=== PATIENT | female | born 1975 | race Caucasian/White ===

== ENCOUNTER 2022-02-03 07:26 | Emergency (ER) | payer SELFPAY ==
[2022-02-03 07:31] VITALS: BP 171/91; PULSE 49; RESP 18; TEMP 36.6; O2SAT 99; BMI 27.4
[2022-02-03 08:00] VITALS: BP 148/81; BP 154/87; PULSE 51; O2SAT 95; O2SAT 97
[2022-02-03 08:30] VITALS: BP 148/81; PULSE 95; O2SAT 51
--- NOTE | 2022-02-03 08:30 | CRLHL7_ITS ---
For Patients: As a result of the Century Cures Act, medical imaging exams and procedure reports are released immediately into your electronic medical record. You may view this report before your referring provider. If you have questions, please contact your health care provider. INDICATION: Upper chest pain. TECHNIQUE: Chest 2 views. COMPARISON: None. FINDINGS: Cardiovascular and mediastinum: Heart size and vasculature are normal in caliber and appearance. Lungs and pleural spaces: Lungs are clear. No sign of infiltrate or mass. No sign of pleural effusion. No pneumothorax. Bones and soft tissues: No significant findings. IMPRESSION: Negative chest. Dictated by Hudson Martinez MD @ 02/03/2022 8:57:08 AM (Electronically Signed)
--- NOTE | 2022-02-03 08:30 | ED.GENADULT ---
HPI - General Adult General Time Seen by Provider: 08:31 Date Seen: 02/03/22 Chief complaint: Shoulder Injury/Pain Stated complaint: Bilateral shoulder pain Time Seen by Provider: 02/03/22 08:05 Source: patient History of Present Illness HPI narrative: Kim is a 46-year-old female past medical history includes DVT on chronic anticoagulation with Eliquis, gastric ulcer status post perforation status post perforation, alcohol abuse, status post Layo-en-Y, bradycardia, depression and anxiety, chronic anemia presents to emergency department from work with bilateral shoulder pain. patient states that she had similar symptoms about 6 weeks ago, she was seen in the hospital and had imaging done. She works over at [employer], she has not been doing any lifting since her injury 6 weeks ago, today her bilateral shoulder pain has gotten worse, she did do some laundry yesterday. pain is on the anterior aspect of bilateral shoulders, a radiates up her neck. she denies any radiation to her back, she denies any chest pain or shortness of breath, she is not currently on a new medications. She denies any nausea vomiting, or abdominal pain, she denies any diarrhea. she took some extra-strength Tylenol last night, she is unable to take any ibuprofen due to her Layo-en-Y. pain is worse with sitting up or any type of movement with extension of her upper extremities. she denies any numbness or tingling. she denies any upper back pain. pain is worse with inspiration, she has not had any cough. She denies any fevers or chills. Related Data Previous Rx's Medication Instructions Recorded diazepam 5 mg tablet (Valium) 5 mg PO Q6H PRN #14 tabs 02/03/22 Allergies Allergy/AdvReac Type Severity Reaction Status Date / Time ondansetron [From Zofran] Allergy Verified 02/03/22 07:29 ibuprofen AdvReac Verified 02/03/22 07:29 Review of Systems Status of ROS: Reports: 10 or more systems reviewed and unremarkable except as noted in History and below PFSH PFS Social History Smoking Status: Never smoker Do you use any of these nicotine containing products: None Second hand tobacco smoke exposure: No How often do you have a drink containing alcohol: never How often do you have six or more drinks on one occasion: Never AUDIT-C Alcohol total score: 0 Non-prescribed substance use: denies use service: No Exam Narrative: Exam Narrative: General: no obvious distress sitting comfortably HEENT: pupils equal round reactive to light, extraocular muscles intact neck: tender to palpation bilateral SCM, nontender cervical spine full range of motion Lungs: clear to auscultation bilaterally heart: sinus bradycardia Muscle skeletal: minimal tenderness to empty can test bilaterally, minimal tenderness to internal-external rotation bilaterally,, she can abduct to 180?, tender to palpation the anterior deltoid and the sternocleidomastoids bilaterally, nontender cervical spine, full range of motion. nontender to palpation the upper thoracic paraspinal musculature. Abdomen: soft, nontender, bowel sounds present neuro: alert awake and oriented x3 Const: Vital Signs, click to edit/add: Vital Signs - 24 hr 02/03/22 07:31 02/03/22 08:00 02/03/22 08:00 Temperature 98 F Pulse Rate [Pulse Oximeter] 49 L 51 L 51 L Respiratory Rate 18 Blood Pressure [Ri ght Upper Arm] 171/91 H 148/81 H 154/87 H Pulse Oximetry 99 95 97 Oxygen Delivery Me thod Room Air Room Air Room Air 02/03/22 08:30 02/03/22 09:00 02/03/22 09:30 Temperature Pulse Rate [Pulse Oximeter] 95 49 L 51 L Respiratory Rate Blood Pressure [Ri ght Upper Arm] 148/81 H 158/89 H 149/88 H Pulse Oximetry 51 L 99 98 Oxygen Delivery Me thod Room Air Room Air Course Course Hospital Course: 8:15 AM: workup will include, labs including CBC, BMP, XR chest PA and lateral, will obtain EKG, ED point of care troponin, less likely cardiac or pulmonary embolism, patient is currently on Eliquis. To give her IM dose Valium 5 mg and Toradol 30 mg. seems more muscle skeletal. differential diagnosis include but not limited to fracture, sprain, contusion, dislocation, vascular damage, nerve damage, ligament damage, tendon damage as well as all etiologies less typical would be ACS, NSTEMI, PE, pneumonia, pleurisy as well as othe Reevaluation(s) Reevaluation #1: patient was updated on her EKG, imaging and lab results. EKG showed a sinus bradycardia with premature supraventricular complexes, bpm 51, this was unchanged from previous. CBC showed a chronic low hemoglobin 8.0, she had a 8.6 on 10/03. findings are consistent with chronic microcytic anemia, point of care troponin was negative, imaging showed no acute cardiopulmonary process. Metabolic panel within normal limits, total CK normal at 77. patient is feeling better after above care given, plan would be to discharge. She was given a short prescription for Valium 5/10 mg to be taken every 6 hours as needed for muscular pain, she should continue with 1000 mg Tylenol every 4-6 hours as well, since patient cannot take NSAIDs based on her history. She should follow up with her primary care provider Dr. Carlson over the next 7-10 days. Return precautions given. Time: 09:51 Vital Signs Vital signs: Initial Vital Signs Temperature 98 F 02/03/22 07:31 Temperature Source Temporal Artery Scan 02/03/22 07:31 Pulse Rate 49 L 02/03/22 07:31 Pulse Rhythm 02/03/22 07:31 Respiratory Rate 18 02/03/22 07:31 Blood Pressure 171/91 H 02/03/22 07:31 Blood Pressure Mean 117 02/03/22 07:31 Blood Pressure Position Supine 02/03/22 07:31 Pulse Oximetry 99 02/03/22 07:31 Oxygen Delivery Method 02/03/22 07:31 Vital Signs Temperature 98 F 02/03/22 07:31 Pulse Rate 49 L 02/03/22 07:31 Respiratory Rate 18 02/03/22 07:31 Blood Pressure 171/91 H 02/03/22 07:31 Pulse Oximetry 99 02/03/22 07:31 Oxygen Delivery Method 02/03/22 07:31 Temperature 98 F 02/03/22 07:31 Pulse Rate 51 L 02/03/22 09:30 Respiratory Rate 18 02/03/22 07:31 Blood Pressure 149/88 H 02/03/22 09:30 Pulse Oximetry 98 02/03/22 09:30 Oxygen Delivery Method 02/03/22 09:30 Medical Decision Making Lab Data Labs: Lab Results 02/03/22 02/03/22 Range/Units 08:56 08:56 WBC 10.02 (4.50-11.00) K/uL RBC 4.65 (4.00-5.20) m/uL Hgb 8.0 L (12.0-16.0) gm/dL Hct 28.2 L (33.0-51.0) % MCV 61 L (80-100) fL MCH 17 L (26-34) pg MCHC 28 L (32-36) gm/dL RDW Coeff of Galindo 20.9 H (11.5-15.5) % Plt Count 352 (140-440) K/uL Neut % (Auto) 80.2 H (42.0-72.0) % Lymph % (Auto) 9.8 L (20-44) % [place] % (Auto) 8.2 (0.0-11.0) % Eos % (Auto) 1.2 (0.0-7.0) % Baso % (Auto) 0.3 (0.0-3.0) % Neut # (Auto) 8.00 H (1.7-7.0) K/uL Lymph # (Auto) 1.00 (0.90-2.90) K/uL [place] # (Auto) 0.80 (0.00-0.90) K/UL Eos # (Auto) 0.12 (0.00-0.50) K/uL Baso # (Auto) 0.03 (0.00-0.30) K/uL Abs Immat Gran (auto) 0.03 (0.00-0.30) K/uL Sodium 139 (135-149) mmol/L Potassium 4.1 (3.6-5.1) mmol/L Chloride 104 (96-114) mmol/L Carbon Dioxide 28 (20-32) mmol/L BUN 8 (5-24) mg/dL Creatinine 0.7 (0.5-1.5) mg/dL Estimated Creat Clear 95.58 Estimated GFR 107 ml/min Glucose 102 (60-115) mg/dL Calcium 8.6 (8.4-10.6) mg/dL Total Creatine Kinase 77 (41-117) U/L Troponin I < 0.01 L (0.01-0.04) ng/mL Discharge Plan Discharge Clinical Impression: Bilateral shoulder pain Patient Disposition: Home, Self-Care Instructions: Shoulder Pain (ED) Activity Level: Activity as Tolerated Prescriptions: New diazepam [Valium] 5 mg tablet 5 mg PO Q6H PRNQty: 14 0RF Stand Alone Forms: MyHealth Info Instructions
[2022-02-03 09:00] VITALS: BP 158/89; PULSE 49; O2SAT 99
[2022-02-03 09:02] LABS: Basophils Absolute Auto 0.03 K/uL (0.00-0.30); Basophils Percent Auto 0.3 % (0.0-3.0); Eosinophils Absolute Auto 0.12 K/uL (0.00-0.50); Eosinophils Percent Auto 1.2 % (0.0-7.0); Hematocrit 28.2 % (33.0-51.0); Immature Granulocytes Abs Auto 0.03 K/uL (0.00-0.30); Lymphocytes Percent Auto 9.8 % (20-44); Mean Corpuscular HGB Conc 28 gm/dL (32-36); Mean Corpuscular Hemoglobin 17 pg (26-34); Mean Corpuscular Volume 61 fL (80-100); Monocytes Percent Auto 8.2 % (0.0-11.0); Neutrophils Percent Auto 80.2 % (42.0-72.0); Platelet Count* 352 K/uL (140-440); RDW Coefficient of Variation % 20.9 % (11.5-15.5); Red Blood Count 4.65 m/uL (4.00-5.20); White Blood Count* 10.02 K/uL (4.50-11.00)
[2022-02-03 09:04] LABS: Slide Review Reflex No
[2022-02-03] MEDS: KETOROLAC 30 MG/ML inj IM (09:07)
[2022-02-03] MEDS: diazePAM 5 MG/ML inj IM (09:09)
--- OUTSIDE RECORDS SUMMARY | 2022-02-03 09:16 | XMS_ITS | Clinical Summary ---
:1975 Author Organization [facility] [place] [address] Care Team Providers Name Role Phone Tushar Rutherford Primary Care Provider [phone] Ken Andrade MD Unavailable Allergies Active Allergy Reactions Severity Noted Date Comments Ibuprofen GI Upset High 04/13/2017 Sumatriptan Bradycardia 08/07/2019 Ketorolac Tromethamine GI Upset High 02/23/2020 Ondansetron Other - Describe In Comment 08/07/2019 Bradycardia Field Medications Medication Sig Dispensed Refills Start Date End Date Status eszopiclone (LUNESTA) Take 1 tablet by 30 tablet 1 08/07/2018 Active 3 mg mouth at bedtime. tabletIndications: Depression with anxiety acetaminophen Take 650 mg by 0 06/26/2019 Active (TYLENOL) 325 mg mouth every 6 tabletIndications: S/P hours if needed. gastric bypass Max acetaminophen dose: 4000mg in 24 hrs. LORazepam (ATIVAN) 0.5 Take 0.5 mg by 0 Active mg tab mouth 3 times daily if needed for Anxiety. ergocalciferol Take 1 capsule by 16 capsule 0 06/25/2020 Active (VITAMIN D2) 50,000 mouth every Monday unit and . capsuleIndications: Vitamin D deficiency ferrous sulfate 325 mg Take 1 tablet by 180 tablet 3 Active delayed release mouth 2 times tabletIndications: daily with meals. Other iron deficiency anemia FLUoxetine (PROZAC) 20 Take 60 mg by 0 Active mg capsule mouth once daily. gabapentin (NEURONTIN) Take 900 mg by 0 Active 600 mg tablet mouth 3 times daily. pantoprazole Take 1 Tablet (40 90 Tablet 3 11/03/2020 Active (PROTONIX) 40 mg mg) by mouth once delayed-release daily. tabletIndications: Gastroesophageal reflux disease with esophagitis without hemorrhage cyanocobalamin Inject 1 mL (1,000 3 mL 4 11/03/2020 Active (VITAMIN B12) 1,000 mcg) intramuscular mcg/mL every 4 weeks. injectionIndications: S/P gastric bypass, Annual physical exam insulin syringe-needle As directed. For 1 box 11/12/2020 Active U-100 0.3 mL 30 gauge administering x ndications: B12 vitamin B12 at deficiency home. cholecalciferol Take 1 Capsule 16 Capsule 0 11/30/2020 Active (VITAMIN D3) 50,000 (50,000 units) by unit mouth every Monday capsuleIndications: and . Vitamin D deficiency Women's Multivitamin Take 1 Tablet by 0 05/24/2021 Active 18 mg-400 mcg- 500 mouth once daily. mg-50 mcg tab QUEtiapine (SEROQUEL) Take 300 mg by 0 05/12/2021 Active 300 mg tablet mouth at bedtime. cholecalciferol, Take 1 Tablet 90 Tablet 2 06/15/2021 Active Vitamin D3, (Vitamin (5,000 units) by D-3) 5,000 unit tab mouth once daily. tabletIndications: Vitamin D deficiency, S/P total gastrectomy and Layo-en-Y esophagojejunal anastomosis, Overweight metFORMIN (GLUCOPHAGE Start with 500 mg 120 Tablet 0 Active XR) 500 mg and increase Extended-Release gradually by 500 tabletIndications: mg each week to Prediabetes max of 2000 mg daily ondansetron (ZOFRAN Place 1 Tablet (4 10 Tablet 0 10/03/2021 Active ODT) 4 mg mg) on the tongue disintegrating every 8 hours if tabletIndications: needed for Community acquired Nausea/Vomiting. 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 Difficulty reaching cecum. Consider cologuard. Rpt in 2023 Persistent severe sinus bradycardia 04/16/2017 Microcytic hypochromic anemia 04/14/2017 Acute gastric ulcer with perforation 04/13/2017 Acute hypokalemia 04/13/2017 Major depressive disorder, recurrent episode, in parti al or unspecified 04/30/2014 remission Encounter for long-term (current) use of other medicat ions 01/07/2014 Alcohol abuse, unspecified 10/20/2013 Vitamin D deficiency 09/11/2013 Anxiety state, unspecified 06/21/2012 Depression with anxiety 05/22/2012 Insomnia, unspecified 03/28/2012 S/P gastric bypass 03/28/2012 Overview: Revision of gastric bypass 06/26/2019 ADD (attention deficit disorder) 02/12/2010 Sterilization 12/23/2009 Migraines Gastroesophageal reflux disease Vomiting Colon cancer screening Marginal ulcer Incisional hernia with obstruction but no gangrene Incarcerated incisional hernia Pulmonary embolism Resolved Problems Problem Noted Date Resolved Date Alcoholism /alcohol abuse 04/12/2014 04/26/2017 Insomnia, unspecified 06/06/2012 06/06/2012 Major depression, recurrent 11/02/2009 04/30/2014 Overview: Diagnosed 1993 Used effexor, prozac ,welbutrin, zoloft, paxil no improvement most recently prozac in for 5 months and welbutrin 2008 for 1 year off meds for 1 month because they did not work [id number] used concerta for possible ADD MORBID OBESITY sp bariatric surgery 06/08/200610/14 Immunizations Name Administration Dates Next Due COVID-19 vaccine (Moderna 08/08/2020, 07/09/2020 100mcg/0.5mL) PF, MDV Hepatitis A (Adult) 06/04/2017, 10/03/2016 Hepatitis B (Adult) 04/26/2006, 05/05/2004 Hepatitis B (Peds) 10/03/2016 Influenza, IIV3 (Age >=3 years) 05/15/2014, 02/25/2013 Influenza, IIV4 06/22/2020, 03/28/2019, 04/14/2017, 05/12/2014 Td (Age >=7 Years) 12/19/2017 Tdap 06/04/2017, 05/15/2007 Family History Medical History Relation Name Comments Hypertension Father Diabetes Maternal Grandmother Hypertension Mother Obesity Mother Diabetes Other Coronary artery disease Paternal Grandfather Diabetes Paternal Grandfather Heart Disease Paternal Grandfather CABG at 70; in his 90's Hypertension Paternal Grandfather Relation Name Status Comments Brother Alive Daughter 1 Alive Daughter 2 Alive Father Alive Maternal Grandfather (Age 91) cancer Maternal Grandmother (Age 88) heart att ack Mother Alive Other Paternal Grandfather (Age 91) cancer Paternal Grandmother (Age 86) stroke Son 1 Alive Son 2 Alive Social History Tobacco Use Types Packs/Day Years Used Date Never Smoker 0 Smokeless Tobacco: Never Used Tobacco Cessation: Counseling Given: Yes Alcohol Use Standard Drinks/Week Comments No 0 (1 standard drink = 0.6 oz pure alcoho l) Sex Assigned at Date Recorded Female 06/22/2020 12:56 PM [employer] Obstetrics History Para Term AB IAB SAB Ectopic Multiple Living Live Births 5 3 1 2 2 0 0 0 1 4 4 Date Outcome GA Total Labor/2nd/3rd Weight Sex Delivery Anes PTL Karen A 1 A5 Name Clin Labor AB 04/17 Term 40w 4h 00m/ 3.86 kg M Vag Noemí /1993 0d (8 lb 8 ng oz) 01/04 36w 3h 00m/ 3.23 kg M Vag Noemí /1999 0d (7 lb ng 1.8 oz) 07/17 32w 1h 30m/ 1.43 kg F Vag Noemí /2007 0d (3 lb ng 2.6 oz) 07/17 32w 1h 30m/ 2.09 kg F Vag Noemí /2007 0d (4 lb ng 9.6 oz) 11/09 AB Last Filed Vital Signs Vital Sign Reading Time Taken Comments Blood Pressure 165/98 10/03/2021 10:07 AM CDT Pulse 41 10/03/2021 10:07 AM CDT Temperature 36.7 ??C (98 ??F) 10/03/2021 8:39 AM CDT Respiratory Rate 16 10/03/2021 8:39 AM CDT Oxygen Saturation 98% 10/03/2021 10:07 AM CDT Inhaled Oxygen Concentration - - Weight 81.6 kg (180 lb) 10/03/2021 8:39 AM CDT Height 167.6 cm (5' 6) 10/03/2021 8:39 AM CDT Body Mass Index 29.05 10/03/2021 8:39 AM CDT Plan of Treatment Health Maintenance Due Date Last Done Comments Pneumococcal series for age 19-64 07/30/1979 (1 - PCV) Hepatitis C screening for age 0307/30/1991 18-79 Mammogram for age 45-75 12/19/2019 12/18/2018, 12/18/2018 (Completed outside of [facility]), 04/26/2017 Depression screening for age 12+ 06/26/2021 06/26/2020, 03/2021, 06/22/2020, Additional history exists Pap test for age 21-65 12/19/2021 12/19/2018, 08/31/2015 (Completed outside of [facility]), 09/09/2011, Additional history exists Influenza for age 9-49 01/13/2022 06/22/2020, 03/28/2019, 04/14/2017, Additional history exists BMI (ht and wt on same day) for 06/15/2022 06/15/2021, 07/0 05/2020, age 18+ 09/11/2020, Additional history exists Colonoscopy through age 75 01/02/2024 01/01/2019, 9 Lipids for age 45-75 06/22/2025 06/22/2020, 12/19/2018, 03/02/2018, Additional history exists Tetanus booster 12/20/2027 12/19/2017, 06/04/2017, 05/15/2007, Additional history exists Tdap Completed 06/04/2017, 05/15/2007 COVID-19 vaccine series Completed 04/24/2021, 08/08/2020, 07/09/2020 Medical Devices Implanted Type Area Singeing Torch Operator Device Shelf Model / Identifier Expiration Serial / Date Lot Mesh Ventral [address] - [id number] N/A: Abdomen [employer] 09/09/2020 [id number] / Implanted: Qty: 1 on 02/20/2019 by Ken Andrade MD at [facility] / [id number] Mesh Ventral 7x10cm Phasix St - [id number] N/A: Abdomen [employer] 07/12/2020 [id number] / Implanted: Qty: 1 on 06/26/2019 by Ken Andrade MD at [facility] / [id number] Results Not on filefrom Last 3 Months Insurance Payer Benefit Plan / Subscriber ID Effective Dates Phone Addre ss Type Group PREFERRED ONE PREFERRED ONE [id number] 2020-Present [address] [address] [place] [address] Advance Directives Latest Code Status on File Code Status Date Activated Date Inactivated Comments Full Code 08/19/2020 3:14 AM 08/24/2020 4:07 PM Code Status Discussion: Discussed Full Code 07/24/2019 9:23 AM 07/28/2019 5:00 PM Full Code 07/19/2019 1:46 AM 07/19/2019 1:05 PM Full Code 07/05/2019 4:55 PM 07/07/2019 3:55 PM Full Code 06/26/2019 12:18 PM 06/29/2019 3:50 PM Code Status Discussion: Per Existing Order Care Teams Office Rn Relationship Specialty Start Date End Date Tushar Rutherford, JAMES - General Family Practice 04/19/17 [facility] [address] [address] [place] [id number] Ken Andrade MD Consulting Physician Surgery - General 05/16/19 [address] [address] [place] [id number]
--- OUTSIDE RECORDS SUMMARY | 2022-02-03 09:16 | XMS_ITS | Clinical Summary ---
:1975 Author Organization [facility] Address [address] [place] [address] Care Team Providers Name Role Phone May Aponte APRN, CNP Primary Care Provider [phone] Source Comments You are receiving this document as you are listed as the primary care provider,follow-up provider, or the patient has been referred to you for consultation.This is in compliance with the Medicare and Medicaid EHR Incentive Program,which states Providers who transition their patient to another setting of careor provider of care or refers their patient to another provider of care shouldprovide summarycare record for each transition of care or referral. [facility] Allergies Active Allergy Reactions Severity Noted Date Comments Ibuprofen Medium 02/23/2020 Ketorolac Tromethamine High 02/23/2020 Medications Medication Sig Dispensed Refills Start Date End Date Status multivitamin-mineral Take 1 Tab by mouth 0 Active sS ( AKA daily. CERTAVITE,MYADEC) tablet ferrous sulfate 325 Take 1 Tab by mouth 90 Tab 1 09/08/2015 Active (65 FE) MG tablet daily with breakfast. cyanocobalamin Inject 1,000 mcg 10 mL 1 02/20/2017 Active ([id number]) 1000 intramuscularly every MCG/ML 4 weeks. injectionIndications : Vitamin B12 deficiency (HRC) FLUoxetine (PROZAC) Take 1 Cap by mouth 90 Cap 3 02/20/2017 Active 10 MG every morning. capsuleIndications: Chronic post-traumatic stress disorder (HRC), Other specified depressive episodes NEEDLE, DISP, 23 G Inject 1 Device every 4 Each 3 7 Active (BD DISP NEEDLE) 23G 4 weeks. Use IM for X 1 b-12 injections Additional Information Patient not taking. Reported on 10/01/2021 topiramate (TOPAMAX) 50 MG Take 1 Tab by mouth 180 Tab 3 01/2017 Active tabletIndications: Chronic two times a day. post-traumatic stress disorder (HRC), Other specified depressive episodes Additional Information Patient not taking. Reported on 10/01/2021 acetaminophen (TYLENOL) 500 Take 500-1,000 mg by mouth 0 Active MG tablet every 4 hours as needed for Pain. Maximum acetaminophen dose is 4000 mg in 24 hours HYDROcodone-acetaminophen Take 1 Tablet by mouth 15 Tablet 0 1 Active (NORCO) 5-325 MG every 8 hours as needed tabletIndications: Other for Pain. closed fracture of distal end of right fibula, initial encounter Additional Information Patient not taking. Reported on 10/01/2021 buPROPion (WELLBUTRIN) 75 MG Take 75 mg by mouth. 0 Active tablet ergocalciferol (DRISDOL) 1.25 Take 50,000 Units by mouth. 0 06/25/2020 Active MG (42504 UT) capsule Vitamin D, Ergocalciferol, TAKE ONE CAPSULE BY MOUTH 0 06/23/2020 Active 1.25 MG (41424 UT) CAPS EVERY MONDAY AND MONDAY DIRECTED eszopiclone (LUNESTA) 3 MG Take 3 mg by mouth at 0 0 06/13/2020 Active tablet bedtime as needed. for sleep gabapentin (NEURONTIN) 300 MG Take 900 mg by mouth. 0 Active capsule gabapentin (NEURONTIN) 600 MG TAKE ONE AND ONE-HALF 0 05/13/2020 Active tablet TABLETS BY MOUTH THREE TIMES DAILY insulin syringe-needle 30G X As directed. For 0 12/2020 Active 1/2 inch 0.3 mL ([facility] administering insulin at [facility]IN [facility]ING[facility]) home. insulin syringe-needle 30G X As directed. For 0 06/15 Active 1/2 inch 0.3 mL ([facility] administering insulin at INSULIN [facility]YRING[facility]) home. LORazepam (ATIVAN) 0.5 MG Take 0.5 mg by mouth. 0 Active tablet LORazepam (ATIVAN) 0.5 MG TAKE ONE TABLET BY MOUTH 0 06/13/2020 Active tablet TWICE A DAY NEEDED FOR ANXIETY AND TAKE ONE TO TWO TABLETS BY MOUTH AT BEDTIME NEEDED FOR INSOMNIA naltrexone (REVIA) 50 MG Take 50 mg by mouth. 0 Active tablet QUEtiapine (SEROQUEL) 200 MG 0 05/31/2020 Active tablet QUEtiapine (SEROQUEL) 200 MG 0 05/31/2020 Active tablet QUEtiapine (SEROQUEL) 25 MG Take 100 mg by mouth. 0 Active tablet simethicone (MYLICON) 125 MG Chew and swallow 125 mg by 0 Active chewable tablet mouth. ALBUterol sulfate HFA 108 (90 Inhale 1-2 Puffs every 4 1 Each 0 10/01/2021 Active Base) MCG/ACT inhaler hours as needed for Wheezing. Active Problems Problem Noted Date Other specified depressive episodes 10/24/2016 Overview: Formatting of this note is dif ferent from the original. Psychiatry to Primary Care Hand-over Psychiatrist: Arnulfo Wei MD PCP: Dung Armas MD Last Visit with Psychiatry: 10/24/2016 Current Medication/s and dose/s: Prozac 10 QAM/Topamax 50 BID Medications tried and failed/Reason(s) f or discontinuation: Effexor XR/Paxil/Pristiq/Seroquel--no b enefit BZDs/Ambien--abused Adderall/Concerta--no longer feels she has attention deficit/hyperactivity disorder Recommendations/Plan of care: Continue p resent medications Recommended Labs Monitoring and Frequenc y: None required Last PHQ-9: PHQ-9 12/28/2015 10/01/2015 09/08/201508/3010/14/2014 07/14/2014 05/21/2014 PHQ9 Score - Smartform 1 0 0 0 2 1 20 Arnulfo Wei MD 10/24/2016, 5:48 PM Alcohol use disorder, severe, in sustained remission, dependence 10/01/2015 Sedative, hypnotic or anxiolytic use disorder, severe, 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 Psychiatry to Primary Care Hand-over Psychiatrist: Arnulfo Wei MD PCP: Dung Armas MD Last Visit with Psychiatry: 10/24/2016 Current Medication/s and dose/s: Prozac 10 QAM/Topamax 50 BID Medications tried and failed/Reason(s) f or discontinuation: Effexor XR/Paxil/Pristiq/Seroquel--no b enefit BZDs/Ambien--abused Adderall/Concerta--no longer feels she has attention deficit/hyperactivity disorder Recommendations/Plan of care: Continue p resent medications Recommended Labs Monitoring and Frequenc y: None required Last PHQ-9: PHQ-9 12/28/2015 10/01/2015 09/08/201508/3010/14/2014 07/14/2014 05/21/2014 PHQ9 Score - Smartform 1 0 0 0 2 1 20 Arnulfo Wei MD 10/24/2016, 5:48 PM Screening for malignant neoplasm of cervix 09/07/2015 Overview: PER VISIT NOTE DATED August: H x of abnormal paps: no 2015 NILM Negative HPV 40 y.o. Plan: Cotest 08/2020 ; Pap test history CAREPLAN: CONTROLLED SUBSTANCE 07/14/2014 Overview: Background: Hx Severe EtOH/Ambien/BZD Us e 05/2011 - 05/2014. Sober 06/04/2014. Goals: Continued sobriety/recovery. Recommendations: Do not prescribe Ambien /BZD (usless medically necessary). Arnulfo Wei MD 07/14/2014, 9:56 AM Psychiatry B12 deficiency 07/14/2014 S/P gastric bypass 07/14/2014 Overview: 2006 S/P breast augmentation 07/14/2014 Overview: 1995 S/P abdominoplasty 07/14/2014 Overview: 1997 Vitamin D deficiency 09/11/2013 Resolved Problems Problem Noted Date Resolved Date Alcohol use disorder, severe, in early remission 07/14/2014 10/01/2015 Sedative, hypnotic or anxiolytic use disorder, severe, in 10/01/2015 early remission Immunizations Name Administration Dates Next Due HepB Adult (Engerix-B, 20+ yrs, 3 dose series) 04/26/2006, 1 07/06/2003 Influenza, Unspecified Formulation 05/15/2014 Tdap 05/15/2007 Family History Medical History Relation Name Comments Coronary Artery Disease Maternal Grandmother Schizophrenia Maternal Grandmother Coronary Artery Disease Paternal Grandfather Cerebrovascular Disease Paternal Grandmother Coronary Artery Disease Paternal Grandmother Alcohol/Drug Abuse Paternal Uncle Cancer, Breast Negative Family History Relation Name Status Comments Father Alive Mother Alive Brother Alive Daughter 1 Yeimi Alive Daughter 2 Madeline Alive Maternal Grandmother Paternal Grandfather Paternal Grandmother Paternal Uncle Son 1 Raúl Alive Son 2 Desi Alive Social History Tobacco Use Types Packs/Day Years Used Date Smoking Tobacco: Never Smokeless Tobacco: Never Alcohol Use Standard Drinks/Week Comments No 0 (1 standard drink = 0.6 oz pure Sober 06/04/2014. Hx Severe Use alcohol) 05/2011-05/2014. Alcohol Habits Answer Date Recorded How often do you have a drink Not asked containing alcohol? How many drinks containing alcohol do Not asked you have on a typical day when you are drinking? How often do you have six or more Not asked drinks on one occasion? Comment: Sober 06/04/2014. Hx Severe Use 5 05/2011-05/2014. Sex Assigned at Date Recorded Not on file Last Filed Vital Signs Vital Sign Reading Time Taken Comments Blood Pressure 102/67 10/01/2021 5:55 PM CDT Pulse 78 10/01/2021 5:55 PM CDT Temperature 36.8 ??C (98.2 ??F) 10/01/2021 5:55 PM CDT Respiratory Rate 16 10/01/2021 5:55 PM CDT Oxygen Saturation 94% 10/01/2021 5:55 PM CDT Inhaled Oxygen Concentration - - Weight 88.5 kg (195 lb) 07/07/2020 12:24 PM [employer] Height 167.6 cm (5' 6) 07/07/2020 12:24 PM [employer] Body Mass Index 31.47 07/07/2020 12:24 PM [employer] Plan of Treatment Health Maintenance Due Date Last Done Comments Hep C Screening (Preventive 1975 Services) COVID-19 Vaccine (#1) 01/29/1974 Pneumococcal (1 - PCV) 07/30/1979 HIV Screening (Preventive 1989 Services) HepB (3) 08/25/2006 04/26/2006, 05/05/2004 Adult Preventive Visit 08/30/2016 08/31/2015 SMI: Fasting Lipid 08/30/2016 08/31/2015 SMI: Hgb A1C 02/20/2018 02/20/2017, 08/31/2015 Pap 08/30/2020 08/31/2015 Colonoscopy 12/09/2020 12/10/2015 Influenza (#1) 2022 03/05/2021, 06/22/2020, 03/28/2019, Additional history exists Zoster/Shingles (1 of 2) 07/30/2023 DTaP/Tdap/Td (4 - Tdap) 12/20/2027 12/19/2017, 06/04/2017, 05/15/2007 HepA Aged Out 06/04/2017, 10/03/2016 No longer eligible based on patient 's age to complete this topic Hib Aged Out No longer eligib le based on patient 's age to complete this topic IPV (Polio) Aged Out No longer eligib le based on patient 's age to complete this topic MCV4 Aged Out No longer eligib le based on patient 's age to complete this topic Insurance Payer Benefit Plan / Subscriber ID Effective Phone Address T ype Group Dates PREFERREDONE PREFERREDONE [id number] 2021-Pres [phone] OPEN ACCESS ent [id number] [place] [phone] Care Teams Surgical Resident Relationship Specialty Start Date End Date May Aponte V, ERCO MACHINE OPERATOR, FEATHER TRIMMER PCP - General 10/04/[address] [place] [address]
--- OUTSIDE RECORDS SUMMARY | 2022-02-03 09:16 | XMS_ITS | Encounter Summary ---
:1975 Author Organization [facility] Address [address] [facility] [address] Care Team Providers Name Role Phone JoMay pompa Evangelist ARREDONDO CNP Primary Care Provider Reason for Referral Procedure/Equipment (Routine) - Incomplete Specialty Diagnoses / Procedures Referred By Contact Refer red To Contact Diagnoses Fracture follow-up Jaime Gregg APRN, CNP Procedures XR Ankle Rt [address] [facility] [place] Rahman [address] Referral ID Status Reason Start Date Expiration Date Visits V isits Requested Authorized Incomplete 03/03/2020 06/02/2021 1 1 Reason for Visit Reason Comments ANKLE PAIN Encounter Details Date Type Department Care Team Description 03/03/2020 Office Visit [facility] Jaime Gregg, Sprain o f anterior talofibular ligament of right ankle, subsequent encounter (Primary Dx); [facility] ARREDONDO Fracture follow-up [address] [facility] [address] [facility] [place] Rahman [address] [place] [phone] (Wo rk) Social History Tobacco Use Types Packs/Day Years [...] Assigned at Date Recorded Not on file documented as of this encounter Patient Instructions Patient InstructionsJaime Gregg APRN, CNP - 03/03/2020 1:20 PM CDT Jaime Gregg CNP Foot & Ankle Specialist Medication Requests: Prescriptions are not filled on weekends or on weekdays after 3:00 PM Wear the boot for comfort purposes. After coming out of the boot you may begin the ankle exercises. Wear the ankle brace while outside for 4-6 weeks, then as needed. Follow-up as needed. documented in this encounter Progress Notes Jaime Gregg APRN, CNP - 03/03/2020 12:00 PM CDT NAME: OTTONIEL GAVIN MR#: [id number] CSN: [id number] AUTHENTICATING CLINICIAN: Jaime Gregg NP CONFIRM #: [id number] LOC: 711 CLINIC PROGRESS NOTE DATE OF VISIT: 03/03/2020 : 1975 CHIEF COMPLAINT: Right ankle injury with possible nondisplaced distal fibula fracture. HPI: Ottoniel is a pleasant 44-year-old female who presents for a 1 week followup with myself. Please seeprevious note by Dr. Hneriquez and myself on 02/22 and 02/24 respectively. The purpose of this visitis to re image the x-ray now that it has been 10 days from the date of the injury to determine if she does or does not have a fracture. Ottoniel states that she is doing well in the tall CAM boot. She is no longer needing the crutches as the pain has significantly reduced. PHYSICAL EXAM: Pleasant 44-year-old female in no acute distress. Pedal pulses palpable right foot. Integument warm and dry. Neurovascularly grossly intact. Swelling is down somewhat from the previous visit 7 days prior. Continues to have some discomfort noted to the area of the ATFL. IMAGING STUDIES: Three views of the right ankle were ordered and independently reviewed by myself and shown to the patient. When compared to the previous film on 02/22/2020 I do not see a fracture to the distal fibula in the area of question on the oblique view medial portion of the fibula at the level of the tibiotalar joint. No acute findings identified. Please see official note from Radiology in Epic. ASSESSMENT: Right ankle sprain. PLAN: The plan going for is for Ottoniel to wear her boot for comfort purposes. She may need another a week or 2 in the boot, but we will transition out on her own. I have given her an ASO ankle brace that she can wear when she comes out of the boot for 6 weeks, particularly outside until she is rehabilitated. I have also provided her with some home exercises that she can work for rehabilitation of her right ankle for a sprain. I did explain that certainly with ligamentous injury she can have some degree of pain and swelling and recovery for 3 months. As long as she is trending towards getting better, then followup with myself is p.r.n. If, however, she has any questions or concerns or something does not quite seem right then she would follow up at that time and I would need to get an MRI. Could also get an MRI prior to thevisit and following up to go over the results of the MRI itself. I find this unlikely. All questions were answered at this visit. All parties agree with the plan of care. Patient appearedpleased with this. DTW:MEDQ C: R:03/03/20 12:31 CONFIRM#:[id number] documented in this encounter Plan of Treatment Not on filedocumented as of this encounter Results XR Ankle Rt 3 Views (03/03/2020 11:58 AM CDT) Anatomical Region Laterality Modality Lower Extremity, Ankle, Foot & Ankle Dig ital Radiography Specimen (Source) Anatomical Collection Method Collection Time Re ceived Time Location / / Volume Laterality 03/03/2020 11:58 AM CDT Impressions 03/03/2020 12:48 PM CDT COMPARISON: ??02/23/2020 FINDINGS: ??3 views obtained. Redemonstr ation of focal sclerosis involving the medial aspect of the distal fibula, best seen on oblique view, which is nonspecific, though most likely reflects sequelae o f age-indeterminate trauma. The mortise joint is symmetric and well preserved. Redemonstration of bone island within the dorsal aspect of calcaneus centrally. Plantar and posterior calcaneal osseous spu rring again identified. No radiopaque fo reign body. Procedure Note Dannie Alexander MD - 03/03/2020Format ting of this note might be different from the original. IMPRESSION COMPARISON: 02/23/2020 FINDINGS: 3 views obtained. Redemonstrat ion of focal sclerosis involving the medial aspect of the distal fibula, best seen on oblique view, which is nonspecific, though most likely reflects sequelae of age-indeterminate trauma. The mortise joint is symmetric a nd well preserved. Redemonstration of bone island within the dorsal aspect of calcaneus centrally. Plantar and posterior calcaneal osseous spurring again identified. No radiopaque foreign body. Jaime Gregg MOLDER WAX BALL, INTEGRATION SOLUTION ARCHITECT RAD GD documented in this encounter Visit Diagnoses Diagnosis Sprain of anterior talofibular ligament of right ankle, subsequent encounter - Primary Fracture follow-up Treatment of healed fracture follow-up e xamination Fracture follow-up Treatment of healed fracture follow-up e xamination documented in this encounter Care Teams Correctional Supervisor Relationship Specialty Start Date End Date May Aponte V, MOLDER WAX BALL, INTEGRATION SOLUTION ARCHITECT PCP - General 10/04/17 [address] [place] [address] documented as of this encounter
--- OUTSIDE RECORDS SUMMARY | 2022-02-03 09:16 | XMS_ITS | Encounter Summary ---
:1975 Author Organization [facility] Address [address] [place] [address] Care Team Providers Name Role Phone Fadi Mayaleah Blanca APRN, CNP Primary Care Provider [phone] Reason for Visit Procedure/Equipment (Routine) - Incomplete Specialty Diagnoses / Procedures Referred By Contact Refer red To Contact Diagnoses Arthralgia of right ankle Yusef Henriquez Procedures XR Ankle Rt 3 Views F, [address] [place] [address] Referral ID Status Reason Start Date Expiration Date Visits V isits Requested Authorized [id number] Incomplete 02/23/2020 05/24/2021 1 1 Encounter Details Date Type Department Care Team Description 02/23/2020 [facility] Mega Henriquez, Arthralgia of right Procedure [place] [address] [address] F, ankle Radiology [address] [address] [place] [address] [phone] Social History Tobacco Use Types Packs/Day Years [...] on file documented as of this encounter Plan of Treatment Not on filedocumented as of this encounter Procedures Procedure Name Priority Date/Time Associated Diagnosis Comme nts XR ANKLE RT 3 VIEWS Routine 02/23/2020 11:32 AM Arthralgia of right Results for this CDT ankle procedure are i n the results section. documented in this encounter Results XR Ankle Rt 3 Views (02/23/2020 11:32 AM CDT) Anatomical Region Laterality Modality Lower Extremity, Ankle, Foot & Ankle Dig ital Radiography Specimen (Source) Anatomical Collection Method Collection Time Re ceived Time Location / / Volume Laterality 02/23/2020 11:22 AM CDT Impressions 02/23/2020 11:48 AM CDT COMPARISON: ??None. FINDINGS: ??No definite fracture or disl ocation is identified. ??Ankle mortise appears intact. Procedure Note Sinan Antoine MD - 02/23/2020Format ting of this note might be different from the original. IMPRESSION COMPARISON: None. FINDINGS: No definite fracture or disloc ation is identified. Ankle mortise appears intact. Marifel Mercedes Henriquez MD RAD GD documented in this encounter Visit Diagnoses Diagnosis Arthralgia of right ankle Pain in joint, ankle and foot documented in this encounter Care Teams Tile Machine Operator Relationship Specialty Start Date End Date May Aponte V, SHIRT FOLDER, THIRD MATE PCP - General 10/04/[address] [place] [address] documented as of this encounter
--- OUTSIDE RECORDS SUMMARY | 2022-02-03 09:16 | XMS_ITS | Encounter Summary ---
:1975 Author Organization [facility] Address [address], [place] [address] Care Team Providers Name Role Phone Fadi May Evangelist ARREDONDO CNP Primary Care Provider [phone] Reason for Referral Procedure/Equipment (Routine) - Incomplete Specialty Diagnoses / Procedures Referred By Contact Refer red To Contact Diagnoses Cough Fever, unspecified fever cause Altagracia Raza MD Procedures XR Chest [address] Views [address] [place], [place] [address] Referral ID Status Reason Start Date Expiration Date Visits V isits Requested Authorized [id number] Incomplete 10/01/2021 12/31/2022 1 1 Reason for Visit Reason Comments Cough Encounter Details Date Type Department Care Team Description 10/01/2021 Office Visit [place] [address] Altagracia Raza MD Cough; Urgent Care [address] Fever, unspecified fever cau se; [address] Pneumonia of right lung due to infectiou s organism, unspecified [place] [address] [phone] (Wo rk) Social History Tobacco Use Types [...] on file documented as of this encounter Last Filed Vital Signs Vital Sign Reading Time Taken Comments Blood Pressure 102/67 10/01/2021 5:55 PM CDT Pulse 78 10/01/2021 5:55 PM CDT Temperature 36.8 ??C (98.2 ??F) 10/01/2021 5:55 PM CDT Respiratory Rate 16 10/01/2021 5:55 PM CDT Oxygen Saturation 94% 10/01/2021 5:55 PM CDT Inhaled Oxygen Concentration - - Weight - - Height - - Body Mass Index - - documented in this encounter Progress Notes Altagracia Raza MD - 10/01/2021 6:40 PM CDT Rooming Notes: Pt is a 46 year old female who presents with a cough. Pt states she was cleaning yesterday and wonders if she inhaled to many chemicals. Pt is reporting a crackling feeling in her lungs and a slight cough. Pt is wondering if she has pneumonia. Pt reports some SOB but is speaking in complete sentences during triage. Pt reports a fever of 103 this morning. Pt took tylenol and has been around 99.5 since. Pt states she was COVID positive 4 weeks ago and continually tested positive until last week. Subjective: 46-year-old here for cough and high fever. She is recuperating from COVID, diagnosed 4 weeks ago. She has been completely vaccinated to COVID. 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 She felt it made her cough a lot more and then she noticed the high fever today. She feels a little bit short of breath and her lungs were making a lot of noises last night. She has used albuterol infrequently in the past, but otherwise she is not asthmatic and she does not smoke. She is not prone to pneumonia. Sheis not bringing up that much sputum, no hemoptysis, no vomiting or diarrhea. She also denies any significant chest pain, minimal shortness of breath. Objective: Vitals Signs: BP 102/67 (BP Location: Right Arm, BP Cuff Size: Regular) Pulse 78 Temp 36.8 ??C (98.2 ??F) (Oral) Resp 16 SpO2 94% She is breathing comfortably, no visible respiratory distress. ENT: No redness of eardrums, sinus turbinates or oropharynx. Neck: Supple without lymphadenopathy. Lungs: Very rare end-expiratory wheeze, breath sounds sound a bit more diminished in the bases but Mushtaq not hearing any definite rales. Cardiac: No murmur. MDM/Assessment: Chest x-ray shows fairly large consolidation in the right middle and right upper lobe very suspicious for pneumonia, left side is clear. Radiology report confirms, radiologist recommending 6-8 week follow-up on the chest x-ray after treatment. Visit Diagnoses: 1. Cough 2. Fever, unspecified fever cause 3. Pneumonia of right lung due to infectious organism, unspecified part of lung Plan: Choosing dual agent with azithromycin/Z-Hunter and Augmentin with directions. Also prescribing albuterol for the wheezing with directions. Reviewed time frame for improvement and then plan to recheck chest x-ray in about 6 weeks with her primary care provider. Patient shows understanding. documented in this encounter Nursing Notes Florentin Gonzales - 10/01/2021 6:40 PM CDT Pt is a 46 year old female who presents with a cough. Pt states she was cleaning yesterday and wonders if she inhaled to many chemicals. Pt is reporting a crackling feeling in her lungs and a slight cough. Pt is wondering if she has pneumonia. Pt reports some SOB but is speaking in complete sentences during triage. Pt reports a fever of 103 this morning. Pt took tylenol and has been around 99.5 since. Pt states she was COVID positive 4 weeks ago and continually tested positive until last week. documented in this encounter Plan of Treatment Not on filedocumented as of this encounter Results XR Chest 2 Views (10/01/2021 6:55 PM CDT) Anatomical Region Laterality Modality Chest, Lung Digital Radiography Specimen (Source) Anatomical Collection Method Collection Time Re ceived Time Location / / Volume Laterality 10/01/2021 6:45 PM CDT Impressions 10/01/2021 7:02 PM CDT COMPARISON: ??07/07/2020 FINDINGS: ??Two views were obtained. Den se consolidation in the right middle lobe and right upper lobe, concerning for pneumonia. The left lung is clear. No significant pleural effusion or pneumothorax. Cardiac silhouette is unremarkable. No acute bony abnormality. Six to 8-week follow-up chest x-ray is r ecommended after completion of treatment for patients at higher risk of underlying malignancy, particularly those > 50 years of age and smokers or former smoke rs. If not significantly improved on fol low-up, CT would be recommended. Procedure Note Oziel Euceda MD - 10/01/2021Format ting of this note might be different from the original. IMPRESSION COMPARISON: 07/07/2020 FINDINGS: Two views were obtained. Dense consolidation in the right middle lobe and right upper lobe, concerning for pneumonia. The left lung is clear. No significant pleural effusion or pneumothorax. Cardiac silhouette is unremarkable. No acute bon y abnormality. Six to 8-week follow-up chest x-ray is r ecommended after completion of treatment for patients at higher risk of underlying malignancy, particularly those > 50 years of age and smokers or former smokers. If not significantly improved on follow-up, CT would be recommended. Altagracia Raza MD RAD GD documented in this encounter Visit Diagnoses Diagnosis Cough Fever, unspecified fever cause Pneumonia of right lung due to infectiou s organism, unspecified part of lung Cough Fever, unspecified fever cause documented in this encounter Care Teams Wastewater Treatment Supervisor Relationship Specialty Start Date End Date May Apotne V, SAP PORTAL CONSULTANT, SENIOR SALES ENGINEER PCP - General 10/04/[address] [place] [address] documented as of this encounter
--- OUTSIDE RECORDS SUMMARY | 2022-02-03 09:16 | XMS_ITS | Encounter Summary ---
:1975 Author Organization [facility] Address [address], [place] [address] Care Team Providers Name Role Phone May Aponte APRN, CNP Primary Care Provider [phone] Reason for Visit Procedure/Equipment (Routine) - Incomplete Specialty Diagnoses / Procedures Referred By Contact Refer red To Contact Diagnoses Rib injury Abisai Jung, Procedures XR Ribs Rt W 1 View Chest [address] [place], [place] [address] Referral ID Status Reason Start Date Expiration Date Visits V isits Requested Authorized [id number] Incomplete 07/07/2020 10/06/2021 1 1 Encounter Details Date Type Department Care Team Description 07/07/2020 Ancillary Procedure Abisai Henderson, Ri b injury [place] [address] DO Radiology [address] [address] [place] [id number] [phone] Social History Tobacco Use Types Packs/Day Years [...] Priority Date/Time Associated Diagnosis Comme nts XR RIBS RT W 1 VIEW STAT 07/07/2020 12:41 PM Rib injury R esults for this CHEST ROLL ON MAN procedure are i n the results section. documented in this encounter Results XR Ribs Rt W 1 View Chest (07/07/2020 12:41 PM ROLL ON MAN) Anatomical Region Laterality Modality Chest Digital Radiography Specimen (Source) Anatomical Collection Method Collection Time Re ceived Time Location / / Volume Laterality 07/07/2020 12:29 PM ROLL ON MAN Impressions 07/07/2020 12:51 PM ROLL ON MAN COMPARISON: ??None. FINDINGS: ??Three views were obtained. ? ?The lungs and lateral costophrenic angles are clear. ??Heart size and pulmonary vascularity are within normal limits. ??There is no evidence of acute fracture, d islocation or other osseous abnormality of the right ribs. No effusion or pneumothorax noted. Procedure Note Humberto Gillespie MD - 07/07/2020For matting of this note might be different from the original. IMPRESSION COMPARISON: None. FINDINGS: Three views were obtained. The lungs and lateral costophrenic angles are clear. Heart size and pulmonary vascularity are within normal limits. There is no evidence of acute fracture, dislocation or other osseous abnormality of the right ribs. N o effusion or pneumothorax noted. Abisai SUÁREZ GD documented in this encounter Visit Diagnoses Diagnosis Rib injury Sprain of ribs documented in this encounter Care Teams Photocomposing Keyboard Operator Relationship Specialty Start Date End Date May Aponte V, CLINICAL NURSING INSTRUCTOR, GLASS DESIGNER PCP - General 10/04/17 [address] [place] [address] documented as of this encounter
--- OUTSIDE RECORDS SUMMARY | 2022-02-03 09:16 | XMS_ITS | Encounter Summary ---
:1975 Author Organization [facility] Address [address] [place] [address] Care Team Providers Name Role Phone May Aponte APRN, CNP Primary Care Provider [phone] Reason for Referral Procedure/Equipment (Routine) - Incomplete Specialty Diagnoses / Procedures Referred By Contact Refer red To Contact Diagnoses Rib injury Abisai Jung DO Procedures XR Ribs Rt W 1 View Chest [address] [facility] [address] [place], [place] [address] Referral ID Status Reason Start Date Expiration Date Visits V isits Requested Authorized [id number] Incomplete 07/07/2020 10/06/2021 1 1 TENANCE DEPARTMENT TECHNICIAN Reason for Visit Reason Comments Rib Injury Right, DOI: 07/07/20, TANYA: fe ll against banister of stairs Encounter Details Date Type Department Care Team Description 07/07/2020 Office Visit Abisai Lomax, Rib inj ury (Primary Orthopedic Urgent DO Dx) Care [address] [facility] [address] [address] [place] [phone] Social History Tobacco Use Types Packs/Day Years [...] Sign Reading Time Taken Comments Blood Pressure - - Pulse - - Temperature 36.2 ??C (97.1 ??F) 07/07/2020 12:24 PM MAINTENANCE DEPARTMENT TECHNICIAN Respiratory Rate - - Oxygen Saturation - - Inhaled Oxygen Concentration - - Weight 88.5 kg (195 lb) 07/07/2020 12:24 PM MAINTENANCE DEPARTMENT TECHNICIAN Height 167.6 cm (5' 6) 07/07/2020 12:24 PM MAINTENANCE DEPARTMENT TECHNICIAN Body Mass Index 31.47 07/07/2020 12:24 PM MAINTENANCE DEPARTMENT TECHNICIAN documented in this encounter Patient Instructions Patient InstructionsBlair Birmingham, ATC - 07/07/2020 11:[address] Jose Jung, DO Sports & Orthopedic Medicine Acute [facility] Medication Requests: Prescriptions are not filled on Weekends or on Weekdays after 3:00PM For all medication refills: Request a refill using MyChart or contact your Pharmacy MRI Scheduling: To schedule an MRI at [facility] please call [phone] Paperwork Requests: Questions regarding FMLA or disability paperwork please call [phone] Phone lines are answered 8AM to 5PM Monday - Monday. General Scheduling: To schedule an appointment, please call [phone] [facility] Nurse Line: [phone] Workers??? Compensation: Please contact our department for any Work Comp concerns at Email: [email or web address] Diagnosis: 1. Rib injury Plan: Follow Up: As needed if symptoms are not improving or worsen. If you have any questions regarding your visit or next steps, please contact us at [phone]. Return to Work: You were provided a copy of a Return to Work letter today detailing recommendations regarding your ability to work. Please provide copies to your employer. 1000 mg tylenol three times per day as needed for pain -Consider lidocaine patches Imaging Equipment Analyst: [address] Elissa - [facility] [address] [place] [address]. Call [phone] to schedule. Medication Requests: Prescriptions are filled on Weekdays before 3:00PM For all medication refills: Request a refill using The[facility] or contact your Pharmacy Paperwork Requests: FMLA or disability paperwork can be faxed to: [place] - [phone] Please allow 7-10 business days for completion of all paperwork. [employer] Worker's Compensation Services: E-mail Address: [email or web address] To request copies of your medical records, call: [phone] (option 4) TENANCE DEPARTMENT TECHNICIAN documented in this encounter Progress Notes Abisai Jung DO - 07/07/2020 12:00 PM CST NAME: OTTONIEL GAVIN MR#: [id number] CSN: [id number] AUTHENTICATING CLINICIAN: Abisai Jung DO CONFIRM #: [id number] LOC: 5311 CLINIC PROGRESS NOTE DATE OF VISIT: 07/07/2020 : 1975 HPI: This is a 44-year-old female who presents regarding a right rib injury. She was going down the stairs of her home last night. She ended up missing the last stair and she ended up stumbling. She ended up hitting the banister along the side of the stairs with her right side and rib cage. She had fairly sudden onset of pain to the right side of her lower rib cage and she has had some ongoing discomfort since. She had some discomfort with sleep last night and continues to note some pain today. She worksas a registered nurse and she seemed to have some discomfort at work today, which prompted the visit. She notes pain when she takes deep breaths as well as when she coughs and sneezes. She has been taking Tylenol for her discomfort and she has questions regarding ongoing management. She denies any feelings of her shortness of breath. No prior rib injuries that she can recall. PAST MEDICAL HISTORY: Reviewed and updated. MEDICATIONS: Per Epic. ALLERGIES: Toradol. 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 She is right-hand dominant. She is a nonsmoker. REVIEW OF SYSTEMS: She denies any fevers, chills, or rashes. She denies any shortness of breath. No numbness or tingling noted to her lower extremities. She denies any abdominal discomfort. PHYSICAL EXAM: VITAL SIGNS: Height 5 feet 6 inches, weight 195 pounds, temp 97.1. GENERAL: This is a [id number]-old female. She appears comfortable and in no distress. MUSCULOSKELETAL: Chest wall exam shows no visible deformity. Nontender over the midline of her thoracolumbar spine. Nontender over her thoracolumbar paraspinal musculature. She is nontender over her sternum. She does have diffuse discomfort over the anterior aspect of her right lower rib cage. No specific point bony tenderness that I appreciate. No bruising or skin changes noted. LUNGS: She has adequate chest wall rise on respirations. Normal respiratory effort. Lung sounds are clear to auscultation bilaterally. ABDOMEN: Soft, nondistended. Nontender to palpation. No rebound or guarding appreciated. IMAGING STUDIES: Right rib radiographs were obtained in clinic and reviewed by myself. I see no evidence of acute fracture and no evidence of pneumothorax. ASSESSMENT: Right rib contusion. PLAN: We discussed her current findings. Reassurance was given that I see no evidence of acute fracture. Iadvised conservative treatment at this time. She will continue ice, [id number] Tylenol and other conservative measures. We discussed the role of lidocaine patches as necessary. Anticipate slow imp rovement over the next few weeks. She was given a work note allowing her to resume work duties as 07/10/2020 as pain allows. She will follow up in our clinic if she is not progressing over the next few weeks or if any new symptoms develop. GAURI:MEDQ C: R:07/07/20 15:36 CONFIRM#:[id number] TENANCE DEPARTMENT TECHNICIAN documented in this encounter Plan of Treatment Not on filedocumented as of this encounter Results XR Ribs Rt W 1 View Chest (07/07/2020 12:41 PM MAINTENANCE DEPARTMENT TECHNICIAN) Anatomical Region Laterality Modality Chest Digital Radiography Specimen (Source) Anatomical Collection Method Collection Time Re ceived Time Location / / Volume Laterality 07/07/2020 12:29 PM MAINTENANCE DEPARTMENT TECHNICIAN Impressions 07/07/2020 12:51 PM MAINTENANCE DEPARTMENT TECHNICIAN COMPARISON: ??None. FINDINGS: ??Three views were obtained. [...] N o effusion or pneumothorax noted. Abisai Jung DO RAD GD documented in this encounter Visit Diagnoses Diagnosis Rib injury - Primary Sprain of ribs Rib injury Sprain of ribs documented in this encounter Care Teams Remnant Sorter Relationship Specialty Start Date End Date May Aponte V, FOREST FIRE OFFICER, LINES TENDER PCP - General 10/04/17 [address] [place] [address] documented as of this encounter
--- OUTSIDE RECORDS SUMMARY | 2022-02-03 09:16 | XMS_ITS | Encounter Summary ---
:1975 Author Organization [employer] [facility] Address [address] [address] Care Team Providers Name Role Phone Fadi May Evangelist ARREDONDO CNP Primary Care Provider [phone] Reason for Visit Procedure/Equipment (Routine) - Incomplete Specialty Diagnoses / Procedures Referred By Contact Refer red To Contact Diagnoses Cough Fever, unspecified fever cause Altagracia Raza MD Procedures XR Chest 2 Views [address] [place], [place] [address] Referral ID Status Reason Start Date Expiration Date Visits V isits Requested Authorized [id number] Incomplete 10/01/2021 12/31/2022 1 1 Encounter Details Date Type Department Care Team Description 10/01/2021 Ancillary [facility] Radiology Altagracia Raza, Cough; Procedure [id number] MD Fever, unspecified fever [place], [place] [address] [phone] [address] [phone] [place] [address] Social History Tobacco Use Types Packs/Day Years [...] Priority Date/Time Associated Diagnosis Comme nts XR CHEST 2 VIEWS STAT 10/01/2021 6:55 PM Cough Results for this CDT Fever, unspecified procedure are in fever cause the results section. documented in this encounter Results XR Chest 2 Views [...] Diagnoses Diagnosis Cough Fever, unspecified fever cause documented in this encounter Care Teams Homicide Squad Sergeant Relationship Specialty Start Date End Date May Aponte V, ORDER SELECTOR, PERL PROGRAMMER PCP - General 5/23/18 [address] [place] [address] documented as of this encounter
--- OUTSIDE RECORDS SUMMARY | 2022-02-03 09:16 | XMS_ITS | Encounter Summary ---
:1975 Author Organization [facility] Address [address] [place] [address] Care Team Providers Name Role Phone Fadi Mayaleah Blanca APRN, CNP Primary Care Provider [phone] Reason for Referral Procedure/Equipment (Routine) - Closed Specialty Diagnoses / Procedures Referred By Contact Refer red To Contact Diagnoses Other closed fracture of distal end of right fibula, initial encounter Yusef Henriquez Procedures Crutches Aluminum([id number]) MD [place] [address] [place] [address] Referral ID Status Reason Start Date Expiration Date Visits Requ ested Visits Authorized [id number] Closed 02/23/2020 05/24/2021 1 1 Procedure/Equipment (Routine) - Incomplete Specialty Diagnoses / Procedures Referred By Contact Refer red To Contact Diagnoses Arthralgia of right ankle Yusef Henriquez Procedures XR Ankle Rt 3 Views MD [place] [address] [place] [address] Referral ID Status Reason Start Date Expiration Date Visits V isits Requested Authorized [id number] Incomplete 02/23/2020 05/24/2021 1 1 Reason for Visit Reason Comments ANKLE PAIN Right, TANYA; Rolled it trying to take shoe off DOI; 02/22/20 Encounter Details Date Type Department Care Team Description 02/23/2020 Office Visit [facility] Long Arthra lgia of right ankle (Primary Dx); Orthopedic Urgent Mercedes Agee MD Other closed fracture of distal end of r ight fibula, initial encounter Care [address] [address] [place] [address] [id number] [phone] Social History Tobacco Use Types Packs/Day Years [...] - - Temperature 36.2 ??C (97.1 ??F) 02/23/2020 11:17 AM CDT Respiratory Rate - - Oxygen Saturation - - Inhaled Oxygen Concentration - - Weight 88.5 kg (195 lb) 02/23/2020 11:17 AM CDT Height 167.6 cm (5' 6) 02/23/2020 11:17 AM CDT Body Mass Index 31.47 02/23/2020 11:17 AM CDT documented in this encounter Patient Instructions Patient InstructionsAlfredo Mckeon, ATC - 02/23/2020 11:[address] Mercedes Henriquez MD Sports & Orthopedic [facility] Medication Requests: Prescriptions are not filled on Weekends or on Weekdays after 3:00PM For all medication refills: Request a refill using MyChart or contact your Pharmacy MRI Scheduling: To schedule an MRI at [facility] please call [phone] Paperwork Requests: Questions regarding FMLA or disability paperwork please call [phone] Phone lines are answered 8AM to 5PM Monday - Monday. General Scheduling: To schedule an appointment, please call [phone] DELILAH Badillo [facility] Nurse Line: [phone] Workers??? Compensation: Please contact our department for any Work Comp concerns at Email: [email or web address] Diagnosis: Right distal fibula fracture Plan: - Follow up on Saturday 02/24 at 1pm - Tylenol - Hydrocodone, at bedtime, up to 3x/day for severe pain - Elevation: Keep the injured part above the level of your heart, when possible, as it will help reduce swelling. It is recommended to elevate 15-20 minutes, 3-4 times per day. - Non-weight bearing documented in this encounter Progress Notes Yusef Henriquez MD - 02/23/2020 12:00 PM CDT NAME: KIM GAVIN MR#: [id number] CSN: [id number] AUTHENTICATING CLINICIAN: Yusef Henriquez MD CONFIRM #: [id number] LOC: CLINIC PROGRESS NOTE DATE OF VISIT: 02/23/2020 : 1975 CHIEF COMPLAINT: Right ankle injury. HISTORY: Kim is a 44-year-old the female, presents to the [facility] today for evaluation of a right ankle injury from yesterday. She was trying to take her shoe off and rolled her ankle. She was wearing Dansko. Since then, she has been experiencing severe ankle pain and swelling for the last 13 hours. Pain is at the lateral aspect of the ankle and in the joint. She has taken acetaminophen twice, 1000 mg. Pain is moderate to severe. She is unable to bear weight. This got worse since early this morning. Any movement causes discomfort. REVIEW OF SYSTEMS: Denies any fever or chills. No rash. No numbness or tingling. No other joint problems. No focal weakness. No stomach problems. PAST MEDICAL HISTORY: History of Layo-en-Y gastric bypass. No prior surgeries in the ankle. Problem list and medication list reviewed in Epic. FAMILY HISTORY: Positive for diabetes and heart problems. SOCIAL HISTORY: She does not smoke. 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 EXAMINATION: GENERAL: Patient is awake, alert, not in acute distress. RIGHT ANKLE EXAM: Positive for an effusion and lateral ankle swelling. No redness or warmth over the joint. No abrasions or bruising. She is tender on palpation of the anterior ankle joint and at the medial aspect of the distal fibula. No tenderness on palpation of the lateral malleolus, medial malleolus or navicular. Range of motion of the ankle is decreased. No palpable gaps at the Achilles tendon region. Negative Sanches test. Negative squeeze test. She is not tender on palpation of the proximal fibula. NEUROVASCULAR: Normal sensation to light touch right lower extremity. No distal edema. No cyanosis. +2 dorsalis pedis pulse. IMAGING: I reviewed the plain films of the right ankle with Kim today, these were weightbearing views. My independent review: On the oblique view, the medial aspect of the distal fibula is irregular with sclerosis, suspicious for a nondisplaced fracture. Ankle mortise intact. No other fractures noted. ASSESSMENT: Right ankle injury, suspect nondisplaced distal fibula fracture. PLAN: A short-leg splint was applied. She was fitted with crutches. Advised nonweightbearing. May progresstoe-touch weightbearing as tolerated. Pain medication prescribed. See patient instructions below forfurther details. We have arranged followup with foot and ankle surgery early next week. Patient agrees with the treatment plan. All questions answered. She was advised to call with any new concerns or worsening symptoms. MFF:MEDQ C: R:02/23/20 13:49 CONFIRM#:[id number] documented in this encounter Plan of Treatment [...] ation is identified. Ankle mortise appears intact. Sandrafel Mercedes Henriquez MD RAD GD documented in this encounter Visit Diagnoses Diagnosis Arthralgia of right ankle - Primary Pain in joint, ankle and foot Other closed fracture of distal end of r ight fibula, initial encounter Arthralgia of right ankle Pain in joint, ankle and foot documented in this encounter Care Teams Meter/Relay Craftsman Relationship Specialty Start Date End Date May Aponte V, TAPE MACHINE TAILER, HAIR AND MAKEUP DESIGNER PCP - General 10/04/17 [address] [place] [address] documented as of this encounter
--- OUTSIDE RECORDS SUMMARY | 2022-02-03 09:16 | XMS_ITS | Encounter Summary ---
:1975 Author Organization [facility] Address [address] [place] [address] Care Team Providers Name Role Phone Fadi Mayaleah Blanca APRN, CNP Primary Care Provider Reason for Visit Procedure/Equipment (Routine) - Incomplete Specialty Diagnoses / Procedures Referred By Contact Refer red To Contact Diagnoses Fracture follow-up Jaime Gregg APRN, CNP Procedures XR Ankle Rt [address] [place] [address] Referral ID Status Reason Start Date Expiration Date Visits V isits Requested Authorized Incomplete 03/03/2020 06/02/2021 1 1 Encounter Details Date Type Department Care Team Description 03/03/2020 Ancillary [facility] Jaime Gregg, Fracture follow-up Procedure [address] [facility] [address] [place] [address] [phone] Social History Tobacco Use Types Packs/Day Years [...] nts XR ANKLE RT 3 VIEWS Routine 03/03/2020 11:58 AM Fracture follo w-up Results for this CDT procedure are i n the results section. [...] identified. No radiopaque foreign body. Jaime Gregg APRN, HR INTERNSHIP RAD GD documented in this encounter Visit Diagnoses Diagnosis Fracture follow-up Treatment of healed fracture follow-up e xamination documented in this encounter Care Teams Civil Division Commander Deputy Sheriff Relationship Specialty Start Date End Date May Aponte V, SOIL SCIENCE PROFESSOR, HR INTERNSHIP PCP - General 10/04/[address] [place] [address] documented as of this encounter
--- OUTSIDE RECORDS SUMMARY | 2022-02-03 09:16 | XMS_ITS | Encounter Summary ---
:1975 Author Organization [facility] Address [address] [place] [address] Care Team Providers Name Role Phone May Aponte APRN, CNP Primary Care Provider [phone] Reason for Visit Reason Comments ANKLE PAIN Encounter Details Date Type Department Care Team Description 02/25/2020 Office Visit [facility] Jaime Gregg, Injury o f right [facility] [address] ankle, initial [address] encounter ([place], [place] [address] [place], [place] Dx) [phone] (Wo rk) Social History Tobacco Use Types [...] Instructions Patient InstructionsJaime Gregg APRN, CNP - 02/25/2020 1:00 PM CDT Jaime Gregg CNP Foot & Ankle Specialist Medication Requests: Prescriptions are not filled on weekends or on weekdays after 3:00 PM Wear the boot for all walking. Bear weight as tolerated by pain. May have the boot off for sleep, rest, hygiene, and to drive. Follow-up in 1 week for a repeat x-ray. documented in this encounter Progress Notes Jaime Gregg APRN, CNP - 02/25/2020 12:00 PM CDT NAME: OTTONIEL GAVIN MR#: [id number] CSN: [id number] AUTHENTICATING CLINICIAN: Jaime Gregg NP CONFIRM #: [id number] LOC: 711 CLINIC PROGRESS NOTE DATE OF VISIT: 02/25/2020 : 1975 CHIEF COMPLAINT: Right ankle injury with possible nondisplaced distal fibula fracture. HPI: Ottoniel is a pleasant 44-year-old female, who presents for initial consult with me regarding ongoing care of her right ankle. She did have an injury on 02/22/2020, where she was standing on her right foot in a Dans[employer] taking off her left shoe when she rolled her ankle and inverted her foot. She had significant pain and swelling, difficulty bearing weight. Had taken acetaminophen 1000 mg twice and thenext morning was having pain and ultimately brought herself to [facility] and was evaluated by Dr. Mercedes Henriquez, had x-rays of her right ankle. The report from Radiology shows no fracture.However, Dr. Henriquez mentioned on the oblique view, the medial aspect of the distal fibula, there was some irregularity with sclerosing, suspicious for a possible nondisplaced fracture. She was givena short-leg splint, given crutches. Advised nonweightbearing, made progress to toe-touch weightbearing as tolerated. She was given #15 tablets of Challenge and was to follow up in Foot [facility] Ankle. She does p resent today for that followup. She states that she has been doing some toe touching. As a matter offact, for pivoting, she has been able to do some, where she puts her whole foot down and then will do a full weightbearing a few steps here or there. Overall, she states that she is doing okay. 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 CURRENT MEDICAL CONDITIONS, PREVIOUS SURGERIES, MEDICATIONS, ALLERGIES, SOCIAL HISTORY, RISK FACTORS, REVIEW OF SYSTEMS, FAMILY MEDICAL HISTORY: Reviewed and updated in [facility]. PHYSICAL EXAM: GENERAL: Pleasant 44-year-old female, no acute distress. VITAL SIGNS: Height of 5 feet 6 inches, weight 105 pounds. EXTREMITIES: Pedal pulses palpable, right foot. Integument is warm and dry. Neurovascularly grossly intact. There is a significant amount of edema noted to the lateral ankle. Swelling more lateral than medial. Minimal pain noted with palpation to the deltoid ligamentous complex. No painnoted to the medial malleolus. Very minimal if any pain on palpation directly over the area of concern for possible fracture, distal fibula, at the level of the ankle joint. There is, however, significant pain to palpation noted to the area of the anterior talofibular ligament and to a lesser degree, calcaneofibular ligament. IMAGING STUDIES: Three views of the right ankle from 02/22/2020 were reviewed independently by me and while I do see the sclerosing on the oblique view, the medial aspect of the fibula at the level of the ankle joint, I do not appreciate an obvious fracture. Please see images in Epic. ASSESSMENT: Right ankle sprain, possibility of having a distal fibula nondisplaced fracture. PLAN: I explained to Ottoniel that I am not quite so sure if she does or does not have a fracture as of yet. I am leaning towards the fact that she does not based on her pain on today's examination while reviewing the images. However, in order to help confirm this, she is going to follow up in 1 more week from today, 03/03/2020. This will be 10 days from the date of the injury. I will obtain a right 3-view weightbearing film of her right ankle. If there is a fracture, then I will treat it as such. If there is a sprain, then I will treat it as such. In the meantime, she is going to be given a tall CAM boot. She can be weightbearing as tolerated with the use of crutches or not. She can continue with elevation and ice as well as Tylenol and her Challenge. Denies needing a work note. All questions were addressed during visit. All parties agreed with plan of care. Patient appeared pleased with this. DTW:MEDQ C: R:02/25/20 13:45 CONFIRM#:[id number] documented in this encounter Plan of Treatment Not on filedocumented as of this encounter Visit Diagnoses Diagnosis Injury of right ankle, initial encounter - Primary documented in this encounter Care Teams Jointer Machine Operator Relationship Specialty Start Date End Date May Aponte APRN, LEONARD PCP - General 10/04/17 [address] [place] [address] documented as of this encounter
--- OUTSIDE RECORDS SUMMARY | 2022-02-03 09:17 | XMS_ITS | Encounter Summary ---
:1975 Author Organization [facility] Address [address] [place] [address] Care Team Providers Name Role Phone Dung Ann MD Primary Care Provider Unavailable Reason for Referral Procedure/Equipment (Routine) - Incomplete Specialty Diagnoses / Procedures Referred By Contact Refer red To Contact Procedures Dung Ann MD US PELVIS COMPLETE W IVT [address] (RH/HSC) [place] [address] Referral ID Status Reason Start Date Expiration Date Visits V isits Requested Authorized [id number] Incomplete 09/08/2015 12/07/2016 1 1 Consult/Transfer Care (Routine) - Closed Specialty Diagnoses / Procedures Referred By Contact Refer red To Contact Diagnoses Anemia, unspecified type Dung Ann MD [address] [place] [address] Referral ID Status Reason Start Date Expiration Date Visits Requ ested Visits Authorized [id number] Closed 09/08/2015 12/07/2016 1 1 Scheduling Instructions Your provider has recommended an appoint ment with [facility]. You may call [phone] to schedule yo ur appointment. If you prefer, a imaging scheduler will contact you within the next 3 busin ess days to assist you in setting up this appointment. Reason for Visit Reason Comments FOLLOW-UP,LAB anemia,jevon-7=0,phq-9=0 Forms Encounter Details Date Type Department Care Team Description 09/08/2015 Office Visit [facility] Dung Ann Anemia, unsp ecified Practice MD [place] type (Primary Dx) [address] [place] [address] Social History Tobacco Use Types Packs/Day Years [...] Sign Reading Time Taken Comments Blood Pressure 106/63 09/08/2015 10:19 AM CDT Pulse 44 09/08/2015 10:19 AM CDT Temperature 36.7 ??C (98 ??F) 09/08/2015 10:19 AM CDT Respiratory Rate 12 09/08/2015 10:19 AM CDT Oxygen Saturation 97% 09/08/2015 10:19 AM CDT Inhaled Oxygen Concentration - - Weight 68 kg (150 lb) 09/08/2015 10:19 AM CDT Height 167.6 cm (5' 6) 09/08/2015 10:19 AM CDT Body Mass Index 24.21 09/08/2015 10:19 AM CDT documented in this encounter Progress Notes Dung Ann MD - 09/08/2015 10:43 AM CDT HPI: Ottoniel Parker is a 40 y.o. old female presenting with a chief complaint of: 1) Anemia - Patient's recent hemoglobin testing was 10.1 and MCV was 76.1. Patient denies a history of iron deficiency anemia. Patient has had a previous gastric bypass. Patient was taking ferrous sulfate over the counter in the past on her own though, per patient. Patient states occasional blood in stool at times. No blood in urine. Menstrual periods are heavier. ROS: See above. All other systems were reviewed and were negative. O: VS:BP 106/63 mmHg Pulse 44 Temp(Src) 98 ??F (36.7 ??C) (Oral) Resp 12 Ht 5' 6 (1.676 m) Wt 150 lb (68.04 kg) BMI 24.22 kg/m2 SpO2 97% LMP 08/27/2015 HEENT: NC/AT. Anicteric. PERRL. EOM intact. TM's clear bilaterally. Nasal mucosa pink and moist, no septal deviation. No anterior cervical nodes. No posterior cervical nodes Neck supple. CV: S1/S2 auscultated. No murmur. No rubs. No gallops. RESP: Normal respiratory effort. No use of accessory muscles. No acute respiratory distress. Clear to auscultation bilaterally. No wheezes, no rhonchi, no crackles. ABD: Soft, NT/ND. BS positive in 4 quadrants. No HSM. No palpable masses. No rebound/guarding. EXT: No C/C/E. SKIN: Warm, dry. No apparent rashes or lesions. ASSESSMENT/PLAN: 1) Anemia - Check anemia work-up (see EPIC orders). Check pelvic US. Referral to GI for likely colonoscopy. Follow up after all testing completed. Repeat hemogram and office visit in 1 month to recheckhemoglobin. Dung Ann MD 09/08/2015, 10:43 AM documented in this encounter Plan of Treatment Scheduled Referrals Name Type Priority Associated Diagnoses [facility] Referral Routine Anemia, unspecified Orde red: CONSULT-ADULTS type 09/08/2015 documented as of this encounter Results US PELVIS COMPLETE W IVT (RH/HSC) (09/09/2015 3:29 PM CDT) Anatomical Region Laterality Modality Pelvis Ultrasound Specimen (Source) Anatomical Collection Method Collection Time Re ceived Time Location / / Volume Laterality 09/09/2015 3:29 PM CDT Narrative 09/09/2015 3:38 PM CDT US PELVIS COMPLETE W/IVT (UTERUS/OVARIES) 09/09/2015 3:29 PM INDICATION: Anemia TECHNIQUE: Transabdominal scans were per formed. Endovaginal ultrasound was performed to better visualize the adnexa . COMPARISON: None. FINDINGS: Uterus measures 9.6 x 6.1 x 4.8 cm. Ante verted heterogeneous uterus. There is a 1.5 x 1.4 x 1.4 cm mass in the fund us of the uterus compatible with a small leiomyoma. Nabothian cysts are see n in the cervix measuring up to 7 x 4 x 4 mm. An Essure device is seen in t he right side of the fundus of uterus. Endometrial thickness is 6 mm. Normal sm ooth endometrium. Right ovary measures 3.7 x 2.6 x 2.6 cm. There is a 2.0 x 1.9 x 2.2 cm complex cyst on the right ovary compatib le with a resolving corpus luteal cyst. There is normal arterial flow in t he right ovary. Venous flow is not definitely seen today. ?? Left ovary measures 3.4 x 3.0 x 1.8 cm. Normal left ovary. Normal arterial and venous duplex. Trace free fluid in the pelvis. There is a large amount of gas in the pelvis. CONCLUSION: 1. ??Uterine leiomyoma. 2. ??Complex 2.2 cm right ovarian cyst, likely a resolving corpus luteal cyst. Procedure Note Ghada Vasquez MD - 09/09/2015 US PELVIS COMPLETE W/IVT (UTERUS/OVARIES ) 09/09/2015 3:29 PM INDICATION: Anemia TECHNIQUE: Transabdominal scans were per formed. Endovaginal ultrasound was performed to better visualize the adnexa . COMPARISON: None. FINDINGS: Uterus measures 9.6 x 6.1 x 4.8 cm. Ante verted heterogeneous uterus. There is a 1.5 x 1.4 x 1.4 cm mass in the fund us of the uterus compatible with a small leiomyoma. Nabothian cysts are see n in the cervix measuring up to 7 x 4 x 4 mm. An Essure device is seen in t he right side of the fundus of uterus. Endometrial thickness is 6 mm. Normal sm ooth endometrium. Right ovary measures 3.7 x 2.6 x 2.6 cm. There is a 2.0 x 1.9 x 2.2 cm complex cyst on the right ovary compatib le with a resolving corpus luteal cyst. There is normal arterial flow in t he right ovary. Venous flow is not definitely seen today. Left ovary measures 3.4 x 3.0 x 1.8 cm. Normal left ovary. Normal arterial and venous duplex. Trace free fluid in the pelvis. There is a large amount of gas in the pelvis. CONCLUSION: 1. Uterine leiomyoma. 2. Complex 2.2 cm right ovarian cyst, li nadiya a resolving corpus luteal cyst. Dung Ann MD RAD US UA WITH MICRO (09/08/2015 11:10 AM CDT) Patholo gist Method Time Signature Urine Color Yellow [facility] Urine Clarity Clear [facility] Sp Gr 1.020 1.005 - [facility] 1.030 [facility] Leuk Negative NEG [facility] Nitr Negative NEG [facility] pH 7.0 4.5 - 8.0 [facility] Prot Negative NEG mg/dl [facility] Gluc Negative NEG [facility] Ket Negative NEG [facility] Urob 1.0 0.2 - 1.0 [facility] EU/dl [facility] Bili Negative NEG [facility] Blood Neg/Tr NEGTR [facility] RBC'S 0 0 - 3 [facility] /hpf [facility] WBC'S 0 0 - 5 [facility] /[facility] Epith, Few /hpf [facility] Squamous [facility] Bact Occ [facility] Casts 0 /lpf [facility] Other Few Mucous [facility] Specimen Anatomical Collection Method Collection Time Receive d Time (Source) Location / / Volume Laterality 09/08/2015 11:10 09/08/2015 AM CDT 11:11 AM CDT Narrative [facility] - 09/08/2015 1:17 PM C DT Performed at [facility], [address] [place] [address] ??[id number] Dung Ann MD LAB_1 Performing Organization Address City/State/ZIP Code Phon e Number [facility] [phone] RETIC, AUTOMATED (09/08/2015 11:10 AM CDT) P athologist Signature Retic % 0.7 0.6 - 1.9 [facility] % [facility] Retic Absolute 0.03 0.03 - [facility] 0.05 M/ul [facility] Specimen Anatomical Collection Method Collection Time Receive d Time (Source) Location / / Volume Laterality 09/08/2015 11:10 09/08/2015 AM CDT 11:11 AM CDT Narrative [facility] - 09/08/2015 2:05 PM C DT Performed at [facility], [address] [place] [address] ??[id number] Dung Ann MD LAB_1 Performing Organization Address City/[facility]/ZIP Code Phon e Number [facility] [phone] (ABNORMAL) IRON PROFILE (IRON,TIBC,%SAT.(CALC)) (09/08/2015 11:10 AM CDT) Analysis Performed At Patho logist Time Signature Iron 41 37 - 170 [facility] mcg/dl [facility] TIBC 407 240 - 430 [facility] mcg/dl [facility] % Saturation, 10 (L) 15 - 50 % [facility] calc. [facility] Specimen Anatomical Collection Method Collection Time Receive d Time (Source) Location / / Volume Laterality 09/08/2015 11:10 09/08/2015 AM CDT 11:11 AM CDT Narrative [facility] - 09/08/2015 4:49 PM C DT Performed at [facility], [address] [place] [address] ??[id number] Dung Ann MD LAB_1 Performing Organization Address [facility]/ZIP Code Phon e Number [facility] [phone] (ABNORMAL) FERRITIN (09/08/2015 11:10 AM CDT) athologist Signature Ferritin 7 (L) 10 - 120 [facility] ng/ml Specimen Anatomical Collection Method Collection Time Receive d Time (Source) Location / / Volume Laterality 09/08/2015 11:10 09/08/2015 AM CDT 11:11 AM CDT Narrative [facility] - 09/08/2015 4:49 PM C DT Performed at [facility], [address] [place] [address] ??[id number] Dung Ann MD LAB_1 Performing Organization Address City/[facility]/ZIP Code Phon e Number [facility] [phone] (ABNORMAL) HEMOGRAM/PLTS/DIFF (09/08/2015 11:10 AM CDT) Patholo gist Method Time Signature WBC 6.2 4.0 - [facility] 11.0 k/ul [facility] RBC 4.23 4.0 - 5.2 [facility] M/ul [facility] Hemoglobin 10.0 (L) 12.0 - [facility] 16.0 g/dl [facility] HCT 32.0 (L) 36.0 - [facility] 46.0 % [facility] MCV 75.7 (L) 80 - 100 [facility] fl [facility] MCH 23.6 (L) 26 - 34 [facility] pg [facility] MCHC 31.3 (L) 32 - 36 [facility] g/dl [facility] RDW 16.2 (H) 11.5 - [facility] 14.5 % [facility] Platelets 336 150 - 450 [facility] k/ul [facility] PMN/Band 64 % [facility] Lymph 23 % [facility] [place] 11 % [facility] Eos 1 % [facility] Baso 1 % [facility] Neutrophil 4.0 1.8 - 7.7 [facility] Absolute k/ul [facility] Lymph Absolute 1.4 1.0 - 4.8 [facility] k/ul [facility] [place] Absolute 0.7 0.1 - 0.7 [facility] k/ul [facility] Eos Absolute 0.1 0.0 - 0.5 [facility] k/ul [facility] Baso Absolute 0.0 0.0 - 0.2 [facility] k/ul [facility] Immature Gran 0 % [facility] Imm Gran 0.0 0 k/ul [facility] Absolute [facility] Specimen Anatomical Collection Method Collection Time Receive d Time (Source) Location / / Volume Laterality 09/08/2015 11:10 09/08/2015 AM CDT 11:11 AM CDT Narrative [facility] - 09/08/2015 2:05 PM C DT Performed at [facility], [address] [place] [address] ??[id number] Dung Ann MD LAB_1 Performing Organization Address City/State/ZIP Code Phon e Number [facility] [phone] PERIPHERAL BLOOD SMEAR MORPHOLOGY [[id number]] (09/08/2015 7:00 AM CDT) Component Value Ref Test Analysis Performed At [facility] Range Method Time Signature Hematology (NOTE) [facility] Peripheral Smear Report KOLEKati PICKETT Patient Name: OTTONIEL PARKER Accession #: ?[id number] Taken: 09/08/2015 Received: 09/09/2015 Reported: 09/09/2015 Physician(s): DUNG ANN ? Clinical History Anemia Final Pathologic Diagnosis Peripheral blood, morphology: ?- Suggestive of iron deficiency. ?- Slight microcytic hypochromic anemia without increas ed polychromasia. ?- No evidence of hemolysis, circulating blasts, dyspla stic or atypical cells. ?- (See comment). Comment Correlation with complete iron studies including serum craig tin is recommended. ?? Occasional hypersegmented neutrophils are seen in the blood smears examined and a recent serum B 12 level reported in the [facility] medical records is in the low normal range (278 pg/mL; August 31, 2015). ??Since in this range there may be false negatives a serum methylmalonic acid level is recommended if clinically indica zainab to evaluate for possible combined nutritional deficiency. ?? nm/09/09/2015 *Electronically Signed Out By* ? Dagmar De La Paz MD ? Specimen(s) Received A: Peripheral blood smear: Procedures/Addenda ?? nm/09/09/2015 Microscopic Description HEMATOLOGIC DATA WBC: 6.2 K/ul RBC: 4.23 M/ul Hgb: 10.0 gm/dl HCT: 32.0 % MCV: 75.7 fl MCH: 23.6 pg MCHC: 31.3 % RDW: 16.2 % Platelets: 336 K/ul Retic: 0.7 % PERIPHERAL BLOOD DIFFERENTIAL % / K/ul Neutrophils: 64 / 4.0 Lymphocytes: 23 / 1.4 Monocytes: 11 / 0.7 Eosinophils: 1 / 0.1 Basophils: 1 / 0.0 PERIPHERAL BLOOD MORPHOLOGY Erythrocytes: Microcytic and hypochromic with slight to mode rate anisocytosis with elliptocytes, ovalocytes, echinocytes, occ asional teardrops and nonspecific poikilocytes. ??Polychromasia and rouleaux do not appear increased. Leukocytes: Adequate neutrophils with no significant dysplas ia, toxic change or left shift in maturation. Occasional hypersegmente d neutrophils are seen. ??Lymphocyte population is heterogenou s. ?? Monocytes are morphologically unremarkable. ??No blasts are seen. ?? Platelets: ??Normal in number, morphology, and granularity. ?? [facility] Department of Pathology [address] [place] [address] ??[id number] Specimen Anatomical Collection Method Collection Time Receive d Time (Source) Location / / Volume Laterality VENOUS BLOOD 09/08/2015 7:00 AM 6 7:37 SPECIMEN / Unknown CDT AM CDT Dung Ann MD LAB_1 Performing Organization Address City/State/ZIP Code Phon e Number [facility] [phone] documented in this encounter Visit Diagnoses Diagnosis Anemia, unspecified type - Primary Anemia, unspecified type documented in this encounter Care Teams Bearing Machine Operator Relationship Specialty Start Date End Date Dung Ann MD PCP - General Family Practice 05/21/14 10/03/17 documented as of this encounter
--- OUTSIDE RECORDS SUMMARY | 2022-02-03 09:17 | XMS_ITS | Encounter Summary ---
:1975 [facility] Address [address], [place] [address] Care Team Providers Name Role Phone May Aponte APRN, CNP Primary Care Provider [phone] Encounter Details Date Type Department Care Team Description 07/11/2016 Correspondence External to External, Provid er [place] [address] Social History Tobacco Use Types Packs/Day Years [...] filedocumented as of this encounter Visit Diagnoses Not on filedocumented in this encounter Care Teams Senior Warehouse Clerk Relationship Specialty Start Date End Date May Aponte APRN, CNP PCP - General 10/04/17 [address] [place] [address] documented as of this encounter
--- OUTSIDE RECORDS SUMMARY | 2022-02-03 09:17 | XMS_ITS | Encounter Summary ---
:1975 Author Organization [facility] Address [address] [place] [address] Care Team Providers Name Role Phone Dung Armas MD Primary Care Provider Unavailable Reason for Visit Reason Onset Date Comments Refill 11/24/2015 syringes for b-12 in jection Encounter Details Date Type Department Care Team Description 11/24/2015 Refill [facility] Dung Armas Refill (syringes for b-[address] MD [place] injection) [place], [place] [id number] Social History Tobacco Use Types Packs/Day Years [...] on file documented as of this encounter Nursing Notes Sara Hall RN - 11/24/2015 11:33 AM CDT [place] are not on current or hst med list. Initial order needs provider signature for insurance purposes. Sara Hall RN 11/24/2015, 11:33 AM Lesli Bowden - 11/24/2015 11:23 AM CDT Please send new rx for syringes to give with B-12 injections documented in this encounter Plan of Treatment Not on filedocumented as of this encounter Visit Diagnoses Not on filedocumented in this encounter Care Teams Craft Superintendent Relationship Specialty Start Date End Date Dung Armas MD PCP - General Family Practice 05/21/14 10/03/17 documented as of this encounter
--- OUTSIDE RECORDS SUMMARY | 2022-02-03 09:17 | XMS_ITS | Encounter Summary ---
:1975 Author Organization [facility] Address [address], [place] [address] Care Team Providers Name Role Phone Dung Armas MD Primary Care Provider Unavailable Reason for Visit Procedure/Equipment (Routine) - Closed Specialty Diagnoses / Procedures Referred By Contact Refer red To Contact Diagnoses Bradycardia Dung Armas MD [address] [place] [address] Referral ID Status Reason Start Date Expiration Date Visits Requ ested Visits Authorized [id number] Closed 12/28/2015 03/28/2017 1 1 Encounter Details Date Type Department Care Team Description 05/31/2016 Office Visit [facility] Regions Boni cardia (Primary Dx) Cardiac Non-Invasive Lab [address] [place] [id number] Social History Tobacco Use Types Packs/Day Years [...] on file documented as of this encounter Progress Notes Dung Armas MD - 06/22/2016 7:15 PM DROP WIRE ALINER Quick Note: Your provider has recommended a non-urgent appointment with [facility] Cardiology. ??You may call [phone] to schedule your appointment. ??If you prefer, a material scheduler will contact you within the next 3 business days to assist you in setting up this appointment. We suggest you call your health insurance company about your coverage and benefits for this appointment. Called patient with explanation of results and reason for Cardiology referral, however no answer, message left. Patient to call office with any questions regarding this referral. WIRE ALINER documented in this encounter Plan of Treatment Not on filedocumented as of this encounter Procedures Procedure Name Priority Date/Time Associated Comments Diagnosis EJECTION FRACTION Routine 05/31/2016 2:10 Results for this PM DROP WIRE ALINER procedure are i n the results section. CARDIAC ROUTINE Routine 05/31/2016 2:10 Bradycardia Results f or this ECHOCARDIOGRAM PM DROP WIRE ALINER procedure are in the results section. documented in this encounter Results EJECTION FRACTION (05/31/2016 2:10 PM DROP WIRE ALINER) P athologist Signature EF 50 % PROSOLV EF test type ECHO PROSOLV Specimen (Source) Anatomical Collection Method Collection Time Re ceived Time Location / / Volume Laterality 05/31/2016 2:10 PM DROP WIRE ALINER Dung Armas MD [facility] METHOD CONSULTANT/RH Performing Organization Address City/State/ZIP Code Phon e Number PROS[facility] [address] [place] [address] CARDIAC ROUTINE ECHOCARDIOGRAM (05/31/2016 2:10 PM DROP WIRE ALINER) Specimen (Source) Anatomical Collection Method Collection Time Re ceived Time Location / / Volume Laterality 05/31/2016 2:10 PM DROP WIRE ALINER Narrative PROS[facility] - 05/31/2016 4:49 PM DROP WIRE ALINER Contrast: ?Contrast Allergy: Clinical Indications:Bradycardia ?? CONCLUSION: 1. ??Sinus bradycardia during study. 2. ??Normal LV size, thickness and low normal LV systolic function, ?? EF 50-55%. 3. ??No gross regional wall motion abno rmalities identified. 4. ??Normal RV size and function. 5. ??No evidence for significant valvul ar pathology. ?? 6. ??IVC is dilated and not responsive to inspiration indicating ?? elevated RA pressure. ?? Left Ventricular Ejection Fraction: 50 % ICD Codes: ? Technical Quality: Patient Vital Signs: Ht HT ??66 ?Ht(in): ?Wt (lb) :152 ?BSA: ?? 1.79 ?BP: ?106 ??/ 58 ? IV Information: IV Inserted By: IV Site: IV Site Appearance: IV Size: IV Removed By: IV Other: ?2D, Doppler a nd color flow Doppler study ?performed. ? Measurements: M-MODE IVS to PW Ratio MM ?1.1 ? LA Systolic Diameter MM ? 4 cm ?1.9-4.0 cm 2D ECHO Body Height ? 66 in ? Body Weight ? 152 lb ? Body Surface Area ? 1.8 m? LV Diastolic Diameter Base LX ? 5.1 cm ?3.5-5.7 LV Systolic Diameter Base LX ?3. 4 cm ?2.3-4.9 LV Diastolic Diameter Index ? 2. 9 cm/m? IVS Diastolic Thickness ? 0.85 cm ? 0.6-1.1 cm LVPW Diastolic Thickness ? 0.78 cm ? 0.6-1.1 cm Ascending Aorta Diameter ? 3 cm ? Descending Aorta Diameter ? 1 .9 cm ? LA Area 4C View ? 16.2 cm? LA Area 2C View ? 20.7 cm?<= 20 cm?? LA Volume ? 50.1 cm? LA Volume Index ? 28 cm??/m? 16-28 cm??/m?? DOPPLER AV Peak Velocity ?134 cm/s ? AV Peak Gradient ?7.2 mmHg ? AV Mean Gradient ?3 mmHg ? AV Velocity Time Integral ? 3 1.3 cm ? LVOT Peak Velocity ?107 cm/s ? LVOT Peak Gradient ?4.6 mmHg ? LVOT Mean Gradient ?2 mmHg ? LVOT Velocity Time Integral ? 25 cm ? LVOT Diameter ? 2 cm ? LVOT Area ? 3.1 cm? LVOT AV VTI Ratio ? 0.8 ? AV Stroke Volume ?78.5 cm? AV Area Cont Eq vti ? 2.5 cm? AV Area Cont Eq pk ?2.5 cm? Mitral E Point Velocity ? 78.2 cm/s ? Mitral ??A Point Velocity ?51.1 cm/s ? Mitral E to A Ratio ? 1.5 ? MV Deceleration Time ?165 ms ? PV Peak Velocity ?80.8 cm/s ? PV Peak Gradient ?2.6 mmHg ? LV E' Septal Velocity ? 11.1 cm/s ? Mitral E to LV E' Septal Ratio ?7 ? COLOR DOPPLER LVOT Diameter ? 2 cm ? LA Area 4C View ? 16.2 cm? LA Area 2C View ? 20.7 cm?<= 20 cm?? LA Volume ? 50.1 cm? LA Volume Index ? 28 ml/m?16-28 cm??/m? Left Ventricle: ? Normal LV size, t hickness and low normal LV ? systolic function, EF 50-55%. No gross ? regional wall motion abnormalities identified. Right Ventricle: ?Normal RV size an d function. Left Atrium: ?Normal LA size. Right Atrium: ? Normal RA size. Aortic Valve: ? Aortic valve is tri-leaflet and functions ? normally. Mitral Valve: ? Normal in appear ance and function. Tricuspid Valve: ?Trace tricuspid r egurgitation. Unable to ? accuratel y assess PA pressure. Pulmonic Valve: ? Probably normal p ulmonic valve. Aorta: ?Aorta is nor mal in dimension proximally. Pericardium: ?No gross perica rdial effusion. IVC: ?IVC is dila zainab and not responsive to ? inspirati on indicating markedly elevated RA ? pressure. IAS: ?No obvious color Doppler evidence for ? interatri al septum shunt, bubble study not ? performed . 3D Imaging/Contrast: ?Aye Reis MD ??(Electronically Signed) ??Final Date:31 May 2016 16:48 Procedure Note Aye Reis MD - 05/31/2016Forma tting of this note might be different from the original. Contrast: Contrast Allergy: Clinical Indications:Bradycardia CONCLUSION: 1. Sinus bradycardia during study. 2. Normal LV size, thickness and low no rmal LV systolic function, EF 50-55%. 3. No gross regional wall motion abnorm alities identified. 4. Normal RV size and function. 5. No evidence for significant valvular pathology. 6. IVC is dilated and not responsive to inspiration indicating elevated RA pressure. Left Ventricular Ejection Fraction: 50 % ICD Codes: Technical Quality: Patient Vital Signs: Ht HT 66 Ht(in): Wt (lb):152 BSA: 1.79 BP: 106 / 58 IV Information: IV Inserted By: IV Site: IV Site Appearance: IV Size: IV Removed By: IV Other: 2D, Doppler and color flow Doppler stud y performed. Measurements: M-MODE IVS to PW Ratio MM 1.1 LA Systolic Diameter MM 4 cm 1.9-4.0 cm 2D ECHO Body Height 66 in Body Weight 152 lb Body Surface Area 1.8 m?? LV Diastolic Diameter Base LX 5.1 cm 3. 5-5.7 LV Systolic Diameter Base LX 3.4 cm 2.3 -4.9 LV Diastolic Diameter Index 2.9 cm/m?? IVS Diastolic Thickness 0.85 cm 0.6-1.1 cm LVPW Diastolic Thickness 0.78 cm 0.6-1. 1 cm Ascending Aorta Diameter 3 cm Descending Aorta Diameter 1.9 cm LA Area 4C View 16.2 cm?? LA Area 2C View 20.7 cm?? <= 20 cm?? LA Volume 50.1 cm?? LA Volume Index 28 cm??/m?? 16-28 cm??/ m?? DOPPLER AV Peak Velocity 134 cm/s AV Peak Gradient 7.2 mmHg AV Mean Gradient 3 mmHg AV Velocity Time Integral 31.3 cm LVOT Peak Velocity 107 cm/s LVOT Peak Gradient 4.6 mmHg LVOT Mean Gradient 2 mmHg LVOT Velocity Time Integral 25 cm LVOT Diameter 2 cm LVOT Area 3.1 cm?? LVOT AV VTI Ratio 0.8 AV Stroke Volume 78.5 cm?? AV Area Cont Eq vti 2.5 cm?? AV Area Cont Eq pk 2.5 cm?? Mitral E Point Velocity 78.2 cm/s Mitral A Point Velocity 51.1 cm/s Mitral E to A Ratio 1.5 MV Deceleration Time 165 ms PV Peak Velocity 80.8 cm/s PV Peak Gradient 2.6 mmHg LV E' Septal Velocity 11.1 cm/s Mitral E to LV E' Septal Ratio 7 COLOR DOPPLER LVOT Diameter 2 cm LA Area 4C View 16.2 cm?? LA Area 2C View 20.7 cm?? <= 20 cm?? LA Volume 50.1 cm?? LA Volume Index 28 ml/m?? 16-28 cm??/m? ? Left Ventricle: Normal LV size, thickne ss and low normal LV systolic function, EF 50-55%. No gross regional wall motion abnormalities iden tified. Right Ventricle: Normal RV size and fun ction. Left Atrium: Normal LA size. Right Atrium: Normal RA size. Aortic Valve: Aortic valve is tri-leafl et and functions normally. Mitral Valve: Normal in appearance and function. Tricuspid Valve: Trace tricuspid regurg itation. Unable to accurately assess PA pressure. Pulmonic Valve: Probably normal pulmoni c valve. Aorta: Aorta is normal in dimension pro ximally. Pericardium: No gross pericardial effus ion. IVC: IVC is dilated and not responsive to inspiration indicating markedly elevate d RA pressure. IAS: No obvious color Doppler evidence for interatrial septum shunt, bubble study not performed. 3D Imaging/Contrast: Aye Reis MD (Electronically Signed) Final Date:31 May 2016 16:48 Dung Armas MD [facility] ECHO/RH Performing Organization Address City/State/ZIP Code Phon e Number [facility] [address] [place] [address] documented in this encounter Visit Diagnoses Diagnosis Bradycardia - Primary Other specified cardiac dysrhythmias documented in this encounter Care Teams Lumber Sorter Relationship Specialty Start Date End Date Dung Armas MD PCP - General Family Practice 05/21/14 10/03/17 documented as of this encounter
--- OUTSIDE RECORDS SUMMARY | 2022-02-03 09:17 | XMS_ITS | Encounter Summary ---
:1975 Author Organization [facility] Address [address] [place] [address] Care Team Providers Name Role Phone Dung Armas MD Primary Care Provider Unavailable Reason for Referral Consult/Transfer Care (Routine) - Closed Specialty Diagnoses / Procedures Referred By Contact Refer red To Contact Dung Armas MD [address] [place] [address] Referral ID Status Reason Start Date Expiration Date Visits Requ ested Visits Authorized [id number] Closed 09/09/2015 12/08/2016 1 1 Scheduling Instructions Your provider has recommended an appoint ment with [facility]. You may call [phone] to schedule your appointmen t. If you prefer, a thaw shed heater tender will contact you within the next 3 business days to a ssist you in setting up this appointment. Reason for Visit Reason Comments Ultrasound Results Encounter Details Date Type Department Care Team Description 09/09/2015 Telephone [facility] Dung Gramajo Ultrasound Results [address] [facility], [place], [place] [id number] Social History Tobacco Use Types Packs/Day Years [...] documented as of this encounter Nursing Notes Dung Armas MD - 09/09/2015 6:49 PM CDT Called patient with pelvic US results and need for referral to [facility]. No answer, message left with results (fibroid) and complex right ovarian cyst. Dung Armas MD 09/09/2015, 6:51 PM documented in this encounter Plan of Treatment Scheduled Referrals Name Type Priority Associated Diagnoses Order S cheduludivina OB-BAGGER MEAT CONSULT Referral Routine Ordered: 08/14 documented as of this encounter Visit Diagnoses Not on filedocumented in this encounter Care Teams Supervisor Power Reactor Relationship Specialty Start Date End Date Dung Armas MD PCP - General Family Practice 05/21/14 10/03/17 documented as of this encounter
--- OUTSIDE RECORDS SUMMARY | 2022-02-03 09:17 | XMS_ITS | Encounter Summary ---
:[address] [facility] Address [address] [place] [address] Care Team Providers Name Role Phone Dung Armas MD Primary Care Provider Unavailable Reason for Referral Procedure/Equipment (Routine) - Closed Specialty Diagnoses / Procedures Referred By Contact Refer red To Contact Diagnoses Dung Sousa MD [address] [place] [address] Referral ID Status Reason Start Date Expiration Date Visits Requ ested Visits Authorized [id number] Closed 12/28/2015 03/28/2017 1 1 Scheduling Instructions Your provider has recommended an appoint ment with [facility]. You may call [phone] to schedule your appoi ntment. If you prefer, a tracing lathe set up operator will contact you within the next 3 business d ays to assist you in setting up this appointment. We suggest you call your health insurance company about your coverage and benefits for this appo intment. Consult/Transfer Care (Routine) - Closed Specialty Diagnoses / Procedures Referred By Contact Refer red To Contact Diagnoses Bradycardia Dung Armas MD [address] [place] [address] Referral ID Status Reason Start Date Expiration Date Visits Requ ested Visits Authorized [id number] Closed 12/28/2015 03/28/2017 1 1 Scheduling Instructions Your provider has recommended an appoint ment with [facility]. You may call [phone] to schedule your appoi ntment. If you prefer, a tracing lathe set up operator will contact you within the next 3 business d ays to assist you i n setting up this appointment. Procedure/Equipment (Routine) - Closed Specialty Diagnoses / Procedures Referred By Contact Refer red To Contact Diagnoses Bradycardia Dung Armas MD [address] [place] [address] Referral ID Status Reason Start Date Expiration Date Visits Requ ested Visits Authorized [id number] Closed 12/28/2015 03/28/2017 1 1 Scheduling Instructions You will be contacted within a week by red bernal regarding your monitor scrap hooker. This recommended service may not be cove red by your insurance coverage. We suggest you call your health insurance company a bout your coverage and benefits for this appointment. 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 Ceruminosis, [place] [address] Social History Tobacco Use Types Packs/Day Years [...] Sign Reading Time Taken Comments Blood Pressure 113/66 12/28/2015 10:27 AM CDT Pulse 42 12/28/2015 11:02 AM CDT Temperature 36.8 ??C (98.3 ??F) 12/28/2015 10:27 AM CDT Respiratory Rate 12 12/28/2015 10:27 AM CDT Oxygen Saturation 98% 12/28/2015 10:27 AM CDT Inhaled Oxygen Concentration - - Weight 68.9 kg (152 lb) 12/28/2015 10:27 AM CDT Height 167.6 cm (5' 6) 12/28/2015 10:27 AM CDT Body Mass Index 24.53 12/28/2015 10:27 AM CDT documented in this encounter Progress Notes Dung Armas MD - 12/28/2015 10:43 AM CDT HPI: Kim Miner is a 40 y.o. old female presenting with a chief complaint of: 1) Anemia - Patient is following up for anemia today. Patient is currently taking ferrous sulfate 325mg PO QD. Patient's last hemoglobin was 10.0 and MCV was 75.7. Patient states she may have noticed some increase in energy. No bleeding. Recent essentiallyn ormal EGD and colonoscopy. 2) Bradycardia - Patient was told this during recent procedure. Patient was told her heart rate was consistently 30 during her recent procedure. Patient states noting that her rate drops each year of age. Patient denies dizziness or syncope. No CP, no SOB. No swelling in lower extremities. Not a smoker. Normal TSH in 08/2015, 2.127. PGF with a history of CABG. Father with a history of bradycardia. Nofamily history of pacemaker placement. Occupation: Nurse. ROS: See above. All other systems were reviewed and were negative. O: VS:BP 113/66 mmHg Pulse 42 Temp(Src) 98.3 ??F (36.8 ??C) (Tympanic) Resp 12 Ht 5' 6 (1.676 m) Wt 152 lb (68.947 kg) BMI 24.55 kg/m2 SpO2 98% LMP 12/16/2015 HEENT: NC/AT. Anicteric. PERRL. EOM intact. Near total blockage of cerumen bilaterally, near surfaceof bilateral ears. Nasal mucosa pink and moist, no septal deviation. No anterior cervical nodes. No posterior cervical nodes Neck supple. CV: S1/S2 auscultated. No murmur. No rubs. No gallops. Apical heart rate 42 and regular today. RESP: Normal respiratory effort. No use of accessory muscles. No acute respiratory distress. Clear to auscultation bilaterally. No wheezes, no rhonchi, no crackles. EXT: No C/C/E. SKIN: Warm, dry. No apparent rashes or lesions. ASSESSMENT/PLAN: 1) Anemia - Recheck hemogram and ferritin. Continue ferrous sulfate 325mg PO QD. 2) Bradycardia - Check holdter monitor for 48 hours. Check echocardiogram. Lab testing up to date. Referral placed to Electrophysiology. 3) Bilateral cerumen impaction/ceruminosis - Complete removal of cerumen bilaterally by Dr. Armas today with curette. Bilateral TM's/ear canals clear post-removal. Dung Armas MD 12/28/2015, 10:43 AM documented in this encounter Plan of Treatment Scheduled Referrals Name Type Priority Associated Diagnoses Order S chedule Holter Monitor Referral Routine Bradycardia Ordered: 12/28/2015 Electrophysiology Referral Routine Bradycardia Ordered: Consult-Adults 12/28/2015 Echocardiogram Referral Routine Bradycardia Ordered: 12/28/2015 documented as of this encounter Results Ferritin (12/28/2015 11:07 AM CDT) P athologist Signature Ferritin 15 5 - 204 [facility] ng/ml Comment: PLEASE NOTE CHANGE IN REFERENCE RANGE Specimen Anatomical Collection Method Collection Time Receive d Time (Source) Location / / Volume Laterality 12/28/2015 11:07 12/28/2015 AM CDT 11:08 AM CDT Narrative [facility] - 12/28/2015 3:04 PM C DT Performed at [facility], [address] [place] [id number] Dung Armas MD LAB_1 Performing Organization Address City/State/ZIP Code Phon e Number [facility] [phone] (ABNORMAL) Complete Blood Count-W/Diff (12/28/2015 11:07 AM CDT) [facility] gist Method Time Signature WBC 5.2 4.0 - [facility] 11.0 k/ul [facility] RBC 4.40 4.0 - 5.2 [facility] M/ul [facility] Hemoglobin 11.2 (L) 12.0 - [facility] 16.0 g/dl [facility] HCT 35.5 (L) 36.0 - [facility] 46.0 % [facility] MCV 80.7 80 - 100 [facility] fl [facility] MCH 25.5 (L) 26 - 34 [facility] pg [facility] MCHC 31.5 (L) 32 - 36 [facility] g/dl [facility] RDW 18.2 (H) 11.5 - [facility] 14.5 % [facility] Platelets 276 150 - 450 [facility] k/ul [facility] PMN/Band 59 % [facility] Lymph 27 % [facility] [place] 12 % [facility] Eos 1 % [facility] Baso 1 % [facility] Neutrophil 3.1 1.8 - 7.7 [facility] Absolute k/ul [facility] Lymph Absolute 1.4 1.0 - 4.8 [facility] k/ul [facility] [place] Absolute 0.6 0.1 - 0.7 [facility] k/ul [facility] Eos Absolute 0.1 0.0 - 0.5 [facility] k/ul [facility] Baso Absolute 0.0 0.0 - 0.2 [facility] k/ul [facility] Immature Gran 0 % [facility] Imm Gran 0.0 0 k/ul [facility] Absolute [facility] Specimen Anatomical Collection Method Collection Time Receive d Time (Source) Location / / Volume Laterality 12/28/2015 11:07 12/28/2015 AM CDT 11:08 AM CDT Narrative [facility] - 12/28/2015 2:13 PM C DT Performed at [facility], [address] [place] [address] ??[id number] Dung Armas MD LAB_1 Performing Organization Address City/State/ZIP Code Phon e Number [facility] [phone] documented in this encounter Visit Diagnoses Diagnosis Anemia, unspecified type - Primary Bradycardia Other specified cardiac dysrhythmias Ceruminosis, unspecified laterality Anemia, unspecified type documented in this encounter Care Teams Surgical Elastic Knitter Relationship Specialty Start Date End Date Dung Armas MD PCP - General Family Practice 05/21/14 10/03/17 documented as of this encounter
--- OUTSIDE RECORDS SUMMARY | 2022-02-03 09:17 | XMS_ITS | Encounter Summary ---
:1975 Author Organization [facility] [address], [place] [address] Care Team Providers Name Role Phone Dung Armas MD Primary Care Provider Unavailable Reason for Visit Procedure/Equipment (Routine) - Closed Specialty Diagnoses / Procedures Referred By Contact Refer red To Contact Diagnoses Bradycardia Dung Armas MD [address] [place] [address] Referral ID Status Reason Start Date Expiration Date Visits Requ ested Visits Authorized [id number] Closed 12/28/2015 03/28/2017 1 1 Encounter Details Date Type Department Care Team Description 05/31/2016 Office Visit [facility] Cardiac Non-Invasive Lab [address] [place] [address] Social History Tobacco Use Types Packs/Day Years [...] documented as of this encounter Progress Notes Arturo Lopez - 05/31/2016 2:56 PM CST Reason for test: bradycardia Patient seen for Holter Monitor hook-up. Education provided. Questions and concerns answered to patient's satisfaction. Supervising NIVL MD:Dr. Segundo Date of Service: 05/31/16 Arturo Lopez Monitor # [id number] RIAL LIAISON documented in this encounter Plan of Treatment Scheduled Referrals Name Type Priority Associated Diagnoses Order S chedule Holter Monitor Referral Routine Bradycardia Ordered: 12/13 documented as of this encounter Visit Diagnoses Not on filedocumented in this encounter Care Teams Peritoneal Dialysis Registered Nurse Relationship Specialty Start Date End Date Dung Armsa MD PCP - General Family Practice 05/21/14 10/03/17 documented as of this encounter
--- OUTSIDE RECORDS SUMMARY | 2022-02-03 09:17 | XMS_ITS | Encounter Summary ---
:1975 Author Organization [facility] Address [address], [place] [address] Care Team Providers Name Role Phone Dung Armas MD Primary Care Provider Unavailable Encounter Details Date Type Department Care Team Description 02/20/2017 Lab Visit [facility] Vitamin B12 deficiency; [address] [place] [address] Social History Tobacco Use Types Packs/Day Years [...] encounter Progress Notes Dung Armas MD - 02/23/2017 8:12 AM CDT Iron deficiency anemia seen. Continue regular iron tablets as anemia has mildly worsened since previous testing. Recheck blood count in 2-4 weeks. Electrolytes and kidney function normal. Liver number normal. Vitamin B12 testing normal. documented in this encounter Plan of Treatment Not on filedocumented as of this encounter Procedures Procedure Name Priority Date/Time Associated Comments Diagnosis METHYLMALONIC ACID Routine 02/20/2017 5:51 PM Vitamin B12 Res ults for this QUANT CDT deficiency procedure are i n the results section. BASIC METABOLIC PANEL Routine 02/20/2017 5:51 PM Other specifi ed Results for this CDT depressive episodes procedur e are in the results section. COMPLETE BLOOD Routine 02/20/2017 5:51 PM Vitamin B12 Results for this COUNT-NO DIFF CDT deficiency procedure are in the results section. FERRITIN Routine 02/20/2017 5:51 PM Vitamin B12 Results f or this CDT deficiency procedure are i n the results section. VITAMIN B12 ONLY Routine 02/20/2017 5:51 PM Vitamin B12 Resul ts for this CDT deficiency procedure are i n the results section. ALT (SGPT) Routine 02/20/2017 5:51 PM Other specified Result s for this CDT depressive episodes procedur e are in the results section. documented in this encounter Results Methylmalonic Acid Quant (02/20/2017 5:51 PM CDT) Component Value Ref Test Analysis Performed At [facility] Range Method Time Signature Methylmalonic 0.20 [facility] Acid Reference range: 0.00 to 0.40 LABORATORIES Unit: umol/L Methylmalonic (NOTE) [facility] INTERPRETIVE INFORMATION: MMA Serum/Plasma, ?? LABORATORIES ? Vitamin B12 Status Test developed and characteristics determined by [employer] ?? Laboratories. See Compliance Statement B: [employer]/ [address] [place] [address] [email or web address], Mello Cruz MD, Lab. Director Specimen Anatomical Collection Method Collection Time Receive d Time (Source) Location / / Volume Laterality 02/20/2017 5:51 PM 7 5:53 CDT PM CDT Narrative [facility] - 02/22/2017 10:12 PM CDT Performed by [facility], [address] [place] [id number] Dung Armas MD LAB_1 Performing Organization Address City/State/ZIP Code Phon e Number [facility] [phone] ALT (SGPT) (02/20/2017 5:51 PM CDT) athologist Signature ALT (SGPT) 10 0 - 55 U/L [facility] Specimen Anatomical Collection Method Collection Time Receive d Time (Source) Location / / Volume Laterality 02/20/2017 5:51 PM 7 5:53 CDT PM CDT Narrative [facility] - 02/21/2017 12:49 PM CDT Performed at [facility], [address] [place] [address] ??[id number] Dung Armas MD LAB_1 Performing Organization Address City/[facility] Phon e Number [facility] [phone] (ABNORMAL) Basic Metabolic Panel (02/20/2017 5:51 PM CDT) [facility] gist Method Time Signature Sodium 143 136 - 145 [facility] mmol/L [facility] Potassium 4.1 3.5 - 5.1 [facility] mmol/L [facility] Chloride 116 (H) 98 - 109 [facility] mmol/L [facility] CO2 20 20 - 29 [facility] mmol/L [facility] Anion Gap 7 7 - 16 [facility] (calc.) mmol/L [facility] Glucose 86 70 - 180 [facility] mg/dl LAB[facility] Calcium 8.8 8.4 - [facility] 10.2 LABORATORIES mg/dl BUN 15 7 - 26 [facility] mg/dl [facility] Creatinine 0.86 0.55 - [facility] 1.02 LABORATORIES mg/dl GFR, Estimated >60 >60 [facility] ml/min/1. LABORATORIES 73m2 GFR, Est., If >60 >60 [facility] Black ml/min/1. LABORATORIES 73m2 Specimen Anatomical Collection Method Collection Time Receive d Time (Source) Location / / Volume Laterality 02/20/2017 5:51 PM 7 5:53 CDT PM CDT Narrative [facility] - 02/21/2017 12:49 PM CDT Performed at [facility], [address] [place] [address] ??[id number] Dung Armas MD LAB_1 Performing Organization Address City/[facility] Phon e Number [facility] [phone] Vitamin B12 Only (02/20/2017 5:51 PM CDT) athologist Signature Vitamin B12 376 213 - 816 [facility] pg/ml Specimen Anatomical Collection Method Collection Time Receive d Time (Source) Location / / Volume Laterality 02/20/2017 5:51 PM 7 5:53 CDT PM CDT Narrative [facility] - 02/21/2017 1:09 PM C DT Performed at [address] ??[id number] Dung Armas MD LAB_1 Performing Organization Address [facility] Phon e Number [facility] [phone] (ABNORMAL) Ferritin (02/20/2017 5:51 PM CDT) athologist Signature Ferritin 6 (L) 9 - 204 [facility] ng/ml Specimen Anatomical Collection Method Collection Time Receive d Time (Source) Location / / Volume Laterality 02/20/2017 5:51 PM 7 5:53 CDT PM CDT Narrative [facility] - 02/21/2017 1:09 PM C DT Performed at [facility], [address] [place] [address] ??[id number] Dung Armas MD LAB_1 Performing Organization Address City/[facility] Phon e Number [facility] [phone] (ABNORMAL) Complete Blood Count-No Diff (02/20/2017 5:51 PM CDT) athologist Signature WBC 7.1 4.0 - 11.0 [facility] k/ul LABORATORIES RBC 4.14 4.0 - 5.2 [facility] M/ul [facility] Hemoglobin 9.1 (L) 12.0 - [facility] 16.0 g/dl LABORATORIES HCT 29.7 (L) 36.0 - [facility] 46.0 % LABORATORIES MCV 71.7 (L) 80 - 100 [facility] fl LABORATOR[facility] MCH 22.0 (L) 26 - 34 pg [facility] MCHC 30.6 (L) 32 - 36 [facility] g/dl LAB[facility]ATORIES RDW 16.8 (H) 11.5 - [facility] 14.5 % LABORATORIES Platelets 422 150 - 450 [facility] k/ul LABORATOR[facility] Specimen Anatomical Collection Method Collection Time Receive d Time (Source) Location / / Volume Laterality 02/20/2017 5:51 PM 7 5:53 CDT PM CDT Narrative [facility] - 02/21/2017 1:27 PM C DT Performed at [facility], [address] [place] [address] ??[phone] Dung Armsa MD LAB_1 Performing Organization Address City/State/ZIP Code Phon e Number [facility] [phone] documented in this encounter Visit Diagnoses Diagnosis Vitamin B12 deficiency (HRC) Other B-complex deficiencies Other specified depressive episodes documented in this encounter Care Teams Cold Mill Inspector Relationship Specialty Start Date End Date Dung Armas MD PCP - General Family Practice 05/21/14 10/03/17 documented as of this encounter
--- OUTSIDE RECORDS SUMMARY | 2022-02-03 09:17 | XMS_ITS | Encounter Summary ---
:1975 Author Organization [facility] Address [address] [place] [address] Care Team Providers Name Role Phone Dung Armas MD Primary Care Provider Unavailable Reason for Visit Procedure/Equipment (Routine) - Incomplete Specialty Diagnoses / Procedures Referred By Contact Refer red To Contact Procedures Dung Armas MD CM DIAGNOSTIC W/IMPLANTS [address] [place] [address] MAMMO DIAGNOSTIC W/ABHI BILA T MAMMOGRAM DIAGNOSTIC W/IMPLANTS BILAT Referral ID Status Reason Start Date Expiration Date Visits V isits Requested Authorized [id number] Incomplete 09/01/2015 11/30/2016 1 1 Encounter Details Date Type Department Care Team Description 09/16/2015 Imaging [facility] Dung Armas MD [address] [place] [address] Social History Tobacco Use Types Packs/Day Years [...] Name Priority Date/Time Associated Diagnosis Comme nts MM MAMMOGRAM DIAG Routine 09/16/2015 8:02 AM Resu lts for this BILAT W IMPLANTS W CDT procedure are in 3D ABHI the results section. documented in this encounter Results [facility] DIAGNOSTIC W/IMPLANTS W/ABHI BILAT (09/16/2015 8:02 AM CDT) Anatomical Region Laterality Modality Breast Bilateral Mammography Specimen (Source) Anatomical Collection Method Collection Time Re ceived Time Location / / Volume Laterality 09/16/2015 8:02 AM CDT Narrative 09/16/2015 8:43 AM CDT CM DIAGNOSTIC W/IMPLANTS W/ABHI BILAT: 09/16/2015 8:02 AM INDICATION: Left nipple pain with questi on buckling along the inferior left implant COMPARISON: Baseline MAMMOGRAPHIC FINDINGS: Bilateral digital diagnostic mammograms performed. The breast tissue is composed of scatter ed fibroglandular densities. There are bilateral subpectoral implants prese nt in place. No evidence for malignancy is seen. Images evaluated wit h the assistance of CAD. Breast Tomosynthesis was used in interpretation . ULTRASOUND FINDINGS: Ultrasound confirms that no mass is present. I am not able to palpate a mass on physical exam. IMPRESSION: ACR BI-RADS Category 2: Mio gn. Results given to the patient who should resume annual screening mammography. Procedure Note Javier Corado MD - 09/16/2015Forma tting of this note might be different from the original. [facility] DIAGNOSTIC W/IMPLANTS W/ABHI BILAT: 09/16/2015 8:02 AM INDICATION: Left nipple pain with questi on buckling along the inferior left implant COMPARISON: Baseline MAMMOGRAPHIC FINDINGS: Bilateral digital diagnostic mammograms performed. The breast tissue is composed of scatter ed fibroglandular densities. There are bilateral subpectoral implants prese nt in place. No evidence for malignancy is seen. Images evaluated wit h the assistance of CAD. Breast Tomosynthesis was used in interpretation . ULTRASOUND FINDINGS: Ultrasound confirms that no mass is present. I am not able to palpate a mass on physical exam. IMPRESSION: ACR BI-RADS Category 2: Mio gn. Results given to the patient who should resume annual screening mammography. Dung PERRY CM documented in this encounter Visit Diagnoses Not on filedocumented in this encounter Care Teams Glass Washer Relationship Specialty Start Date End Date Dung Armas MD PCP - General Family Practice 05/21/14 10/03/17 documented as of this encounter
--- OUTSIDE RECORDS SUMMARY | 2022-02-03 09:17 | XMS_ITS | Encounter Summary ---
:1975 Author Organization [facility] Address [address] [place] [address] Care Team Providers Name Role Phone May Aponte APRN, CNP Primary Care Provider [phone] Encounter Details Date Type Department Care Team Description 12/10/2015 Consent for [facility] RH INFORM ED CONSENT Procedure/Treatment RECORD Social History Tobacco Use Types Packs/Day Years [...] on filedocumented in this encounter Care Teams Leguillon Debeader Relationship Specialty Start Date End Date May Aponte APRN, CNP PCP - General 10/04/17 [address] [place] [address] documented as of this encounter
--- OUTSIDE RECORDS SUMMARY | 2022-02-03 09:17 | XMS_ITS | Encounter Summary ---
:1975 Author Organization [facility] Address [address] [place] [address] Care Team Providers Name Role Phone Dung Armas MD Primary Care Provider Unavailable Reason for Referral Medication Prior Authorization (Routine) - Closed Specialty Diagnoses / Procedures Referred By Contact Refer red To Contact Diagnoses Chronic post-traumatic stress disorder (HRC) Other specified depressive episodes Dung Armas MD Referral ID Status Reason Start Date Expiration Date Visits Requ ested Visits Authorized [id number] Closed Reason for Visit Reason Comments Follow Up Medication Forms wellness through work [facility] Declined flu shot at work Encounter Details Date Type Department Care Team Description 02/20/2017 Office Visit [place] Dung Armas Alcohol use disorder, severe, in sustained remission, dependence (HRC) (Primary Dx); Renetta Hunt MD Chronic post-traumatic stres s disorder; [address] Other specified depressive e pisodes; [place] [address] Vitamin B12 deficiency [phone] Social History Tobacco Use Types Packs/Day Years [...] Sign Reading Time Taken Comments Blood Pressure 103/61 02/20/2017 5:06 PM CDT Pulse 54 02/20/2017 5:06 PM CDT Temperature - - Respiratory Rate 18 02/20/2017 5:06 PM CDT Oxygen Saturation 98% 02/20/2017 5:06 PM CDT Inhaled Oxygen Concentration - - Weight 69.9 kg (154 lb) 02/20/2017 5:06 PM CDT Height - - Body Mass Index 24.86 12/28/2015 10:27 AM CDT documented in this encounter Progress Notes Dung Armas MD - 02/20/2017 5:40 PM CDT HPI: Kim gonzáles is a 41 y.o. old female presenting with a chief complaint of: 1) Depression/EtOH abuse - 2.5 years. Patient quit EtOH on 06/05/14. Patient has since been on Prozac 10mg PO QD and Topamax 50mg PO BID. Patient has followed with Psychiatry, however was recently sentback to Primary Care. No suicidal/homicidal ideation. Patient attends weekly AA meetings. 2) Vitamin B12 deficiency - Diagnosed since 05/2006. Previous Layo en Y surgery. Gives vitamin b12 shots at home to self. 3) Anemia - Last hemoglobin was 11.2 in 12/2015. Patienti s currently taking ferrous sulfate 325mg PO QD. ROS: See above. All other systems were reviewed and were negative. O: VS:BP 103/61 Pulse (!) 54 Resp 18 Wt 154 lb (69.9 kg) LMP 02/13/2017 SpO2 98% BMI 24.86 kg/m2 HEENT: NC/AT. Anicteric. PERRL. EOM intact. TM's [...] No apparent rashes or lesions. ASSESSMENT/PLAN: 1) Depression/EtOH abuse - Stable. Continue Prozac 10mg PO QD and Topamax 50mg PO BID. If Topamax ifever needing to be stopped or changed, patient needs to follow up with Psychiatry. 2) Vitamin B12 deficiency - Check vitamin B12. Continue vitamin b12 injections. 3) Anemia -Check hemogram and ferritin. Continue ferrous sulfate 325mg PO QD. Dung Armas MD 02/20/2017, 5:31 PM documented in this encounter Nursing Notes Reese Alexandre - 02/20/2017 5:40 PM CDT No PA needed for fluoxetine. Last paid claim 02/11 for 30 day supply, currently refill too soon through [employer]. documented in this encounter Plan of Treatment Not on filedocumented as of this encounter Results Methylmalonic Acid Quant (02/20/2017 5:51 PM CDT) Component Value Ref Test Analysis Performed At [facility] Range Method Time Signature Methylmalonic 0.20 [facility] Acid Reference range: 0.00 to 0.40 LABORATORIES Unit: umol/L Methylmalonic (NOTE) [facility] INTERPRETIVE INFORMATION: MMA Serum/Plasma, ?? LABORATORIES ? Vitamin B12 Status Test developed and characteristics determined by [employer] ?? Laboratories. See Compliance Statement B: [email or web address]/ [address] [place] [address] www.[email or web address], Mello Cruz MD, Lab. Director Specimen Anatomical Collection Method Collection Time Receive d Time (Source) Location / / Volume Laterality 02/20/2017 5:51 PM 7 5:53 CDT PM CDT Narrative [facility] - 02/22/2017 10:12 PM CDT Performed by [facility] [address] [place] [place] [address] Dung Armas MD LAB_1 Performing Organization Address City/State/ZIP Code Phon e Number [facility] [phone] ALT (SGPT) (02/20/2017 5:51 PM CDT) P athologist Signature ALT (SGPT) 10 0 - 55 U/L [facility] Specimen Anatomical Collection Method Collection Time Receive d Time (Source) Location / / Volume Laterality 02/20/2017 5:51 PM 7 5:53 CDT PM CDT Narrative [facility] - 02/21/2017 12:49 PM CDT Performed at [facility], [address] [place] [id number] Dung Armas MD LAB_1 Performing Organization Address City/[facility]/ZIP Code Phon e Number [facility] [phone] (ABNORMAL) Basic Metabolic Panel (02/20/2017 5:51 PM CDT) Patholo gist Method Time Signature Sodium 143 136 [...] - 02/21/2017 12:49 PM CDT Performed at [facility], [address] [place] [address] ??[id number] Dung Armas MD LAB_1 Performing Organization Address City/[facility]/ZIP Code Phon e Number [facility] [phone] Vitamin B12 Only (02/20/2017 5:51 PM CDT) [facility] Vitamin B12 376 213 - 816 [facility] pg/ml Specimen Anatomical Collection Method Collection Time Receive d Time (Source) Location / / Volume Laterality 02/20/2017 5:51 PM 7 5:53 CDT PM CDT Narrative [facility] - 02/21/2017 1:09 PM C DT Performed at [address] ??[id number] Dung Armas MD LAB_1 Performing Organization Address [facility] Phon e Number [facility] [phone] (ABNORMAL) Ferritin (02/20/2017 5:51 PM CDT) [facility] Ferritin 6 (L) 9 - 204 [facility] ng/ml Specimen Anatomical Collection Method Collection Time Receive d Time (Source) Location / / Volume Laterality 02/20/2017 5:51 PM 7 5:53 CDT PM CDT Narrative [facility] - 02/21/2017 1:09 PM C DT Performed at [address] ??[phone] Dung Armas MD LAB_1 Performing Organization Address City/[facility]/ZIP Code Phon e Number [facility] [phone] (ABNORMAL) Complete Blood Count-No Diff (02/20/2017 5:51 PM CDT) [facility] WBC 7.1 4.0 - 11.0 [facility] k/ul [...] 02/21/2017 1:27 PM C DT Performed at [facility], [address] [place] [phone] Dung Armas MD LAB_1 Performing Organization Address City/State/ZIP Code Phon e Number [facility] [phone] documented in this encounter Visit Diagnoses Diagnosis Alcohol use disorder, severe, in sustain ed remission, dependence (HRC) - Primary Chronic post-traumatic stress disorder ( HRC) Posttraumatic stress disorder Other specified depressive episodes Vitamin B12 deficiency (HRC) Other B-complex deficiencies Vitamin B12 deficiency (HRC) Other B-complex deficiencies Other specified depressive episodes documented in this encounter Care Teams Optomechanical Engineer Relationship Specialty Start Date End Date Dung Armas MD PCP - General Family Practice 05/21/14 10/03/17 documented as of this encounter
--- OUTSIDE RECORDS SUMMARY | 2022-02-03 09:17 | XMS_ITS | Encounter Summary ---
:1975 [facility] Address [address], [place] [address] Care Team Providers Name Role Phone Dung Armas MD Primary Care Provider Unavailable Reason for Visit Procedure/Equipment (Routine) - Incomplete Specialty Diagnoses / Procedures Referred By Contact Refer red To Contact Procedures Provider, Foreign Images Foreign Image(S) Mammogram [address] [place] [address] Referral ID Status Reason Start Date Expiration Date Visits V isits Requested Authorized [id number] Incomplete 12/20/2018 03/20/2020 1 1 Encounter Details Date Type Department Care Team Description 04/26/2017 Ancillary Procedure [facility] PACS Provider, [address] [address] [address] [place] [address] Social History Tobacco Use Types Packs/Day Years [...] Name Priority Date/Time Associated Diagnosis Comme nts FOREIGN IMAGE(S) Routine 04/26/2017 2:00 PM Resul ts for this MAMMOGRAM SALES REPRESENTATIVE DOOR TO DOOR procedure are i n the results section. documented in this encounter Results Foreign Image(S) Mammogram (04/26/2017 2:00 PM SALES REPRESENTATIVE DOOR TO DOOR) Specimen (Source) Anatomical Location Collection Method / Collectio n Time Received Time / Laterality Volume Narrative POCT - 12/20/2018 9:53 AM CDT These outside images have been uploaded into PACS. If the results were provided, they will be located in the pa tient's chart under the Media or Imaging tab. Foreign Images Provider RAD NON-REPORTABLES Performing Organization Address City/State/ZIP Code Phon e Number POCT documented in this encounter Visit Diagnoses Not on filedocumented in this encounter Care Teams University Services Program Associate Relationship Specialty Start Date End Date Dung Armas MD PCP - General Family Practice 05/21/14 10/03/17 documented as of this encounter
--- OUTSIDE RECORDS SUMMARY | 2022-02-03 09:17 | XMS_ITS | Encounter Summary ---
:1975 Author Organization [facility] Address [address] [place] [address] Care Team Providers Name Role Phone May Aponte APRN, CNP Primary Care Provider Encounter Details Date Type Department Care Team Description 09/24/2015 Correspondence [place] Arnulfo Wei MD [facility] Psychiatry [address] [place] [address] Social History Tobacco Use Types Packs/Day Years [...] on filedocumented in this encounter Care Teams Doctor Of Podiatric Medicine Relationship Specialty Start Date End Date May Aponte APRN, CNP PCP - General 10/04/17 [address] [place] [address] documented as of this encounter
--- OUTSIDE RECORDS SUMMARY | 2022-02-03 09:17 | XMS_ITS | Encounter Summary ---
:1975 Author Organization [employer] Address [address] [place] [address] Care Team Providers Name Role Phone Dung Armas MD Primary Care Provider Unavailable Reason for Visit Reason Comments Follow Up Ultrasound Consult/Transfer Care (Routine) - Closed Specialty Diagnoses / Procedures Referred By Contact Refer red To Contact Dung Armas MD [address] [place] [address] Referral ID Status Reason Start Date Expiration Date Visits Requ ested Visits Authorized [id number] Closed 09/09/2015 12/08/2016 1 1 Encounter Details Date Type Department Care Team Description 09/21/2015 Office Visit [place] [facility] Lokesh Amaya MD Anemia, unspecified type (Primary Dx); and Gynecology [address] [facility] Intramural leiomyoma of uterus; [address] [facility]. [place], [place] [phone] (Wo rk) Social History Tobacco Use Types [...] occasion? Comment: Sober 06/04/2014. Hx Severe Use 07/14/201 5 05/2011-05/2014. Sex Assigned at Date Recorded Not on file documented as of this encounter Last Filed Vital Signs Vital Sign Reading Time Taken Comments Blood Pressure 111/58 09/21/2015 8:06 AM CDT Pulse 38 09/21/2015 8:06 AM CDT Temperature - - Respiratory Rate - - Oxygen Saturation - - Inhaled Oxygen Concentration - - Weight 68 kg (150 lb) 09/21/2015 8:06 AM CDT Height - - Body Mass Index 24.21 09/08/2015 10:19 AM CDT documented in this encounter Patient Instructions Patient InstructionsMarvin Amaya MD - 09/21/2015 8:20 AM CDT Consider 600 mg ibuprofen every 6-8 hours starting 1-2 days before heavy flow and continuing until subsiding may be helpful. Other options would be mirena IUD or endometrial ablation with mirena IUD Optimal hydration documented in this encounter Progress Notes Marvin Amaya MD - 09/21/2015 9:08 AM CDT Date of Service: 09/21/2015 S: 40 yo returns to discuss ultrasound findings ordered because of anemia. Ultrasound shows a small 1.5 cm fibroid and resolving right 2.2 cm corpus luteum cyst. Patient is not having pain. Patient states she is having 1-2 days of heavy flow at time of her period. The endometrium appeared normal (6 mm thickness) at the time of the ultrasound. No Known Allergies Patient Active Problem List Diagnosis ??? Posttraumatic stress disorder (HRC) ??? Depressive disorder, atypical (HRC) ??? Alcohol use disorder, severe, in early remission (HRC) ??? Sedative, hypnotic or anxiolytic use disorder, severe, in early remission ??? CAREPLAN: BH CONTROLLED SUBSTANCE ??? B12 deficiency (HRC) ??? S/P gastric bypass ??? Vitamin D deficiency (HRC) ??? S/P breast augmentation ??? S/P abdominoplasty ??? Pap test history Patient denies fever, nausea & vomiting, abdominal pain, pelvic pain, abnormal vaginal bleeding or discharge, trouble with her bowel or bladder or leg pain. O: BP 111/58 mmHg Pulse 38 Wt 150 lb (68.04 kg) LMP 09/21/2015 (Exact Date) Patient appears alert, oriented, healthy, comfortable. She declines any additional physical exam today. A: 40 yo with anemia; Incidental findings on ultrasound are 1.5 cm fibroid and right 2.2 cm corpus luteum cyst. P: Reassurance; reviewed the use of NSAIDS starting 1 day before menstruation as well as mirena IUD and endometrial ablation. Marvin Amaya MD documented in this encounter Plan of Treatment Scheduled Referrals Name Type Priority Associated Diagnoses Order S glenn [facility] CONSULT Referral Routine Ordered: 08/14 documented as of this encounter Visit Diagnoses Diagnosis Anemia, unspecified type - Primary Intramural leiomyoma of uterus Corpus luteum cyst Corpus luteum cyst or hematoma documented in this encounter Care Teams Helpdesk Technician Relationship Specialty Start Date End Date Dung Armas MD PCP - General Family Practice 05/21/14 10/03/17 documented as of this encounter
--- OUTSIDE RECORDS SUMMARY | 2022-02-03 09:17 | XMS_ITS | Encounter Summary ---
:1975 Author Organization [facility] Address [address] [place] [address] Care Team Providers Name Role Phone Dung Armas MD Primary Care Provider Unavailable Reason for Visit Procedure/Equipment (Routine) - Closed Specialty Diagnoses / Procedures Referred By Contact Refer red To Contact Adilene Alfonso, SUPERVISOR CUTTING AND SEWING ROOM, RING FACER [address] [place] [address] Referral ID Status Reason Start Date Expiration Date Visits Requ ested Visits Authorized [id number] Closed 09/21/2015 12/20/2016 1 1 Encounter Details Date Type Department Care Team Description 12/10/2015 [facility] Sharla Dotson, [place] [facility] stuart JACINTO [address] [place] [address] [address] [place], [place] [address] Social History Tobacco Use Types Packs/Day Years [...] occasion? Comment: Sober 06/04/2014. Hx Severe Use 07/14/ 5 05/2011-05/2014. Sex Assigned at Date Recorded Not on file documented as of this encounter Last Filed Vital Signs Vital Sign Reading Time Taken Comments Blood Pressure 118/82 12/10/2015 4:05 PM CDT Pulse 38 12/10/2015 4:05 PM CDT Temperature - - Respiratory Rate 17 12/10/2015 4:05 PM CDT Oxygen Saturation 100% 12/10/2015 4:05 PM CDT Inhaled Oxygen Concentration - - Weight - - Height - - Body Mass Index - - documented in this encounter Patient Instructions Patient InstructionsCamila Ponce RN - 12/10/2015 4:03 PM CDT Images from the original note were not included. Hemorrhoids: Care Instructions Your Care Instructions Hemorrhoids are enlarged veins that develop in the anal canal. Bleeding during bowel movements, itching, swelling, and rectal pain are the most common symptoms. They can be uncomfortable at times, but hemorrhoids rarely are a serious problem. You can treat most hemorrhoids with simple changes to your diet and bowel habits. These changes include eating more fiber and not straining to pass stools. Most hemorrhoids do not need surgery or othertreatment unless they are very large and painful or bleed a lot. Follow-up care is a rivero part of your treatment and safety. Be sure to make and go to all appointments, and call your doctor if you are having problems. It???s also a good idea to know your test resultsand keep a list of the medicines you take. How can you care for yourself at home? ?? Sit in a few inches of warm water (sitz bath) 3 times a day and after bowel movements. The warm water helps with pain and itching. ?? Put ice on your anal area several times a day for 10 minutes at a time. Put a thin cloth between the ice and your skin. Follow this by placing a warm, wet towel on the area for another 10 to 20 minutes. ?? Take pain medicines exactly as directed. ?? If the doctor gave you a prescription medicine for pain, take it as prescribed. ?? If you are not taking a prescription pain medicine, ask your doctor if you can take an cohz-crw-gslapwg medicine. ?? Keep the anal area clean, but be gentle. Use water and a fragrance-free soap, such as Ivory, or use baby wipes or medicated pads, such as Tucks. ?? Wear cotton underwear and loose clothing to decrease moisture in the anal area. ?? Eat more fiber. Include foods such as whole-grain breads and cereals, raw vegetables, raw and dried fruits, and beans. ?? Drink plenty of fluids, enough so that your urine is light yellow or clear like water. If you have kidney, heart, or liver disease and have to limit fluids, talk with your doctor before you increasethe amount of fluids you drink. ?? Use a stool softener that contains bran or psyllium. You can save money by buying bran or psyllium (available in bulk at most [employer] stores) and sprinkling it on foods or stirring it into fruitjuice. Or you can use a product such as Metamucil or Hydrocil. ?? Practice healthy bowel habits. ?? Go to the bathroom as soon as you have the urge. ?? Avoid straining to pass stools. Relax and give yourself time to let things happen naturally. ?? Do not hold your breath while passing stools. ?? Do not read while sitting on the toilet. Get off the toilet as soon as you have finished. ?? Take your medicines exactly as prescribed. Call your doctor if you think you are having a problemwith your medicine. When should you call for help? Call 911 anytime you think you may need emergency care. For example, call if: ?? You pass maroon or very bloody stools. Call your doctor now or seek immediate medical care if: ?? You have increased pain. ?? You have increased bleeding. Watch closely for changes in your health, and be sure to contact your doctor if: ?? Your symptoms have not improved after 3 or 4 days. Where can you learn more? Go to [employer] and enter F228 in the search box. Current as of: April 03, 2015 Content Version: 108 ?? [id number] [employer]. High-Fiber Diet: Care Instructions Your Care Instructions A high-fiber diet may help you relieve constipation and feel less bloated. Your doctor and dietitian will help you make a high-fiber eating plan based on your personal needs. The plan will include the things you like to eat. It will also make sure that you get 30 grams of fiber a day. Before you make changes to the way you eat, be sure to talk with your doctor or dietitian. Follow-up care is a rivero part of your treatment and safety. Be sure to make and go to all appointments, and call your doctor if you are having problems. It's also a good idea to know your test results and keep a list of the medicines you take. How can you care for yourself at home? ?? You can increase how much fiber you get if you eat more of certain foods. These foods include: ?? Whole-grain breads and cereals. ?? Fruits, such as pears, apples, and peaches. Eat the skins, peels, and seeds, if you can. ?? Vegetables, such as broccoli, cabbage, spinach, carrots, asparagus, and squash. ?? Starchy vegetables. These include potatoes with skins, kidney beans, and ayala beans. ?? Take a fiber supplement every day if your doctor recommends it. Examples are Benefiber, Citrucel,FiberCon, and Metamucil. Ask your doctor how much to take. ?? Drink plenty of fluids, enough so that your urine is light yellow or clear like water. If you have kidney, heart, or liver disease and have to limit fluids, talk with your doctor before you increasethe amount of fluids you drink. ?? Get some exercise every day. Exercise helps stool move through the colon. It also helps prevent constipation. ?? Keep a food diary. Try to notice and write down what foods cause gas, pain, or other symptoms. Then you can avoid these foods. Where can you learn more? Go to [employer] and enter U654 in the search box. Current as of: August 15, 2014 Content Version: 108 ?? [id number] [employer]. documented in this encounter Progress Notes Toan Dotson MD - 12/11/2015 2:01 PM CDT Quick Note: Normal small bowel biopsies. No evidence for celiac disease Rec: - continue iron supplementation. RTC with Adilene GOYAL NP as scheduled Toan Dotson MD 12/11/2015, 2:01 PM Adilene Alfonso APRN, CNP - 12/11/2015 7:35 AM CDT Quick Note: Normal colonoscopy, no cause for anemia seen. Adilene Alfonso APRN, RING FACER Toan Dotson MD - 12/10/2015 2:35 PM CDT CC: Esophogastroduodenoscopy (EGD) and colonoscopy HPI: Patient here for EGD and colonoscopy. Indication(s) for EGD: iron deficiency anemia. Indication(s) for colonoscopy: Iron deficiency anemia PMH: Reviewed PSH: Reviewed Social Hx: Reviewed Allergies: Reviewed Medications: Reviewed Family History: Reviewed Review of Systems: Pertinent ROS done. Exam: Alert, awake and oriented. Vitals: See documentation flowsheet. Head and Neck: Examined Chest: Clear to auscultation. No wheezes or rales. CVS: Regular, rate, rhythm. Abdomen: Abdomen soft, non-tender without masses or organomegaly. Extremities: Examined Hx sedation/anesthesia reaction: No Airway abnormal: No dASA: P2 A patient with mild systemic dz Plan: EGD and colonoscopy under moderate sedation. Supervising provider: Toan Dotson MD Potential risks and complications of procedure have been discussed with patient. Toan Dotson MD 12/10/2015, 2:35 PM documented in this encounter Plan of Treatment Not on filedocumented as of this encounter Procedures Procedure Name Priority Date/Time Associated Diagnosis Comme nts SURGICAL PATH Routine 12/11/2015 9:56 AM Anemia, unspecified R esults for this CDT procedure are i n the results section. GI UPPER ENDOSCOPY Routine 12/10/2015 3:29 PM Anemia, unspecif ied Results for this CDT procedure are i n the results section. COLONOSCOPY Routine 12/10/2015 2:36 PM Anemia, unspecified Re sults for this CDT procedure are i n the results section. documented in this encounter Results Surgical Path - Endoscopy (12/11/2015 9:56 AM CDT) [facility] gist Method Time Signature Histology (NOTE) [facility] Final [facility] Patient Name: KIM PARKER Taken: 12/10/2015 Received: 12/10/2015 Reported: 12/11/2015 Physician(s): TOAN DOTSON ? Final Pathologic Diagnosis Jejunum, biopsy -- ?- No diagnostic abnormality ?- No histologic features of celiac disease *Electronically Signed Out By* ? Adilene Gomez MD Procedures/Addenda Clinical History Anemia Gross Description The specimen is received in formalin and labeled with the pa tient's name. ??The specimen consists of four pineda-white irregular so ft tissue fragments averaging 0.2 cm. ??The specimen is inked green. ? ?The specimen is filtered and entirely submitted in one cassette. ??jm jlm/12/10/2015 Microscopic Description Microscopic examination is performed. ?? kds/12/11/2015 Adilene Gomez MD [facility] Department of Pathology [address] [place] [address] ??[id number] Specimen (Source) Anatomical Collection Method Collection Time Re ceived Time Location / / Volume Laterality DUODENAL STRUCTURE 6 6:43 / Unknown PM CDT Toan Dotson MD LAB_1 Performing Organization Address City/State/ZIP Code Phon e Number [address] [id number] GI UPPER ENDOSCOPY [[id number]] (12/10/2015 3:29 PM CDT) Specimen (Source) Anatomical Collection Method Collection Time Re ceived Time Location / / Volume Laterality 12/10/2015 3:29 PM CDT Narrative [facility]) - 12/10/2015 3:47 PM CDT Instrument Name: 361 Indications: ? Iron deficiency anemia Providers: ? Toan pineda MD, Lucy Howe LPN, Neena Sylvester. ? ILIANA Cheng Referring : ?Adilene Zepeda NP Medicines: ? Midazolam 1 mg IV, Cetacaine spray, + residual ? sedation from colonoscopy Complications: ? No immediate com plications. Estimated blood loss: ? None. Procedure: ? Pre-Anesthesia Assessment: ? - Prior t o the procedure, a History and Physical was ? performed , and patient medications, allergies and ? sensitivi ties were reviewed. The patient's tolerance ? of previo us anesthesia was reviewed. ? - The ris ks and benefits of the procedure and the ? sedation options and risks were discussed with the ? patient. All questions were answered and informed ? consent w as obtained. ? - Mental Status Examination: alert and oriented. ? Airway Ex amination: normal oropharyngeal airway and ? neck mobi lity. Respiratory Examination: clear to ? auscultat ion. CV Examination: normal. Abdominal ? Examinati on: bowel sounds present, abdomen soft and ? non-tende r, no masses or organomegaly noted. ? - ASA Gra de Assessment: II - A patient with mild ? systemic disease. ? - After r eviewing the risks and benefits, the patient ? was deeme d in satisfactory condition to undergo the ? procedure . ? - The ane sthesia plan was to use moderate ? sedation/ analgesia (conscious sedation). ? - Immedia tely prior to administration of medications, ? the patie nt was re-assessed for adequacy to receive ? sedatives . ? - Sedatio n was administered by an endoscopy nurse. ? The sedat ion level attained was moderate. ? - The hea rt rate, respiratory rate, oxygen ? saturatio ns, blood pressure, adequacy of pulmonary ? ventilati on, and response to care were monitored ? throughou t the procedure. ? - The phy sical status of the patient was re-assessed ? after the procedure. ? After obt aining informed consent, the endoscope was ? passed un veronica direct vision. Prior to sedation, ? patient i dentity and procedure was reverified. ? Throughou t the procedure, the patient's blood ? pressure, pulse, and oxygen saturations were ? monitored continuously. The GIF-H190 was introduced ? through t he mouth, and advanced to the jejunum. The ? upper GI endoscopy was accomplished without ? difficult y. The patient tolerated the procedure well. Findings: ? The examined esophagus was normal . ? Evidence of a Layo-en-Y gastrojej unostomy was found. The ? gastrojejunal anastomosis was hui racterized by healthy appearing ? mucosa. This was traversed. The p ytok-wb-tpdygmk limb was ? characterized by healthy appearin g mucosa. The jejunojejunal ? anastomosis was characterized by healthy appearing mucosa. The ? jilzoccs-ul-qoztcjg limb was not examined as it could not be found. ? Biopsies for histology were taken with a cold forceps for for ? evaluation of celiac disease. Impression: ?- Normal esoph rai. ? - Layo-en -Y gastrojejunostomy with gastrojejunal ? anastomos is characterized by healthy appearing ? mucosa. B iopsied. Recommendation: ?- Continue prese nt medications. ? - Await p athology results. ? - Return to referring physician as previously ? scheduled . Procedure Code(s): ?? --- Professional - -- ? 41556, Es ophagogastroduodenoscopy, flexible, ? transoral ; with biopsy, single or multiple Diagnosis Code(s): ?? --- Professional - -- ? Z98.0, In testinal bypass and anastomosis status ? D50.9, Ir on deficiency anemia, unspecified CPT copyright 2015 [employer]. All rights reserved. The codes documented in this report are preliminary and upon colorist review may be revised to meet current complianc e requirements. Attending Participation: Toan Dotson MD 12/10/2015 3:46:47 PM Number of Addenda: 0 Note Initiated On: 12/10/2015 3:29 PM Procedure Note Toan Dotson MD - 12/10/2015Formatt ing of this note might be different from the original. Instrument Name: 361 Indications: Iron deficiency anemia Providers: Toan Dotson MD, Lucy Howe LPN, Neena Cheng RN Referring MD: Adilene Alfonso NP Medicines: Midazolam 1 mg IV, Cetacaine spray, + residual sedation from colonoscopy Complications: No immediate complication s. Estimated blood loss: None. Procedure: Pre-Anesthesia Assessment: - Prior to the procedure, a History and Physical was performed, and patient medications, all ergies and sensitivities were reviewed. The patien t's tolerance of previous anesthesia was reviewed. - The risks and benefits of the procedu re and the sedation options and risks were discuss ed with the patient. All questions were answered an d informed consent was obtained. - Mental Status Examination: alert and oriented. Airway Examination: normal oropharyngea l airway and neck mobility. Respiratory Examination: clear to auscultation. CV Examination: normal. A bdominal Examination: bowel sounds present, abdo men soft and non-tender, no masses or organomegaly n oted. - ASA Grade Assessment: II - A patient with mild systemic disease. - After reviewing the risks and benefit s, the patient was deemed in satisfactory condition to undergo the procedure. - The anesthesia plan was to use modera te sedation/analgesia (conscious sedation) . - Immediately prior to administration o f medications, the patient was re-assessed for adequac y to receive sedatives. - Sedation was administered by an endos copy nurse. The sedation level attained was moderat e. - The heart rate, respiratory rate, oxy gen saturations, blood pressure, adequacy o f pulmonary ventilation, and response to care were monitored throughout the procedure. - The physical status of the patient wa s re-assessed after the procedure. After obtaining informed consent, the e ndoscope was passed under direct vision. Prior to se dation, patient identity and procedure was reve rified. Throughout the procedure, the patient's blood pressure, pulse, and oxygen saturations were monitored continuously. The GIF-H190 wa s introduced through the mouth, and advanced to the jejunum. The upper GI endoscopy was accomplished wit hout difficulty. The patient tolerated the p rocedure well. Findings: The examined esophagus was normal. Evidence of a Layo-en-Y gastrojejunosto my was found. The gastrojejunal anastomosis was character ized by healthy appearing mucosa. This was traversed. The pouch-t o-jejunum limb was characterized by healthy appearing muco sa. The jejunojejunal anastomosis was characterized by health y appearing mucosa. The vewdrppn-ow-gddnfdn limb was not examin ed as it could not be found. Biopsies for histology were taken with a cold forceps for for evaluation of celiac disease. Impression: - Normal esophagus. - Layo-en-Y gastrojejunostomy with angelina rojejunal anastomosis characterized by healthy ap pearing mucosa. Biopsied. Recommendation: - Continue present medic ations. - Await pathology results. - Return to referring physician as prev iously scheduled. Procedure Code(s): --- Professional --- 29311, Esophagogastroduodenoscopy, flex ible, transoral; with biopsy, single or multi ple Diagnosis Code(s): --- Professional --- Z98.0, Intestinal bypass and anastomosi s status D50.9, Iron deficiency anemia, unspecif ied CPT copyright 2015 [employer]. All rights reserved. The codes documented in this report are preliminary and upon colorist review may be revised to meet current complianc e requirements. Attending Participation: Toan Dotson MD 12/10/2015 3:46:47 PM Number of Addenda: 0 Note Initiated On: 12/10/2015 3:29 PM Toan Dotson MD [facility] Performing Organization Address City/State/ZIP Code Phon e Number [facility] ([facility]) [facility] ([facility]) [place], [place] COLONOSCOPY [[id number]] (12/10/2015 2:36 PM CDT) Specimen (Source) Anatomical Collection Method Collection Time Re ceived Time Location / / Volume Laterality 12/10/2015 2:36 PM CDT Narrative [facility] ([facility]) - 12/10/2015 3:34 PM CDT Instrument Name: 171 Indications: ? Iron deficiency anemia Providers: ? Toan pineda MD, Lucy Howe LPN, Neena Sylvester. ? ILIANA Cheng Referring MD: ?Adilene Zepeda, XAVIER Medicines: ? Midazolam 4 mg IV, Fentanyl 200 micrograms IV Complications: ? No immediate com plications. Estimated blood loss: ? None. Procedure: ? Pre-Anesthesia Assessment: ? - Prior t o the procedure, a History and Physical was ? performed , and patient medications, allergies and ? sensitivi ties were reviewed. The patient's tolerance ? of previo us anesthesia was reviewed. ? - The ris ks and benefits of the procedure and the ? sedation options and risks were discussed with the ? patient. All questions were answered and informed ? consent w as obtained. ? - Mental Status Examination: alert and oriented. ? Airway Ex amination: normal oropharyngeal airway and ? neck mobi lity. Respiratory Examination: clear to ? auscultat ion. CV Examination: normal. Abdominal ? Examinati on: bowel sounds present, abdomen soft and ? non-tende r, no masses or organomegaly noted. ? - ASA Gra de Assessment: II - A patient with mild ? systemic disease. ? - After r eviewing the risks and benefits, the patient ? was deeme d in satisfactory condition to undergo the ? procedure . ? - The ane sthesia plan was to use moderate ? sedation/ analgesia (conscious sedation). ? - Immedia tely prior to administration of medications, ? the patie nt was re-assessed for adequacy to receive ? sedatives . ? - Sedatio n was administered by an endoscopy nurse. ? The sedat ion level attained was moderate. ? - The hea rt rate, respiratory rate, oxygen ? saturatio ns, blood pressure, adequacy of pulmonary ? ventilati on, and response to care were monitored ? throughou t the procedure. ? - The phy sical status of the patient was re-assessed ? after the procedure. ? After I o btained informed consent, the scope was ? passed un veronica direct vision. Prior to sedation, ? patient i dentity and procedure was reverified. ? Throughou t the procedure, the patient's blood ? pressure, pulse, and oxygen saturations were ? monitored continuously. The PCF-H190L was introduced ? through t he anus and advanced to the cecum, ? identifie d by appendiceal orifice and ileocecal ? valve. Th e colonoscopy was performed with difficulty ? due to si gnificant looping and a tortuous colon. ? Successfu l completion of the procedure was aided by ? increasin g the dose of sedation medication, changing ? the patie nt to a supine position and using manual ? pressure. The patient tolerated the procedure well. ? The quali ty of the bowel preparation was fair. Findings: ? The colon (entire examined portio n) was significantly tortuous. ? External and internal hemorrhoids were found. The hemorrhoids were ? small. Impression: ?- Tortuous col on. ? - Externa l and internal hemorrhoids. ? - No spec imens collected. Recommendation: ?- High fiber t. ? - Use fib er, for example Citrucel, Fibercon, K[employer]yl ? or Metamu cil. ? - Repeat colonoscopy in 5 years for screening ? purposes. ? - Return to referring physician as previously ? scheduled . Procedure Code(s): ?? --- Professional - -- ? 55383, Co lonoscopy, flexible; diagnostic, including ? collectio n of specimen(s) by brushing or washing, ? when perf ormed (separate procedure) Diagnosis Code(s): ?? --- Professional - -- ? D50.9, Ir on deficiency anemia, unspecified ? 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 K64.8, Ot her hemorrhoids CPT copyright 2015 [employer]. All rights reserved. The codes documented in this report are preliminary and upon colorist review may be revised to meet current complianc e requirements. Attending Participation: Toan Dotson MD 12/10/2015 3:34:34 PM Number of Addenda: 0 Note Initiated On: 12/10/2015 2:36 PM Procedure Note Toan Dotson MD - 12/10/2015Formatt ing of this note might be different from the original. Instrument Name: 171 Indications: Iron deficiency anemia Providers: Toan Dotson MD, Lucy Howe LPN, Neena Cheng RN Referring MD: Adilene Alfonso NP Medicines: Midazolam 4 mg IV, Fentanyl 2 00 micrograms IV Complications: No immediate complication s. Estimated blood loss: None. Procedure: Pre-Anesthesia Assessment: - Prior to the procedure, a History and Physical was performed, and patient medications, all ergies and sensitivities were reviewed. The patien t's tolerance of previous anesthesia was reviewed. - The risks and benefits of the procedu re and the sedation options and risks were discuss ed with the patient. All questions were answered an d informed consent was obtained. - Mental Status Examination: alert and oriented. Airway Examination: normal oropharyngea l airway and neck mobility. Respiratory Examination: clear to auscultation. CV Examination: normal. A bdominal Examination: bowel sounds present, abdo men soft and non-tender, no masses or organomegaly n oted. - ASA Grade Assessment: II - A patient with mild systemic disease. - After reviewing the risks and benefit s, the patient was deemed in satisfactory condition to undergo the procedure. - The anesthesia plan was to use modera te sedation/analgesia (conscious sedation) . - Immediately prior to administration o f medications, the patient was re-assessed for adequac y to receive sedatives. - Sedation was administered by an endo scopy nurse. The sedation level attained was moderat e. - The heart rate, respiratory rate, oxy gen saturations, blood pressure, adequacy o f pulmonary ventilation, and response to care were monitored throughout the procedure. - The physical status of the patient wa s re-assessed after the procedure. After I obtained informed consent, the scope was passed under direct vision. Prior to se dation, patient identity and procedure was reve rified. Throughout the procedure, the patient's blood pressure, pulse, and oxygen saturations were monitored continuously. The PCF-H190L w as introduced through the anus and advanced to the ce cum, identified by appendiceal orifice and i leocecal valve. The colonoscopy was performed wi th difficulty due to significant looping and a tortuo us colon. Successful completion of the procedure was aided by increasing the dose of sedation medicat ion, changing the patient to a supine position and us ing manual pressure. The patient tolerated the pro cedure well. The quality of the bowel preparation wa s fair. Findings: The colon (entire examined portion) was significantly tortuous. External and internal hemorrhoids were found. The hemorrhoids were small. Impression: - Tortuous colon. - External and internal hemorrhoids. - No specimens collected. Recommendation: - High fiber diet. - Use fiber, for example Citrucel, Fibe rcon, Konsyl or Metamucil. - Repeat colonoscopy in 5 years for scr eening purposes. - Return to referring physician as prev iously scheduled. Procedure Code(s): --- Professional --- 98425, Colonoscopy, flexible; diagnosti c, including collection of specimen(s) by brushing o r washing, when performed (separate procedure) Diagnosis Code(s): --- Professional --- D50.9, Iron deficiency anemia, unspecif ied Q43.8, Other specified congenital malfo rmations of intestine K64.8, Other hemorrhoids CPT copyright 2015 [employer]. All rights reserved. The codes documented in this report are preliminary and upon colorist review may be revised to meet current complianc e requirements. Attending Participation: Toan Dotson MD 12/10/2015 3:34:34 PM Number of Addenda: 0 Note Initiated On: 12/10/2015 2:36 PM Toan Dotson MD DIGESTIVE CARE Performing Organization Address City/State/ZIP Code Phon e Number [facility] ([facility]OV[facility]) [facility] ([facility]) [place], [place] documented in this encounter Visit Diagnoses Diagnosis Anemia, unspecified - Primary documented in this encounter Administered Medications Inactive Administered Medications - up to 3 most recent administrations Medication Order MAR Action Action Date Dose Rate Site diobbkhj-serprpoqsc-dkxwxqphmh Given 12/10/2015 3:32 PM CDT 2 Sp rays (aka EXACTACAIN,CETACAINE) 2-2-14 % topical liquid 1-2 Cora 1-2 Cora, Topical, PRN WITH PROCEDURES, Pain, Starting on Mary 12/10/15 at 1435, For 4 hours, Per Procedural Sedation Order set. Pharmacy, Do Not Dispense, procedure team has their own stock. Given 12/10/2015 2:57 PM CDT 2 Sprays fentaNYL (aka SUBLIMAZE) injection 25-10 0 mcg Given 12/10/2015 3:25 PM CDT 50 mcg 25-100 mcg, Intravenous, PRN WITH PROCEDURES, Sedation, Procedure, Starting on Mary 12/10/15 at 1435, Until Mary 12/10/15 at 2234, For 8 hours, Give as directed by provider under procedural sedation protocol. Given 12/10/2015 3:05 PM CDT 50 mcg Given 12/10/2015 3:00 PM CDT 100 mcg midazolam (aka VERSED) injection 0.5-2 m g Given 12/10/2015 3:32 PM CDT 1 mg 0.5-2 mg, Intravenous, PRN WITH PROCEDURES, Sedation, Starting on Mary 12/10/15 at 1435, Until Mary 12/10/15 at 2234, For 8 hours, Give as directed by provider under procedural sedation protocol. Given 12/10/2015 3:25 PM CDT 1 mg Given 12/10/2015 3:05 PM CDT 1 mg NaCl 0.9% infusion Started 12/10/2015 3:00 PM CDT 500 mL 400 mL/hr 500 mL, Intravenous, at 100-400 mL/hr, PRN PER PARAMETERS, PRN for symptomatic hypotension, Starting on Mary 12/10/15 at 1435, Adjust rate per direction of provider. documented in this encounter Care Teams Lead Ios Developer Relationship Specialty Start Date End Date Dung Armas MD PCP - General Family Practice 05/21/14 10/03/17 documented as of this encounter
--- OUTSIDE RECORDS SUMMARY | 2022-02-03 09:17 | XMS_ITS | Encounter Summary ---
:1975 Author Organization [facility] Address [address] [place] [address] Care Team Providers Name Role Phone May Aponte APRN, CNP Primary Care Provider Encounter Details Date Type Department Care Team Description 11/07/2016 Correspondence [place] Arnulfo Wei PROVIDER Clinic Psychiatry MD Donn REPORT FORM [address] [place] [address] Social History Tobacco Use Types [...] on filedocumented in this encounter Care Teams Sampler And Test Preparer Relationship Specialty Start Date End Date May Aponte APRN, CNP PCP - General 10/04/17 [address] [place] [address] documented as of this encounter
--- OUTSIDE RECORDS SUMMARY | 2022-02-03 09:17 | XMS_ITS | Encounter Summary ---
:1975 Author Organization [facility] Address [address] [place] [address] Care Team Providers Name Role Phone Dung Armas MD Primary Care Provider Unavailable Reason for Visit Procedure/Equipment (Routine) - Incomplete Specialty Diagnoses / Procedures Referred By Contact Refer red To Contact Procedures Dung Armas MD US PELVIS COMPLETE W IVT [address] (/[facility] [place] [place] [address] Referral ID Status Reason Start Date Expiration Date Visits V isits Requested Authorized [id number] Incomplete 09/08/2015 12/07/2016 1 1 Encounter Details Date Type Department Care Team Description 09/09/2015 [facility] [address] [facility] [place], [place] [address] Social History Tobacco Use Types Packs/Day Years [...] encounter Progress Notes Dung Armas MD - 09/09/2015 6:53 PM CDT Quick Note: Your provider [facility]. You may call [phone] to schedule your appointment. If you prefer, a pharmacy scheduler will contact you within the next 3 business days to assist you in setting up this appointment. documented in this encounter Plan of Treatment Not on filedocumented as of this encounter Procedures Procedure Name Priority Date/Time Associated Diagnosis Comme nts US PELVIC COMPLETE Routine 09/09/2015 3:29 PM Res ults for this W EV CDT procedure are i n the results section. documented in this encounter Results US PELVIS COMPLETE W [...] nadiya a resolving corpus luteal cyst. Dung Armas MD [facility] documented in this encounter Visit Diagnoses Not on filedocumented in this encounter Care Teams Distribution Lead Relationship Specialty Start Date End Date Dung Armas MD PCP - General Family Practice 05/21/14 10/03/17 documented as of this encounter
--- OUTSIDE RECORDS SUMMARY | 2022-02-03 09:17 | XMS_ITS | Encounter Summary ---
:1975 Author Organization [facility] Address [address], [place] [address] Care Team Providers Name Role Phone Dung Armas MD Primary Care Provider Unavailable Reason for Referral Consult/Transfer Care (Routine) - Closed Specialty Diagnoses / Procedures Referred By Contact Refer red To Contact Dung Armas MD [address] [place] [address] Referral ID Status Reason Start Date Expiration Date Visits Requ ested Visits Authorized [id number] Closed 06/22/2016 09/21/2017 1 1 Scheduling Instructions Your provider has recommended an appoint ment with [facility]. You may call [phone] to schedule your appoi ntment. If you prefer, a airport maintenance chief will contact you within the next 3 business d ays to assist you in setting up this appointment. We suggest you call your [employer] insurance company about your coverage and benefits for this appointment. [employer] Reason for Visit Reason Comments ECHOCARDIOGRAM MONITORING, HOLTER REFERRAL REQUEST Encounter Details Date Type Department Care Team Description 06/22/2016 Telephone [facility] Dung Armas ECHOCARDIOGR AM; Renetta Hunt MD MONITORING, HOLTER; [address] [place] [address] Social History Tobacco Use Types [...] encounter Nursing Notes Dung Armas MD - 06/22/2016 7:08 PM CST Called patient with echocardiogram and holter monitor results, no answer. Given patient's low-normalEF and persistent bradycardia, I would like this patient to see Cardiology on a non-urgent basis to review these results and determine if any further cardiac evaluation is needed. Left message with above results and plan, along with Cardiology scheduling number and FP office number (in the event of any questions regarding this). Dung Armas MD 06/22/2016, 7:14 PM [employer] documented in this encounter Plan of Treatment Scheduled Referrals Name Type Priority Associated Diagnoses Order S jasm[facility] Cardiology Consult-Adults Referral Routine Or dered: 06/22/2016 documented as of this encounter Visit Diagnoses Not on filedocumented in this encounter Care Teams External Grinder Tender Relationship Specialty Start Date End Date Dung Armas MD PCP - General Family Practice 05/21/14 10/03/17 documented as of this encounter
--- OUTSIDE RECORDS SUMMARY | 2022-02-03 09:17 | XMS_ITS | Encounter Summary ---
:1975 Author Organization [email or web address] Address [address] [place] [address] Care Team Providers Name Role Phone May Aponte APRN, CNP Primary Care Provider [phone] Reason for Visit Procedure/Equipment (Routine) - Incomplete Specialty Diagnoses / Procedures Referred By Contact Refer red To Contact Diagnoses Visit for screening mammogram Miguel Angel Persaud PA-C Procedures MM Mammogram Screening Bilat W Implants W 3D Luis W CAD MM Mammogram Screening Bilat W 3D Luis W CAD [address] [place] [address] Referral ID Status Reason Start Date Expiration Date Visits V isits Requested Authorized [id number] Incomplete 12/18/2018 03/18/2020 1 1 Encounter Details Date Type Department Care Team Description 12/18/2018 Ancillary Procedure JBBCM Event Miguel Angel Persaud Visit for screening Mammography RICHARD Patricia mammogram [address] [facility] [address] [place] [address] [phone] Social History Tobacco Use Types Packs/Day Years [...] Date/Time Associated Diagnosis Comme nts MM MAMMOGRAM Routine 12/18/2018 11:33 AM Visit for screening R esults for this SCREENING BILAT W CDT mammogram procedure are in IMPLANTS W 3D LUIS the resul ts W CAD section. documented in this encounter Results MM Mammogram Screening Bilat W Implants W 3D Luis W CAD (12/18/2018 11:33 AM CDT) Anatomical Region Laterality Modality Breast Bilateral Mammography Specimen (Source) Anatomical Location Collection Method / Collectio n Time Received Time / Laterality Volume Impressions 12/19/2018 3:02 PM CDT : ACR BI-RADS Category 2: Benign RECOMMENDATION: Follow Up Imaging in 12 months - Bilateral The results and recommendations of this examination will be communicated to the patient. Narrative 12/19/2018 3:02 PM CDT MM MAMMOGRAM SCREENING BILAT W IMPLANTS W 3D LUIS W CAD performed on 12/18/18 Compared to: 09/16/2015 CM DIAGNOSTIC W /IMPLANTS W/LUIS BILAT and 09/16/2015 US BREAST LEFT FINDINGS: Bilateral screening mammogram was performed with the assistance of Computer-Aided Detection and breast t omosynthesis. The breasts have scattered areas of fibroglandular densit y. There are implants present. There is no radiographic evidence of mal ignancy. ?? Miguel Angel Persaud PA-C RAD CM documented in this encounter Visit Diagnoses Diagnosis Visit for screening mammogram Other screening mammogram documented in this encounter Care Teams Sql Ssis Developer Relationship Specialty Start Date End Date May Aponte V, FIELD LIABILITY GENERALIST, SCRAPE GATHERER PCP - General 10/04/17 [address] [place] [address] documented as of this encounter
--- OUTSIDE RECORDS SUMMARY | 2022-02-03 09:17 | XMS_ITS | Encounter Summary ---
:1975 Author Organization [facility] Address [address] [place] [address] Care Team Providers Name Role Phone Dung Armas MD Primary Care Provider Unavailable Reason for Referral Consult/Transfer Care (Routine) - Closed Specialty Diagnoses / Procedures Referred By Contact Refer red To Contact Diagnoses Chronic post-traumatic stress disorder (HRC) Other specified depressive episodes Arnulfo Wei MD [address] [place] [address] Referral ID Status Reason Start Date Expiration Date Visits Requ ested Visits Authorized [id number] Closed 10/24/2016 01/23/2018 1 1 Scheduling Instructions Your provider has recommended an appoint ment with your Primary Care provider. You may call [phone] to schedule your appoi ntment. If you prefer, a museum service scheduler will contact you within the next 3 business d ays to assist you in setting up this appointment. Encounter Details Date Type Department Care Team Description 10/24/2016 Office Visit [place] Arnulfo Wei nehemiah post- traumatic stress disorder (Primary Dx); Clinic Psychiatry MD Donn Other specified depressive e pisodes [address] [place], [place] [id number] Social History Tobacco Use Types Packs/Day Years [...] as of this encounter Patient Instructions Patient InstructionsArnulfo Wei MD - 10/24/2016 5:40 PM CDT Behavioral Health and Primary Care working together with you. Behavioral Health is collaborating with your Primary Care team to provide the highest quality of care. Your condition has stabilized and you no longer need a psychiatrist to manage your care. We are confident your Primary exchange consultant can continue to manage your mental health treatment. Your general care team will work with your psychiatrist as needed to continue to manage your mental health treatment along with your general health care needs. If your condition changes, your primary care team will work with your psychiatrist to return to Behavioral Health if needed. Scheduling You may call [phone] to schedule your appointment. If you prefer, a museum service scheduler will contact you within the next 3 business days to assist you in setting up this appointment. Who to call during the transition to your primary critical care specialist Your psychiatrist will continue to manage your behavioral health care until you see your primary critical care specialist. If you have medication questions or concerns before you see your Primary exchange consultant,call Behavioral Health at [phone]. In an emergency call 911. AFTER VISIT INSTRUCTIONS ?? Change to Prozac (Fluoxetine) caps - 10 mg in the AM ?? Continue Topamax 50 mg-2x/day ?? Follow-up with primary care Please call my office, or use our on-line services, to contact me or my care team if there are any questions, concerns, problems, medication side-effects, worsening or no improvement of symptoms. If there are any emergencies, please call my office during office-hours, or contact our Careline after-hours. For any imminent emergencies, please contact 911, or seek immediate treatment at your localemergency department or crisis center. Office Careline (After-Hours): [phone] Arnulfo Wei MD 10/24/2016, 6:08 PM documented in this encounter Progress Notes Arnulfo Wei MD - 10/24/2016 5:40 PM CDT Kim Miner 10/24/2016 1975 Psychiatric Follow-Up Visit Current Complaint/Presenting Problem: depression and PTSD Progress/Data since last visit: Kim Miner is a 41 y.o. old female, who is completely stable. No signs or symptoms of depression and PTSD. 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 Completely sober from alcohol and benzodiazepines (and other substances) since 06/04/2014. Has been completely stable on Prozac + Topamax. We discussed returning to primary care for continued medication management, which she would like to do. PHQ-9 10/24/2016 (Today) PHQ-9 Score 0 PHQ-9 10/24/2016 12/28/2015 10/01/2015 09/08/2015 08/31/2015 10/14/2014 07/14/2014 PHQ9 Score - Smartform 0 1 0 0 0 2 1 Medications: Outpatient Prescriptions Marked as Taking for the 10/24/16 encounter (Office Visit) with Arnulfo Wei MD Medication Sig ??? cyanocobalamin 1000 MCG/ML injection Inject 1,000 mcg intramuscularly every 4 weeks. ??? ferrous sulfate 325 (65 FE) MG tablet Take 1 Tab by mouth daily with breakfast. ??? multivitamin-mineralsS ( AKA CERTAVITE,MYADEC) tablet Take 1 Tab by mouth daily. ??? NEEDLE, DISP, 23 G (BD DISP NEEDLE) 23G X 1 Inject 1 Device every 4 weeks. Use IM for b-12 injections ??? topiramate (TOPAMAX) 50 MG tablet Take 1 Tab by mouth two times a day. Allergies: Review of patient's allergies indicates no known allergies. Past Medical History: See Problem List. Past Medical History: Diagnosis Date ??? Alcohol abuse Treatment 06/05/2014 - 07/04/14 ??? Ambien use disorder, mild, abuse Treatment 06/05/2014 - 07/04/14 ??? Benzodiazepine abuse Obstetric History No data available Surgery: Past Surgical History: Procedure Laterality Date ??? BREAST AUGMENTATION ??? LIPOSUCTION ??? WISDOM TEETH EXTRACTION Primary care physician: Dung Armas MD Mental Status Examination: Appearance: Neatly dressed and kempt. Normal Demeanor: Forthcoming and cooperative Speech: Normal Gait/Movements: Normal Psychomotor: Good Concentration/Attention: Good Affect: Full Mood: Euthymic Suicidal/Homicidal Ideations: SI--denies. HI--denies. Psychosis: Denies Thought Content: Normal, without SI, HI, or psychosis Thought Form: Logical and goal-directed Orientation: Alert and Oriented in 3 spheres Memory: Recent and remote appear normal Fund of Knowledge: Good Insight: Good Judgment: Good ASSESSMENT: 41 y.o. old female with history of depression and PTSD, who has been symptom free on hercurrent medications, and has remained off of any substances for the past 2-1/2 years. She is stable to the point that she is able to return to primary care for continued psychiatric medication management. DIAGNOSIS: ICD-10-CM 1. Chronic post-traumatic stress disorder (HRC) F43.12 FLUoxetine (PROZAC) 10 MG capsule topiramate (TOPAMAX) 50 MG tablet PSYCHIATRY BACK TO PRIMARY CARE 2. Other specified depressive episodes F32.89 FLUoxetine (PROZAC) 10 MG capsule topiramate (TOPAMAX) 50 MG tablet PSYCHIATRY BACK TO PRIMARY CARE TREATMENT PLAN: 1. Continue present medications (Prozac liquid changed to Prozac capsules today) 2. 6 months of medications provided 3. Follow up with PCP, Dr. Armas Follow-up visit: With primary care However, if symptoms worsen or fail to improve, the patient was told to call myself, his/her therapist, his/her PCP, or the clinic, or seek out emergency services via 911, the ED, or by contacting the Careline. Visit Summary: Moderate Complexity E/M Services ([id number]) Significant time was spent on educational counseling regarding diagnosis and prognosis, the purpose of his/her medications/treatment and potential side effects, the risks and benefits of his/her medications/treatment, various treatment options and alternatives, and reviewing medical records with the [facility]. This note created using speech-recognition software and may contain unintended word substitutions. Arnulfo Wei MD 10/24/2016, 6:15 PM Psychiatrist [address] [address] (Phone) documented in this encounter Plan of Treatment Scheduled Referrals Name Type Priority Associated Diagnoses Order S [facility] BACK TO Referral Routine Chronic post-traumatic Ordered: 10/24/2016 PRIMARY CARE stress disorder Other specified depressive episodes documented as of this encounter Visit Diagnoses Diagnosis Chronic post-traumatic stress disorder ( HRC) - Primary Posttraumatic stress disorder Other specified depressive episodes documented in this encounter Care Teams Food Editor Relationship Specialty Start Date End Date Dung Armas MD PCP - General Family Practice 05/21/14 10/03/17 documented as of this encounter
--- OUTSIDE RECORDS SUMMARY | 2022-02-03 09:17 | XMS_ITS | Encounter Summary ---
:1975 Author Organization [facility] Address [address] [place] [address] Care Team Providers Name Role Phone Dung Armas MD Primary Care Provider Unavailable Reason for Visit Procedure/Equipment (Routine) - Incomplete Specialty Diagnoses / Procedures Referred By Contact Refer red To Contact Procedures Dung Armas MD US BREAST LEFT [address] [place] [address] Referral ID Status Reason Start Date Expiration Date Visits V isits Requested Authorized [id number] Incomplete 08/31/2015 11/29/2016 1 1 Encounter Details Date Type Department Care Team Description 09/16/2015 Imaging [facility] Dung Armas MD [address] [place] [address] Social History Tobacco Use Types Packs/Day Years [...] encounter Progress Notes Dung Armas MD - 09/18/2015 8:32 AM CDT Quick Note: Normal left breast ultrasound results. documented in this encounter Plan of Treatment Not on filedocumented as of this encounter Procedures Procedure Name Priority Date/Time Associated Diagnosis Comme nts MM US BREAST LT Routine 09/16/2015 8:10 AM Result s for this CDT procedure are i n the results section. documented in this encounter Results US BREAST LEFT (09/16/2015 8:10 AM CDT) Anatomical Region Laterality Modality Breast Left Ultrasound Specimen (Source) Anatomical Collection Method Collection Time Re ceived Time Location / / Volume Laterality 09/16/2015 8:10 AM CDT Narrative 09/18/2015 8:28 AM CDT CM DIAGNOSTIC W/IMPLANTS W/ABHI BILAT, LEFT BREAST US: 09/16/2015 8:02 AM INDICATION: Left nipple pain [...] mammography. Procedure Note Javier Corado MD - 09/18/2015Forma tting of this note might be different from the original. CM DIAGNOSTIC W/IMPLANTS W/ABHI BILAT, LEFT BREAST US: 09/16/2015 8:02 AM INDICATION: Left nipple pain [...] on filedocumented in this encounter Care Teams Field Crop Farm Worker Relationship Specialty Start Date End Date Dung Armas MD PCP - General Family Practice 05/21/14 10/03/17 documented as of this encounter
--- OUTSIDE RECORDS SUMMARY | 2022-02-03 09:17 | XMS_ITS | Encounter Summary ---
:1975 Author Organization [facility] Address [address], [place] [address] Care Team Providers Name Role Phone Dung Armas MD Primary Care Provider Unavailable Reason for Visit Reason Comments RESULTS, TEST and letter Encounter Details Date Type Department Care Team Description 09/01/2015 Telephone [facility] Dung Armas RESULTS, ARIEL T (and Practice MD Gilbert letter) [address] [place] [address] Social History Tobacco Use Types [...] documented as of this encounter Nursing Notes Areli Barrios LPN - 09/07/2015 4:04 PM CDT Patient called back. Explained Dr Armas would like to see her back about anemia and we have paper work done. Patient verbalizes understanding and will call for questions or concerns. Transferred to the call center for appointment. Areli Barrios LPN Areli Barrios LPN - 09/04/2015 11:50 AM CDT Mail box is fyll and can not accept messages letter sent. Areli Barrios LPN Areli Barrios LPN - 09/03/2015 8:52 AM CDT Left 2nd message for patient to call back regarding results and letter. Please call back at [phone] and ask for Areli Armas's nurse.Areli Barrios LPN Areli Barrios LPN - 09/01/2015 8:54 AM CDT Left message for patient to call back regarding results and letter. Please call back at [phone] ask for Areli Armas's nurse.Areli Barrios LPN Areli Barrios LPN - 09/01/2015 8:42 AM CDT ----- Message from Dung Armas MD sent at 08/31/2015 6:50 PM CDT ----- I would like to see Kim sheridan in about 1 week to discuss anemia seen on recent lab work. documented in this encounter Plan of Treatment Not on filedocumented as of this encounter Visit Diagnoses Not on filedocumented in this encounter Care Teams Rod Puller Relationship Specialty Start Date End Date Dung Armas MD PCP - General Family Practice 05/21/14 10/03/17 documented as of this encounter
--- OUTSIDE RECORDS SUMMARY | 2022-02-03 09:17 | XMS_ITS | Encounter Summary ---
:1975 Author Organization [facility] Address [address], [place] [address] Care Team Providers Name Role Phone Dung Armas MD Primary Care Provider Unavailable Encounter Details Date Type Department Care Team Description 12/28/2015 Lab Visit [facility] Anemia, unspecified type [address] [place], [place] [id number] Social History Tobacco Use Types Packs/Day Years [...] Progress Notes Dung Armas MD - 12/28/2015 3:16 PM CDT Quick Note: Anemia still present, but much improved. Continue daily ferrous sulfate 325mg PO QD. Recheck hemogram (hemoglobin level) in 6 months. documented in this encounter Plan of Treatment Not on filedocumented as of this encounter Procedures Procedure Name Priority Date/Time Associated Diagnosis Comme nts COMPLETE BLOOD Routine 12/28/2015 11:07 AM Anemia, unspecified Results for this COUNT-W/DIFF CDT type procedure are i n the results section. FERRITIN Routine 12/28/2015 11:07 AM Anemia, unspecified R esults for this CDT type procedure are i n the results section. documented in this encounter Results Ferritin (12/28/2015 11:07 AM CDT) P athologist Signature Ferritin 15 5 - 204 [facility] ng/ml Comment: PLEASE NOTE CHANGE IN REFERENCE RANGE Specimen Anatomical Collection Method Collection Time Receive d Time (Source) Location / / Volume Laterality 12/28/2015 11:07 12/28/2015 AM CDT 11:08 AM CDT Narrative [facility] - 12/28/2015 3:04 PM C DT Performed at [facility], [address] [place] [address] ??[id number] Dung Armas MD LAB_1 Performing Organization Address City/State/ZIP Code Phon e Number [facility] [phone] (ABNORMAL) Complete Blood Count-W/Diff (12/28/2015 11:07 AM CDT) Patholo gist Method Time Signature WBC 5.2 4.0 [...] [facility] Lymph 27 % [facility] [place] 12 % [facility] Eos 1 % [facility] Baso 1 % [facility] Neutrophil 3.1 1.8 - 7.7 [facility] Lymph Absolute 1.4 1.0 - 4.8 [facility] [place] Absolute 0.6 0.1 - 0.7 [facility] k/ul [...] 12/28/2015 2:13 PM C DT Performed at [facility], [address] [place] [id number] Dung Armas MD LAB_1 Performing Organization Address City/State/ZIP Code Phon e Number [facility] [phone] documented in this encounter Visit Diagnoses Diagnosis Anemia, unspecified type documented in this encounter Care Teams Clerical Adviser Relationship Specialty Start Date End Date Dung Armas MD PCP - General Family Practice 05/21/14 10/03/17 documented as of this encounter
--- OUTSIDE RECORDS SUMMARY | 2022-02-03 09:17 | XMS_ITS | Encounter Summary ---
:1975 Author Organization [facility] Address [address] [place] [address] Care Team Providers Name Role Phone Dung Armas MD Primary Care Provider Unavailable Encounter Details Date Type Department Care Team Description 10/01/2015 Office Visit [place] Arnulfo Wei Depr ession Unspecified (HRC) (Primary Dx); Clinic Psychiatry MD Donn Chronic post-traumatic stres s disorder; [address] Alcohol use disorder, severe , in sustained remission, dependence (HRC); [place] Sedativ e, hypnotic or anxiolytic use disorder, severe, in sustained remission, dependence ([place]) [place] [address] Social History Tobacco Use Types Packs/Day Years [...] Patient Instructions Patient InstructionsArnulfo Wei MD - 10/01/2015 3:21 PM CDT AFTER VISIT INSTRUCTIONS Continue present medications. Check lab work at any [facility] location. If there are any abnormalities or more immediate concerns, I will call you or send you a note via online services (if you have an online account and it is active). Otherwise, you should receive a letter with your results. Please call my office, or use our [...] department or crisis center. 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 She has been doing extremely well. Mood has been great. Has not felt this good in a long time. No signs or symptoms of depression. Has been sober since 06/11/2014, nearly a year and a half. Goes to AA each and every day and talks to her sponsor. Extremely committed to her sobriety. She goes before the board next month to hopefully have her license reinstated. PHQ-9 10/01/2015 (Today) PHQ-9 Score 0 PHQ-9 09/08/2015 PHQ-9 Score- SmartForm 0 Medications: Outpatient Prescriptions Prior to Visit Medication Sig Dispense Refill ??? cyanocobalamin 1000 MCG/ML injection Inject 1,000 mcg intramuscularly every 4 weeks. 10 mL 2 ??? ferrous sulfate 325 (65 FE) MG tablet Take 1 Tab by mouth daily with breakfast. 90 Tab 1 ??? multivitamin-mineralsS ( AKA CERTAVITE,MYADEC) tablet Take 1 Tab by mouth daily. ??? FLUoxetine (AKA PROZAC) 20 MG/5ML solution Take 10 mL by mouth every morning. 300 mL 11 ??? topiramate (AKA TOPAMAX) 50 MG tablet Take 1 Tab by mouth two times a day. 60 Tab 11 No facility-administered medications prior to visit. Allergies: Review of patient's allergies indicates no known allergies. Past Medical History: See Problem List. Past Medical History Diagnosis Date ??? Alcohol abuse Treatment 06/05/2014 - 07/04/14 ??? Ambien use disorder, mild, abuse Treatment 06/05/2014 - 07/04/14 ??? Benzodiazepine abuse Obstetric History No data available Surgery: Past Surgical History Procedure Laterality Date ??? Breast augmentation ??? Liposuction ??? [place] teeth extraction Primary care physician: Dung Armas MD Mental Status Examination: Appearance: Neatly dressed and kempt Demeanor: Pleasant and cooperative Speech: Normal Gait/Movements: Normal Psychomotor: Normal Concentration/Attention: Good Affect: Full Mood: Euthymic Suicidal/Homicidal Ideations: Denies Psychosis: Denies Thought Content: Normal Thought Form: Logical and goal-directed Cognitive: Intact Insight: Good Judgment: Good ASSESSMENT: 40 y.o. old female with history of depression and PTSD which are currently under very good control. Additionally, she is now nearly a year and a half completely sober and attends AA daily. 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 DIAGNOSIS: ICD-10-CM 1. Depression Unspecified (HRC) F32.8 FLUoxetine (AKA PROZAC) 20 MG/5ML solution topiramate (AKA TOPAMAX) 50 MG tablet UA WITH MICRO BASIC METABOLIC PANEL 2. Chronic post-traumatic stress disorder (HRC) F43.12 FLUoxetine (AKA PROZAC) 20 MG/5ML solution topiramate (AKA TOPAMAX) 50 MG tablet UA WITH MICRO BASIC METABOLIC PANEL 3. Alcohol use disorder, severe, in sustained remission, dependence (HRC) F10.21 4. Sedative, hypnotic or anxiolytic use disorder, severe, in sustained remission, dependence (HRC) F13.21 TREATMENT PLAN: 1. Continue present medications 2. Check BMP and urinalysis with micro (for Topamax) 3. Continue with sobriety 4. Continue with AA Follow-up visit: 1 year However, if symptoms worsen or fail to improve, the patient was told to call myself, his/her therapist, his/her PCP, or the clinic, or seek out emergency services via 911, the ED, or by contacting the Careline. Visit Summary: 15 minutes with >50% of the time spent on educational counseling regarding diagnosis and prognosis, the purpose of his/her medications/treatment and potential side effects, the risks and benefits ofhis/her medications/treatment, various treatment options and alternatives, and reviewing medical records with the patient. This note created using speech-recognition software and may contain unintended word substitutions. Arnulfo Wei MD 10/01/2015, 3:29 PM Psychiatrist [place] [phone] (Phone) documented in this encounter Plan of Treatment Not on filedocumented as of this encounter Visit Diagnoses Diagnosis Atypical depressive disease - Primary Atypical depressive disorder Chronic post-traumatic stress disorder ( HRC) Posttraumatic stress disorder Alcohol use disorder, severe, in sustain ed remission, dependence (HRC) Sedative, hypnotic or anxiolytic use dis order, severe, in sustained remission, dependence (HRC) documented in this encounter Care Teams Parole Hearing Officer Relationship Specialty Start Date End Date Dung Armas MD PCP - General Family Practice 05/21/14 10/03/17 documented as of this encounter
--- OUTSIDE RECORDS SUMMARY | 2022-02-03 09:17 | XMS_ITS | Encounter Summary ---
:1975 Author Organization [employer] [email or web address] Address [address] [place] [address] Care Team Providers Name Role Phone May Aponte APRN, CNP Primary Care Provider [phone] Encounter Details Date Type Department Care Team Description 08/17/2016 Correspondence [place] Arnulfo Wei PROVIDER REPORT Clinic Psychiatry MD Donn [place] [place] [address] Social History Tobacco Use Types [...] on filedocumented in this encounter Care Teams Compensation And Benefits Analyst Relationship Specialty Start Date End Date May Aponte APRN, CNP PCP - General 10/04/17 [address] [place] [address] documented as of this encounter
--- OUTSIDE RECORDS SUMMARY | 2022-02-03 09:17 | XMS_ITS | Encounter Summary ---
:1975 Author Organization [facility] [facility] Address [address] [place] [address] Care Team Providers Name Role Phone Dung Armas MD Primary Care Provider Unavailable Reason for Visit Reason Comments RESULTS, TEST Encounter Details Date Type Department Care Team Description 09/10/2015 Telephone [facility] sylwiaDung Porras, RESULTS, TEST [address] [place], [place] [phone] Social History Tobacco Use Types Packs/Day Years [...] encounter Nursing Notes Areli Barrios LPN - 09/11/2015 1:44 PM CDT Reached patient with phone # to call to schedule with supervisor evaporator. Pt agrees. Patient verbalizes understanding and will call for questions or concerns. Areli Barrios LPN Areli Barrios LPN - 09/10/2015 9:12 AM CDT Left message for patient to call back regarding Dr Armas's plan for you to see supervisor evaporator provider. Please call [phone] for an appointment.Please call back at [phone] and ask for Areli Armas's nurse if you have questions. Areli Barrios LPN Areli Barrios LPN - 09/10/2015 9:10 AM CDT ----- Message from Dung Armas MD sent at 09/09/2015 6:53 PM CDT ----- Your provider has recommended an appointment with [facility]. You may call [phone] to schedule your appointment. If you prefer, a nursing scheduler will contact you within the next 3 business days to assist you in setting up this appointment. documented in this encounter Plan of Treatment Not on filedocumented as of this encounter Visit Diagnoses Not on filedocumented in this encounter Care Teams Associate Dentist Relationship Specialty Start Date End Date Dung Armas MD PCP - General Family Practice 05/21/14 10/03/17 documented as of this encounter
--- OUTSIDE RECORDS SUMMARY | 2022-02-03 09:17 | XMS_ITS | Encounter Summary ---
:1975 Author Organization [facility] Address [address] [place] [address] Care Team Providers Name Role Phone Dung Armas MD Primary Care Provider Unavailable Reason for Referral Procedure/Equipment (Routine) - Closed Specialty Diagnoses / Procedures Referred By Contact Refer red To Contact Adilene Alfonso APRN, CNP [address] [place] [address] Referral ID Status Reason Start Date Expiration Date Visits Requ ested Visits Authorized [id number] Closed 09/21/2015 12/20/2016 1 1 Scheduling Instructions Your provider has recommended an appoint ment for a colonoscopy. You may call [phone] to schedule your appointmen t. If you prefer, a computer processing scheduler will contact you within the next 3 business days to a ssist you in setting up this appointment. Reason for Visit Reason Comments Consult, New Patient Consult/Transfer Care (Routine) - Closed Specialty Diagnoses / Procedures Referred By Contact Refer red To Contact Diagnoses Anemia, unspecified type Dung Armas MD [address] [place] [address] Referral ID Status Reason Start Date Expiration Date Visits Requ ested Visits Authorized [id number] Closed 09/08/2015 12/07/2016 1 1 Encounter Details Date Type Department Care Team Description 09/21/2015 Office Visit Specialty [facility] Adilene Alfonso deficiency anemia, unspecified iron deficiency anemia type (Primary Dx); [facility] MARIA ELENA Sylvester CNP B12 deficiency Clinic [address] [address] [place] [address] [place], [place] [phone] (Wo rk) Social History Tobacco Use Types [...] Sign Reading Time Taken Comments Blood Pressure 104/52 09/21/2015 10:37 AM CDT Pulse 39 09/21/2015 10:37 AM CDT Temperature 36.9 ??C (98.5 ??F) 09/21/2015 10:37 AM CDT Respiratory Rate - - Oxygen Saturation - - Inhaled Oxygen Concentration - - Weight 71.2 kg (157 lb) 09/21/2015 10:37 AM CDT Height 167.6 cm (5' 6) 09/21/2015 10:37 AM CDT Body Mass Index 25.34 09/21/2015 10:37 AM CDT documented in this encounter Patient Instructions Patient InstructionsAdilene Alfonso, BILLING ASSOCIATE, AUTOMOBILE MECHANIC - 09/21/2015 11:24 AM CDT Please schedule upper GI endoscopy and colonoscopy at your convenience. This is scheduled for December 09 at 2:00 pm. Must have a taxi driver with you to take you home. Will receive paperwork 1 to 2 weeks before your appointment, when you receive the paperwork you can then go the pharmacy to roll picker your prep. Continue to take your iron supplement and plan to have your hemoglobin rechecked in a month, I will put the order in and you can have that done at your home clinic Continue your B12 supplement, your level was at the very low end of normal Pleasure to meet you today Call with questions or concerns [phone] option #3. Adilene Alfonso APRN, AUTOMOBILE MECHANIC documented in this encounter Progress Notes Adilene Alfonso, MARIA ELENA, AUTOMOBILE MECHANIC - 09/21/2015 11:26 AM CDT Subjective/HPI: Kim Miner is a 40 y.o. old female with hx of Layo-en-Y gastric bypass, alcohol abuse, bradycardia who presents his new patient today in clinic for anemia, referred by her new primary care provider Dr. Armas. Noted to have hemoglobin 10.1 in August, on recheck 10.0, ferritin seven, iron saturation 10 percent,iron level 41, peripheral smear showing iron deficiency, normal reticulocyte count. She initiated aniron supplement on the advice of Dr. Armas, no upper gastrointestinal distress with that although stools have become dark. There is no constipation. Had Layo-en-Y gastric bypass at [place] in 2006, lost 125 pounds, 100 of which she has kept off. Was not advised to take any iron supplementation at time of surgery but was advised to use B-12 which shereports continuing monthly injections of. Occasionally sees some red blood in the bowel movement butno abdominal or anorectal pain. Denies dyspepsia, heartburn, nausea or vomiting, change in appetite or other upper gastrointestinal symptoms. She does not take any nonsteroidal anti-inflammatory drugs.Mother has had colorectal polyps and is having colonoscopy every five years, maternal grandfather also had polyps. Component Latest Ref Rng 09/08/2015 WBC 4.0 - 11.0 k/ul 6.2 RBC 4.0 - 5.2 M/ul 4.23 HGB 12.0 - 16.0 g/dl 10.0 (L) HCT 36.0 - 46.0 % 32.0 (L) MCV 80 - 100 fl 75.7 (L) MCH 26 - 34 pg 23.6 (L) MCHC 32 - 36 g/dl 31.3 (L) RDW 11.5 - 14.5 % 16.2 (H) PLTS 150 - 450 k/ul 336 PMN/BAND 64 LYMPH 23 MONO 11 EOS 1 BASO 1 PMN ABSOLUTE 1.8 - 7.7 k/ul 4.0 LYMPH ABSOLUTE 1.0 - 4.8 k/ul 1.4 MONO ABSOLUTE 0.1 - 0.7 k/ul 0.7 EOS ABSOLUTE 0.0 - 0.5 k/ul 0.1 BASO ABSOLUTE 0.0 - 0.2 k/ul 0.0 IMMATURE GRAN 0 IMM GRAN ABSOLUTE 0 k/ul 0.0 IRON 37 - 170 mcg/dl 41 TIBC 240 - 430 mcg/dl 407 % SATURATION, CALC. 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 Had a period of heavy alcohol use, sobriety since May 2014. Nonsmoker. Family hx: Mother and maternal grandfather with colonic polyps. Negative for celiac, inflammatory bowel disease, ulcer disease. ROS: Denies fever, chills, night sweats, cough or shortness of breath, chest pain or pressure, unintentional weight loss, arthralgias, chronic headache, numbness or tingling of the extremities, urinary symptoms, history of kidney stones, fatigue. The rest of the 13 point review of systems negative unless specifically stated in history of presentillness. Objective: BP 104/52 mmHg Pulse 39 Temp(Src) 98.5 ??F (36.9 ??C) (Tympanic) Ht 5' 6 (1.676 m) Wt 157 lb (71.215 kg) BMI 25.35 kg/m2 LMP 09/21/2015 (Exact Date) she is alert and oriented x3, well groomed, and in no physical distress. Sclera are anicteric. CV bradycardia, no murmur. No CVA tenderness. Abd rounded, soft, nontender. No hepatosplenomegaly or abdominal masses. No lower extremity edema. Impression: Iron deficiency anemia likely related to gastric bypass status with loss of prior iron stores and inadequate intake/absorption. Tolerating oral iron and should continue on that, we will repeat hemoglobin and ferritin in a month. Has never been tested for celiac disease so will add serologies on but plan upper gastrointestinal endoscopy to exclude ulceration or blood loss through upper gut and can biopsy small bowel for celiac as well. She will also undergo colonoscopy to exclude polyps, inflammation or other source of blood loss, does occasionally see blood in stool so etiology of this will be evaluated for as well. Will need ongoing iron supplementation, recommend continuing at one daily, if this is not enough in future can increase. B-12 level toward lower end of normal and should continue with monthly injections. Recommendations: 1. Colon/EGD 2. continue daily iron 3. Labs 1 month 4. Monthly B-12 injections 5. Return to clinic as needed Adilene Alfonso APRN, LEONARD documented in this encounter Plan of Treatment Scheduled Referrals Name Type Priority Associated Diagnoses Order S chedule COLONOSCOPY WITH EGD Referral Routine Ordered : 09/21/2015 documented as of this encounter Visit Diagnoses Diagnosis Iron deficiency anemia, unspecified iron deficiency anemia type - Primary B12 deficiency (HRC) Other B-complex deficiencies documented in this encounter Care Teams Line Person Relationship Specialty Start Date End Date Dung Armas MD PCP - General Family Practice 05/21/14 10/03/17 documented as of this encounter
--- OUTSIDE RECORDS SUMMARY | 2022-02-03 09:17 | XMS_ITS | Encounter Summary ---
:1975 Author Organization [email or web address] Address [address], [place] [address] Care Team Providers Name Role Phone Dung Ann MD Primary Care Provider Unavailable Encounter Details Date Type Department Care Team Description 09/08/2015 Lab Visit [facility] Anemia, unspecified type [address] [place], [place] [id number] Social History Tobacco Use Types Packs/Day Years [...] as of this encounter Progress Notes Dung Ann MD - 10/15/2015 1:47 PM CDT Quick Note: Consistent with iron-deficiency. Continue with iron supplementation. documented in this encounter Plan of Treatment Not on filedocumented as of this encounter Procedures Procedure Name Priority Date/Time Associated Diagnosis Comme nts COMPLETE BLOOD Routine 09/08/2015 11:10 Anemia, unspecified Re sults for this COUNT-W/DIFF AM CDT type procedure are i n the results section. RETIC, AUTOMATED Routine 09/08/2015 11:10 Anemia, unspecified Results for this AM CDT type procedure are i n the results section. FERRITIN Routine 09/08/2015 11:10 Anemia, unspecified Resu lts for this AM CDT type procedure are i n the results section. IRON PROFILE Routine 09/08/2015 11:10 Anemia, unspecified Resu lts for this (IRON,TIBC,%SAT.(LALITHA AM CDT type procedu re are in C)) the results section. UA WITH MICRO Routine 09/08/2015 11:10 Anemia, unspecified Res ults for this AM CDT type procedure are i n the results section. PERIPHERAL BLOOD Routine 09/08/2015 7:00 AM Anemia, unspecifie d Results for this SMEAR MORPHOLOGY CDT type procedure a re in the results section. documented in this encounter Results UA WITH MICRO (09/08/2015 11:10 AM CDT) [facility] gist Method Time Signature Urine Color Yellow [...] 09/08/2015 1:17 PM C DT Performed at [facility], [address] [place], [place] ??[id number] Dung Ann MD LAB_1 Performing Organization Address City/State/ZIP Code Phon e Number [facility] [phone] RETIC, AUTOMATED (09/08/2015 11:10 AM CDT) P athologist Signature Retic % 0.7 0.6 - 1.9 [facility] Retic Absolute 0.03 0.03 - [facility] 0[facility]05 [facility] Specimen Anatomical Collection Method Collection Time Receive d Time (Source) Location / / Volume Laterality 09/08/2015 11:10 09/08/2015 AM CDT 11:11 AM CDT Narrative [facility] - 09/08/2015 2:05 PM C DT Performed at [facility], [address] [place] [phone] Dung Ann MD LAB_1 Performing Organization Address [facility] Phon e Number [facility] [phone] (ABNORMAL) IRON PROFILE (IRON,TIBC,%SAT.(CALC)) (09/08/2015 11:10 AM [...] 09/08/2015 AM CDT 11:11 AM CDT Narrative [facility] - 09/08/2015 4:49 PM C DT Performed at [facility], [address] [place] [id number] Dung Ann MD LAB_1 Performing Organization Address City/[facility] Phon e Number [facility] [phone] (ABNORMAL) FERRITIN (09/08/2015 11:10 AM CDT) P athologist Signature Ferritin 7 (L) 10 - 120 [facility] ng/ml Specimen Anatomical Collection Method Collection Time Receive d Time (Source) Location / / Volume Laterality 09/08/2015 11:10 09/08/2015 AM CDT 11:11 AM CDT Narrative [facility] - 09/08/2015 4:49 PM C DT Performed at [facility], [address] [place] [phone] Dung Ann MD LAB_1 Performing Organization Address City/State/ZIP Code Phon e Number [facility] [phone] (ABNORMAL) HEMOGRAM/PLTS/DIFF (09/08/2015 11:10 AM CDT) [facility] Method Time Signature WBC 6.2 4.0 - [...] [facility] Lymph 23 % [facility] [place] 11 % [facility] Eos 1 % [facility] Baso 1 % [facility] Neutrophil 4.0 1.8 - 7.7 [facility] Absolute k/ul [facility] Lymph Absolute 1.4 1.0 - 4.8 [facility] k/ul [facility] [place] Absolute 0.7 0.1 - 0.7 [facility] k/ul [...] 09/08/2015 2:05 PM C DT Performed at [facility], [address] [place] [phone] Dung Ann MD LAB_1 Performing Organization Address City/State/[facility] Code Phon e Number [facility] [phone] PERIPHERAL BLOOD SMEAR MORPHOLOGY [[id number]] (09/08/2015 7:00 AM CDT) Component Value Ref Test Analysis Performed At [facility] gist Range Method Time Signature Hematology (NOTE) [facility] Peripheral Smear Report MARSHA PICKETT Patient Name: OTTONIEL PARKER Accession #: ?[id number] Taken: 09/08/2015 Received: 09/09/2015 Reported: 09/09/2015 Physician(s): [...] serum B 12 level reported in the [facility] medical records is in the [...] ??Normal in number, morphology, and granularity. ?? [facility] Department of Pathology [address] [place] [phone] Specimen Anatomical Collection Method Collection Time Receive d Time (Source) Location / / Volume Laterality VENOUS BLOOD 09/08/2015 7:00 AM 6 7:37 SPECIMEN / Unknown CDT AM CDT Dung Ann MD LAB_1 Performing Organization Address City/State/ZIP Code Phon e Number [facility] [phone] documented in this encounter Visit Diagnoses Diagnosis Anemia, unspecified type documented in this encounter Care Teams Broom Maker Relationship Specialty Start Date End Date Dung Ann MD PCP - General Family Practice 05/21/14 10/03/17 documented as of this encounter
--- OUTSIDE RECORDS SUMMARY | 2022-02-03 09:17 | XMS_ITS | Encounter Summary ---
:1975 Author Organization [facility] Address [address] [address] Care Team Providers Name Role Phone Dung Armas MD Primary Care Provider Unavailable Encounter Details Date Type Department Care Team Description 06/07/2016 Orders Only [facility] Bright Armas ad Non-Invasive Lab MD [place] [address] [place] [id number] Social History Tobacco Use Types Packs/Day Years [...] Name Priority Date/Time Associated Diagnosis Comme nts VACUUM COOKER OPERATOR 06/07/2016 12:00 AM Resul ts for this MANAGEMENT SERVICES TECHNICIAN procedure are i n the results section. documented in this encounter Results VACUUM COOKER OPERATOR (06/07/2016 12:00 AM MANAGEMENT SERVICES TECHNICIAN) Specimen (Source) Anatomical Location Collection Method / Collectio n Time Received Time / Laterality Volume 06/07/2016 Narrative This result has an attachment that is no t available. Dung Armas MD DUMMY/OTHER/AR documented in this encounter Visit Diagnoses Not on filedocumented in this encounter Care Teams Captain Cannery Tender Relationship Specialty Start Date End Date Dung Armas MD PCP - General Family Practice 05/21/14 10/03/17 documented as of this encounter
--- OUTSIDE RECORDS SUMMARY | 2022-02-03 09:18 | XMS_ITS | Encounter Summary ---
:[address] [facility] Address [address] [address] Care Team Providers Name Role Phone Dung Armas MD Primary Care Provider Unavailable Reason for Referral Consult/Transfer Care (Routine) - Closed Specialty Diagnoses / Procedures Referred By Contact Refer red To Contact Dung Armas MD [address] [place] [address] Referral ID Status Reason Start Date Expiration Date Visits Requ ested Visits Authorized [id number] Closed 05/21/2014 08/20/2015 1 1 Scheduling Instructions Your provider has recommended an appoint ment with Behavioral Health. You may call [phone] to schedule your appointmen t. If you prefer, a process technician will contact you within the next 3 business days to a ssist you in setting up this appointment. Please note that in order to maintain ac cess for all patients; Behavior[facility] Health does have a late cancellation policy. In orde r to avoid being restricted from scheduling future appointments in Behavioral Health you will need to cancel at least 48 hours in advance. ING SPECIALIST Reason for Visit Reason Comments Establish Care Encounter Details Date Type Department Care Team Description 05/21/2014 Office Visit Dung Aburto Depression ( Primary Dx); Renetta Hunt MD Anxiety; [address] Insomnia; [place] [address] Attention deficit hyperactiv ity disorder (ADHD), unspecified ADHD type; [phone] Screening, lipi d; Screening for t hyroid disorder; Screening for d iabetes mellitus; Screening for d eficiency anemia; Screening for n ephropathy Social History Tobacco Use Types Packs/Day Years Used Date Smoking Tobacco: Never Smokeless Tobacco: Never Alcohol Use Standard Drinks/Week Comments No 0 (1 standard drink = 0.6 oz pure alcoho l) Sex Assigned at Date Recorded Not on file documented as of this encounter Last Filed Vital Signs Vital Sign Reading Time Taken Comments Blood Pressure 124/79 05/21/2014 1:55 PM NURSING SPECIALIST Pulse 88 05/21/2014 1:55 PM NURSING SPECIALIST Temperature 36.6 ??C (97.8 ??F) 05/21/2014 1:55 PM NURSING SPECIALIST Respiratory Rate 18 05/21/2014 1:55 PM NURSING SPECIALIST Oxygen Saturation 99% 05/21/2014 1:55 PM NURSING SPECIALIST Inhaled Oxygen Concentration - - Weight 96.9 kg (213 lb 9.6 oz) 05/21/2014 1:55 PM NURSING SPECIALIST Height 168.9 cm (5' 6.5) 05/21/2014 1:55 PM NURSING SPECIALIST Body Mass Index 33.96 05/21/2014 1:55 PM NURSING SPECIALIST documented in this encounter Patient Instructions Patient InstructionsDung Armas MD - 05/21/2014 2:21 PM CST Images from the original note were not included. [facility] [address] [place] [address] line - [phone] [email or web address] Self-Care While You Recover From Depression: After Your Visit Your Care Instructions Taking good care of yourself is important as you recover from depression. In time, your symptoms will fade as your treatment takes hold. Do not give up. Instead, focus your energy on getting better. Your mood will improve. It just takes some time. Focus on things that can help you feel better, suchas being with friends and family, eating well, and getting enough rest. But take things slowly. Do not do too much too soon. You will begin to feel better gradually. Follow-up care is a rivero part of your treatment and safety. Be sure to make and go to all appointments, and call your doctor if you are having problems. It's also a good idea to know your test results and keep a list of the medicines you take. How can you care for yourself at home? Be realistic ?? If you have a large task to do, break it up into smaller steps you can handle, and just do what you can. ?? You may want to put off important decisions until your depression has lifted. If you have plans that will have a major impact on your life, such as marriage, divorce, or a job change, try to wait a bit. Talk it over with friends and loved ones who can help you look at the overall picture first. ?? Reaching out to people for help is important. Do not isolate yourself. Let your family and friends help you. Find someone you can trust and confide in, and talk to that person. ?? Be patient, and be kind to yourself. Remember that depression is not your fault and is not something you can overcome with willpower alone. Treatment is necessary for depression, just like for any other illness. Feeling better takes time, and your mood will improve little by little. Stay active ?? Stay busy and get outside. Take a walk, or try some other light exercise. ?? Talk with your doctor about an exercise program. Exercise can help with mild depression. ?? Go to a movie or concert. Take part in a restoration activity or other social gathering. Go to a ball game. ?? Ask a friend to have dinner with you. Take care of yourself ?? Eat a balanced diet with plenty of fresh fruits and vegetables, whole grains, and lean protein. If you have lost your appetite, eat small snacks rather than large meals. ?? Avoid drinking alcohol or using illegal drugs. Do not take medicines that have not been prescribed for you. They may interfere with medicines you may be taking for depression, or they may make your depression worse. ?? Take your medicines exactly as they are prescribed. You may start to feel better within 1 to 3 weeks of taking antidepressant medicine. But it can take as many as 6 to 8 weeks to see more improvement. If you have questions or concerns about your medicines, or if you do not notice any improvement by3 weeks, talk to your doctor. ?? If you have any side effects from your medicine, tell your doctor. Antidepressants can make you feel tired, dizzy, or nervous. Some people have dry mouth, constipation, headaches, sexual problems, or diarrhea. Many of these side effects are mild and will go away on their own after you have been taking the medicine for a few weeks. Some may last longer. Talk to your doctor if side effects are bothering you too much. You might be able to try a different medicine. ?? Get enough sleep. If you have problems sleeping: ?? Go to bed at the same time every night, and get up at the same time every morning. ?? Keep your bedroom dark and quiet. ?? Do not exercise after 5:00 p.m. ?? Avoid drinks with caffeine after 5:00 p.m. ?? Avoid sleeping pills unless they are prescribed by the doctor treating your depression. Sleeping pills may make you groggy during the day, and they may interact with other medicine you are taking. ?? If you have any other illnesses, such as diabetes, heart disease, or high blood pressure, make sure to continue with your treatment. Tell your doctor about all of the medicines you take, including those with or without a prescription. ?? Keep the numbers for these national suicide hotlines: 8-019-043-TALK ( ) and 7-705-DPHEBCX ( ). If you or someone you know talks about suicide or feeling hopeless, get helpright away. When should you call for help? Call 911 anytime you think you may need emergency care. For example, call if: ?? You feel like hurting yourself or someone else. ?? Someone you know has depression and is about to attempt or is attempting suicide. Call your doctor now or seek immediate medical care if: ?? You hear voices. ?? Someone you know has depression and: ?? Starts to give away his or her possessions. ?? Uses illegal drugs or drinks alcohol heavily. ?? Talks or writes about , including writing suicide notes or talking about guns, knives, or pills. ?? Starts to spend a lot of time alone. ?? Acts very aggressively or suddenly appears calm. Watch closely for changes in your health, and be sure to contact your doctor if: ?? You do not get better as expected. Where can you learn more? Go to [employer] and enter N529 in the search box. Current as of: June 11, 2013 Content Version: 10.1 ?? 5924-3089 [employer] ING SPECIALIST documented in this encounter Progress Notes Dung Armas MD - 05/21/2014 2:10 PM CST HPI: Kim Miner is a 38 yr old female presenting with a chief complaint of: 1) Depression/Anxiety - Currently taking Wellbutrin XL 150mg PO QD. Patient was also prescribed Pristiq by her Psychiatrist. Patient was also on Celexa and Topamax in the past. Occupation: RN, currently on leave of absence. Stressors: Marriage, testifying against a friend. Supports: Children, counselor (once weekly). No suicidal/homicidal ideation. No OCD symptoms. No visual/auditory hallucinations. Patient states daily sadness, daily hopelessness, daily crying, and loss of interest. Not a smoker, no etOH, no recreational drug use. 2) ADHD - Patient is also taking Adderall 20mg PO QD. Patient states ADHD symptoms are: inability tofollow through with tasks. Difficulty focusing. No family history of sudden cardiac . ROS: See above. All other systems were reviewed and were negative. O: VS:BP 124/79 Pulse 88 Temp(Src) 97.8 ??F (36.6 ??C) (Tympanic) Resp 18 Ht 5' 6.5 (1.689 m) Wt 213 lb 9.6 oz (96.888 kg) BMI 33.96 kg/m2 SpO2 99% LMP 05/17/2014 HEENT: NC/AT. Anicteric. PERRL. EOM intact. TM's clear bilaterally. Nasal mucosa pink and moist, no septal deviation. No anterior/posterior cervical lymphadenopathy. Neck supple. CV: S1/S2 auscultated. No murmur. No rubs. No gallops. RESP: Normal respiratory effort. No use of accessory muscles. No acute respiratory distress. Clear to auscultation bilaterally. No wheezes, no rhonchi, no crackles. ABD: Soft, NT/ND. BS positive in 4 quadrants. No HSM. No palpable masses. No rebound/guarding. EXT: No C/C/E. ASSESSMENT/PLAN: 1) Depression/Anxiety - Patient to continue Wellbutrin XL 150mg PO QD. Urgent referral placed to Psychiatry for evaluation and medication management. 2) ADHD - Patient given refill of Adderall 20mg PO QD, however referral placed to Behavioral Health for medication management. 3) RHM - Follow up within next 1 month for evaluation, labs ordered today. Total time spent was 30 minutes, with >50% of the visit in counseling and coordination of care with the patient discussing/treating/planning of the above stated medical condition. Dung Armas MD 05/21/2014, 2:10 PM ING SPECIALIST documented in this encounter Plan of Treatment Scheduled Referrals Name Type Priority Associated Diagnoses Order S [facility] BEHAVIORAL HEALTH Referral Routine Ordered: 0 05/21/2014 documented as of this encounter Visit Diagnoses Diagnosis Depression - Primary Depressive disorder, not elsewhere class ified Anxiety (HRC) Anxiety state, unspecified Insomnia Insomnia, unspecified Attention deficit hyperactivity disorder (ADHD), unspecified ADHD type ([facility]C) Screening, lipid Screening for lipoid disorders Screening for thyroid disorder Screening for diabetes mellitus Screening for deficiency anemia Screening for other and unspecified defi ciency anemia Screening for nephropathy documented in this encounter Care Teams Senior Marketing Associate Relationship Specialty Start Date End Date Dung Armas MD PCP - General Family Practice 05/21/14 10/03/17 documented as of this encounter
--- OUTSIDE RECORDS SUMMARY | 2022-02-03 09:18 | XMS_ITS | Encounter Summary ---
:1975 Author Organization [facility] Address [address] [place] [address] Care Team Providers Name Role Phone Dung Ann MD Primary Care Provider Unavailable Reason for Visit Reason Onset Date Comments ORDERS 05/22/2014 Encounter Details Date Type Department Care Team Description 05/22/2014 Telephone [facility] Unass igned, Provider ORDERS Psychiatry [address] [place] [address] [place], [place] [id number] Social History Tobacco Use Types Packs/Day Years Used Date Smoking Tobacco: Never Smokeless Tobacco: Never Alcohol Use Standard Drinks/Week Comments No 0 (1 standard drink = 0.6 oz pure alcoho l) Sex Assigned at Date Recorded Not on file documented as of this encounter Nursing Notes Teresa Giraldo - 05/23/2014 8:37 AM CST Pt is scheduled for both Psychiatry And AdHD testing. Provider notified. Myrtle Giraldo MOA 2 [facility] Jamilah Griggs - 05/22/2014 10:29 AM CST Left message to call back. [employer] Senior Customer Service Representative 05/22/2014 10:29 AM Manjula Orozco RN - 05/22/2014 9:45 AM CST Reviewed referral order and clinic visit: establishing care-given RX by PCP no distressing symptoms of concern Plan; CA please offer routine intake, also let pt know need testing results for ADHD need to be received in order to receive any RX for stimulants at the visit. If no testing, please make arrangements for testing and let pt know until testing has been completed can be seen for other mental health issues., let referring provider know of outcome Manjula Glover RN E DIMENSIONAL ART INSTRUCTOR Teresa Giraldo [place] - 05/22/2014 8:45 AM CST URGENT PSYCHIATRY ORDERS Kim Pop [[id number]] Order #: [id number] Procedure: BEHAVIORAL HEALTH Order Date: 05/21/2014 Proc Category: Assisted Orders Priority: Routine Class: [facility] Location Standing Status: Normal Status: Sent [2] Ordering User: DUNG ANN MD [[id number]] Department: [facility] Auth Provider: DUNG ANN [facility] Provider: Dung Ann MD Diagnosis: Sched Instruct: Your provider has recommended an appointment with Behavioral Health. You may call [phone] to schedule your appointment. If you prefer, a master scheduler will contact you within the next 3 business days to assist you in setting up this appointment. Please note that in order to maintain access for all patients; [facility] does have a late cancellation policy. In order to avoid being restricted from scheduling future appointments in Behavioral Health you will need to cancel at least 48 hours in advance. Visit Types: NEW PATIENT VISIT [[id number]] Comment: Urgency: *Non-Urgent: A master scheduler will contact the patient within 3 business days to assist in setting up this appointment. You will be notified when an appointment has been made. ([facility] also provides patient with appointment center #). *Urgent: Patient is unstable or experiencing significant daily function impairment and should be evaluated by within 1-2 weeks. (Urgent patients will be triaged by Behavioral Health staff. If BH is unable to meet the patient's need they will arrange for a non-[facility] resource that can.) *Same-day/next day: Patient's condition does not require emergency care, but requires evaluation by sooner than 1-2 weeks. Provider director economic to call Hotline at [phone] and ask for Resource Nurse to triage. Complete the referral order. *Emergent: Acutely suicidal or psychotic patient should be evaluated in the Emergency Department. Hotline: [phone] Order Specific Questions Order #: [id number] Accession #: Question Answer Comment Reason for request? Major depression/Anxiety/Insomnia/ADHD Appointment Urgency? Urgent-HP (within 1-2 weeks) see indications below Requested Services? Meds-Psychiatry Myrtle BROWN 2 - E DIMENSIONAL ART INSTRUCTOR documented in this encounter Plan of Treatment Not on filedocumented as of this encounter Visit Diagnoses Not on filedocumented in this encounter Care Teams Security Professionals Relationship Specialty Start Date End Date Dung Ann MD PCP - General Family Practice 05/21/14 10/03/17 documented as of this encounter
--- OUTSIDE RECORDS SUMMARY | 2022-02-03 09:18 | XMS_ITS | Encounter Summary ---
:1975 Author Organization [employer] Address [address] [place] [address] Care Team Providers Name Role Phone Dung Ann MD Primary Care Provider Unavailable Reason for Visit Reason Comments ROUTINE HEALTH MAINTENANCE phq-9=0,jevon-7=0 Tenderness, Breast LETTER NEEDED Encounter Details Date Type Department Care Team Description 08/31/2015 Office Visit [facility] Dung Ann Routine gene ral medical examination at health care facility (Primary Dx); Practice MD Gilbert Screening for diabetes melli tus; [address] Screening for lipoid disorde rs; [place] [address] Screening for thyroid disord er; [phone] Encounter for s creening mammogram for malignant neoplasm of breast; Screening for m alignant neoplasm of cervix; Screening for c hlamydial disease; Breast tenderne ss Social History Tobacco Use Types Packs/Day Years [...] Sign Reading Time Taken Comments Blood Pressure 96/61 08/31/2015 9:42 AM CDT Pulse 45 08/31/2015 9:42 AM CDT Temperature 36.4 ??C (97.6 ??F) 08/31/2015 9:42 AM CDT Respiratory Rate 12 08/31/2015 9:42 AM CDT Oxygen Saturation 100% 08/31/2015 9:42 AM CDT Inhaled Oxygen Concentration - - Weight 68 kg (150 lb) 08/31/2015 9:42 AM CDT Height 167.6 cm (5' 6) 08/31/2015 9:42 AM CDT Body Mass Index 24.21 08/31/2015 9:42 AM CDT documented in this encounter Progress Notes Dung Ann MD - 08/31/2015 9:47 AM CDT Routine Health Maintenance: Historical: Ottoniel Parker is a 40 y.o. old female. Last dental appointment was 1 month ago. Last eye appointment was about 3-4 years ago. Occupation: RN. Chief Complaint Patient presents with ??? ROUTINE HEALTH MAINTENANCE ??? Tenderness, Breast ??? LETTER NEEDED Current concerns: 1) Vitamin B12 deficiency - Patient has a history of gastric bypass and was told to have monthly vitamin b 12 injections. Patient states not having completed injections for about 1 year. Patient would administer these injections to herself at home. 2) Left breast tenderness - Present for about 5 weeks. Patient states the nipple area and inferior left breast area has some constant pain. Pain is a 3/10. Dull pain. Patient has a history of breast augmentation in 1995. No nipple discharge, no bleeding from nipple. No dimpling of the skin. No family history of breast cancer. No previous mammogram. Menses are: regular and predictable History of abnormal pap tests? No Are you sexually active? Yes. Your partner is: Male Do You use Contraception? No Diet: fruits/ vegetables: 2-4 servings each day Present exercise habits: infrequent exercise Do you have any concerns about your hearing? no Have you: -felt little interest or pleasure in doing things, for a few days or more in the last 2 weeks? OR -felt down, depressed or hopeless for a few days or more in the last 2 weeks? YES ; PHQ9 was administered today with a total score of 0 PHQ9 form not completed for this encounter. See flowsheet for details. Do you feel unsafe at home? no I have reviewed the medical, surgical, family and social histories. Observed: BP 96/61 mmHg Pulse 45 Temp(Src) 97.6 ??F (36.4 ??C) (Oral) Resp 12 Ht 5' 6 (1.676 m) Wt 150 lb (68.04 kg) BMI 24.22 kg/m2 SpO2 100% LMP 08/27/2015 General: Appears stated age, alert and comfortable HEENT:oropharynx is normal. Neck: thyroid normal Lungs: clear to auscultation, no wheezes or rales Breasts: no skin changes, no dominant masses, no axillary lymphadenopathy (Areli, AIRPORT OPERATIONS DUTY MANAGER present during examination). CV: regular rate and rhythm, normal S1 and S2 without murmur or click Abd: Soft, non-tender, no masses, no hepatomegaly or splenomegaly. : vagina: normal (Areli, AIRPORT OPERATIONS DUTY MANAGER present during examination). external genitalia normal uterus: No ovarian or uterine masses cervix: Normal, Chlamydia/GC test taken and Pap taken urethra: Normal Skin: no significant abnormalities noted Assessment/Plan: ICD-10-CM 1. Routine general medical examination at health care facility Z00.00 AST ALT (SGPT) HEMOGRAM/PLTS CREATININE / GFR 2. Screening for diabetes mellitus Z13.1 GLUCOSE - FASTING > 8 HRS FASTING 3. Screening for lipoid disorders Z13.220 LIPID PANEL AND DIRECT LDL(IF NEEDED) 4. Screening for thyroid disorder Z13.29 TSH, SENSITIVE Patient counseled: -healthy diet -increasing physical activity -stress management -safety belt use -bike/cycle helmet use -recommended immunizations 1) Vitamin B12 deficiency - Check vitamin B12 level. 2) Left breast tenderness - Check breast US, bilateral. Check diagnostic mammogram, bilateral with implants. 3) Letter for [place] board of nursing - Paperwork will be reviewed and letter will be drafted. Will callpatient when complete. documented in this encounter Plan of Treatment Not on filedocumented as of this encounter Procedures Procedure Name Priority Date/Time Associated Diagnosis Comme nts PAP TEST, ROUTINE Routine 08/31/2015 10:27 AM Screening for Re sults for this CDT malignant neoplasm procedure are in of cervix the results section. CHLAMYDIA & GC (14 Routine 08/31/2015 9:40 AM Screening for Re sults for this YEARS AND OLDER) CDT chlamydial disease proce dure are in the results section. HPV, HIGH RISK Routine 08/31/2015 9:40 AM Screening for Result s for this CDT malignant neoplasm procedure are in of cervix the results section. VAGINAL WET PREP Waiting 08/31/2015 9:40 AM Screening for Resu lts for this CDT chlamydial disease procedure are in the results section. documented in this encounter Results B12 ONLY (08/31/2015 10:43 AM CDT) athologist Signature Vitamin B12 278 239 - 931 [facility] pg/ml Specimen Anatomical Collection Method Collection Time Receive d Time (Source) Location / / Volume Laterality 08/31/2015 10:43 08/31/2015 AM CDT 10:45 AM CDT Narrative [facility] - 08/31/2015 2:53 PM C DT Performed at [facility], [address] [place] [address] ??[phone] Dung Ann MD LAB_1 Performing Organization Address City/[facility]/ZIP Code Phon e Number [facility] [phone] TSH, SENSITIVE (08/31/2015 10:43 AM CDT) athologist Signature TSH, Sensitive 2.127 0.300 - [facility] 5.000 [facility] uIU/ml Specimen Anatomical Collection Method Collection Time Receive d Time (Source) Location / / Volume Laterality 08/31/2015 10:43 08/31/2015 AM CDT 10:45 AM CDT Narrative [facility] - 08/31/2015 3:39 PM C DT Performed at [facility], [address] [place] [address] ??[phone] Dung Ann MD LAB_1 Performing Organization Address City/State/ZIP Code Phon e Number [facility] [phone] CREATININE / GFR (08/31/2015 10:43 AM CDT) Analysis Performed At Patho logist Time Signature Creatinine 0.82 0.52 - [facility] 1.04 mg/dl [facility] GFR, Estimated >60 >60 [facility] ml/min/1.7 [facility] 3m2 GFR, Est., If >60 >60 [facility] Black ml/min/1.7 [facility]ATORIES 3m2 Specimen Anatomical Collection Method Collection Time Receive d Time (Source) Location / / Volume Laterality 08/31/2015 10:43 08/31/2015 AM CDT 10:45 AM CDT Narrative [facility] - 08/31/2015 2:53 PM C DT Performed at [facility], [address] [place] [address] ??[phone] Dung Ann MD LAB_1 Performing Organization Address City/[facility] Phon e Number [facility] [phone] LIPID PANEL AND DIRECT LDL(IF NEEDED) (08/31/2015 10:43 AM CDT) Patholo gist Method Time Signature Hours Fasting 12 hours [facility] Cholesterol 151 0 - 199 [facility] mg/dl [facility] Triglyceride 60 0 - 149 [facility] mg/dl [facility] HDL 61 >40 mg/dl [facility] LDL, Calc. 78 0 - 129 [facility] mg/dl [facility] Non HDL Chol, 90 mg/dl [facility] Calc [facility] Specimen Anatomical Collection Method Collection Time Receive d Time (Source) Location / / Volume Laterality 08/31/2015 10:43 08/31/2015 AM CDT 10:45 AM CDT Narrative [facility] - 08/31/2015 2:53 PM C DT Performed at [facility], [address] [place] [address] ??[phone] Dung Ann MD LAB_1 Performing Organization Address [facility] Phon e Number [facility] [phone] GLUCOSE - FASTING > 8 HRS FASTING (08/31/2015 10:43 AM CDT) P athologist Signature Hours Fasting 12 hours [facility] Glucose 87 70 - 100 [facility] mg/dl [facility] Specimen Anatomical Collection Method Collection Time Receive d Time (Source) Location / / Volume Laterality 08/31/2015 10:43 08/31/2015 AM CDT 10:45 AM CDT Narrative [facility] - 08/31/2015 2:53 PM C DT Performed at [facility], [address] [place] [address] ??[phone] Dung Ann MD LAB_1 Performing Organization Address [facility]/ZIP Code Phon e Number [facility] [phone] (ABNORMAL) HEMOGRAM/PLTS (08/31/2015 10:43 AM CDT) P athologist Signature WBC 5.8 4.0 - 11.0 [facility] k/ul [facility] RBC 4.31 4.0 - 5.2 [facility] M/ul [facility] Hemoglobin 10.1 (L) 12.0 - [facility] 16.0 g/dl [facility] HCT 32.8 (L) 36.0 - [facility] 46.0 % [facility] MCV 76.1 (L) 80 - 100 [facility] fl [facility] MCH 23.4 (L) 26 - 34 pg [facility] MCHC 30.8 (L) 32 - 36 [facility] g/dl [facility] RDW 16.4 (H) 11.5 - [facility] 14.5 % [facility] Platelets 355 150 - 450 [facility] k/ul [facility] Specimen Anatomical Collection Method Collection Time Receive d Time (Source) Location / / Volume Laterality 08/31/2015 10:43 08/31/2015 AM CDT 10:45 AM CDT Narrative [facility] - 08/31/2015 2:08 PM C DT Performed at [facility], [address] [place] [address] ??[phone] Dung Ann MD LAB_1 Performing Organization Address [facility] Phon e Number [facility] [phone] ALT (SGPT) (08/31/2015 10:43 AM CDT) P athologist Signature ALT (SGPT) 18 0 - 69 U/L [facility] Specimen Anatomical Collection Method Collection Time Receive d Time (Source) Location / / Volume Laterality 08/31/2015 10:43 08/31/2015 AM CDT 10:45 AM CDT Narrative [facility] - 08/31/2015 2:53 PM C DT Performed at [facility], [address] [place] [address] ??[phone] Dung Ann MD LAB_1 Performing Organization Address City/[facility]/ZIP Code Phon e Number [facility] [phone] AST (08/31/2015 10:43 AM CDT) P athologist Signature AST (SGOT) 32 0 - 66 U/L [facility] Specimen Anatomical Collection Method Collection Time Receive d Time (Source) Location / / Volume Laterality 08/31/2015 10:43 08/31/2015 AM CDT 10:45 AM CDT Narrative [facility] - 08/31/2015 2:53 PM C DT Performed at [facility], [address] [place] [address] ??[phone] Dung Ann MD LAB_1 Performing Organization Address City/[facility]/ZIP Code Phon e Number [facility] [phone] PAP TEST, ROUTINE (08/31/2015 10:27 AM CDT) Component Value Ref Test Analysis Performed At [facility] gist Range Method Time Signature Cytology, (NOTE) [facility] Pap Helper/Driver Cytology Report [facility] ES Patient Name: OTTONIEL PARKER Taken: 08/31/2015 Received: 08/31/2015 Reported: 09/04/2015 Physician(s): DUNG ANN ?Source of Specimen Pap Test, Routine Cervical/Endocervical: ?Specimen Adequacy ?Satisfactory for evaluation. ??Endocervical component present. ? Final Cytologic Interpretation/Result NEGATIVE FOR INTRAEPITHELIAL LESION OR MALIGNANCY (NILM) ?? *Electronically Signed Out By STEPHY Garcia (ASCP)* STEPHY Garcia (ASCP) ? Pap Smear History Date of Last Menstrual Period: 08/27/2015 ?? Microscopic Description Microscopic examination is performed. [facility] Department of Pathology [address] [place] [address] ??[phone] Specimen Anatomical Collection Method Collection Time Receive d Time (Source) Location / / Volume Laterality 08/31/2015 10:27 08/31/2015 6:30 AM CDT PM CDT Dung Ann MD LAB_1 Performing Organization Address City/[facility]/ZIP Code Phon e Number [facility] [phone] CHLAMYDIA & GC (08/31/2015 9:40 AM CDT) [facility] gist Method Time Signature Source Endocervical [facility] Chlamydia Negative NEG [facility] Comment: Test Performed by Band [employer]er Mediated Amplification GC (N. gonorrhoeae) Negative NEG [facility] Comment: Test Performed by [employer] Mediated Amplification Specimen Anatomical Collection Method Collection Time Receive d Time (Source) Location / / Volume Laterality 08/31/2015 9:40 AM 6 CDT 10:29 AM CDT Narrative [facility] - 08/31/2015 7:11 PM C DT Performed at [facility], [address] ??[phone] Dung Ann MD LAB_1 Performing Organization Address [facility] Phon e Number [facility] [phone] WET PREP, VAGINAL (08/31/2015 9:40 AM CDT) [facility] [email or web address] Method Time Signature Clue Cells No Clue Cells NCLUE [facility] Trichomonas No Trichomonas NTRIC [facility] Yeast No Yeast Found YN [facility] pH 4.5 3.5 - 4.5 [facility] Specimen Anatomical Collection Method Collection Time Receive d Time (Source) Location / / Volume Laterality 08/31/2015 9:40 AM 6 CDT 10:30 AM CDT Narrative [facility] - 08/31/2015 10:40 AM CDT Performed at [facility], [address] [place] [address] ??[phone] Dung Ann MD LAB_1 Performing Organization Address City/[facility] Phon e Number [facility] [phone] HPV, HIGH RISK (08/31/2015 9:40 AM CDT) Component Value Ref Test Analysis Performed At [facility] [email or web address] Range Method Time Signature HPV RESULT Negative NEG [facility] Comments (NOTE) [facility] The Saul HPV Test is a qualitative in vitro test for the detection LABORATORIES of Human Papillomavirus in [facility] patient specimens. The t est utilizes amplification of target DNA by Polymerase Chain Karin ction (PCR) and nucleic acid hybridization for the detection of 14 high-risk (HR) HPV types. The assay tests for high risk type s 16, 18, 31, 33, 35, 39, 45, 51, 52, 56, 58, 59, 66 and 68. Testing performed at: This test was developed and its performance characteristics determined by [facility]. ??It has not been cleared or approved by the U.S. Food and Drug Administration. ??The FDA has determined that such clearance or approval is not necessary. ??This test is used for clinical purposes. ??It should not be regar ded as investigational or for research. ??This laboratory is certif ied under the Clinical Laboratory Improvement Amendments of 1988 (CLIA -88) as qualified to perform high complexity testing. Specimen Anatomical Collection Method Collection Time Receive d Time (Source) Location / / Volume Laterality 08/31/2015 9:40 AM 6 CDT 10:29 AM CDT Narrative [facility] - 09/05/2015 9:12 AM C DT Performed at [facility] , [address] [place] [id number] Dung Ann MD LAB_1 Performing Organization Address City/State/ZIP Code Phon e Number [facility] [phone] documented in this encounter Visit Diagnoses Diagnosis Routine general medical examination at [facility] - Primary Routine general medical examination at [facility] facility Screening for diabetes mellitus Screening for lipoid disorders Screening for thyroid disorder Encounter for screening mammogram for ma lignant neoplasm of breast Other screening mammogram Screening for malignant neoplasm of cerv ix Screening for malignant neoplasm of the cervix Screening for chlamydial disease Special screening examination for unspec ified chlamydial disease Breast tenderness Mastodynia Routine general medical examination at [facility] Routine general medical examination at [facility] Screening for diabetes mellitus Screening for lipoid disorders Screening for thyroid disorder Encounter for screening mammogram for ma lignant neoplasm of breast Other screening mammogram documented in this encounter Care Teams [employer] Banker Relationship Specialty Start Date End Date Dung Ann MD PCP - General Family Practice 05/21/14 10/03/17 documented as of this encounter
--- OUTSIDE RECORDS SUMMARY | 2022-02-03 09:18 | XMS_ITS | Encounter Summary ---
:1975 Author Organization [employer] Address [address] [place] [address] Care Team Providers Name Role Phone Dung Armas MD Primary Care Provider Unavailable Encounter Details Date Type Department Care Team Description 02/17/2015 Office Visit [place] Arnulfo Wei Post traumatic stress disorder (Primary Dx); Clinic Psychiatry MD Donn Depressive disorder, atypica l; [address] Alcohol use disorder, severe , in early remission; [facility] Sedativ e, hypnotic or anxiolytic use disorder, severe, in early remission; [place] [address] S/P gastric bypass [phone] Social History Tobacco Use Types Packs/Day Years [...] Patient Instructions Patient InstructionsArnulfo Wei MD - 02/17/2015 9:23 AM CDT AFTER VISIT INSTRUCTIONS Continue present medications. Therapy appointment. Please call my office, or use our [...] department or crisis center. 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 Multiple stressors. Racquel has now moved out of the house. Continues to live with her ex-, which is toxic, but necessary. Was turned down for disability as she was unable to get in the necessary paperwork. Irritability, anxiety, and poor concentration. 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 Has now been sober for 9 months. Attends AA and has a sponsor. Requesting a therapist. PHQ-9 02/17/2015 (Today) PHQ-9 Score not completed PHQ-9 10/14/2014 PHQ-9 Score- SmartForm 2 Medications: Outpatient Prescriptions Prior to Visit Medication Sig Dispense Refill ??? Acetaminophen (TYLENOL EXTRA STRENGTH OR) Take 1,000 mg by mouth three times a day as needed. ??? cyanocobalamin 1000 MCG/ML injection Inject 1,000 mcg intramuscularly every 4 weeks. ??? FLUoxetine (AKA PROZAC) 20 MG/5ML solution Take 10 mL by mouth every morning. 300 mL 11 ??? multivitamin-mineralsS ( AKA CERTAVITE,MYADEC) tablet Take 1 Tab by mouth daily. ??? topiramate (AKA TOPAMAX) 50 MG tablet Take 1 Tab by mouth two times a day. 60 Tab 11 ??? melatonin (MELATONIN) 3 MG Take 6 mg by mouth daily at bedtime. No facility-administered medications prior to visit. Allergies: Review of patient's allergies indicates no known allergies. Past Medical History: See Problem List. No past medical history on file. Obstetric History No data available Surgery: No past surgical history on file. Primary care physician: Dung Armas MD Mental Status Examination: Appearance: Neatly dressed and kempt. Demeanor: Forthcoming and cooperative Speech: Normal Gait/Movements: Normal Psychomotor: Normal Concentration/Attention: Normal Affect: Stressed Mood: Irritable Suicidal/Homicidal Ideations: SI--denies. HI--denies. Psychosis: Denies Thought Content: Multiple worries Thought Form: Logical and goal-directed Cognitive: Intact Insight: Good Judgment: Good ASSESSMENT: 39 y.o. old female with history of PTSD, depression, anxiety, as well as substance use in remission, who has been doing well in her recovery, and is now sober for 9 months. Doing her best to control her symptoms in the context of a very difficult situation living with her ex-. DIAGNOSIS: ICD-10-CM 1. Posttraumatic stress disorder F43.10 2. Depressive disorder, atypical F32.8 3. Alcohol use disorder, severe, in early remission F10.99 4. 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 S/P gastric bypass Z98.84 TREATMENT PLAN: 1. Continue present medications 2. Appointment established with Hortencia Carlin MA, LP Follow-up visit: 2 months However, if symptoms worsen or fail to improve, the patient was told to call myself, his/her therapist, his/her PCP, or the clinic, or seek out emergency services via 911, the ED, or by contacting the Careline. Visit Summary: 25 minutes with >50% of the time spent on educational counseling regarding diagnosis and prognosis, the purpose of his/her medications/treatment and potential side effects, the risks and benefits ofhis/her medications/treatment, various treatment options and alternatives, and reviewing medical records with the patient. This note created using speech-recognition software and may contain unintended word substitutions. Arnulfo Wei MD 02/25/2015, 5:07 PM Psychiatrist [facility] [address] [place] [address] (Phone) documented in this encounter Plan of Treatment Not on filedocumented as of this encounter Visit Diagnoses Diagnosis Posttraumatic stress disorder (HRC) - Pr imary Posttraumatic stress disorder Depressive disorder, atypical Atypical depressive disorder Alcohol use disorder, severe, in early r emission (HRC) Sedative, hypnotic or anxiolytic use dis order, severe, in early remission (HRC) S/P gastric bypass Bariatric surgery status documented in this encounter Care Teams Product Marketing Executive Relationship Specialty Start Date End Date Dung Armas MD PCP - General Family Practice 05/21/14 10/03/17 documented as of this encounter
--- OUTSIDE RECORDS SUMMARY | 2022-02-03 09:18 | XMS_ITS | Encounter Summary ---
:1975 Author Organization [employer] Address [address] [place] [address] Care Team Providers Name Role Phone May Aponte APRN, CNP Primary Care Provider [phone] Encounter Details Date Type Department Care Team Description 10/14/2014 Correspondence [place] Arnulfo Wei OF [facility] Clinic Psychiatry MD Donn COVERAGE [address] [place] [address] Social History Tobacco Use Types [...] on filedocumented in this encounter Care Teams Office Mover Relationship Specialty Start Date End Date May Aponte APRN, CNP PCP - General 10/04/17 [address] [place] [address] documented as of this encounter
--- OUTSIDE RECORDS SUMMARY | 2022-02-03 09:18 | XMS_ITS | Encounter Summary ---
:1975 Author Organization [employer] Address [address] [place] [address] Care Team Providers Name Role Phone Dung Armas MD Primary Care Provider Unavailable Encounter Details Date Type Department Care Team Description 08/31/2015 Orders Only [facility] Routine general medical exam ination at health care facility; [address] Screening for diabetes [facility]; [place] [address] Screening for lipoid disorde rs; [phone] Screening for t hyroid disorder; Encounter for s creening mammogram for malignant neoplasm of breast Social History Tobacco Use Types Packs/Day Years [...] encounter Progress Notes Dung Armas MD - 08/31/2015 6:50 PM CDT Quick Note: I would like to see Kim back in about 1 week to discuss anemia seen on recent lab work. documented in this encounter Plan of Treatment Not on filedocumented as of this encounter Procedures Procedure Name Priority Date/Time Associated Diagnosis Comme nts LIPID PANEL AND Routine 08/31/2015 10:43 Screening for lipoid Results for this DIRECT LDL(IF AM CDT disorders procedure are in NEEDED) the results section. CREATININE / GFR Routine 08/31/2015 10:43 Routine general Resu lts for this AM CDT medical examination procedur e are in at health care the results facility section. TSH, SENSITIVE Routine 08/31/2015 10:43 Screening for Results for this AM CDT thyroid disorder procedure a re in the results section. COMPLETE BLOOD Routine 08/31/2015 10:43 Routine general Result s for this COUNT-NO DIFF AM CDT medical examination procedu re are in at health care the results facility section. VITAMIN B12 ONLY Routine 08/31/2015 10:43 Encounter for Result s for this AM CDT screening mammogram procedur e are in for malignant the results neoplasm of breast section. ALT (SGPT) Routine 08/31/2015 10:43 Routine general Results for this AM CDT medical examination procedur e are in at health care the results facility section. AST Routine 08/31/2015 10:43 Routine general Results for this AM CDT medical examination procedur e are in at health care the results facility section. GLUCOSE - FASTING > Routine 08/31/2015 10:43 Screening for Res ults for this 8 HRS FASTING AM CDT diabetes mellitus procedure are in the results section. documented in this encounter Results B12 ONLY (08/31/2015 10:43 AM CDT) athologist Signature Vitamin B12 278 239 - 931 [facility] pg/ml Specimen Anatomical Collection Method Collection Time Receive d Time (Source) Location / / Volume Laterality 08/31/2015 10:43 08/31/2015 AM CDT 10:45 AM CDT Narrative [facility] - 08/31/2015 2:53 PM C DT Performed at [facility], [address] [place] [address] ??[id number] Dung Armas MD LAB_1 Performing Organization Address City/State/ZIP Code Phon e Number [facility] [phone] TSH, SENSITIVE (08/31/2015 10:43 AM CDT) P athologist Signature TSH, Sensitive 2.127 0.300 - [facility] 5.000 [facility] uIU/ml Specimen Anatomical Collection Method Collection Time Receive d Time (Source) Location / / Volume Laterality 08/31/2015 10:43 08/31/2015 AM CDT 10:45 AM CDT Narrative [facility] - 08/31/2015 3:39 PM C DT Performed at [facility], [address] [place] [address] ??[id number] Dung Armas MD LAB_1 Performing Organization Address City/[facility] Phon e Number [facility] [phone] CREATININE / GFR (08/31/2015 10:43 AM CDT) Analysis Performed At [facility] logist Time Signature Creatinine 0.82 0.52 - [facility] 1.04 mg/dl [facility] GFR, Estimated >60 >60 [facility] ml/min/1.7 [facility] 3m2 GFR, Est., If >60 >60 [facility] ml/min/1.7 [facility] 3m2 Specimen Anatomical Collection Method Collection Time Receive d Time (Source) Location / / Volume Laterality 08/31/2015 10:43 08/31/2015 AM CDT 10:45 AM CDT Narrative [facility] - 08/31/2015 2:53 PM C DT Performed at [facility], [address] [place] [address] ??[id number] Dung Armas MD LAB_1 Performing Organization Address [facility] Phon e Number [facility] [phone] LIPID PANEL AND DIRECT LDL(IF NEEDED) (08/31/2015 10:43 AM CDT) [facility] gist Method Time Signature Hours Fasting 12 [...] 08/31/2015 2:53 PM C DT Performed at [facility], [address] [place] [address] ??[phone] Dung Armas MD LAB_1 Performing Organization Address [facility] Phon e Number [facility] [phone] GLUCOSE - FASTING > 8 HRS FASTING (08/31/2015 10:43 AM CDT) P athologist Signature Hours Fasting 12 hours [facility] Glucose 87 70 - 100 [facility] mg/dl [facility] Specimen Anatomical Collection Method Collection Time Receive d Time (Source) Location / / Volume Laterality 08/31/2015 10:43 08/31/2015 AM CDT 10:45 AM CDT Narrative [facility] - 08/31/2015 2:53 PM C DT Performed at [facility], [address] [place] [address] ??[id number] Dung Armas MD LAB_1 Performing Organization Address [facility] Phon e Number [facility] [phone] (ABNORMAL) HEMOGRAM/PLTS (08/31/2015 10:43 AM CDT) P [...] AM CDT Narrative [facility] - 08/31/2015 2:08 PM C DT Performed at [facility], [address] [place] [address] ??[phone] Dung Armas MD LAB_1 Performing Organization Address City/State/ZIP Code Phon e Number [facility] [phone] ALT (SGPT) (08/31/2015 10:43 AM CDT) P athologist Signature ALT (SGPT) 18 0 - 69 U/L [facility] Specimen Anatomical Collection Method Collection Time Receive d Time (Source) Location / / Volume Laterality 08/31/2015 10:43 08/31/2015 AM CDT 10:45 AM CDT Narrative [facility] - 08/31/2015 2:53 PM C DT Performed at [facility], [address] [place] [address] ??[id number] Dung Armas MD LAB_1 Performing Organization Address City/[facility]/ZIP Code Phon e Number [facility] [phone] AST (08/31/2015 10:43 AM CDT) athologist Signature AST (SGOT) 32 0 - 66 U/L [facility] Specimen Anatomical Collection Method Collection Time Receive d Time (Source) Location / / Volume Laterality 08/31/2015 10:43 08/31/2015 AM CDT 10:45 AM CDT Narrative [facility] - 08/31/2015 2:53 PM C DT Performed at [facility], [address] [place] [address] ??[phone] Dung Armas MD LAB_1 Performing Organization Address City/[facility]/ZIP Code Phon e Number [facility] [phone] documented in this encounter Visit Diagnoses Diagnosis Routine general medical examination at [facility] Routine general medical examination at [facility] Screening for diabetes mellitus Screening for lipoid disorders Screening for thyroid disorder Encounter for screening mammogram for ma lignant neoplasm of breast Other screening mammogram documented in this encounter Care Teams Flight Engineer Relationship Specialty Start Date End Date Dung Armas MD PCP - General Family Practice 05/21/14 10/03/17 documented as of this encounter
--- OUTSIDE RECORDS SUMMARY | 2022-02-03 09:18 | XMS_ITS | Encounter Summary ---
:1975 Author Organization [employer] Address [address] [place] [address] Care Team Providers Name Role Phone Dung Armas MD Primary Care Provider Unavailable Reason for Visit Reason Comments Eriberto Encounter Details Date Type Department Care Team Description 08/08/2014 Pt Care Coordination [place] Kayden Wei, Clinic Psychiatry [address] [place] [address] Social History Tobacco Use Types [...] documented as of this encounter Progress Notes Arnulfo Wei MD - 08/08/2014 3:25 PM CDT Perfect. Thank you. Arnulfo Wei MD 08/08/2014, 3:25 PM Agnes Hall RN - 08/08/2014 2:34 PM CDT Patient returned to [facility] clinic & RN met with her. She had her 7 year-old twins with her. Patientis requesting that sign off on an unemployment form that will release me from not being able to work. This will allow her to look for work and receive unemployment benefits. She saw MD on 07/14/14 and the plan was for her to attend an intensive out-patient CD program, but this was not covered by insurance. She is applying for MA and also is going to see if Rule 25 through the state will cover an outpatient program. She reports that she is now 65 days sober and is still working on her 90 AA meetings in 90 days. She has a sponsor also. She says that her mood is good. Her meds are working fine and sleep is also good. She denies any safety concerns. She will drop off the unemployment for on Monday. Will route to for review & FYI. Agnes Smith RN Arnulfo Wei MD - 08/08/2014 12:33 PM CDT Patient presented today looking for a [id number] form. I was going to see her, but she left before she could be seen. She would need a formal office visit for an okay to return-to work (jonatan in light of the message we received). She may return, as she left her cell phone. We will again try to contact her. Arnulfo Wei MD 08/08/2014, 12:36 PM documented in this encounter Plan of Treatment Not on filedocumented as of this encounter Visit Diagnoses Not on filedocumented in this encounter Care Teams Underwear Welter Relationship Specialty Start Date End Date Dung Armas MD PCP - General Family Practice 05/21/14 10/03/17 documented as of this encounter
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
--- OUTSIDE RECORDS SUMMARY | 2022-02-03 09:18 | XMS_ITS | Encounter Summary ---
:1975 Author Organization [email or web address] Address [address], [place] [address] Care Team Providers Name Role Phone Dung Armas MD Primary Care Provider Unavailable Reason for Visit Reason Onset Date Comments Prior Authorization For Medication 05/23/2014 adder all 20 Encounter Details Date Type Department Care Team Description 05/23/2014 Telephone [facility] Dung Armas Prior Author ization For Practice MD [facility] Medication (adderall 20 ) [address] [place], [place] [id number] Social History Tobacco Use Types Packs/Day Years Used Date Smoking Tobacco: Never Smokeless Tobacco: Never Alcohol Use Standard Drinks/Week Comments No 0 (1 standard drink = 0.6 oz pure alcoho l) Sex Assigned at Date Recorded Not on file documented as of this encounter Nursing Notes Woo Henao - 05/23/2014 2:53 PM CST Prior authorization approved from 04-23-2014 until 05-22-2017, notified pharmacy. Case ID number [id number] LINE TRACTOR OPERATOR Woo Henao - 05/23/2014 2:51 PM CST Clerical Staff/Form Setter Supervisor to complete: Patient's insurance requires a prior authorization (PA) for the prescribed medication amphetamine-dextroamphetamine (ADDERALL) 20 MG tablet, sig Take 1 Tab by mouth daily., qty 30, number of refills 0. Prescription Insurance Company Name: [employer] Phone #: [phone] Patient's Insurance You may contact a pharmacist at [facility] (telephone number: [phone]) with any questions. Provider: If you would like to begin Prior Auth process: Enter .pabegin, complete questions, and route to Service Representative/Tester Equipment pool. If you would like to prescribe an alternative medication: Order and sign new medication, enter .pachangmed, and route to manager in training. LINE TRACTOR OPERATOR documented in this encounter Plan of Treatment Not on filedocumented as of this encounter Visit Diagnoses Not on filedocumented in this encounter Care Teams Tin Cutter Relationship Specialty Start Date End Date Dung Armas MD PCP - General Family Practice 05/21/14 10/03/17 documented as of this encounter
--- OUTSIDE RECORDS SUMMARY | 2022-02-03 09:18 | XMS_ITS | Encounter Summary ---
:1975 Author Organization [employer] Address [address] [place] [address] Care Team Providers Name Role Phone Dung Armas MD Primary Care Provider Unavailable Reason for Visit Reason Comments Eriberto Forms Encounter Details Date Type Department Care Team Description 07/25/2014 Telephone [facility] Barbara Wei MD [place]; Forms Psychiatry [address] [address] Social History Tobacco Use Types [...] documented as of this encounter Nursing Notes Agnes Hall RN - 07/31/2014 3:03 PM CDT No return call from patient. Agnes Smith RN Agnes Hall RN - 07/25/2014 3:08 PM CDT Patient had dropped off a form for to sign for [employer]. askedRN to check with patient re: if only the form is needed or if any other documentation or letter needs to be done? LM on v.mail for patient to call back. Agnes Smith, ILIANA documented in this encounter Plan of Treatment Not on filedocumented as of this encounter Visit Diagnoses Not on filedocumented in this encounter Care Teams Bull Gang Worker Relationship Specialty Start Date End Date Dung Armas MD PCP - General Family Practice 05/21/14 10/03/17 documented as of this encounter
--- OUTSIDE RECORDS SUMMARY | 2022-02-03 09:18 | XMS_ITS | Encounter Summary ---
:1975 Author Organization [facility] Address [address] [place] [address] Care Team Providers Name Role Phone May Aponte APRN, CNP Primary Care Provider [phone] Encounter Details Date Type Department Care Team Description 08/18/2014 Correspondence [place] Arnulfo Wei MD [facility] Psychiatry [address] [place] [address] Social History Tobacco Use Types [...] on filedocumented in this encounter Care Teams Launch Check Out Relationship Specialty Start Date End Date May Aponte APRN, CNP PCP - General 10/04/17 [address] [place] [address] documented as of this encounter
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
--- OUTSIDE RECORDS SUMMARY | 2022-02-03 09:18 | XMS_ITS | Encounter Summary ---
:1975 Author Organization [facility] Address [address] [address] Care Team Providers Name Role Phone May Aponte APRN, CNP Primary Care Provider [phone] Encounter Details Date Type Department Care Team Description 2014 Scanned History External to External, Provid er [facility] [place] [address] Social History Tobacco Use Types Packs/Day Years [...] on filedocumented in this encounter Care Teams Moshgiach Relationship Specialty Start Date End Date May Aponte APRN, CNP PCP - General 10/04/17 [address] [place] [address] documented as of this encounter
--- OUTSIDE RECORDS SUMMARY | 2022-02-03 09:18 | XMS_ITS | Encounter Summary ---
:1975 Author Organization [employer] Address [address] [place] [address] Care Team Providers Name Role Phone May Aponte APRN, CNP Primary Care Provider [phone] Encounter Details Date Type Department Care Team Description 08/13/2015 Correspondence [place] Arnulfo Wei, MEDICAL OPINION Clinic Psychiatry [address] [place] [address] Social History Tobacco Use Types [...] on filedocumented in this encounter Care Teams Stave Bolt Equalizer Relationship Specialty Start Date End Date May Aponte APRN, CNP PCP - General 10/04/17 [address] [place] [address] documented as of this encounter
--- OUTSIDE RECORDS SUMMARY | 2022-02-03 09:18 | XMS_ITS | Encounter Summary ---
:1975 Author Organization [employer] Address [address] [place] [address] Care Team Providers Name Role Phone Dung Armas MD Primary Care Provider Unavailable Reason for Visit Reason Comments Eriberto Other Encounter Details Date Type Department Care Team Description 08/01/2014 Telephone [facility] Barbara Wei MD Gendron; Other Psychiatry [address] [place] [address] Social History Tobacco Use Types [...] encounter Nursing Notes Arnulfo Wei MD - 08/04/2014 3:57 PM CDT Noted. Thanks. Arnulfo Wei MD 08/04/2014, 3:57 PM Agnes Hall RN - 08/04/2014 2:29 PM CDT RN called patient again and voice mail box is still full, so unable to LM. Will send to OLIVIA JACINTO. Agnes Smith RN Agnes Hall RN - 08/01/2014 2:36 PM CDT See also telephone message from 07/31/14. RN called mobile phone number, but v.mail box was full, so unable to LM. Agnes Smith RN documented in this encounter Plan of Treatment Not on filedocumented as of this encounter Visit Diagnoses Not on filedocumented in this encounter Care Teams Internal Auditor Relationship Specialty Start Date End Date Dung Armas MD PCP - General Family Practice 05/21/14 10/03/17 documented as of this encounter
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
--- OUTSIDE RECORDS SUMMARY | 2022-02-03 09:19 | XMS_ITS | Encounter Summary ---
:1975 Author Organization [place] Address [facility] [place] [address] Care Team Providers Name Role Phone No Ref-Primary, Physician Primary Care Provider [phone] Encounter Details Date Type Department Care Team Description 10/12/2020 Records - [facility] CONVERSION Provider, Histor ical Social History Tobacco Use Types Packs/Day Years Used Date Never Smoker Smokeless Tobacco: Never Used Alcohol Use Standard Drinks/Week Comments Yes 0 (1 standard drink = 0.6 oz pure Pt has hx of alcohol abuse, ellen how alcohol) much she is presentl y drinking Alcohol Habits Answer Date Recorded How often do you have a drink Not asked containing alcohol? How many drinks containing alcohol Not asked do you have on a typical day when you are drinking? How often do you have six or more Not asked drinks on one occasion? Comment: Pt has hx of alcohol abuse, ellen how 10/13 much she is presently drinking Sex Assigned at Date Recorded Not on file documented as of this encounter Plan of Treatment Not on filedocumented as of this encounter Procedures Procedure Name Priority Date/Time Associated Diagnosis Comme nts US ABDOMEN COMPLETE Routine 12/08/2007 12:00 AM R esults for this CDT procedure are i n the results section. documented in this encounter Results US Abdomen Complete (12/08/2007 12:00 AM CDT) Anatomical Region Laterality Modality Abdomen/Pelvis Other Specimen (Source) Anatomical Location Collection Method / Collectio n Time Received Time / Laterality Volume Narrative 12/08/2007 12:00 AM CDT See Historical Hospital Medical Record f or documentation Procedure Note Provider, Historical - 10/12/2020Formatt ing of this note might be different from the original. See Historical Hospital Medical Record f or documentation Historical Provider IMG US ORDERABLES documented in this encounter Visit Diagnoses Not on filedocumented in this encounter Care Teams Android Ios Developer Relationship Specialty Start Date End Date No Ref-Primary, Physician PCP - General 10/28/18 12/12/21 documented as of this encounter
--- OUTSIDE RECORDS SUMMARY | 2022-02-03 09:19 | XMS_ITS | Encounter Summary ---
:1975 Author Organization [place] Address [facility] [place] [address] Care Team Providers Name Role Phone No Ref-Primary, Physician Primary Care Provider [phone] Encounter Details Date Type Department Care [...] Priority Date/Time Associated Diagnosis Comme nts US OB FOLLOW UP >14 Routine 06/01/2007 12:00 AM R esults for this WEEKS FUEL CELL BATTERY TECHNICIAN procedure are i n the results section. US OB SINGLE FOLLOW Routine 06/01/2007 12:00 AM R esults for this UP REPEAT PORTABLE FUEL CELL BATTERY TECHNICIAN procedure are in the results section. documented in this encounter Results US OB Single Follow Up Repeat Portable (06/01/2007 12:00 AM FUEL CELL BATTERY TECHNICIAN) Anatomical Region Laterality Modality Abdomen/Pelvis Other Specimen (Source) Anatomical Location Collection Method / Collectio n Time Received Time / Laterality Volume Narrative 06/01/2007 12:00 AM FUEL CELL BATTERY TECHNICIAN See Historical Hospital Medical Record f or documentation Procedure Note Provider, Historical - 10/12/2020Formatt ing of this note might be different from the original. See Historical Hospital Medical Record f or documentation Historical Provider IMG US ORDERABLES US OB >14 Weeks Follow Up (06/01/2007 12:00 AM FUEL CELL BATTERY TECHNICIAN) Anatomical Region Laterality Modality Abdomen/Pelvis Other Specimen (Source) Anatomical Location Collection Method / Collectio n Time Received Time / Laterality Volume Narrative 06/01/2007 12:00 AM FUEL CELL BATTERY TECHNICIAN See Historical Hospital Medical Record f or documentation Procedure Note Provider, Historical - 10/12/2020Formatt ing of this note might be different from the original. See Historical Hospital Medical Record f or documentation Historical Provider IMG US ORDERABLES documented in this encounter Visit Diagnoses Not on filedocumented in this encounter Care Teams Sweatband Cutting Machine Operator Relationship Specialty Start Date End Date No Ref-Primary, Physician PCP - General 10/28/18 12/12/21 documented as of this encounter
--- OUTSIDE RECORDS SUMMARY | 2022-02-03 09:19 | XMS_ITS | Encounter Summary ---
:1975 Author Organization [place] Address [facility] [place] [address] Care Team Providers Name Role Phone No Ref-Primary, Physician Primary Care Provider [phone] Encounter Details Date Type Department Care Team Description 10/28/2018 Travel Social History Tobacco Use Types Packs/Day Years [...] on filedocumented in this encounter Care Teams Cement Side Laster Relationship Specialty Start Date End Date No Ref-Primary, Physician PCP - General 10/28/18 12/12/21 documented as of this encounter
--- OUTSIDE RECORDS SUMMARY | 2022-02-03 09:19 | XMS_ITS | Encounter Summary ---
:1975 Author Organization [place] Address [facility] [place] [address] Care Team Providers Name Role Phone No Ref-Primary, Physician Primary Care Provider [phone] No Ref-Primary, Physician Unavailable Encounter Details Date Type Department Care Team Description 02/03/2022 Emergency [facility] Emergency Dept [address] [place] [phone] Social History Tobacco Use Types Packs/Day Years [...] on file documented as of this encounter Medications at Time of Discharge Medication Sig Dispensed Refills Start Date End Date buPROPion (WELLBUTRIN) 75 Take 75 mg by mouth 2 0 MG tablet times daily In addition to naltrexone as alternative to Contrave. cyanocobalamin Inject 1 mL into the 0 (CYANOCOBALAMIN) 1000 muscle every 28 days MCG/ML injection eszopiclone (LUNESTA) 3 Take 3 mg by mouth 0 07/14 MG tablet nightly as needed ferrous sulfate (FEROSUL) Take 325 mg by mouth 0 325 (65 Fe) MG tablet daily (with breakfast) FLUoxetine (PROZAC) 40 MG Take 40 mg by mouth 0 0 08/07/2018 capsule daily naltrexone (DEPADE/REVIA) Take 50 mg by mouth 0 50 MG tablet daily QUEtiapine (SEROQUEL) 25 Take 100 mg by mouth 0 MG tablet daily documented as of this encounter Plan of Treatment Not on filedocumented as of this encounter Visit Diagnoses Not on filedocumented in this encounter Care Teams Manufacturing Shift Supervisor Relationship Specialty Start Date End Date No Ref-Primary, Physician PCP - General 12/13/21 No Ref-Primary, Physician 12/13/21 documented as of this encounter
--- OUTSIDE RECORDS SUMMARY | 2022-02-03 09:19 | XMS_ITS | Encounter Summary ---
:1975 Author Organization [place] Address [address] [facility] [place] [address] Care Team Providers Name Role Phone No Ref-Primary, Physician Primary Care Provider [phone] Reason for Referral (Routine) - Closed Specialty Diagnoses / Procedures Referred By Contact Refer red To Contact Diagnoses Bradycardia Christina Bello PA [facility] [address] [place], [place] [address] Referral ID Status Reason Start Date Expiration Date Visits Requ ested Visits Authorized [id number] Closed 10/30/2018 10/30/2019 1 1 Reason for Visit Reason Comments Ingestion Auth/Cert Specialty Diagnoses / Procedures Referred By Contact Refer red To Contact Diagnoses Polypharmacy Altered mental status, unspecified altered mental status type Movement disorder [facility] [address] [place], [place] [address] Phone: Fax: Referral ID Status Reason Start Date Expiration Date Visits Requ ested Visits Authorized [id number] 1 1 Encounter Details Date Type Department Care Team Description 10/28/[address] - [facility] Deepa Marrero, DO [facility] [address] [facility] [place] [place] [address] Bradycardia (Primary Dx); 10/30/2018 Encounter [facility] Mraiano Peoples, DO [address] [place] [address] Polypharmacy; Surgical YovanaReal MD [address] [place], [place] [address] Altered mental status, unspecified alter ed mental status type; [address] [place] [address] Social History Tobacco Use Types Packs/Day Years [...] Sign Reading Time Taken Comments Blood Pressure 120/66 10/30/2018 7:27 AM CDT Pulse 100 10/30/2018 12:04 AM CDT Temperature 36.4 ??C (97.5 ??F) 10/30/2018 7:27 AM CDT Respiratory Rate 18 10/30/2018 7:27 AM CDT Oxygen Saturation 96% 10/30/2018 7:27 AM CDT Inhaled Oxygen Concentration - - Weight 85.8 kg (189 lb 1.6 oz) 10/30/2018 4:44 AM CDT Height 157.5 cm (5' 2) 10/28/2018 6:43 AM CDT Body Mass Index 34.59 10/28/2018 6:43 AM CDT documented in this encounter Discharge Summaries Elizabeth Linares RN - 10/30/2018 12:45 PM CDT AVS reviewed with pt. All questions answered. Pt denies any further questions or concerns. PIV removed, no complications. monitor technician removed. All belongings returned. Pt escorted to front door by [facility] staff. Evangelist Godinez MD - 10/30/2018 11:03 AM CDT [facility] Discharge Summary Name: Kim Bunch Date of : 1975 Age: [age] year old Date of Discharge: 10/30/2018 Date of Admission: 10/28/2018 Primary Care Provider: Stella Ref-Primary, Physician Discharge Physician: Evangelist Godinez MD Discharging Service: Hospitalist Discharge Diagnoses: Myoclonic jerks, toxidrome Sinus bradycardia, SSS Anxiety MDD ADHD Ethanol abuse Elevated CK Hypokalemia Hypernatremia Chronic anemia Hospital Course: Summary of Stay: Kim Bunch is a 43 year old female with past medical history of anxiety, MDD,ADHD, and alcohol abuse who was admitted on 10/28/2018 to the ICU after presenting with altered mental status and abnormal movements of unclear etiology. Labs notable for mild hypokalemia and elevation in CK to 2500. Received a couple doses of Ativan for the abnormal movements. Neurology was consulted as well as psychiatry. Suspected toxidrome, most likely secondary to using both an old morphine prescription and naltrexone at the same time. Initially had CT head and CTA head neck that showed possiblenarrowing of the left M3 segment. Brain MRI showed some nonspecific T2 hyperintensities that are likely benign and noncontributory per neurology. Obtained EEG for completeness, which showed some diffuse likely encephalopathy but no sign of seizure. Transferred to medical floor. She did have persistentbradycardia with heart rate in the low 30s and EKG confirms junctional escape rhythm. Cardiology was consulted who recommended ongoing monitoring. Eventually sinus node did kick in and heart rate was in the mid to high 40s. Suspected sick sinus syndrome. Asymptomatic from this therefore cardiology recommending discharge with outpatient electrophysiology referral. QTC prolongation improved though her home psychiatric medications will be resumed. Cardiac event monitor and outpatient cardiac stress test ordered by cardiology team. Problem List/Assessment and Plan: Myoclonic jerks, suspect toxidrome, resolved: Presenting with mild altered mental status, anxiety, and abnormal movements similar to myoclonic jerks. Neurology was consulted. Brain MRI showing scattered white matter T2 hyperintensities are nonspecific and per neurology unlikely to be of any significance. Did have slightly low potassium level, but still above 3 so unlikely the cause. Did admit to taking both an old morphine prescription and shortly after taking naltrexone her symptoms started and I suspect this is etiology for the movement issues. EEG was suggestive of some diffuse encephalopathy, but no sign of seizure. Symptoms completely resolved. ?? Sinus bradycardia, SSS: Heart rate was persistently low 30s for over 24 hours. EKG confirms a junctional escape rhythm. She does report previous issues with bradycardia and her father had a pacemaker placed. Eventually sinus node did kicked in and heart rate was in the mid to high 40s. Asymptomatic from this. Likely sick sinus syndrome. Cardiology was consulted and recommended discharge with cardiac event monitor with an outpatient cardiac stress test. Referral placed for follow-up with qc manager in outpatient setting. ?? Anxiety, MDD, ADHD: [employer] on Wellbutrin 75 mg twice daily, Lunesta 3 mg at bedtime as needed, Prozac 40 mg daily, and Seroquel 100 mg daily. QTC improved to 467. Okay to resume home medications. ?? Alcohol abuse: Does admit to ongoing casual alcohol use despite previous issue with dependence. Alsoused an old prescription for morphine to treat some hip pain as above. Does not plan to continue alcohol or any illicit substances. Hold naltrexone for now, but can resume on discharge. Educated that it is important to not use any opiates while this medicine. AST also slightly elevated which is suspect is secondary to alcohol use. Follow-up with primary care doctor with LFTs in 4-6 weeks. No sign of withdrawal. ?? Elevated CK: CK elevated to 2500 likely secondary to above movement disorder. Improved with IV fluids. ?? Hypokalemia: Potassium replaced per protocol. ?? Hypernatremia: Sodium up to 145 and chloride also elevated 115. Off IV fluids. Resolved. ?? Chronic anemia: Hemoglobin 10.8. Similar to previous per care everywhere. Continue [employer] iron p.o. ?? Discharge Disposition: Discharged to home Allergies: No Known Allergies Discharge Medications: Current Discharge Medication List CONTINUE these medications which have NOT CHANGED Details buPROPion (WELLBUTRIN) 75 MG tablet Take 75 mg by mouth 2 times daily In addition to naltrexone as alternative to Contrave. cyanocobalamin (CYANOCOBALAMIN) 1000 MCG/ML injection Inject 1 mL into the muscle every 28 days eszopiclone (LUNESTA) 3 MG tablet Take 3 mg by mouth nightly as needed ferrous sulfate (FEROSUL) 325 (65 Fe) MG tablet Take 325 mg by mouth daily (with breakfast) FLUoxetine (PROZAC) 40 MG capsule Take 40 mg by mouth daily naltrexone (DEPADE/REVIA) 50 MG tablet Take 50 mg by mouth daily QUEtiapine (SEROQUEL) 25 MG tablet Take 100 mg by mouth daily Condition on Discharge: Discharge condition: Stable Discharge vitals: Blood pressure 120/66, pulse 100, temperature 97.5 ??F (36.4 ??C), temperature source Oral, resp. rate 18, height 1.575 m (5' 2), weight 85.8 kg (189 lb 1.6 oz), SpO2 96 %. Code status on discharge: Full Code History of Illness: See detailed admission note for full details. Physical Exam: Blood pressure 120/66, pulse 100, temperature 97.5 ??F (36.4 ??C), temperature source Oral, resp. rate 18, height 1.575 m (5' 2), weight 85.8 kg (189 lb 1.6 oz), SpO2 96 %. Wt Readings from Last 1 Encounters: 10/30/18 85.8 kg (189 lb 1.6 oz) Constitutional: Awake, NAD Eyes: sclera white, PERRL HEENT: atraumatic, MMM Respiratory: no respiratory distress, lungs cta bilaterally, no crackles or wheeze Cardiovascular: Regular bradycardia, no murmur GI: non-tender, not distended, bowel sounds present Skin: no rash or lesions, acyanotic Musculoskeletal/extremities: atraumatic, no major deformities. No edema Neurologic: A&Ox3, speech clear, strength and light touch sensation grossly normal, no tremor movements Psychiatric: calm, cooperative, normal affect Procedures other than Imaging: EEG: SUMMARY: 1. Bradycardia, 42 beats per minute, irregular. 2. Poorly-developed alpha dominant rhythm at 9 to 10 Hz, reactive. 3. Low amplitude/high frequency activity in both hemispheres, consistent with a benzodiazepine effect. 4. Significant muscle artifact in the early and late periods of the record. This is most likely artifact from jaw clenching. 5. Intermittent paroxysmal bitemporal slowing. 6. Unremarkable photic stimulation. 7. Mild increase in bitemporal slowing during hyperventilation. 8. No focal epileptiform discharges or seizure activity. CLINICAL INTERPRETATION: This is an abnormal EEG. The record is most consistent with mild encephalopathy without clear focal slowing, epileptiform discharges, or seizure activity. The sensitivity of the record is somewhat undermined by the frequent muscle artifact in the record. Her EKG monitoring is notable for notable persistent bradycardia throughout the record. Clinical correlation is required. Imaging: Results for orders placed or performed during the hospital encounter of 10/28/18 CTA Head Neck with Contrast Narrative CT ANGIOGRAM OF THE HEAD AND NECK WITHOUT AND WITH CONTRAST 10/28/2018 2:51 AM HISTORY: Altered mental status. Anxiety. 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 Alcohol abuse. TECHNIQUE: Precontrast localizing scans were followed by CT angiography with an injection of 70 mL Isovue-370 (accession [id number]), 50mL Isovue-370 (accession [id number]) IV with scans through the head and neck. 3D post processing was performed, images were archived to PACS and used in interpretation of this study. Estimates of carotid stenoses are made relative to the distal internal carotid artery diameters except as noted. Radiation dose for this scan was reduced using automated exposure control, adjustment of the mA and/or kV according to patient size, or iterative reconstruction technique. Perfusion scans were performed at three levels with injection of an additional 40 mL IV nonionic contrast and 20 mL saline flush. These images were processed on a separate 3-D workstation. COMPARISON: None. CT HEAD FINDINGS: No contrast enhancing lesions. Perfusion CT scan of the brain appears normal. CT ANGIOGRAM HEAD FINDINGS: There is [id number] narrowing in the proximal aspect and mid aspect of one of the left M3 segments. Arteries are otherwise widely patent with no aneurysm, significant stenosis, occlusion or intraarterial thrombus. Venous circulation is unremarkable. CT ANGIOGRAM NECK FINDINGS: Right carotid artery: Tortuous cervical internal carotid. No significant stenosis. Left carotid artery: Tortuous cervical internal carotid. No significant stenosis. Vertebral arteries: No significant stenosis. Other findings: None. Impression IMPRESSION: 1. Mild to moderate narrowings of the proximal and mid aspect of one of the left middle cerebral artery M3 segments, possibly indicating vasospasm. 2. Tortuous internal carotid arteries. 3. Otherwise normal CT angiogram of the head and neck. I agree with the preliminary report that was communicated to the referring physician. RADHA SUERO MD CT Head Perfusion w Contrast Narrative CT ANGIOGRAM OF THE HEAD AND NECK WITHOUT AND WITH CONTRAST 10/28/2018 2:51 AM HISTORY: Altered mental status. Anxiety. 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 Alcohol abuse. TECHNIQUE: Precontrast localizing scans were followed by CT angiography with an injection of 70 mL Isovue-370 (accession [id number]), 50mL Isovue-370 (accession [id number]) IV with scans through the head and neck. 3D post processing was performed, images were archived to PACS and used in interpretation of this study. Estimates of carotid stenoses are made relative to the distal internal carotid artery diameters except as noted. Radiation dose for this scan was reduced using automated exposure control, adjustment of the mA and/or kV according to patient size, or iterative reconstruction technique. Perfusion scans were performed at three levels with injection of an additional 40 mL IV nonionic contrast and 20 mL saline flush. These images were processed on a separate 3-D workstation. COMPARISON: None. CT HEAD FINDINGS: No contrast enhancing lesions. Perfusion CT scan of the brain appears normal. CT ANGIOGRAM HEAD FINDINGS: There is [id number] narrowing in the proximal aspect and mid aspect of one of the left M3 segments. Arteries are otherwise widely patent with no aneurysm, significant stenosis, occlusion or intraarterial thrombus. Venous circulation is unremarkable. CT ANGIOGRAM NECK FINDINGS: Right carotid artery: Tortuous cervical internal carotid. No significant stenosis. Left carotid artery: Tortuous cervical internal carotid. No significant stenosis. Vertebral arteries: No significant stenosis. Other findings: None. Impression IMPRESSION: 1. Mild to moderate narrowings of the proximal and mid aspect of one of the left middle cerebral artery M3 segments, possibly indicating vasospasm. 2. Tortuous internal carotid arteries. 3. Otherwise normal CT angiogram of the head and neck. I agree with the preliminary report that was communicated to the referring physician. RADHA SUERO MD CT Head w/o Contrast Narrative CT SCAN OF THE HEAD WITHOUT CONTRAST 10/28/2018 2:51 AM HISTORY: Altered mental status. Anxiety, alcohol abuse, increased fatigue today, jerking movements. TECHNIQUE: Axial images of the head and coronal reformations without IV contrast material. Radiation dose for this scan was reduced using automated exposure control, adjustment of the mA and/or kV according to patient size, or iterative reconstruction technique. COMPARISON: None. FINDINGS: The ventricles are normal in size, shape and configuration. The brain parenchyma and subarachnoid spaces are normal. There is no evidence of intracranial hemorrhage, mass, acute infarct or anomaly. The visualized portions of the sinuses and mastoids appear normal. There is no evidence of trauma. Impression IMPRESSION: Normal CT scan of the head. I agree with the preliminary report that was communicated to the referring physician. RADHA SUERO MD MR Brain w/o & w Contrast Narrative MRI BRAIN WITHOUT AND WITH CONTRAST 10/28/2018 2:53 PM HISTORY: Myoclonus. Change in mental status with anxiety. History of alcohol abuse. TECHNIQUE: Multiplanar, multisequence MRI of the brain without and with 6 mL IV Gadavist. COMPARISON: CT angiogram today. FINDINGS: There are a few tiny foci of prolonged T2 relaxation in the central and subcortical white matter of the frontal lobes, nonspecific as to etiology. Ventricles and subarachnoid spaces appear normal. There is no evidence of hemorrhage, mass, acute infarct, or anomaly. There are no gadolinium enhancing lesions. The facial structures appear normal. The arteries at the base of the brain and the dural venous sinuses appear patent. Impression IMPRESSION: 1. No acute abnormality. 2. Scattered white matter T2 hyperintensities, nonspecific as to etiology. RADHA SUERO MD Consultations: Consultation during this admission received from cardiology and neurology. Recent Lab Results: Recent Labs Lab 10/28/18 0200 WBC 10.5 HGB 10.8* HCT 35.0 MCV 85 PLT 299 Recent Labs Lab 10/30/18 0747 10/29/18 0714 10/28/18 0807 10/28/18 0204 10/28/18 0200 NA 142 145* -- -- 138 POTASSIUM 3.5 3.9 3.5 -- 3.2* CHLORIDE 111* 115* -- -- 108 CO2 24 23 -- -- 24 ANIONGAP 7 7 -- -- 6 GLC 152* 135* -- -- 96 BUN 4* 3* -- -- 9 CR 0.68 0.65 -- -- 0.86 GFRESTIMATED >90 >90 -- 78 81 GFRESTBLACK >90 >90 -- >90 >90 LALITHA 7.9* 7.6* -- -- 7.9* MAG -- 1.9 1.9 -- 1.9 PROTTOTAL -- 5.7* -- -- 7.0 ALBUMIN -- 2.4* -- -- 3.0* BILITOTAL -- 0.6 -- -- 0.6 ALKPHOS -- 162* -- -- 80 AST -- 169* -- -- 111* ALT -- 61* -- -- 29 Pending Results: Unresulted Labs Ordered in the Past 30 Days of this Admission Date and Time Order Name Status Description 10/28/2018 1332 Vitamin B1 whole blood In process These results will be followed up by patient's primary care provider. Discharge Instructions and Follow-Up: Discharge Procedure Orders Follow-Up with Grain [employer]aster Standing Status: Future Standing Exp. Date: 10/30/19 Referral Priority: Routine Number of Visits Requested: 1 Exercise Stress test Standing Status: Future Standing Exp. Date: 12/14/18 Order Specific Question Answer Comments Hold beta blockers on the day of the procedure and 24hrs prior to procedure NA, patient not on a beta tianna Procedure to be scheduled at [facility] [8] Reason for your hospital stay Order Comments: You were hospitalized for some abnormal movements that was likely secondary to taking morphine and naltrexone at the same time. Your brain MRI was unremarkable. Your EEG was not suggestive of seizure. Throughout your hospital stay her heart rate was quite low in the 30 to 40 bpm range,but it did improve overall. It is recommended you establish care with an qc manager and thereferral is been placed for this. Cardiology is also recommending you have an outpatient cardiac stress test performed and a property assessment monitor placed to evaluate for ongoing bradycardia. Follow-up and recommended labs and tests Order Comments: Referral placed to follow-up with an qc manager Follow-up with cardiology for cardiac stress test and cardiac event monitor Activity Order Comments: Your activity upon discharge: activity as tolerated Order Specific Question Answer Comments Is discharge order? Yes Full Code Order Specific Question Answer Comments Code status determined by: Discussion with patient/legal decision maker Holter Monitor 24 hour Adult Pediatric Standing Status: Future Standing Exp. Date: 10/31/19 Diet Order Comments: Follow this diet upon discharge: Orders Placed This Encounter Advance Diet as Tolerated: Regular Diet Adult Order Specific Question Answer Comments Is discharge order? Yes Evangelist Martinez, personally saw the patient today and spent greater than 30 minutes discharging this patient. Evangelist Godinez MD documented in this encounter Medications at Time of Discharge [...] tablet daily documented as of this encounter Progress Notes Christina Bello PA - 10/30/2018 10:01 AM CDT [facility] Cardiology Progress Note Date of Service: 10/30/2018 Patient being seen by cardiology in follow up of junctional bradycardia. Interval history: Overnight telemetry shows continued bradycardia, though HR now back to mostly low 40s. No pauses >2 seconds (yesterday appears longest 2.9). Noted EEG showed mild encephalopathy. Overall feeling better today, able to eat breakfast, ambulate around room. Discussed with available staff at bedside, chart reviewed, patient seen and examined. ASSESSMENT/PLAN: 1. Junctional bradycardia. --Longstanding hx of sinus bradycardia, and possible SSS. This admission worsening bradycardia in the setting of polysubstance abuse/AMS, though no deliberate overdose. HR 30s on admit, now back to low/mid 40s. Symptomatically feeling better, back to her baseline. --Ok for discharge home today. Ms. Bunch is interested in establishing with EP given her longstanding history of this and her father having similar issues requiring pacemaker. Briefly d/w EP; as she is now back to baseline/asymptomatic, will arrange for 24 hr holter upon discharge along with a treadmill stress test to assess her chronotropic competence. Follow up with EP as outpatient after testing. HPI: Kim Bunch is a 43 year old female with past medical history significant for sinus bradycardiaas far back as 2011, along with history of afib. She was admitted on 10/28/2018 with junctional bradycardia in the setting of depression and polysubstance use but reportedly no injectables. Patient Active Problem List Diagnosis ??? Movement disorder Subjective: Says she is feeling a lot better today. Yesterday felt very fatigued and today had energy to get up and walk around. Ate breakfast with no nausea and has good appetite. Denies any dizziness with ambulation/sitting upright. No edema, dyspnea, or orthopnea. Objective: Vital signs: BP 120/66 (BP Location: Left arm) Pulse 100 Temp 97.5 ??F (36.4 ??C) (Oral) Resp 18 Ht 1.575m (5' 2) Wt 85.8 kg (189 lb 1.6 oz) SpO2 96% BMI 34.59 kg/m?? Intake/Output Summary (Last 24 hours) at 10/30/2018 1002 Last data filed at 10/30/2018 0731 Gross per 24 hour Intake 240 ml Output -- Net 240 ml Vitals: 10/28/18 0745 10/29/18 0719 10/30/18 0444 Weight: 79.5 kg (175 lb 4.3 oz) 85.5 kg (188 lb 6.4 oz) 85.8 kg (189 lb 1.6 oz) PE: Gen: In general, this is a well nourished female, seen sitting up in bed in [facility] on room air. Neck: Supple with midline trachea. No significant JVD identified with patient HOB elevated. CV: Slow rate, regular rhythm. No murmur or rub appreciated. Resp:Respirations are unlabored without use of accessory muscles. Auscultation of the lungs reveals clear lung cisneros bilaterally without wheezes or rhonchi. GI: Soft, nontender, nondistended. BS present, no hepatosplenomegaly appreciated. Extrem: Extremities are warm, without cyanosis or clubbing. No lower extremity edema. Neuro: Patient is alert, oriented, and cooperative. No obvious focal abnormalities. Psych: Affect is normal. Skin: No visible rashes. Clean and dry. Current Medications:? ferrous sulfate 325 mg Oral Daily with breakfast Labs/Imaging/Additional testing: The following labs and imaging were reviewed during today's visit: Recent Labs Lab 10/28/18 0200 TROPI 0.016 Recent Labs Lab 10/30/18 0747 10/29/18 0714 10/28/18 0807 10/28/18 0204 10/28/18 0200 WBC -- -- -- -- 10.5 HGB -- -- -- -- 10.8* MCV -- -- -- -- 85 PLT -- -- -- -- 299 INR -- -- -- -- 1.05 NA 142 145* -- -- 138 POTASSIUM 3.5 3.9 3.5 -- 3.2* CHLORIDE 111* 115* -- -- 108 CO2 24 23 -- -- 24 BUN 4* 3* -- -- 9 CR 0.68 0.65 -- -- 0.86 GFRESTIMATED >90 >90 -- 78 81 GFRESTBLACK >90 >90 -- >90 >90 ANIONGAP 7 7 -- -- 6 LALITHA 7.9* 7.6* -- -- 7.9* GLC 152* 135* -- -- 96 ALBUMIN -- 2.4* -- -- 3.0* PROTTOTAL -- 5.7* -- -- 7.0 BILITOTAL -- 0.6 -- -- 0.6 ALKPHOS -- 162* -- -- 80 ALT -- 61* -- -- 29 AST -- 169* -- -- 111* LIPASE -- -- -- -- 120 TROPI -- -- -- -- 0.016 Tele: Sinus bradycardia Imaging: Recent Results (from the past 48 hour(s)) MR Brain w/o & w Contrast Narrative MRI BRAIN WITHOUT AND WITH CONTRAST 10/28/2018 2:53 PM HISTORY: Myoclonus. Change in mental status with anxiety. History of alcohol abuse. TECHNIQUE: Multiplanar, multisequence MRI of the brain without and with 6 mL IV Gadavist. COMPARISON: CT angiogram today. FINDINGS: There are a few tiny foci of prolonged T2 relaxation in the central and subcortical white matter of the frontal lobes, nonspecific as to etiology. Ventricles and subarachnoid spaces appear normal. There is no evidence of hemorrhage, mass, acute infarct, or anomaly. There are no gadolinium enhancing lesions. The facial structures appear normal. The arteries at the base of the brain and the dural venous sinuses appear patent. Impression IMPRESSION: 1. No acute abnormality. 2. Scattered white matter T2 hyperintensities, nonspecific as to etiology. RADHA SUERO MD Echo: Outside Echo 04/2017 Final Impressions: 1. Normal LV size, normal wall thickness, normal global systolic function with an estimated EF of 60 - 65%. 2. Right ventricular cavity size is normal, global systolic RV function is normal. 3. No significant valve disease detected ?? Christina Bello PA-C [facility] Heart Pager Associated attestation - Real Yen MD - 10/30/2018 11:44 AM CDT Physician Attestation I, Real Yen, saw and evaluated Kim Bunch as part of a shared visit. I have reviewedand discussed with the advanced practice provider their history, physical and plan. I personally reviewed the vital signs, medications, labs and imaging. My rivero history or physical exam findings: Doing well, feeling better. Still bradycardic, but less so. Rivero management decisions made by me: Okay for discharge today. Follow up with EP arranged. Real Yen Date of Service (when I saw the patient): 10/30/18 Evangelist Godinez MD - 10/29/2018 2:08 PM CDT [facility] Hospitalist Progress Note Evangelist Godinez MD 10/29/18 Reason for Stay (Diagnosis): Toxidrome Assessment and Plan: Summary of Stay: Kim Bunch is a 43 year old female with past medical history of anxiety, MDD,ADHD, and alcohol abuse who was admitted on 10/28/2018 to the ICU after presenting with altered mental status and abnormal movements of unclear etiology. Labs notable for mild hypokalemia and elevation in CK to 2500. Received a couple doses of Ativan for the abnormal movements. Neurology was consulted as well as psychiatry. Suspected toxidrome, most likely secondary to using both an old morphine prescription and naltrexone at the same time. Initially had CT head and CTA head neck that showed possiblenarrowing of the left M3 segment. Brain MRI showed some nonspecific T2 hyperintensities that are likely benign and noncontributory per neurology. Obtaining EEG for completeness, though seizure thought to be less likely. Transfer to medical floor. Has had persistent bradycardia with heart rate in the low 30s. EKG confirms junctional escape rhythm. Cardiology consulted and recommended further monitoring overnight. Problem List/Assessment and Plan: Myoclonic jerks, suspect toxidrome: Presenting with mild altered mental status, anxiety, and abnormal movements similar to myoclonic jerks. Brain MRI showing scattered white matter T2 hyperintensities are nonspecific and per neurology unlikely to be of any significance. Did have slightly low potassiumlevel, but still above 3 so unlikely the cause. Did admit to taking both an old morphine prescription and shortly after taking naltrexone her symptoms started and I suspect this is etiology for the movement issues. This is since resolved. -Neurology consulted, appreciate recommendations, obtaining EEG although seizure unlikely Bradycardia: Heart rate persistently low 30s. EKG confirms a junctional escape rhythm. She does report previous issues with bradycardia and her father had a pacemaker placed. Suspect sick sinus syndrome. -Cardiology consulted, recommended continued telemetry monitoring for 24 hours. Consideration for transfer for pacemaker evaluation tomorrow if symptomatic bradycardia persists Anxiety, MDD, ADHD: [employer] on Wellbutrin 75 mg twice daily, Lunesta 3 mg at bedtime as needed, Prozac 40 mg daily, and Seroquel 100 mg daily. Hold [employer] Wellbutrin and Prozac due to significant prolonged QTC. Alcohol abuse: Does admit to ongoing casual alcohol use despite previous issue with dependence. Alsoused an old prescription for morphine to treat some hip pain as above. Does not plan to continue alcohol or any illicit substances. Hold naltrexone for now, but can resume on discharge. Educated that it is important to not use any opiates while this medicine. AST also slightly elevated which is suspect is secondary to alcohol use. Follow-up with primary care doctor with LFTs in 4-6 weeks. Elevated CK: CK elevated to 2500 likely secondary to above movement disorder. Improved with IV fluids. Hypokalemia: Potassium replaced per protocol. Hypernatremia: Sodium up to 145 and chloride also elevated 115. Off IV fluids. Improved p.o. free water intake. Chronic anemia: Hemoglobin 10.8. Similar to previous per care everywhere. Continue [employer] iron p.o. DVT Prophylaxis: Pneumatic Compression Devices Code Status: Full Code FEN: Regular diet Estimated Disch Date / # of Days until Disch: Monitor on telemetry additional 24 hours. If symptomatic bradycardia persisting may need transfer to [facility] for pacemaker evaluation Interval History (Subjective): Assumed care today after transfer from ICU. Her abnormal myoclonic jerks have resolved. She does note some shortness of breath. Has been bradycardic with heart rate in the low 30s all night on telemetry. EKG confirms junctional rhythm. Cardiology consulted. Physical Exam: Last Vital Signs: BP 125/71 Pulse (!) 42 Temp 98.8 ??F (37.1 ??C) (Oral) Resp 16 Ht 1.575 m (5' 2) Wt 85.5 kg (188 lb 6.4 oz) SpO2 97% BMI 34.46 kg/m?? Intake/Output Summary (Last 24 hours) at 10/29/2018 1408 Last data filed at 10/29/2018 0720 Gross per 24 hour Intake 2650 ml Output -- Net 2650 ml Constitutional: Awake, NAD Eyes: sclera white HEENT: MMM Respiratory: lungs cta bilaterally, no crackles or wheeze Cardiovascular: Regular bradycardia, no murmur GI: non-tender, not distended, bowel sounds present Skin: no rash Musculoskeletal/extremities: No edema Neurologic: A&O, speech clear, no tremor or myoclonic jerks Psychiatric: calm, cooperative Medications: All current medications were reviewed with changes reflected in problem list. Data: All new lab and imaging data was reviewed. Labs: Recent Labs Lab 10/29/18 0714 10/28/18 0807 10/28/18 0204 10/28/18 0200 NA 145* -- -- 138 POTASSIUM 3.9 3.5 -- 3.2* CHLORIDE 115* -- -- 108 CO2 23 -- -- 24 ANIONGAP 7 -- -- 6 GLC 135* -- -- 96 BUN 3* -- -- 9 CR 0.65 -- -- 0.86 GFRESTIMATED >90 -- 78 81 GFRESTBLACK >90 -- >90 >90 LALITHA 7.6* -- -- 7.9* MAG 1.9 1.9 -- 1.9 PROTTOTAL 5.7* -- -- 7.0 ALBUMIN 2.4* -- -- 3.0* BILITOTAL 0.6 -- -- 0.6 ALKPHOS 162* -- -- 80 AST 169* -- -- 111* ALT 61* -- -- 29 Recent Labs Lab 10/29/18 0714 10/28/18 1110 10/28/18 0200 CKT 1,355* 2,245* 2,479* Recent Labs Lab 10/29/18 0714 TSH 0.56 EKG: Junctional escape rhythm heart rate low 30s Imaging: Recent Results (from the past 24 hour(s)) MR Brain w/o & w Contrast Narrative MRI BRAIN WITHOUT AND WITH CONTRAST 10/28/2018 2:53 PM HISTORY: Myoclonus. Change in mental status with anxiety. History of alcohol abuse. TECHNIQUE: Multiplanar, multisequence MRI of the brain without and with 6 mL IV Gadavist. COMPARISON: CT angiogram today. FINDINGS: There are a few tiny foci of prolonged T2 relaxation in the central and subcortical white matter of the frontal lobes, nonspecific as to etiology. Ventricles and subarachnoid spaces appear normal. There is no evidence of hemorrhage, mass, acute infarct, or anomaly. There are no gadolinium enhancing lesions. The facial structures appear normal. The arteries at the base of the brain and the dural venous sinuses appear patent. Impression IMPRESSION: 1. No acute abnormality. 2. Scattered white matter T2 hyperintensities, nonspecific as to etiology. MD Evangelist TERAN MD Neela Horne - 10/29/2018 1:41 PM CDT Routine - Awake/Drowsy EEG completed. Micky Hoyos MD - 10/29/2018 9:37 AM CDT Images from the original note were not included. Neurology Quick Note [facility] [October 29, 2018] Kim Bunch 43 year old yo female Admission Date: 10/28/2018 Hospital Day: 2 Code Status: Full Code S: Cognition reportedly improved since admission. O: Brain MRI performed yesterday is largely normal, with no clear pathology to account for her altered mental status. The subcortical white matter changes are non-specific, and generally regarded as benign. Her B12 level is fine. BLOOD PRESSURE: BP Readings from Last 3 Encounters: 10/29/18 129/88 PULSE: 42 Height: 5' 2 Weight: 188 lbs 6.4 oz Temperature: 97.7 Tmax 24??: Temp (24hrs), Av.9 ??F (36.6 ??C), Min:97 ??F (36.1 ??C), Max:98.5 ??F (36.9 ??C) Vitals: Ranges Temp: [97 ??F (36.1 ??C)-98.5 ??F (36.9 ??C)] 97.7 ??F (36.5 ??C) Pulse: [39-61] 42 Heart Rate: [38-62] 44 Resp: [9-29] 16 BP: (90-159)/(46-123) 129/88 SpO2: [95 %-100 %] 96 % Medications: ??? ferrous sulfate 325 mg Oral Daily with breakfast LABORATORY RESULTS SMA-7: Recent Labs Lab 10/29/18 0714 10/28/18 0807 10/28/18 0200 NA 145* -- 138 POTASSIUM 3.9 3.5 3.2* CHLORIDE 115* -- 108 CO2 23 -- 24 GLC 135* -- 96 BUN 3* -- 9 CR 0.65 -- 0.86 CMP: Recent Labs Lab 10/29/18 0714 10/28/18 0807 10/28/18 0200 LALITHA 7.6* -- 7.9* MAG 1.9 1.9 1.9 PROTTOTAL 5.7* -- 7.0 ALBUMIN 2.4* -- 3.0* ALKPHOS 162* -- 80 AST 169* -- 111* ALT 61* -- 29 BILITOTAL 0.6 -- 0.6 CBC: Recent Labs Lab 10/28/18 0200 WBC 10.5 RBC 4.10 HGB 10.8* HCT 35.0 MCV 85 PLT 299 INR: Recent Labs Lab 10/28/18 0200 INR 1.05 Recent Labs Lab 10/28/18 0200 TROPI 0.016 U/A: Recent Labs Lab Test 10/28/18 0347 COLOR Light Yellow APPEARANCE Clear URINEGLC Negative URINEBILI Negative URINEKETONE Negative SG 1.010 UBLD Small* URINEPH 6.0 PROTEIN 20* NITRITE Negative LEUKEST Negative RBCU <1 WBCU 1 HgA1c: No results found for: A1C TSH: Recent Labs Lab 10/29/18 0714 TSH 0.56 CK: No results found for: CKTOTAL Ammonia: Recent Labs Lab Test 10/28/18 1350 MUKESH 24 Vitamin B12: Recent Labs Lab Test 10/28/18 1350 B12 1,417* Recent Labs Lab 10/28/18 0200 TROPI 0.016 INR: Recent Labs Lab 10/28/18 0200 INR 1.05 Recent Results (from the past 24 hour(s)) MR Brain w/o & w Contrast Narrative MRI BRAIN WITHOUT AND WITH CONTRAST 10/28/2018 2:53 PM HISTORY: Myoclonus. Change in mental status with anxiety. History of alcohol abuse. TECHNIQUE: Multiplanar, multisequence MRI of the brain without and with 6 mL IV Gadavist. COMPARISON: CT angiogram today. FINDINGS: There are a few tiny foci of prolonged T2 relaxation in the central and subcortical white matter of the frontal lobes, nonspecific as to etiology. Ventricles and subarachnoid spaces appear normal. There is no evidence of hemorrhage, mass, acute infarct, or anomaly. There are no gadolinium enhancing lesions. The facial structures appear normal. The arteries at the base of the brain and the dural venous sinuses appear patent. Impression IMPRESSION: 1. No acute abnormality. 2. Scattered white matter T2 hyperintensities, nonspecific as to etiology. RADHA SUERO MD ASSESSMENT 1. Metabolic encephalopathy, likely due to multiple medications, improved. 2. Movement disorder/myoclonus, likely a medication effect, now reportedly resolved. RECOMMENDATIONS 1. No additional testing requiredfrom the neurological perscpetive. Seizure is unlikely, but EEG canbe performed inpatient or outpatient, as Dr. Canales recommended. Micky Hoyos M.D., Ph.D. [facility] [id number] Evangelist Godinez MD - 10/29/2018 8:17 AM CDT Bradycardic with rate 30-35 throughout the night. Obtain EKG which shows a junctional rhythm. Unclear etiology for this. I do not see bradycardia as a side effect of her medications nor would fit with any sort of toxidrome from overdose of her current medication list, however reviewing notes her medication history reliability has been questioned. -Continue telemetry and consult cardiology -add on cmp, magnesium, TSH/Free T4 -plans for EEG today for her episodes of jerking. Neurology to follow-up. Colby Lizama MD - 10/29/2018 12:58 AM CDT Per Nurses report patient remained stable after admission, noted she was evaluated by neurology and psych. Hemodynamically stable, bradycardic. Patient can be transferred to telemetry floor from ICU due to bed availability issues. -She should be on telemetry. Austen Zapata MD - 10/28/2018 4:55 PM CDT Patient seen and examined. 43-year-old female patient with history of PUD, depression, alcohol abuse, anxiety, insomnia, ADHD was admitted this morning for myoclonus and movement disorders. She was evaluated by neurology this morning. Case discussed with from neurology. Ordered ammonia, vitamin B12, thiamine levels due to her drinking problem. Also ordered MRI of the brain per neurology recommendation. We will continue as needed Ativan. documented in this encounter H&P Notes Mariano Sky DO - 10/28/2018 5:28 AM CDT [facility] Hospitalist H&P Name: Kim Bunch Date of : 1975 Age: [age] year old Date of admission: 10/28/2018 Primary care provider: No primary care provider on file. Assessment and Plan: Kim Bunch is a 43 year old female with a history of peptic ulcer disease, depression, alcoholabuse, anxiety, insomnia, ADHD who presents with a multitude of symptoms including altered mental status, anxiety, and movement disorder with unclear underlying etiology but overall suspicious for toxidrome, polypharmacy, or withdrawal symptomatology. 1. Myoclonus and movement disorder: She is having spasm-like activity but every 30 seconds. This appears consistent with myoclonus, akathisia, or dystonia. No obvious evidence of neuroleptic malignant syndrome or serotonin syndrome based on vital signs and clinical examination. Overall somewhat unclear etiology and ultimate diagnosis, however. Will admit to the ICU for close monitoring. Provide supportive cares with IV fluids. We will attempt to manage her uncomfortable movement with Ativan. Will check EEG. I would like to request psychiatric and neurologic consultations in the morning to see if her movement disorder can be further characterized. Code status: Full. Admit to ICU as an inpatient. Prophylaxis: PCD's. Disposition: Home 2 to 3 days. Chief Complaint: Panic. History of Present Illness: Kim Bunch is a 43 year old female who presents with panic and spasm. History was obtained from my discussion with the patient and boyfriend at the bedside. I also discussed the case with the ED provider. The electronic medical record was also reviewed. She is extremely limited due to the patient's condition. Evidently she is recently had upper respiratory tract infectious symptoms. She also went to the urgent care yesterday to evaluate her hip. Her boyfriend has been around her yesterday and noted that she was more fatigued and confused. She became d iaphoretic and short of breath in the afternoon. She had 30 to experiencing spasm or seizure-like activity with jerking movements. Ultimately she was brought to the emergency department for evaluation. She is evidently taken several different medication recently with unclear intent. These medications include morphine and NyQuil and naltrexone. She has also been consuming alcohol of on clear quantities yesterday. Here in the emergency department she is very anxious and experiencing myoclonic activity about every 30 seconds. Vital signs her labs are largely unremarkable. She is being admitted to the intensive care unit for her movement disorder and polypharmacy monitoring. Past Medical History: Past Medical History: Diagnosis Date ??? Gastric ulcer with perforation (H) 2016 ??? Gastroesophageal reflux disease ??? Hypotension 2015 Past Surgical History: Past Surgical History: Procedure Laterality Date ??? COSMETIC MAMMOPLASTY AUGMENTATION BILATERAL 1996 ??? DAVINCI BYPASS GASTRIC MG-EN-Y 2006 ??? LAPAROSCOPIC TUBAL LIGATION 2009 Social History: Social History Tobacco Use ??? Smoking status: Never Smoker ??? Smokeless tobacco: Never Used Substance Use Topics ??? Alcohol use: Yes Comment: Pt has hx of alcohol abuse, ellen how much she is presently drinking Family History: The family history was fully reviewed and non-contributory in this case. Allergies: No Known Allergies Medications: Prior to Admission medications Medication Sig Last Dose Taking? Auth Provider morphine 10 MG/5ML solution Take by mouth every 4 hours as needed for severe pain Yes Reported, Patient naltrexone (DEPADE/REVIA) 50 MG tablet Take 50 mg by mouth daily Yes Reported, Patient Review of Systems: A Comprehensive greater than 10 system review of systems was carried out. Pertinent positives and negatives are noted above. Otherwise negative for contributory information. Physical Exam: Blood pressure 125/82, pulse 77, temperature 98.1 ??F (36.7 ??C), temperature source Oral, resp. rate 26, height 1.676 m (5' 6), weight 79.4 kg (175 lb), SpO2 94 %. Wt Readings from Last 1 Encounters: 10/28/18 79.4 kg (175 lb) Exam: GENERAL: No apparent distress. Awake, alert, and fully oriented. HEENT: Normocephalic, atraumatic. Extraocular movements intact. CARDIOVASCULAR: Regular rate and rhythm without murmurs or rubs. No S3. PULMONARY: Clear to auscultation bilaterally. ABDOMINAL: Soft, non-tender, non-distended. Bowel sounds normoactive. EXTREMITIES: No cyanosis or clubbing. No appreciable edema. NEUROLOGICAL: CN 2-12 grossly intact, myoclonic activity frequently. DERMATOLOGICAL: No rash, ulcer, bruising, nor jaundice. Data: EKG: Personally reviewed. Rate 63 bpm. HI interval 170. QRS duration 106. QT/QTc 448/458. P-R-T axes 52 35 35. Normal sinus rhythm. Laboratory: Recent Labs Lab 10/28/18199 WBC 10.5 HGB 10.8* HCT 35.0 MCV 85 PLT 299 Recent Labs Lab 10/28/18 0204 10/28/18199 NA -- 138 POTASSIUM -- 3.2* CHLORIDE -- 108 CO2 -- 24 ANIONGAP -- 6 GLC -- 96 BUN -- 9 CR -- 0.86 GFRESTIMATED 78 81 GFRESTBLACK >90 >90 LALITHA -- 7.9* Recent Labs Lab 10/28/18199 AST 111* ALT 29 ALKPHOS 80 BILITOTAL 0.6 Recent Labs Lab 10/28/18199 INR 1.05 Recent Labs Lab 10/28/18 0347 URINEKETONE Negative No results for input(s): CULT in the last 168 hours. Imaging: No results found for this or any previous visit (from the past 24 hour(s)). Mariano Sky DO [facility] Hospitalist [place] [address] Pager: 10/28/2018 documented in this encounter Procedure Notes Micky Hoyos MD - 10/29/2018 2:46 PM CDTAssociated Order(s): EEG Procedure Date: 10/29/2018 ELECTROENCEPHALOGRAM EEG #[id number] DESCRIPTION OF RECORD: This digital EEG begins with the patient awake. Heart monitor shows notable bradycardia with rate 42 on average, irregular. In general, her EEG record is notable for low to medium voltage activity, with notable low amplitude/high frequency activity in both hemispheres, consistent with a benzodiazepine effect. She has a poorly-developed posterior dominant alpha rhythm of 9 to 10Hz, reactive to eye opening and eye closure. Throughout the record, she has intermittent paroxysmal bitemporal slowing. She also has notable muscle artifact prominent in the early part of the record, largely resolving during hyperventilation, only to return in the latter part of the record, seriously undermining the sensitivity of the record. The motor activity appears to be coming from her jaw, as it is improved after the line technician asked for the patient to relax her jaw. Throughout the record, shehas no clear evidence of focal slowing or asymmetry. Photic stimulation was performed and shows withno clear driving response or photoparoxysmal activity. Hyperventilation showed some increased frequency of her intermittent paroxysmal bitemporal slowing, but no other clear pathology. Transverse montages show no clear asymmetry in the record. At no time did she have epileptiform discharges or seizureactivity apparent on the record. SUMMARY: 1. Bradycardia, 42 beats per minute, irregular. 2. Poorly-developed alpha dominant rhythm at 9 to 10 Hz, reactive. 3. Low amplitude/high frequency activity in both hemispheres, consistent with a benzodiazepine effect. 4. Significant muscle artifact in the early and late periods of the record. This is most likely artifact from jaw clenching. 5. Intermittent paroxysmal bitemporal slowing. 6. Unremarkable photic stimulation. 7. Mild increase in bitemporal slowing during hyperventilation. 8. No focal epileptiform discharges or seizure activity. CLINICAL INTERPRETATION: This is an abnormal EEG. The record is most consistent with mild encephalopathy without clear focal slowing, epileptiform discharges, or seizure activity. The sensitivity of the record is somewhat undermined by the frequent muscle artifact in the record. Her EKG monitoring is notable for notable persistent bradycardia throughout the record. Clinical correlation is required. MICKY HOYOS MD MT: KB Name: KIM BUNCH MRN: [id number] Account: [id number] : 1975 Procedure Date: 10/29/2018 Document: [id number] documented in this encounter Consult Notes Real Yen MD - 10/29/2018 1:55 PM CDTAssociated Order(s): CARDIOLOGY IP CONSULT Cardiology Consultation Kim Bunch Date of : 1975 Age: [age] year old Date of Admission: 10/28/2018 Reason for consult: Bradycardia Assessment and Plan: 1. Junctional bradycardia with a history of sick sinus syndrome ?? Patient may feel better with higher heart rates. She denies any injectable drug use. She states she is going to quit all illicit pills and alcohol abuse. ?? We will watch her for 24 hours and still if symptomatic bradycardia, transfer to [facility] for consideration of dual-chamber pacemaker. Chief Complaint: Ingestion History of Present Illness: This patient is a 43 year old female with history of sinus bradycardia as far back as 2011. Also document past history of atrial fibrillation from past outside records. She comes in with depression and polysubstance abuse, but no injectables. Found to be in a junctional bradycardia at heart rates in the 30s to 40s with fatigue and dyspnea. I reviewed the ECG and it does appear to be junctional escape with heart rates in the 30s to 40s. Physical Exam: Vitals were reviewed Blood pressure 125/71, pulse (!) 42, temperature 98.8 ??F (37.1 ??C), temperature source Oral, resp.rate 16, height 1.575 m (5' 2), weight 85.5 kg (188 lb 6.4 oz), SpO2 97 %. Temperatures: Current - Temp: 98.8 ??F (37.1 ??C); Max - Temp Av.1 ??F (36.7 ??C) Min: 97 ??F (36.1 ??C) Max: 98.8 ??F (37.1 ??C) Respiration range: Resp Av.1 Min: 9 Max: 29 Pulse range: Pulse Av Min: 39 Max: 57 Blood pressure range: Systolic (24hrs), Av , Min:90 , Max:147 ; Diastolic (24hrs), Av, Min:62, Max:88 Pulse oximetry range: SpO2 Av.1 % Min: 95 % Max: 100 % Intake/Output Summary (Last 24 hours) at 10/29/2018 1351 Last data filed at 10/29/2018 0720 Gross per 24 hour Intake 2650 ml Output -- Net 2650 ml Constitutional: awake, alert, cooperative, no apparent distress, and appears stated age Eyes: Lids and lashes normal, pupils equal, round and reactive to light, extra ocular muscles intact, sclera clear, conjunctiva normal Neck: supple, symmetrical, trachea midline, no JVD Back: symmetric Lungs: clear Cardiovascular: Marked bradycardia, regular Abdomen: benign Musculoskeletal: motor strength is 5 out of 5 all extremities bilaterally Neurologic: Grossly nonfocal Skin: normal skin color, texture, turgor Additional findings: Past Medical History: I have reviewed this patient's past medical history Past Medical History: Diagnosis Date ??? Gastric ulcer with perforation (H) 2016 ??? Gastroesophageal reflux disease ??? Hypotension 2016 Past Surgical History: I have reviewed this patient's past surgical history Past Surgical History: Procedure Laterality Date ??? COSMETIC MAMMOPLASTY AUGMENTATION BILATERAL 1996 ??? DAVINCI BYPASS GASTRIC MG-EN-Y 2006 ??? LAPAROSCOPIC TUBAL LIGATION 2009 Social History: I have reviewed this patient's social history Social History Tobacco Use ??? Smoking status: Never Smoker ??? Smokeless tobacco: Never Used Substance Use Topics ??? Alcohol use: Yes Comment: Pt has hx of alcohol abuse, ellen how much she is presently drinking Family History: I have reviewed this patient's family history History reviewed. No pertinent family history. Allergies: No Known Allergies Medications: I have reviewed this patient's current medications Medications Prior to Admission Medication Sig Dispense Refill Last Dose ??? buPROPion (WELLBUTRIN) 75 MG tablet Take 75 mg by mouth 2 times daily In addition to naltrexone as alternative to Contrave. 10/27/2018 at Unknown time ??? cyanocobalamin (CYANOCOBALAMIN) 1000 MCG/ML injection Inject 1 mL into the muscle every 28 days 10/26/2018 ??? eszopiclone (LUNESTA) 3 MG tablet Take 3 mg by mouth nightly as needed 10/26/2018 at HS ??? ferrous sulfate (FEROSUL) 325 (65 Fe) MG tablet Take 325 mg by mouth daily (with breakfast) 10/27/2018 at Unknown time ??? FLUoxetine (PROZAC) 40 MG capsule Take 40 mg by mouth daily 10/27/2018 at Unknown time ??? naltrexone (DEPADE/REVIA) 50 MG tablet Take 50 mg by mouth daily 10/27/2018 at Unknown time ??? QUEtiapine (SEROQUEL) 25 MG tablet Take 100 mg by mouth daily 10/27/2018 at Unknown time Current Facility-Administered Medications Ordered in Epic Medication Dose Route Frequency Last Rate Last Dose ??? 0.9% sodium chloride BOLUS 500 mL Intravenous Once PRN ??? dextrose 5% and 0.45% NaCl + KCl 20 mEq/L infusion Intravenous Continuous 150 mL/hr at 10/29/18 0958 ??? eszopiclone (LUNESTA) tablet 3 mg 3 mg Oral At Bedtime PRN 3 mg at 10/28/18 2132 ??? ferrous sulfate (FEROSUL) tablet 325 mg 325 mg Oral Daily with breakfast 325 mg at 10/29/18 0936 ??? LORazepam (ATIVAN) tablet 0.5 mg 0.5 mg Oral Q4H PRN 0.5 mg at 10/29/18 0242 ??? magnesium sulfate 4 g in 100 mL sterile water (premade) 4 g Intravenous Q4H PRN ??? naloxone (NARCAN) injection 0.1-0.4 mg 0.1-0.4 mg Intravenous Q2 Min PRN ??? ondansetron (ZOFRAN-ODT) ODT tab 4 mg 4 mg Oral Q6H PRN 4 mg at 10/29/18 0833 Or ??? ondansetron (ZOFRAN) injection 4 mg 4 mg Intravenous Q6H PRN 4 mg at 10/28/18 0858 ??? potassium chloride (KLOR-CON) Packet 20-40 mEq 20-40 mEq Oral or Feeding Tube Q2H PRN ??? potassium chloride 10 mEq in 100 mL intermittent infusion with 10 mg lidocaine 10 mEq Intravenous Q1H PRN ??? potassium chloride 10 mEq in 100 mL sterile water intermittent infusion (premix) 10 mEq Intravenous Q1H PRN ??? potassium chloride 20 mEq in 50 mL intermittent infusion 20 mEq Intravenous Q1H PRN ??? potassium chloride ER (K-DUR/KLOR-CON M) CR tablet 20-40 mEq 20-40 mEq Oral Q2H PRN ??? prochlorperazine (COMPAZINE) injection 10 mg 10 mg Intravenous Q6H PRN 10 mg at 10/29/18 1202 Or ??? prochlorperazine (COMPAZINE) tablet 10 mg 10 mg Oral Q6H PRN Or ??? prochlorperazine (COMPAZINE) Suppository 25 mg 25 mg Rectal Q12H PRN No current [facility]-ordered outpatient medications on file. Review of Systems: The 10 point Review of Systems is negative other than noted in the HPI Data: All laboratory data reviewed Results for orders placed or performed during the hospital encounter of 10/28/18 (from the past 24 hour(s)) MR Brain w/o & w Contrast Narrative MRI BRAIN WITHOUT AND WITH CONTRAST 10/28/2018 2:53 PM HISTORY: Myoclonus. Change in mental status with anxiety. History of alcohol abuse. TECHNIQUE: Multiplanar, multisequence MRI of the brain without and with 6 mL IV Gadavist. COMPARISON: CT angiogram today. FINDINGS: There are a few tiny foci of prolonged T2 relaxation in the central and subcortical white matter of the frontal lobes, nonspecific as to etiology. Ventricles and subarachnoid spaces appear normal. There is no evidence of hemorrhage, mass, acute infarct, or anomaly. There are no gadolinium enhancing lesions. The facial structures appear normal. The arteries at the base of the brain and the dural venous sinuses appear patent. Impression IMPRESSION: 1. No acute abnormality. 2. Scattered white matter T2 hyperintensities, nonspecific as to etiology. RADHA SUERO MD Glucose by meter Result Value Ref Range Glucose 111 (H) 70 - 99 mg/dL Glucose by meter Result Value Ref Range Glucose 122 (H) 70 - 99 mg/dL Glucose by meter Result Value Ref Range Glucose 120 (H) 70 - 99 mg/dL CK total Result Value Ref Range CK Total 1,355 (HH) 30 - 225 U/L Comprehensive metabolic panel Result Value Ref Range Sodium 145 (H) 133 - 144 mmol/L Potassium 3.9 3.4 - 5.3 mmol/L Chloride 115 (H) 94 - 109 mmol/L Carbon Dioxide 23 20 - 32 mmol/L Anion Gap 7 3 - 14 mmol/L Glucose 135 (H) 70 - 99 mg/dL Urea Nitrogen 3 (L) 7 - 30 mg/dL Creatinine 0.65 0.52 - 1.04 mg/dL GFR Estimate >90 >60 mL/min/[1.73_m2] GFR Estimate If Black >90 >60 mL/min/[1.73_m2] Calcium 7.6 (L) 8.5 - 10.1 mg/dL Bilirubin Total 0.6 0.2 - 1.3 mg/dL Albumin 2.4 (L) 3.4 - 5.0 g/dL Protein Total 5.7 (L) 6.8 - 8.8 g/dL Alkaline Phosphatase 162 (H) 40 - 150 U/L ALT 61 (H) 0 - 50 U/L AST 169 (H) 0 - 45 U/L Magnesium Result Value Ref Range Magnesium 1.9 1.6 - 2.3 mg/dL TSH with free T4 reflex Result Value Ref Range TSH 0.56 0.40 - 4.00 mU/L EKG 12-lead, tracing only Result Value Ref Range Interpretation ECG Click View Image link to view waveform and result No results found for: CHOL No results found for: HDL No results found for: LDL No results found for: TRIG No results found for: CHOLHDLRATIO TSH Date Value Ref Range Status 10/29/2018 0.56 0.40 - 4.00 mU/L Final Mira Canales MD - 10/28/2018 12:56 PM CDTAssociated Order(s): NEUROLOGY IP CONSULT [facility] Neurology Consultation Mira Canales MD Kim Bunch Date of : 1975 Age: [age] year old Date of Admission: 10/28/2018 Date of Consult: 10/28/2018 Requesting Physician: Dr. Sky Chief Complaint: Abnormal movements with altered mental status History of Present Illness: Kim Bunch is a 43 year old female with past medical history significant for depression, ETOH abuse (reportedly had treatment in 2015 but does continue to drink more socially) , insomnia, ADHD who presented with altered mental status and abnormal jerking movements on 10/28/2018 and admitted to ICU for further evaluation and treatment. She has given slightly different history to various providersbut also with some mental status changes. Today, she describes having a typical day on Monday but the evening around 6:00pm went to urgent care for bilateral hip pain for the past 2 weeks and had x-rays and discharged with plan to f/u with ortho. She treated pain with taking morphine from an old prescription. Reports was also taking Nyquil and drinking wine coolers during the day. She also reports tool Wellbutrin and Naltrexone (was using PRN for weight loss) and her Lunesta. Also has prescriptionfor Ativan 0.5mg BID. She then awake around 1:00 am with sensation of hearing in stereo and changesin vision with black and white spots and with jerking movements. She recalls the entire event. Denies other substance use. Work up in the ER with tox screen positive for opioids. ETOH level not elevated. Hg 10.8, CK elevated. Trop slightly elevated. LFT elevated. Concern for myoclonic like jerking movements and Altered mental status. Vitals with elevated BP to 149/93 but normal temp. EKG wnl, CT perfusion and CTA with Mild to moderate narrowings of the proximal and mid aspect of one of the left middle cerebral artery M3 segments, possibly indicating Vasospasm. In the ER there was some concern for poor perfusion in left parietal region which is notspecifically reported in final reports. She was seen by psych and no SI intent found. She works as anurse. She reports this am doing much better with no residual neurological changes and feels thinking well and can recall details from time at hospital. No jerking noted on exam at 1:30pm. Past Medical History: Patient Active Problem List Diagnosis ??? Movement disorder Past Medical History: Diagnosis Date ??? Gastric ulcer with perforation (H) 2016 ??? Gastroesophageal reflux disease ??? Hypotension 2016 ETOH abuse hx Past Surgical History: Past Surgical History: Procedure Laterality Date ??? COSMETIC MAMMOPLASTY AUGMENTATION BILATERAL 1996 ??? DAVINCI BYPASS GASTRIC MG-EN-Y 2006 ??? LAPAROSCOPIC TUBAL LIGATION 2009 Home Medications: Prior to Admission medications Medication Sig Last Dose Taking? Auth Provider buPROPion (WELLBUTRIN) 75 MG tablet Take 75 mg by mouth 2 times daily In addition to naltrexone as alternative to Contrave. 10/27/2018 at Unknown time Yes Unknown, Entered By History cyanocobalamin (CYANOCOBALAMIN) 1000 MCG/ML injection Inject 1 mL into the muscle every 28 days 10/26/2018 Yes Unknown, Entered By History eszopiclone (LUNESTA) 3 MG tablet Take 3 mg by mouth nightly as needed 10/26/2018 at HS Yes Unknown, Entered By History ferrous sulfate (FEROSUL) 325 (65 Fe) MG tablet Take 325 mg by mouth daily (with breakfast) 10/27/2018 at Unknown time Yes Unknown, Entered By History FLUoxetine (PROZAC) 40 MG capsule Take 40 mg by mouth daily 10/27/2018 at Unknown time Yes Unknown, Entered By History naltrexone (DEPADE/REVIA) 50 MG tablet Take 50 mg by mouth daily 10/27/2018 at Unknown time Yes Reported, Patient QUEtiapine (SEROQUEL) 25 MG tablet Take 100 mg by mouth daily 10/27/2018 at Unknown time Yes Unknown,Entered By History Current Medications: ??? [START ON 10/29/2018] ferrous sulfate 325 mg Oral Daily with breakfast ??? FLUoxetine 40 mg Oral Daily ??? LORazepam 1 mg Intravenous Once sodium chloride 0.9%, eszopiclone, LORazepam, magnesium sulfate, naloxone, ondansetron OR ondansetron, potassium chloride, potassium chloride with lidocaine, potassium chloride, potassium chloride,potassium chloride, prochlorperazine OR prochlorperazine OR prochlorperazine Allergies: No Known Allergies Social History: Works as a nurse Family History: History reviewed. No pertinent family history. Review of Systems: The 10 point Review of Systems is negative other than noted in the HPI. Physical Exam: Heart Rate: 50, Blood pressure (!) 159/97, pulse 53, temperature 97.8 ??F (36.6 ??C), temperature source Oral, resp. rate 8, height 1.575 m (5' 2), weight 79.5 kg (175 lb 4.3 oz), SpO2 97 %. 175 lbs 4.25 oz Cardio - Heart Rate Reg, Distal pulses palpable Resp - Breathing non labored Neurological Exam: General: Mental status -Alert and orientated, speech without dysarthria, language fluent with intactnaming and repetition. Can do serial 7s but struggles. Can spell WORLD forwards but takes several tries to do backwards. Remembers mental status questions asked by other providers. Cranial Nerves- Fundoscopic exam with no disc pallor. Pupils equal round and reactive to light but sluggish and slightly dilated. Extraocular movements intact. No nystagmus. Face symmetric and intact to light touch, tongue midline, palate activates symmetrically. Shoulder shrug 5/5 Motor: Normal muscle bulk and tone. Has 5/5 strength in bilateral upper and lower extremities both proximally and distally. Sensation: intact to light touch and pinprick throughout upper and lower extremities. Reflexes: Biceps 2/2, brachioradialis 2/2, patella 3/3, ankles 2/2, toes downgoing Cerebellar: intact FNF Gait: not observed Data: All new lab and imaging data was reviewed. Recent Labs Lab 10/28/18 0807 10/28/18 0200 WBC -- 10.5 HGB -- 10.8* MCV -- 85 PLT -- 299 INR -- 1.05 NA -- 138 POTASSIUM 3.5 3.2* CHLORIDE -- 108 CO2 -- 24 BUN -- 9 CR -- 0.86 ANIONGAP -- 6 LALITHA -- 7.9* GLC -- 96 ALBUMIN -- 3.0* PROTTOTAL -- 7.0 BILITOTAL -- 0.6 ALKPHOS -- 80 ALT -- 29 AST -- 111* LIPASE -- 120 TROPI -- 0.016 .. Recent Results (from the past 24 hour(s)) CTA Head Neck with Contrast Narrative CT ANGIOGRAM OF THE HEAD AND NECK WITHOUT AND WITH CONTRAST 10/28/2018 2:51 AM HISTORY: Altered mental status. Anxiety. 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 Alcohol abuse. TECHNIQUE: Precontrast localizing scans were followed by CT angiography with an injection of 70 mL Isovue-370 (accession [id number]), 50mL Isovue-370 (accession [id number]) IV with scans through the head and neck. 3D post processing was performed, images were archived to PACS and used in interpretation of this study. Estimates of carotid stenoses are made relative to the distal internal carotid artery diameters except as noted. Radiation dose for this scan was reduced using automated exposure control, adjustment of the mA and/or kV according to patient size, or iterative reconstruction technique. Perfusion scans were performed at three levels with injection of an additional 40 mL IV nonionic contrast and 20 mL saline flush. These images were processed on a separate 3-D workstation. COMPARISON: None. CT HEAD FINDINGS: No contrast enhancing lesions. Perfusion CT scan of the brain appears normal. CT ANGIOGRAM HEAD FINDINGS: There is [id number] narrowing in the proximal aspect and mid aspect of one of the left M3 segments. Arteries are otherwise widely patent with no aneurysm, significant stenosis, occlusion or intraarterial thrombus. Venous circulation is unremarkable. CT ANGIOGRAM NECK FINDINGS: Right carotid artery: Tortuous cervical internal carotid. No significant stenosis. Left carotid artery: Tortuous cervical internal carotid. No significant stenosis. Vertebral arteries: No significant stenosis. Other findings: None. Impression IMPRESSION: 1. Mild to moderate narrowings of the proximal and mid aspect of one of the left middle cerebral artery M3 segments, possibly indicating vasospasm. 2. Tortuous internal carotid arteries. 3. Otherwise normal CT angiogram of the head and neck. I agree with the preliminary report that was communicated to the referring physician. RADHA SUERO MD CT Head Perfusion w Contrast Narrative CT ANGIOGRAM OF THE HEAD AND NECK WITHOUT AND WITH CONTRAST 10/28/2018 2:51 AM HISTORY: Altered mental status. Anxiety. 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 Alcohol abuse. TECHNIQUE: Precontrast localizing scans were followed by CT angiography with an injection of 70 mL Isovue-370 (accession [id number]), 50mL Isovue-370 (accession [id number]) IV with scans through the head and neck. 3D post processing was performed, images were archived to PACS and used in interpretation of this study. Estimates of carotid stenoses are made relative to the distal internal carotid artery diameters except as noted. Radiation dose for this scan was reduced using automated exposure control, adjustment of the mA and/or kV according to patient size, or iterative reconstruction technique. Perfusion scans were performed at three levels with injection of an additional 40 mL IV nonionic contrast and 20 mL saline flush. These images were processed on a separate 3-D workstation. COMPARISON: None. CT HEAD FINDINGS: No contrast enhancing lesions. Perfusion CT scan of the brain appears normal. CT ANGIOGRAM HEAD FINDINGS: There is [id number] narrowing in the proximal aspect and mid aspect of one of the left M3 segments. Arteries are otherwise widely patent with no aneurysm, significant stenosis, occlusion or intraarterial thrombus. Venous circulation is unremarkable. CT ANGIOGRAM NECK FINDINGS: Right carotid artery: Tortuous cervical internal carotid. No significant stenosis. Left carotid artery: Tortuous cervical internal carotid. No significant stenosis. Vertebral arteries: No significant stenosis. Other findings: None. Impression IMPRESSION: 1. Mild to moderate narrowings of the proximal and mid aspect of one of the left middle cerebral artery M3 segments, possibly indicating vasospasm. 2. Tortuous internal carotid arteries. 3. Otherwise normal CT angiogram of the head and neck. I agree with the preliminary report that was communicated to the referring physician. RADHA SUERO MD CT Head w/o Contrast Narrative CT SCAN OF THE HEAD WITHOUT CONTRAST 10/28/2018 2:51 AM HISTORY: Altered mental status. Anxiety, alcohol abuse, increased fatigue today, jerking movements. TECHNIQUE: Axial images of the head and coronal reformations without IV contrast material. Radiation dose for this scan was reduced using automated exposure control, adjustment of the mA and/or kV according to patient size, or iterative reconstruction technique. COMPARISON: None. FINDINGS: The ventricles are normal in size, shape and configuration. The brain parenchyma and subarachnoid spaces are normal. There is no evidence of intracranial hemorrhage, mass, acute infarct or anomaly. The visualized portions of the sinuses and mastoids appear normal. There is no evidence of trauma. Impression IMPRESSION: Normal CT scan of the head. I agree with the preliminary report that was communicated to the referring physician. RADHA SUERO MD Assessment/Plan 1. Altered Mental Status - improving 2. Myoclonic Jerking - improving 3. Elevated CK 4. Elevated LFT 5. Anemia 6. ETOH Abuse hx 7. Concern for substance abuse 8. CTA with mild to moderate narrowing of proximal aspect of left MCA M3 Ms. Bunch is a 43 year old female with past medical history significant for depression, ETOH abuse (reportedly had treatment in 2015 but does continue to drink more socially) , insomnia, ADHD who presented with altered mental status and abnormal jerking movements on 10/28/2018 and admitted to ICU for further evaluation and treatment. Patient admits to taking multiple prescribed drugs and use of an oldMorphine prescription with ETOH prior to admit. Symptoms of jerking and mental status are improving significantly. CT perfusion with some question of changes in left parietal perfusion in ER and mild to moderate narrowings of the proximal and mid aspect pf the left middle cerebral artery M3 segments, p ossibly indicating vasospasm. Exam today with some slowness on mental status testing but able to perform. Significant concern for myoclonus caused by polypharmacy exposure. Opioids can cause myoclonus like syndrome but reports took low dose but somewhat inconsistent in reported medications. Ck elevation likely due to muscle jerking. Given LFTs, anemia, and hx of ETOH possible also could have had withdraw but would not expect this to be improving. Would recommend further eval for liver function givenlab findings and obtain further toxic metabolic eval with ammonia/B12/thiamine levels given gastric bypass hx. Feel seizure unlikely as has good recall of events but would obtain EEG prior to dischargeor as outpatient. Iván Lynn MD - 10/28/2018 11:31 AM CDTAssociated Order(s): PSYCHIATRY IP CONSULT See dictation. #[id number] Psychiatry Initial Consultation Patient seen, notes reviewed. Discussed with nursing. May continue prozac and lunesta at discharge. No further drinking discussed given history of etoh use disorder. No longer takes lamictal or seroquel. She will be predisposed to parkinsonian symptoms due to one year use of seroquel.She does have elevated CK but no prior history ofseizure. Advised to remove all old prescriptions(unsure if selfmedicating with opiods longerterm but denies) Neurological workup pending. Return to psychiatrist and therapist afterdischarge home. Call prn. Iván Lynn MD 10/28/2018 Iván Lynn MD - 10/28/2018 11:26 AM CDT Consult Date: 10/28/2018 IDENTIFICATION: The patient is a 43-year-old seen for psychiatric consultation atthe request of Dr. Sky for evaluation of possible close movement disorder in this patient admitted with recent polysubstance ingestion with symptoms of myoclonus. CHIEF COMPLAINT: Everything appeared to blur. HISTORY OF PRESENT ILLNESS: The patient states she had a few wine coolers that day, although had been in treatment for alcohol in 2014 and periodically includes test the galeas. She states she had been offered pain medication when she went to an urgent care center for chronic hip pain. She was not she believes referred to Orthopedics, but states she took an old prescription for morphine, which she kept at home. She had also taken some NyQuil and has been compliant with her Prozac and Lunesta. She denies any deliberate overdose attempt . Her laboratory studies were positive for opioids, consistent with her self-report. She does have, however, significant elevated AST of 111, CK of 2479, troponin 0.016. She had been noted to continue to have jerking myoclonic movements, but no loss of consciousness, though she had reported feeling anxious and initially short of breath. She denied any recent stressor. She does feel that Prozac has been helpful. She did have a recent trial of Lamictal, which she discontinued due to side effects. She had also stopped Seroquel after 1 year of use due to weight gain from 2018 to spring. She is sleeping reasonably, but not as well as on Seroquel. She was unaware of the Seroquel having neuroleptic medication risks. These were explained to her in layman's terms. PAST PSYCHIATRIC HISTORY: No hospitalizations, suicide attempts. She does not attend AA. She has been socially drinking as above, stating usually at least a few drinks per week. PAST MEDICAL HISTORY: Significant for migraine headaches, history of GI bleed, gastric bypass, breast augmentation surgery, tubal ligation. No prior history of seizure. ALLERGIES: NO KNOWN DRUG ALLERGIES. MEDICATIONS: Just the psychotropic medication, Prozac 20 mg daily, and Lunesta at bedtime. FAMILY HISTORY: Noncontributory. No suicides. SOCIAL HISTORY: The patient is . Lives locally in [place]. Has a long-term boyfriend. No known history of abuse. She works day shift as an RN. No legal problems. VITAL SIGNS: Temperature 97.8, respirations 18, pulse 61, BP 135/72. REVIEW OF SYSTEMS: Improving myoclonic jerking of extremities, left equal to right. No recent fall or head injury. She denies recent headache, but no recurrence of ringing in her ears or feeling faint.No chest pain. LABORATORY STUDIES: As above. CT scan showed mild to moderate narrowing of a branch of the left MCA, tortuous internal carotid arteries. Otherwise, no acute abnormality. MENTAL STATUS EXAMINATION: The patient is a well-nourished brunette. Her affect showed no distress. She is still mildly tremulous. No acute myoclonus. Thought processes were goal directed. No clouding of sensorium. Speech nonpressured. No word-finding difficulty. Thought content negative for hallucinations, suicidal or homicidal ideation, hopelessness or wish. Mood described as okay/pretty good. She also does admit to anxiety, which appears situational to symptomatology. Reasonable insight. No other impulsivity of judgment, outside of taking old prescriptions in combination. She states regret over this. She does contract for safety. Gait not observed, is bed-bound. Long-term and short-worki ng memory intact. No overt blackouts, although admits feeling confused at admission. PSYCHIATRIC DIAGNOSES: 1. Alcohol use disorder. 2. Rule out delirium secondary to polysubstance use with myoclonus. 3. Unspecified depressive disorder. 4. Eating disorder, not otherwise specified, with gastric bypass. 5. History of unspecified anxiety disorder. IMPRESSION/PLAN: The patient will refrain from any further use of Seroquel after 1 year of use. May have predisposition to developing parkinsonian symptoms, especially in combination or withdrawal fromsubstance. She is encouraged to refrain from all alcohol use, given her history of abuse of substance. There appears to be no evidence of suicidality or intention. Mood is reasonable on the current Prozac. She is not taking Lamictal any longer. Timeframe appears too long for withdrawal. Cannot rule out atypical migraines, but neurological workup is in progress and there are some atypical findings on CT scan. She is scheduled for an MRI today. No change in psychotropics recommended or appear necessary. She will return to her PMD, Psychiatry, and her therapist. IVÁN LYNN MD MT: VIDYA Name: KIM BUNCH Account: [id number] : 1975 Consult Date: 10/28/2018 Document: [id number] documented in this encounter ED Notes Desi Garcia - 10/28/2018 3:50 AM CDT Straight cathed Patient to obtain urine sample. Patient tolerated well. Wilma Benitez RN - 10/28/2018 2:48 AM CDT Pt admits to drinking Wine Coolers today. Significant other reports patient may have taken Nightquil Wilma Benitez RN - 10/28/2018 1:56 AM CDT Medications locked in locker 47 Kim Mulligan RN - 10/28/2018 1:53 AM CDT Conducted pill count with ILIANA Romeo, of pt's Rx for Naltrexone 50mg tabs. Confirmed 39 pills on count. Wilma Benitez RN - 10/28/2018 1:41 AM CDT Pt at dentist this am. Boyfriend and pt driving to ED when pulled over, pt was hyperventilating and Panicing. Boyfriend reports to EMS pt received prescription for morphine 100mg/5mL. Morphine bottledoes not have a patient label. A total of 30mL in bottle which is empty now. Pt also went to for hip pain, and received Naltrexone 50mg qty 30. There are 39 pills present and prescription filled 09/12/2018. Pill count verified by Kim. Pt also admits to ETOH, pupils dilated. BS 112. ABC in tact. Inocencia Ayers RN - 10/28/2018 1:41 AM CDT Bed: ED10 Expected date: Expected time: Means of arrival: Comments: ambulance Inocencia Ayers RN - 10/28/2018 1:37 AM CDT Bed: 01 Expected date: Expected time: Means of arrival: Comments: ambulance Elda Marrero DO - 10/28/2018 1:37 AM CDT History Chief Complaint: Altered mental status HPI extremely limited due to the patient's condition and poor history from boyfriend. Kim Bunch is a 43 year old female with a history of anxiety and alcohol abuse who presents with altered mental status. The patient's boyfriend reports that the patient had mild URI symptoms and cough the last couple days. Yesterday she reportedly complained of hip pain so she went to Urgent Care for evaluation. She returned and was doing well but had been more fatigued today. She was not acting abnormally per the boyfriend. Late last night and this morning the patient and boyfriend were watching television when the patient began feeling diaphoretic and short of breath. This occurred around 1:30 PM, roughly half an hour prior to presentation. The patient's boyfriend has never seen the patient act like this before. He describes jerking like movements. ADDENDUM Patient more alert, states taking morphine she was prescribed, unknown amount as well as nyquil medication. She also admits to drinking alcohol today though cannot quantify amount. Patient then states she gave herself narcan. Allergies: Ibuprofen Medications: Protonix Lunesta Prozac Lamictal Naltrexone Seroquel Phentermine Past Medical History: Depression Anxiety Migraines Alcohol abuse GI bleed Myocardial infarct Past Surgical History: Breast augmentation Gastric bypass Tubal ligation Family History: History reviewed. No pertinent family history. Social History: Smoking status: Never smoker Alcohol use: No Marital Status: [4] Review of Systems Unable to perform ROS: Acuity of condition Constitutional: Positive for diaphoresis and fatigue. HENT: Positive for congestion and rhinorrhea. Respiratory: Positive for cough. Neurological: jerking behavior Physical Exam Patient Vitals for the past 24 hrs: BP Temp Temp src Pulse Heart Rate Resp SpO2 Height Weight 10/28/18 0315 131/83 -- -- 69 67 28 -- -- -- 10/28/18 0245 122/86 -- -- 79 80 -- 96 % -- -- 10/28/18 023 125/75 -- -- -- -- -- 94 % -- -- 10/28/18200 -- -- -- -- -- -- 96 % -- -- 10/28/18 020 -- -- -- -- -- -- 97 % -- -- 10/28/18 0145 (!) 149/93 -- -- 74 -- (!) 34 95 % -- -- 10/28/18 014 (!) 134/101 98.1 ??F (36.7 ??C) Oral -- 72 (!) 44 99 % 1.676 m (5' 6) 79.4 kg (175 lb) Physical Exam Nursing note and vitals reviewed. Constitutional: Well nourished. Patient diaphoretic; intermittent myoclonic jerking to R. Neck and upper extremities though no LOC during these episodes Eyes: Conjunctiva normal. Pupils are equal, round, and reactive to light. 5mm bilaterally. No nysagmus. ENT: Nose normal. Mucous membranes pink and moist. Neck: Normal range of motion. CVS: Normal rate, regular rhythm. Normal heart sounds. No murmur. Pulmonary: Lungs clear to auscultation bilaterally. No wheezes/rales/rhonchi. GI: Abdomen soft. Nontender, nondistended. No rigidity or guarding. MSK: No calf tenderness or swelling. Neuro: Awake, alert. Speech is normal and fluent. Face is symmetric. EOMI. PERRL. Moves all extremities. Normal bazsia-tnac-luntyr. Financial Assistance Advisor strength equal bilaterally. Equal sensation bilaterally on UE/LEand face. Skin: Skin is warm and dry. No rash noted. Psychiatric: Anxious appearing. Denies suicidal ideations or homicidal ideations Emergency Department Course ECG (02:34:32): Rate 63 bpm. HI interval 170. QRS duration 106. QT/QTc 448/458. P-R-T axes 52 35 35. Normal sinus rhythm, Interpreted at 0234 by Elda Marrero DO. Imaging: Radiographic findings were communicated with the patient who voiced understanding of the findings. CT head perfusion w contrast Head CTA 1. Questionable mid to moderate areas of narrowing proximal and mid aspect one of the left M3 segment within posterior aspect of left sylvian fissure. 2. No definite hemodynamically significant narrowing of a major intracranial vessel. NECK CTA 1. NO hemodynamically significant narrowing throughout major neck vessels. CTA head neck with contrast 1.suggestion of mild area of decreased time to peak, cerebral blood flow and volume in left parietalregion. 2. MRI may be helpful in further evaluation As read by radiology CT head w/o contrast 1. Normal for age 2. No CT finding of mass, infarct or hemorrhage. As read by radiology Laboratory: Drug abuse screen: opiates positive, o/w negative Creatinine POCT: Creatinine 0.8, GFR 78 Magnesium: 1.9 Salicylate level: <2 HCG qualitative : Negative Acetaminophen level: 5 0200: Troponin I: 0.016 Alcohol level blood: <0.01 Lipase: 120 INR 1.05 Glucose by meter; 94 CMP: Potassium 3.2, calcium 7.9, Albumin 3.0, AST 111, (Creatinine 0.86) CBC: WBC 10.5, HGB 10.8, PLT 299 CK total: 2,479 UA: Blood small, Protein albumin 20, Mucous present, o/w negative Interventions: 0429: Benadryl 25 mg IV 0316: Zofran 4 mg IV 0316: Potassium chloride 40 mEq PO 0417: NaCl bolus 1000 ml IV Emergency Department Course: Past medical records, nursing notes, and vitals reviewed. 0145: I performed an exam of the patient and obtained history, as documented above. IV inserted and blood drawn. The patient was sent for a CT head perfusion, CTA head neck, CT head while in the emergency department, findings above. 0207: I spoke on the phone with Dr. Rinaldi of Stroke Neurology. 0235: Patient without complaints at bedside. Still has occasional myoclonic jerks though very atypical of seizure activity. 0353: Discussed the patient with Dr. Sky, who will admit the patient to a ICU bed for further monitoring, evaluation, and treatment. 0415: Dr. Sky evaluated the patient and we discussed whether the patient would stay versus to transfer to [facility]. Patient will stay. 0451: Dr. Sky called. 0535: Patient resting comfortably in bed. Does not appear to have recurring myoclonic jerking after benadryl. 0539: updated Dr. Sky Impression & Plan Medical Decision Making: Kim Bunch is a 43 year old female presenting with change in mental status. History quite limited on arrival. Patient initially was demonstrating myoclonic jerking behaviors and minimally responsive to questioning. A code stroke was initiated given minimal history on arrival. CT head unremarkable.Her CTA also essentially unremarkable although I did discuss with radiology non specific areas of decreased cerebral blood flow in the left parietal region. Radiology stated this may be secondary to artifact as patient was reportedly moving significantly during her exam. Decision was made to deescalate code stroke as further history was obtained. The patient reportedly took morphine though unknown quantity as well as NyQuil. She also admitted to drinking alcohol. She also then reportedly gave herself narcan. I do have greatest concern for toxidrome at this time. Her EKG is without focal ischemia orunderlying arrhythmias. Her lab work is reassuring other than mild hypokalemia and CPK elevation 2/2to I suspect the jerking movements. Her urine drug screen shows + opioids. Patient had atypical myoclonic jerking though not consistent with seizure like activity. It was more dystonia-like. She was given benadryl with significant improvements in these movements. There is no evidence to suggest NMS, serotonin syndrome. No indication for further emergent imaging though did discuss with hospitalist mayconsider MRI brain given CT findings though stronger suspicion for polypharmacy presentation. She would benefit from observation with close monitoring. Patient accepted by hospitalist. She was placed on an KANDIS given undetermined intent of these ingestions though patient denies suicide attempt. Diagnosis: ICD-10-CM 1. Polypharmacy Z79.899 Drug abuse screen 77 urine (FL, RH, SH) 2. Altered mental status, unspecified altered mental status type R41.82 3. Elevated CPK R74.8 Disposition: Admitted to observation Oziel Velasquez 10/28/2018 [facility] EMERGENCY DEPARTMENT Scribe Disclosure: I, Oziel Velasquez, am serving as a scribe at 1:45 AM on 10/28/2018 to document services personally performed by Elda Marrero DO based on my observations and the provider's statements to me. Elda Marrero DO 10/28/18 0750 documented in this encounter Miscellaneous Notes Plan of Care - Elizabeth Linares RN - 10/30/2018 12:28 PM CDT Pt A/O x 4. VSS on RA . Denied pain. Tele SB with prolonged QT , denied CP . LS clear, c/o infrequent cough that is tight, no SOB reported. PIV to right FA intact, SL . Pt up to bathroom SBA, had BM this AM , voiding well. Pt adequate for discharge 10/30. Provider Notification - Elizabeth Linares RN - 10/30/2018 8:13 AM CDT MD notified: Pt's heart rate is 43, notifying you per order protocol. Pt asymptomatic. Thanks! Plan of Care - Elda Varghese RN - 10/30/2018 12:32 AM CDT HR 30-35, frequent pauses, longest 2.9, denied dizziness or discomfort. Ativan 0.5 mg given per patient request on naomi shift, Lunesta 3 mg given on naomi shift per PRN order. MD and watch technician updated,pt able to make needs known, will continue POC. Plan of Care - Perlita Rashid RN - 10/29/2018 10:41 PM CDT HR 30-35, frequent pauses, longest 2.9, denied dizziness or discomfort. Ativan 0.5 mg given per patient request, Lunesta 3 mg given per PRN order. MD and watch technician updated, continue to monitor. Plan of Care - Kim Kirby RN - 10/29/2018 2:02 PM CDT Pt reports that muscle jerks are better but is nauseous today and tired. VSS. Temp 98.8 orally. Pt feels alternating warm and cold in temperature today. EEG done this afternoon and awaiting results. Heart rate very manish in 30's today junctional rhythm. No appetite due to nausea. Given zofran this am with relief and compazine later on which has made her sleepy as well. Up with 1 assist to bathroom and has menses. No pain or SOB. Plan to monitor pt and possible transfer tomorrow to [facility] for pacer. Will monitor. 1500 research technologist called regarding heart rate of 27. Adjusted leads and got pt up to bathroom. HR 33 now. notified and cards updated and will monitor. No new orders at this time. Plan of Care - Deny Stone RN - 10/29/2018 7:10 AM CDT Orientation: Alert and oriented x 4 VSS. 97% on RA. Tele:SB. HR 30-40s. LS: clear and equal GI: Passing gas. 1 BM. Denies N/V. : Adequate urine output. Skin: clean and dry w/ some bruising Activity: SBA. . Pt slept comfortably throughout shift. Pain: 0/10. Denies Plan: Continue with current cares. Hx of hypotension, GERD. Pt came in w/ AMS and ply substance origins from accidentally taking too many medications. Tx from the ICU at 0230. Has D5 1/2 NS w/ 20 mEq KCl. CK elevated 2245. MRI neg, CT neg. Pt to have EEG today. Discharge today tomorrow. Plan of Care - Rema Philip RN - 10/29/2018 2:44 AM CDT ICU End of Shift Summary. For vital signs and complete assessments, please see documentation flowsheets. Pertinent assessments: HR bradycardic, pt asymptomatic, reports that's normal for me. Other VSS onRA. C/O bilateral hip pain, declines intervention. Resting between cares, up in room SBA, steady gait. PIV infusing IVF at 150 ml/hr. Voiding without saving, reports BM this shift. Tele SB. Bed alarms in use, pt not attempting to exit bed. Alert and oriented, able to make needs known. Continue to monitor. Major Shift Events: Made telemetry-status and transferred to [facility] room 320 with all belongings. Pt denies having medications on site. Report called to receiving RN, Will. Plan (Upcoming Events): Plan for EEG in AM. Discharge/Transfer Needs: TBD pending results of EEG. Bedside Shift Report Completed : Report to receiving unit given via telephone Bedside Safety Check Completed: Yes, receiving RN at bedside upon transfer Plan of Care - Chayito Siddiqui RN - 10/28/2018 6:13 PM CDT ICU End of Shift Summary. For vital signs and complete assessments, please see documentation flowsheets. Pertinent assessments: At start of shift pt very confused at times with incoherent speech. Jerking movements with head, arms and legs were frequent. Sometimes up to 2 times a minute. Pt was very restless as well. PRN 0.5mg PO ativan given this morning with much improvement. Pt was A&Ox4 around noon and calm. However, 1mg IV Ativan given for MRI and pt started to get confused with incoherent speech again. Pt asleep at this time, tossing and turning in bed but no jerking movements noted. Tele SB with long QT throughout the shift HR as low at 48. Lungs clear, denies SOB. No appetite, did not eat or drink more than a couple bites of lunch today. A1 to ambulate for safety. POC reviewed with pt and pt's significant other. Major Shift Events: MRI today. EEG planned for tomorrow. CK 2245 continue IVF per MD. Plan (Upcoming Events): Continue to monitor. Discharge/Transfer Needs: TBD Bedside Shift Report Completed : yes Bedside Safety Check Completed: yes Provider Notification - Chayito Siddiqui RN - 10/28/2018 12:41 PM CDT 10/28/18 1241 Significant Event Significant Event Other (see comments) (CK 0574) Updated . Pharmacy-Admission Medication History - Adrian Oquendo [facility] - 10/28/2018 11:58 AM CDT Admission medication history interview status for this patient is complete. See [facility] admission navigator for allergy information, prior to admission medications and immunization status. Medication history interview source(s):Patient Medication history resources (including written lists, pill bottles, clinic record): Pill bottles, [facility] Everywhere Primary pharmacy: Changes made to [employer] medication list: Added: ALL Deleted: Morphine [unsure of how obtained or taking] Changed: None Actions taken by pharmacist (provider contacted, etc): Spoke w/ MD. Additional medication history information: It is reported patient that patient had taken morphine, naltrexone, and Nyquil prior to admission - patient had an empty 30 mL bottle of morphine 20mg/5mL with her - no label and unsure of how she obtained it. She states she takes naltrexone and bupropion as a substitute for Contrave ER for weight-loss. Reliability is questionable. Medication reconciliation/reorder completed by provider prior to medication history? Yes Do you take OTC medications (eg tylenol, ibuprofen, fish oil, eye/ear drops, etc)? Listed. Prior to Admission medications Medication Sig Last Dose Taking? Auth Provider buPROPion (WELLBUTRIN) 75 MG tablet Take 75 mg by mouth 2 times daily In addition to naltrexone as alternative to Contrave. 10/27/2018 at Unknown time Yes Unknown, Entered By History cyanocobalamin (CYANOCOBALAMIN) 1000 MCG/ML injection Inject 1 mL into the muscle every 28 days 10/26/2018 Yes Unknown, Entered By History eszopiclone (LUNESTA) 3 MG tablet Take 3 mg by mouth nightly as needed 10/26/2018 at HS Yes Unknown, Entered By History ferrous sulfate (FEROSUL) 325 (65 Fe) MG tablet Take 325 mg by mouth daily (with breakfast) 10/27/2018 at Unknown time Yes Unknown, Entered By History FLUoxetine (PROZAC) 40 MG capsule Take 40 mg by mouth daily 10/27/2018 at Unknown time Yes Unknown, Entered By History naltrexone (DEPADE/REVIA) 50 MG tablet Take 50 mg by mouth daily 10/27/2018 at Unknown time Yes Reported, Patient QUEtiapine (SEROQUEL) 25 MG tablet Take 100 mg by mouth daily 10/27/2018 at Unknown time Yes Unknown,Entered By History Adrian Oquendo PharmD./[email or web address]-[id number] Resident documented in this encounter Plan of Treatment Scheduled Referrals Name Type Priority Associated Diagnoses Order S chedule Follow-Up with Referral Routine Bradycardia Expected: Grain [employer] 11/30/19 19 (Approximate), Expires: 10/30/2019 documented as of this encounter Procedures Procedure Name Priority Date/Time Associated Diagnosis Comme nts EKG 12-LEAD, TRACING Routine 10/30/2018 7:58 Resu lts for this ONLY AM CDT procedure are i n the results section. BASIC METABOLIC PANEL Routine 10/30/2018 7:47 Polypharmacy Res ults for this AM CDT procedure are i n the results section. EEG ROUTINE 10/29/2018 2:46 Results for this PM CDT procedure are i n the results section. EKG 12-LEAD, TRACING STAT 10/29/2018 7:54 Resu lts for this ONLY AM CDT procedure are i n the results section. TSH WITH FREE T4 Routine 10/29/2018 7:14 Polypharmacy Results for this REFLEX AM CDT procedure are i n the results section. MAGNESIUM Routine 10/29/2018 7:14 Polypharmacy Results for this AM CDT procedure are i n the results section. COMPREHENSIVE Routine 10/29/2018 7:14 Polypharmacy Results for this METABOLIC PANEL AM CDT procedure ar e in the results section. CK TOTAL Routine 10/29/2018 7:14 Polypharmacy Results for this AM CDT procedure are i n the results section. GLUCOSE BY METER Routine 10/28/2018 11:48 Polypharmacy Results for this PM CDT procedure are i n the results section. GLUCOSE BY METER Routine 10/28/2018 7:48 Polypharmacy Results for this PM CDT procedure are i n the results section. GLUCOSE BY METER Routine 10/28/2018 4:24 Polypharmacy Results for this PM CDT procedure are i n the results section. MR BRAIN W/O & W Routine 10/28/2018 2:53 Results for this CONTRAST PM CDT procedure are i n the results section. VITAMIN B1 WHOLE BLOOD Routine 10/28/2018 1:50 Polypharmacy Re sults for this PM CDT procedure are i n the results section. AMMONIA Routine 10/28/2018 1:50 Polypharmacy Results for this PM CDT procedure are i n the results section. VITAMIN B12 Routine 10/28/2018 1:50 Polypharmacy Results for this PM CDT procedure are i n the results section. GLUCOSE BY METER Routine 10/28/2018 11:16 Polypharmacy Results for this AM CDT procedure are i n the results section. CK TOTAL Routine 10/28/2018 11:10 Polypharmacy Results for this AM CDT procedure are i n the results section. GLUCOSE BY METER Routine 10/28/2018 8:23 Polypharmacy Results for this AM CDT procedure are i n the results section. POTASSIUM Routine 10/28/2018 8:07 Polypharmacy Results for this AM CDT procedure are i n the results section. MAGNESIUM Routine 10/28/2018 8:07 Polypharmacy Results for this AM CDT procedure are i n the results section. MRSA MSSA PCR, NASAL STAT 10/28/2018 6:35 Polypharmacy Resu lts for this SWAB AM CDT procedure are i n the results section. EEG ROUTINE Routine 10/28/2018 6:31 AM CDT ROUTINE UA WITH STAT 10/28/2018 3:47 Polypharmacy Results f or this MICROSCOPIC AM CDT procedure are i n the results section. DRUG ABUSE SCREEN 77 STAT 10/28/2018 3:47 Polypharmacy Resu lts for this URINE (FL, RH, SH) AM CDT procedure are in the results section. CT HEAD W/O CONTRAST STAT 10/28/2018 2:51 Resu lts for this AM CDT procedure are i n the results section. CT HEAD PERFUSION W STAT 10/28/2018 2:51 Resul ts for this CONTRAST AM CDT procedure are i n the results section. CTA HEAD NECK W STAT 10/28/2018 2:51 Results f or this CONTRAST AM CDT procedure are i n the results section. EKG 12-LEAD, TRACING STAT 10/28/2018 2:34 Resu lts for this ONLY AM CDT procedure are i n the results section. ISTAT CREATININE POCT Routine 10/28/2018 2:04 Res ults for this AM CDT procedure are i n the results section. GLUCOSE BY METER Routine 10/28/2018 2:00 Results for this AM CDT procedure are i n the results section. CBC WITH PLATELETS & STAT 10/28/2018 2:00 Resu lts for this DIFFERENTIAL AM CDT procedure are i n the results section. TROPONIN I STAT 10/28/2018 2:00 Results for this AM CDT procedure are i n the results section. SALICYLATE LEVEL STAT 10/28/2018 2:00 Results for this AM CDT procedure are i n the results section. INR STAT 10/28/2018 2:00 Results for this AM CDT procedure are i n the results section. MAGNESIUM STAT 10/28/2018 2:00 Results for this AM CDT procedure are i n the results section. LIPASE STAT 10/28/2018 2:00 Results for this AM CDT procedure are i n the results section. HCG QUALITATIVE STAT 10/28/2018 2:00 Results f or this AM CDT procedure are i n the results section. COMPREHENSIVE STAT 10/28/2018 2:00 Results for this METABOLIC PANEL AM CDT procedure ar e in the results section. CK TOTAL STAT 10/28/2018 2:00 Polypharmacy Results for this AM CDT procedure are i n the results section. ETHYL ALCOHOL LEVEL STAT 10/28/2018 2:00 Resul ts for this AM CDT procedure are i n the results section. ACETAMINOPHEN LEVEL STAT 10/28/2018 2:00 Resul ts for this AM CDT procedure are i n the results section. documented in this encounter Results EKG 12-lead, tracing only (10/30/2018 7:58 AM CDT) [facility] gist Method Time Signature Interpretation ECG Click View RADIOLOGY Image link RESULTS to view waveform and result Specimen (Source) Anatomical Collection Method Collection Time Re ceived Time Location / / Volume Laterality 10/30/2018 7:58 AM CDT Evangelist Godinez MD ECG ORDERABLES Performing Organization Address City/State/ZIP Code Phon e Number RADIOLOGY RESULTS (ABNORMAL) Basic metabolic panel (10/30/2018 7:47 AM CDT) P athologist Signature Sodium 142 133 - 144 10/30/2018 [place] mmol/L 8:07 AM [facility] Potassium 3.5 3.4 - 5.3 10/30/2018 [place] mmol/L 8:07 AM [facility] Chloride 111 (H) 94 - 109 10/30/2018 [place] mmol/L 8:07 AM [facility] Carbon Dioxide 24 20 - 32 10/30/2018 [place] mmol/L 8:13 AM [facility] Anion Gap 7 3 - 14 10/30/[facility]/L 8:13 AM [facility] Glucose 152 (H) 70 - 99 10/30/2018 [place] mg/dL 8:13 AM [facility] Urea Nitrogen 4 (L) 7 - 30 10/30/2018 [place] mg/dL 8:13 AM [facility] Creatinine 0.68 0.52 - 10/30/2018 [place] 1.04 mg/dL 8:13 AM [facility] GFR Estimate >90 >60 10/30/2018 [place] mL/min/{1. 8:13 AM [facility] 73_m2} [facility] Comment: Non GFR Calc Starting 05/01/2018, serum creatinine ba sed estimated GFR (eGFR) will be calculated using the Chronic Kidney Dise [facility] Epidemiology Collaboration (CKD-EPI) equation. GFR Estimate If >90 >60 mL/min/{1.73_m2} 10/30/2018 8: 13 AM [facility] Comment: GFR Calc Starting 05/01/2018, serum creatinine ba sed estimated GFR (eGFR) will be calculated using the Chronic Kidney Dise [facility] Epidemiology Collaboration (CKD-EPI) equation. Calcium 7.9 (L) 8.5 - 10.1 mg/dL 10/30/2018 8:13 AM [facility] Specimen Anatomical Collection Method Collection Time Receive d Time (Source) Location / / Volume Laterality Blood specimen 10/30/2018 7:47 AM 019 7:48 (specimen) CDT AM CDT Evangelist Godinez MD LAB - BLOOD ORDERABLES Performing Organization Address City/State/ZIP Code Phon e Number [facility] [address] [place] [address] [facility] [address] [place], [place] [address], [facility] [phone] EEG (10/29/2018 2:46 PM CDT) Procedure Note Micky Hoyos MD - 10/29/2018 2:46 PM CDT Procedure Date: 10/29/2018 ELECTROENCEPHALOGRAM EEG #[id number] DESCRIPTION OF RECORD: This digital EEG begins with the patient awake. Heart monitor shows notable bradycardia with rate 42 on average, irregular. In general, her EEG record is notable for low to medium voltage activity, with notable low ampli tude/high frequency activity in both hemispheres, consistent with a benzodiazepine effect. She has a poorly-developed posterior dominant alpha rhythm of 9 to 10 Hz, reactive to eye opening and eye closure. Througho ut the record, she has intermittent paroxysmal bitemporal slowing. She also has notable muscle artifact prominent in the early part of the record, largely resolving during hyperventilation, only to return in the latter part of the record, seriously undermining the sensitivity of the record. The motor activity appears to be coming from her jaw, as it is improved after the line technician asked for the patient to relax her jaw. Throughout the record, she has no clear evidence of focal slowing or asymmetry. Photic stimulation was performed and shows with no clear driving response or photoparoxysmal activity. Hyperventilation showed some i ncreased frequency of her intermittent paroxysmal bitemporal slowing, but no other clear pathology. Transverse montages show no clear asymmetry in the record. At no time did she have epileptiform discharges or seiz ure activity apparent on the record. SUMMARY: 1. Bradycardia, 42 beats per minute, irr egular. 2. Poorly-developed alpha dominant rhyth m at 9 to 10 Hz, reactive. 3. Low amplitude/high frequency activity in both hemispheres, consistent with a benzodiazepine effect. 4. Significant muscle artifact in the ea rly and late periods of the record. This is most likely artifact from jaw clenching. 5. Intermittent paroxysmal bitemporal sl owing. 6. Unremarkable photic stimulation. 7. Mild increase in bitemporal slowing d uring hyperventilation. 8. No focal epileptiform discharges or s eizure activity. CLINICAL INTERPRETATION: This is an abno rmal EEG. The record is most consistent with mild encephalopathy without clear focal slowing, epileptiform discharges, or seizure activity. The sensitivity of the record is somewhat undermined by the suzanne quent muscle artifact in the record. Her EKG monitoring is notable for notable persistent bradycardia throughout the record. Clinical correlation is required. MICKY HOYOS MD MT: NIK Name: KIM BUNCH MRN: [id number] Account: [id number] : 1975 Procedure Date: 10/30/19 Document: [id number] Micky Hoyos MD IMG EEG ORDERABLES EKG 12-lead, tracing only (10/29/2018 7:54 AM CDT) [facility] gist Method Time Signature Interpretation ECG Click View RADIOLOGY Image link RESULTS to view waveform and result Specimen (Source) Anatomical Collection Method Collection Time Re ceived Time Location / / Volume Laterality 10/29/2018 7:54 AM CDT Evangelist Godinez MD ECG ORDERABLES Performing Organization Address City/State/ZIP Code Phon e Number RADIOLOGY RESULTS TSH with free T4 reflex (10/29/2018 7:14 AM CDT) athologist Signature TSH 0.56 0.40 - 4.00 10/29/2018 [facility] mU/L 9:05 AM CDT HOSPITAL Specimen Anatomical Collection Method Collection Time Receive d Time (Source) Location / / Volume Laterality 10/29/2018 7:14 AM 9 7:15 CDT AM CDT Austen Zapata MD LAB - BLOOD ORDERABLES Performing Organization Address City/State/ZIP Code Phon e Number [place] [address] [address] [place] [address] [facility] [address] [phone] Magnesium (10/29/2018 7:14 AM CDT) athologist Signature Magnesium 1.9 1.6 - 2.3 10/29/2018 [facility] mg/dL 8:51 AM [facility] Specimen Anatomical Collection Method Collection Time Receive d Time (Source) Location / / Volume Laterality 10/29/2018 7:14 AM 9 7:15 CDT AM CDT Austen Zapata MD LAB - BLOOD ORDERABLES Performing Organization Address City/State/ZIP Code Phon e Number [place] [address] [address] [place], [place] [address] [facility] [address] [phone] (ABNORMAL) Comprehensive metabolic panel (10/29/2018 7:14 AM CDT) athologist Signature Sodium 145 (H) 133 - 144 10/29/2018 [place] mmol/L 8:51 AM [facility] Potassium 3.9 3.4 - 5.3 10/29/2018 [place] mmol/L 8:51 AM [facility] Chloride 115 (H) 94 - 109 10/29/2018 [place] mmol/L 8:51 AM [facility] Carbon Dioxide 23 20 - 32 10/29/2018 [place] mmol/L 8:51 AM [facility] Anion Gap 7 3 - 14 10/29/2018 [place] mmol/L 8:51 AM [facility] Glucose 135 (H) 70 - 99 10/29/2018 [place] mg/dL 8:51 AM [facility] Urea Nitrogen 3 (L) 7 - 30 10/29/2018 [place] mg/dL 8:51 AM [facility] Creatinine 0.65 0.52 - 10/29/2018 [facility] 1.04 mg/dL 8:51 AM [facility] GFR Estimate >90 >60 10/29/2018 [place] mL/min/{1. 8:51 AM [facility] 73_m2} HOSPITAL Comment: Non GFR Calc Starting 05/01/2018, serum creatinine ba sed estimated GFR (eGFR) will be calculated using the Chronic Kidney Dise ase Epidemiology Collaboration (CKD-EPI) equation. GFR Estimate If >90 >60 mL/min/{1.73_m2} 10/29/2018 8: 51 AM [facility] Comment: GFR Calc Starting 05/01/2018, serum creatinine ba sed estimated GFR (eGFR) will be calculated using the Chronic Kidney Dise ase Epidemiology Collaboration (CKD-EPI) equation. Calcium 7.6 (L) 8.5 - 10.1 10/29/2018 8:51 AM [facility] mg/dL [facility] Bilirubin Total 0.6 0.2 - 1.3 mg/dL 10/29/2018 8:51 AM [facility] Albumin 2.4 (L) 3.4 - 5.0 g/dL 10/29/2018 8:51 AM [facility] Protein Total 5.7 (L) 6.8 - 8.8 g/dL 10/29/2018 8:51 AM [facility] Alkaline Phosphatase 162 (H) 40 - 150 U/L 10/29/2018 8:51 AM [facility] ALT 61 (H) 0 - 50 U/L 10/29/2018 8:51 AM [facility] AST 169 (H) 0 - 45 U/L 10/29/2018 8:51 AM [facility] Specimen Anatomical Collection Method Collection Time Receive d Time (Source) Location / / Volume Laterality 10/29/2018 7:14 AM 9 7:15 CDT AM CDT Austen Zapata MD LAB - BLOOD ORDERABLES Performing Organization Address City/State/ZIP Code Phon e Number [place] [address] [address] [place] [address] [place] [address] [phone] (ABNORMAL) CK total (10/29/2018 7:14 AM CDT) P athologist Signature CK Total 1,355 (HH) 30 - 225 10/29/2018 [place] U/L 8:57 AM [facility] Comment: Critical Value called to and read back Dom FLORES 3RD ON [id number] AT 0848 T T Specimen Anatomical Collection Method Collection Time Receive d Time (Source) Location / / Volume Laterality Blood specimen 10/29/2018 7:14 AM 019 7:15 (specimen) CDT AM CDT Austen Zapata MD LAB - BLOOD ORDERABLES Performing Organization Address City/[facility]/ZIP Code Phon e Number M [facility] [address] [place], [place] [address] [facility] [address] [place], [place] [address] [phone] (ABNORMAL) Glucose by meter (10/28/2018 11:48 PM CDT) P athologist Signature Glucose 120 (H) 70 - 99 10/28/2018 [facility] mg/dL 11:59 PM CDT TEST, GLUCOSE Specimen Anatomical Collection Method Collection Time Receive d Time (Source) Location / / Volume Laterality 10/28/2018 11:48 10/28/2018 PM CDT 11:59 PM CDT Mariano PEDRO - BEAKER POCT Performing Organization Address City/[facility]/ZIP Code Phon e Number FV POINT OF CARE TEST, GLUCOSE POINT OF CARE TEST, GLUCOSE (ABNORMAL) Glucose by meter (10/28/2018 7:48 PM CDT) P athologist Signature Glucose 122 (H) 70 - 99 10/28/2018 [facility] mg/dL 8:00 PM CDT TEST, GLUCOSE Specimen Anatomical Collection Method Collection Time Receive d Time (Source) Location / / Volume Laterality 10/28/2018 7:48 PM 9 8:00 CDT PM CDT Mariano PEDRO - BERAMONE POCT Performing Organization Address City/[facility]/ZIP Code Phon e Number FV POINT OF CARE TEST, GLUCOSE POINT OF CARE TEST, GLUCOSE (ABNORMAL) Glucose by meter (10/28/2018 4:24 PM CDT) P athologist Signature Glucose 111 (H) 70 - 99 10/28/2018 [facility] mg/dL 7:21 PM CDT TEST, GLUCOSE Specimen Anatomical Collection Method Collection Time Receive d Time (Source) Location / / Volume Laterality 10/28/2018 4:24 PM 9 7:21 CDT PM CDT Mariano Sky DO JUWAN - BEAKER POCT Performing Organization Address City/State/ZIP Code Phon e Number FV POINT OF CARE TEST, GLUCOSE POINT OF CARE TEST, GLUCOSE MR Brain w/o & w Contrast (10/28/2018 2:53 PM CDT) Anatomical Region Laterality Modality Head, SUBRAD MR NEURO, UMP MR NEURO, RAD MR Magnetic Resonance Specimen (Source) Anatomical Location Collection Method / Collectio n Time Received Time / Laterality Volume Impressions 10/28/2018 3:53 PM CDT IMPRESSION: 1. No acute abnormality. 2. Scattered white matter T2 hyperintens ities, nonspecific as to etiology. RADHA SUERO MD Narrative 10/28/2018 3:53 PM CDT MRI BRAIN WITHOUT AND WITH CONTRAST ??10/28/2018 2:53 PM HISTORY: Myoclonus. Change in mental sta tus with anxiety. History of alcohol abuse. TECHNIQUE: ??Multiplanar, multisequence MRI of the brain without and with 6 mL IV Gadavist. COMPARISON: CT angiogram today. FINDINGS: ??There are a few tiny foci of prolonged T2 relaxation in the central and subcortical white matter of the frontal lobes, nonspecific as to etiology. Ventricles and subarachn oid spaces appear normal. There is no evidence of hemorrhage, mass , acute infarct, or anomaly. There are no gadolinium enhancing lesion s. The facial structures appear normal. The arteries at the base of the brain and the dural venous sinuses appea r patent. Procedure Note Radha Suero MD - 10/28/2018Formatt ing of this note might be different from the original. MRI BRAIN WITHOUT AND WITH CONTRAST 10/28 2:53 PM HISTORY: Myoclonus. Change in mental sta tus with anxiety. History of alcohol abuse. TECHNIQUE: Multiplanar, multisequence MR I of the brain without and with 6 mL IV Gadavist. COMPARISON: CT angiogram today. FINDINGS: There are a few tiny foci of p rolonged T2 relaxation in the central and subcortical white matter of the frontal lobes, nonspecific as to etiology. Ventricles and subarachn oid spaces appear normal. There is no evidence of hemorrhage, mass , acute infarct, or anomaly. There are no gadolinium enhancing lesion s. The facial structures appear normal. The arteries at the base of the brain and the dural venous sinuses appea r patent. IMPRESSION: 1. No acute abnormality. 2. Scattered white matter T2 hyperintens ities, nonspecific as to etiology. RADHA SUERO MD Austen Zapata MD IMG MRI ORDERABLES Vitamin B1 whole blood (10/28/2018 1:50 PM CDT) athologist Signature Vitamin B1 106 70 - 180 10/31/2018 [place] Whole Blood nmol/L 10:04 AM CDT [facility] Comment: (Note) INTERPRETIVE INFORMATION: Vitamin B1, Wh ole Blood This assay measures the concentration of thiamine diphosphate (TDP), the primary active fo rm of vitamin B1. Approximately 90 percent of vitamin B1 p resent in whole blood is TDP. Thiamine and thiamine mono phosphate, which comprise the remaining 10 percent, are n ot measured. Test developed and characteristics deter mined by [facility]. See Compliance Statement B : [employer]/CS Performed by [facility], [address] [place] [id number] [email or web address], Mello Cruz MD, Lab. Director Specimen Anatomical Collection Method Collection Time Receive d Time (Source) Location / / Volume Laterality Blood specimen 10/28/2018 1:50 PM 019 1:51 (specimen) CDT PM CDT Austen Zapata MD LAB - BLOOD ORDERABLES Performing Organization Address City/State/ZIP Code Phon e Number M [facility] [address] [place] [address] [facility] [address] [phone] (ABNORMAL) Vitamin B12 (10/28/2018 1:50 PM CDT) athologist Signature Vitamin B12 1,417 (H) 193 - 986 10/28/2018 [facility] pg/mL 7:45 PM CDT [facility] Specimen Anatomical Collection Method Collection Time Receive d Time (Source) Location / / Volume Laterality Blood specimen 10/28/2018 1:50 PM 019 1:51 (specimen) CDT PM CDT Austen Zapata MD LAB - BLOOD ORDERABLES Performing Organization Address City/State/ZIP Code Phon e Number [facility] [address] [place] [address] [facility] Ammonia (10/28/2018 1:50 PM CDT) athologist Signature Ammonia 24 10 - 50 10/28/2018 [facility] umol/L 2:12 PM CDT HOSPITAL Specimen Anatomical Collection Method Collection Time Receive d Time (Source) Location / / Volume Laterality Blood specimen 10/28/2018 1:50 PM 019 1:51 (specimen) CDT PM CDT Austen Zapata MD LAB - BLOOD ORDERABLES Performing Organization Address City/State/ZIP Code Phon e Number [facility] [address] [place], [place] [address] [facility] [address] [phone] (ABNORMAL) Glucose by meter (10/28/2018 11:16 AM CDT) athologist Signature Glucose 137 (H) 70 - 99 10/28/2018 [facility] mg/dL 7:21 PM CDT TEST, GLUCOSE Specimen Anatomical Collection Method Collection Time Receive d Time (Source) Location / / Volume Laterality 10/28/2018 11:16 10/28/2018 7:21 AM CDT PM CDT Mariano PEDRO - FERNANDO POCT Performing Organization Address City/State/ZIP Code Phon e Number FV POINT OF CARE TEST, GLUCOSE POINT OF CARE TEST, GLUCOSE (ABNORMAL) CK total (10/28/2018 11:10 AM CDT) athologist [facility] CK Total 2,245 (HH) 30 - 225 10/28/2018 [place] U/L 12:15 PM CDT [facility] Comment: Specimen run with a dilution Critical Value called to and read back Noris SIDDIQUI (ICU) 10.28.18 AT 1214 BY PRINCESS Specimen Anatomical Collection Method Collection Time Receive d Time (Source) Location / / Volume Laterality Blood specimen 10/28/2018 11:10 9 (specimen) AM CDT 11:11 AM CDT Austen Zapata MD LAB - BLOOD ORDERABLES Performing Organization Address City/[facility]/ZIP [facility] Phon e Number [facility] [address] [place], [place] [address] [facility] [address] [place], [place] [address], [facility] [phone] (ABNORMAL) Glucose by meter (10/28/2018 8:23 AM CDT) athologist Signature Glucose 140 (H) 70 - 99 10/28/2018 [facility] mg/dL 8:35 AM CDT TEST, GLUCOSE Specimen Anatomical Collection Method Collection Time Receive d Time (Source) Location / / Volume Laterality 10/28/2018 8:23 AM 9 8:35 CDT AM CDT Mariano Sky DO LAB - BEAKER POCT Performing Organization Address City/[facility]/ZIP Code Phon e Number [facility]V POINT OF CARE TEST, GLUCOSE POINT OF CARE TEST, GLUCOSE Magnesium (10/28/2018 8:07 AM CDT) athologist Signature Magnesium 1.9 1.6 - 2.3 10/28/2018 [facility] mg/dL 8:36 AM CDT HOSPITAL Specimen Anatomical Collection Method Collection Time Receive d Time (Source) Location / / Volume Laterality Blood specimen 10/28/2018 8:07 AM 019 8:08 (specimen) CDT AM CDT Mariano Sky DO LAB - BLOOD ORDERABLES Performing Organization Address City/[facility]/ZIP Code Phon e Number [facility] [address] [place], [place] [address] [place] [address] [address] [place], [place] [address], [facility] [phone] Potassium (10/28/2018 8:07 AM CDT) athologist Signature Potassium 3.5 3.4 - 5.3 10/28/2018 [facility] mmol/L 8:31 AM CDT HOSPITAL Specimen Anatomical Collection Method Collection Time Receive d Time (Source) Location / / Volume Laterality Blood specimen 10/28/2018 8:07 AM 019 8:08 (specimen) CDT AM CDT Mariano Sky DO LAB - BLOOD ORDERABLES Performing Organization Address City/[facility]/ZIP Code Phon e Number [facility] [address] [place], [place] [address] [facility] [address] [place], [place] [address], [facility] [phone] Methicillin Resist/Sens S. aureus PCR (10/28/2018 6:35 AM CDT) [facility] VENNCOMM Method Time Signature Specimen Nares 10/28/2018 [place] Description 6:36 AM CDT [facility] Methicillin Negative NEG^Negat 10/28/2018 [facility] Resist/Sens S. dhruv 12:13 PM CDT [facility] aureus PCR [facility] Comment: MRSA Negative: SA Positive MRSA target DNA not detected, presumed n egative for MRSA colonization or the number of bacteria present may be below the limit of detection. Staphylococcus aureus target DNA detecte d, presumed positive for SA colonization. A positive test does not necessarily ind icate the presence of viable organisms. ??It is, however, presumptive for the presence of SA. ??This result does not preclude MRSA nasal colonizatio n. FDA approved assay performed using [employer] GeneXpert(R) real-time PCR. Specimen (Source) Anatomical Collection Method Collection Time Re ceived Time Location / / Volume Laterality Nasal structure 10/28/2018 6:35 9 6:50 (body structure) AM CDT AM CDT Mariano Sky DO LAB - MICRO GENERAL ORDERABL ES Performing Organization Address City/State/ZIP Code Phon e Number [address] [address] [facility] [address] [place], [place] [address], [facility] [phone] (ABNORMAL) UA with Microscopic (10/28/2018 3:47 AM CDT) Component Value Ref Test Analysis Performed At [facility] VENNCOMM Range Method Time Signature Color Urine Light Yellow 10/28/2018 [place] 4:00 AM [facility] Appearance Urine Clear 10/28/2018 [facility] 4:00 AM [facility] Glucose Urine Negative NEG^Nega 10/28/2018 [facility] tive 4:00 AM [facility] mg/dL HOSPITAL Bilirubin Urine Negative NEG^Nega 10/28/2018 [facility] tive 4:00 AM [facility] Ketones Urine Negative NEG^Nega 10/28/2018 [facility] tive 4:00 AM [facility] mg/dL HOSPITAL Specific [place] 1.010 1.003 - 10/28/2018 [facility] Urine 1.035 4:00 AM [facility] Blood Urine Small (A) NEG^Nega 10/28/2018 [facility] tive 4:00 AM [facility] pH Urine 6.0 5.0 - 10/28/2018 [facility] 7.0 pH 4:00 AM [facility] Protein Albumin 20 (A) NEG^Nega 10/28/2018 [facility] Urine tive 4:00 AM [facility] mg/dL [facility] Urobilinogen Normal 0.0 - 10/28/2018 [facility] mg/dL 2.0 4:00 AM [facility] Nitrite Urine Negative NEG^Nega 10/28/2018 [facility] tive 4:00 AM [facility] Leukocyte Negative NEG^Nega 10/28/2018 [facility] Esterase Urine tive 4:00 AM [facility] Source Catheterized 10/28/2018 [facility] Urine 3:52 AM [facility] WBC Urine 1 0 - 5 10/28/2018 [facility] /HPF 4:01 AM [facility] RBC Urine <1 0 - 2 10/28/2018 [facility] /HPF 4:01 AM [facility] Squamous 1 0 - 1 10/28/2018 [facility] Epithelial /HPF /HPF 4:01 AM [facility] Mucous Urine Present (A) NEG^Nega 10/28/2018 [facility] tive 4:01 AM [facility] Specimen (Source) Anatomical Collection Method Collection Time Re ceived Time Location / / Volume Laterality Urine specimen 10/28/2018 3:47 10/28/2018 3:51 collection, AM CDT AM T catheterized (procedure) Elda Marrero DO LAB - URINE ORDERABLES Performing Organization Address City/State/ZIP Code Phon e Number Nga [facility] [address] [place] [address] [facility] [address] [phone] (ABNORMAL) Drug abuse screen 77 urine (FL, RH, SH) (10/28/2018 3:47 AM CDT) [facility] Method Time Signature Amphetamine Qual Negative NEG^Negati 10/28/2018 [place] Urine ve 4:13 AM [facility] Comment: Cutoff for a negative amphetami ne is 500 ng/mL or less. Barbiturates Qual Negative NEG^Negative 10/28/2018 4:13 AM [facility] Comment: Cutoff for a negative barbitura te is 200 ng/mL or less. Benzodiazepine Qual Negative NEG^Negative 10/28/2018 4:13 A M [facility] Urine [facility] Comment: Cutoff for a negative benzodiaz epine is 200 ng/mL or less. Cannabinoids Qual Negative NEG^Negative 10/28/2018 4:13 AM [facility] Comment: Cutoff for a negative cannabino id is 50 ng/mL or less. Cocaine Qual Urine Negative NEG^Negative 10/28/2018 4:13 AM [facility] Comment: Cutoff for a negative cocaine i s 300 ng/mL or less. Opiates Qualitative Positive (A) NEG^Negative 10/28/2018 4 :13 AM [facility] Comment: Cutoff for a positive opiate is greater than 300 ng/mL. This is an unconfirmed screening result to be used for medical purposes only. PCP Qual Urine Negative NEG^Negative 10/28/2018 4:13 AM [facility] Comment: Cutoff for a negative PCP is 25 ng/mL or less. Specimen Anatomical Collection Method Collection Time Receive d Time (Source) Location / / Volume Laterality Urine specimen 10/28/2018 3:47 AM 019 3:51 (specimen) CDT AM CDT Elda Marrero DO LAB - URINE ORDERABLES Performing Organization Address City/[facility] Phon e Number Nga [facility] [address] [place] [address] [facility] [address] [place], [place] [address] [phone] CT Head w/o Contrast (10/28/2018 2:51 AM CDT) Anatomical Region Laterality Modality Head, SUBRAD CT NEURO, SUBRAD CT NEURO, UMP CT NEURO, Computed Tomography RAD CT Specimen (Source) Anatomical Location Collection Method / Collectio n Time Received Time / Laterality Volume Impressions 10/28/2018 8:01 AM CDT IMPRESSION: Normal CT scan of the head. I agree with the preliminary report that was communicated to the referring physician. RADHA SUERO MD Narrative 10/28/2018 8:[address] SCAN OF THE HEAD WITHOUT CONTRAST ?? 10/28/2018 2:51 AM HISTORY: Altered mental status. Anxiety, alcohol abuse, increased fatigue today, jerking movements. TECHNIQUE: Axial images of the head and coronal reformations without IV contrast material. Radiation dose for this scan was reduced using automated exposure control, adjustment o f the mA and/or kV according to patient size, or iterative reconstruc tion technique. COMPARISON: None. FINDINGS: The ventricles are normal in s ize, shape and configuration. The brain parenchyma and subarachnoid sp aces are normal. There is no evidence of intracranial hemorrhage, mas s, acute infarct or anomaly. The visualized portions of the sinuses a nd mastoids appear normal. There is no evidence of trauma. Procedure Note Radha Suero MD - 10/28/2018Formatt ing of this note might be different from the original. CT SCAN OF THE HEAD WITHOUT CONTRAST 10/13 2:51 AM HISTORY: Altered mental status. Anxiety, alcohol abuse, increased fatigue today, jerking movements. TECHNIQUE: Axial images of the head and coronal reformations without IV contrast material. Radiation dose for this scan was reduced using automated exposure control, adjustment o f the mA and/or kV according to patient size, or iterative reconstruc tion technique. COMPARISON: None. FINDINGS: The ventricles are normal in s ize, shape and configuration. The brain parenchyma and subarachnoid sp aces are normal. There is no evidence of intracranial hemorrhage, mas s, acute infarct or anomaly. The visualized portions of the sinuses a nd mastoids appear normal. There is no evidence of trauma. IMPRESSION: Normal CT scan of the head. I agree with the preliminary report that was communicated to the referring physician. RADHA SUERO MD Elda Marrero DO IMG CT ORDERABLES CT Head Perfusion w Contrast (10/28/2018 2:51 AM CDT) Anatomical Region Laterality Modality Head, SUBRAD CT NEURO, SUBRAD CT NEURO, UMP CT NEURO Computed Tomography Specimen (Source) Anatomical Location Collection Method / Collectio n Time Received Time / Laterality Volume Impressions 10/28/2018 8:01 AM CDT IMPRESSION: 1. Mild to moderate narrowings of the pr oximal and mid aspect of one of the left middle cerebral artery M3 se gments, possibly indicating vasospasm. 2. Tortuous internal carotid arteries. 3. Otherwise normal CT angiogram of the head and neck. I agree with the preliminary report that was communicated to the referring physician. RADHA SUERO MD Narrative 10/28/2018 8:[address] ANGIOGRAM OF THE HEAD AND NECK WITHOUT AND WITH CONTRAST ??10/28/2018 2:51 AM HISTORY: Altered mental status. Anxiety. 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 Alcohol abuse. TECHNIQUE: Precontrast localizing scans were followed by CT angiography with an injection of 70 mL I sovue-370 (accession [id number]), 50mL Isovue-370 (accession R [id number]) IV with scans through the head and neck. 3D post proce ssing was performed, images were archived to PACS and used in interp retation of this study. Estimates of carotid stenoses are made r elative to the distal internal carotid artery diameters except as noted . Radiation dose for this scan was reduced using automated exposure con trol, adjustment of the mA and/or kV according to patient size, or iterative reconstruction technique. ??Perfusion scans were perfor med at three levels with injection of an additional 40 mL IV jo onic contrast and 20 mL saline flush. These images were processed on a separate 3-D workstation. COMPARISON: None. CT HEAD FINDINGS: No contrast enhancing lesions. Perfusion CT scan of the brain appears normal. CT ANGIOGRAM HEAD FINDINGS: There is mil [id number] narrowing in the proximal aspect and mid aspect of one of the left M3 segments. Arteries are otherwise widely patent wit h no aneurysm, significant stenosis, occlusion or intraarterial thr ombus. Venous circulation is unremarkable. CT ANGIOGRAM NECK FINDINGS: Right carotid artery: Tortuous cervical internal carotid. No significant stenosis. ?? Left carotid artery: Tortuous cervical i nternal carotid. No significant stenosis. ?? Vertebral arteries: No significant steno sis. ?? Other findings: None. Procedure Note Radha Suero MD - 10/28/2018Formatt ing of this note might be different from the original. CT ANGIOGRAM OF THE HEAD AND NECK WITHOU T AND WITH CONTRAST 10/28/2018 2:51 AM HISTORY: Altered mental status. Anxiety. 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 Alcohol abuse. TECHNIQUE: Precontrast localizing scans were followed by CT angiography with an injection of 70 mL I sovue-370 (accession [id number]), 50mL Isovue-370 (accession R [id number]) IV with scans through the head and neck. 3D post proce ssing was performed, images were archived to PACS and used in interp retation of this study. Estimates of carotid stenoses are made r elative to the distal internal carotid artery diameters except as noted . Radiation dose for this scan was reduced using automated exposure con trol, adjustment of the mA and/or kV according to patient size, or iterative reconstruction technique. Perfusion scans were performe d at three levels with injection of an additional 40 mL IV jo onic contrast and 20 mL saline flush. These images were processed on a separate 3-D workstation. COMPARISON: None. CT HEAD FINDINGS: No contrast enhancing lesions. Perfusion CT scan of the brain appears normal. CT ANGIOGRAM HEAD FINDINGS: There is mil m-nk-hnktpogt narrowing in the proximal aspect and mid aspect of one of the left M3 segments. Arteries are otherwise widely patent wit h no aneurysm, significant stenosis, occlusion or intraarterial thr ombus. Venous circulation is unremarkable. CT ANGIOGRAM NECK FINDINGS: Right carotid artery: Tortuous cervical internal carotid. No significant stenosis. Left carotid artery: Tortuous cervical i nternal carotid. No significant stenosis. Vertebral arteries: No significant steno sis. Other findings: None. IMPRESSION: 1. Mild to moderate narrowings of the pr oximal and mid aspect of one of the left middle cerebral artery M3 se gments, possibly indicating vasospasm. 2. Tortuous internal carotid arteries. 3. Otherwise normal CT angiogram of the head and neck. I agree with the preliminary report that was communicated to the referring physician. RADHA SUERO MD Elda Marrero DO IMG CT ORDERABLES CTA Head Neck with Contrast (10/28/2018 2:51 AM CDT) Anatomical Region Laterality Modality Head, SUBRAD CT NEURO, SUBRAD CT NEURO, UMP CT NEURO, Computed Tomography RAD CT Specimen (Source) Anatomical Location Collection Method / Collectio n Time Received Time / Laterality Volume Impressions 10/28/2018 8:01 AM CDT IMPRESSION: 1. Mild to moderate narrowings of the pr oximal and mid aspect of one of the left middle cerebral artery M3 se gments, possibly indicating vasospasm. 2. Tortuous internal carotid arteries. 3. Otherwise normal CT angiogram of the head and neck. I agree with the preliminary report that was communicated to the referring physician. RADHA SUERO MD Narrative 10/28/2018 8:[address] ANGIOGRAM OF THE HEAD AND NECK WITHOUT AND WITH CONTRAST ??10/28/2018 2:51 AM HISTORY: Altered mental status. Anxiety. 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 Alcohol abuse. TECHNIQUE: Precontrast localizing scans were followed by CT angiography with an injection of 70 mL I sovue-370 (accession [id number]), 50mL Isovue-370 (accession R [id number]) IV with scans through the head and neck. 3D post proce ssing was performed, images were archived to PACS and used in interp retation of this study. Estimates of carotid stenoses are made r elative to the distal internal carotid artery diameters except as noted . Radiation dose for this scan was reduced using automated exposure con trol, adjustment of the mA and/or kV according to patient size, or iterative reconstruction technique. ??Perfusion scans were perfor med at three levels with injection of an additional 40 mL IV jo onic contrast and 20 mL saline flush. These images were processed on a separate 3-D workstation. COMPARISON: None. CT HEAD FINDINGS: No contrast enhancing lesions. Perfusion CT scan of the brain appears normal. CT ANGIOGRAM HEAD FINDINGS: There is mil p-xf-dvuctftt narrowing in the proximal aspect and mid aspect of one of the left M3 segments. Arteries are otherwise widely patent wit h no aneurysm, significant stenosis, occlusion or intraarterial thr ombus. Venous circulation is unremarkable. CT ANGIOGRAM NECK FINDINGS: Right carotid artery: Tortuous cervical internal carotid. No significant stenosis. ?? Left carotid artery: Tortuous cervical i nternal carotid. No significant stenosis. ?? Vertebral arteries: No significant steno sis. ?? Other findings: None. Procedure Note Radha Suero MD - 10/28/2018Formatt ing of this note might be different from the original. CT ANGIOGRAM OF THE HEAD AND NECK WITHOU T AND WITH CONTRAST 10/28/2018 2:51 AM HISTORY: Altered mental status. Anxiety. 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 Alcohol abuse. TECHNIQUE: Precontrast localizing scans were followed by CT angiography with an injection of 70 mL I sovue-370 (accession [id number]), 50mL Isovue-370 (accession R [id number]) IV with scans through the head and neck. 3D post proce ssing was performed, images were archived to PACS and used in interp retation of this study. Estimates of carotid stenoses are made r elative to the distal internal carotid artery diameters except as noted . Radiation dose for this scan was reduced using automated exposure con trol, adjustment of the mA and/or kV according to patient size, or iterative reconstruction technique. Perfusion scans were performe d at three levels with injection of an additional 40 mL IV jo onic contrast and 20 mL saline flush. These images were processed on a separate 3-D workstation. COMPARISON: None. CT HEAD FINDINGS: No contrast enhancing lesions. Perfusion CT scan of the brain appears normal. CT ANGIOGRAM HEAD FINDINGS: There is mil r-fo-tzblgjam narrowing in the proximal aspect and mid aspect of one of the left M3 segments. Arteries are otherwise widely patent wit h no aneurysm, significant stenosis, occlusion or intraarterial thr ombus. Venous circulation is unremarkable. CT ANGIOGRAM NECK FINDINGS: Right carotid artery: Tortuous cervical internal carotid. No significant stenosis. Left carotid artery: Tortuous cervical i nternal carotid. No significant stenosis. Vertebral arteries: No significant steno sis. Other findings: None. IMPRESSION: 1. Mild to moderate narrowings of the pr oximal and mid aspect of one of the left middle cerebral artery M3 se gments, possibly indicating vasospasm. 2. Tortuous internal carotid arteries. 3. Otherwise normal CT angiogram of the head and neck. I agree with the preliminary report that was communicated to the referring physician. RADHA SUERO MD Elda Marrero DO IMG CT ORDERABLES EKG 12 lead (10/28/2018 2:34 AM CDT) [facility] gist Method Time Signature Interpretation ECG Click View RADIOLOGY Image link RESULTS to view waveform and result Specimen (Source) Anatomical Collection Method Collection Time Re ceived Time Location / / Volume Laterality 10/28/2018 2:34 AM CDT Elda Marrero DO ECG ORDERABLES Performing Organization Address City/State/ZIP Code Phon e Number RADIOLOGY RESULTS Creatinine POCT (10/28/2018 2:04 AM CDT) athologist Signature Creatinine 0.8 0.52 - 10/28/2018 [facility] 1.04 mg/dL 2:09 AM CDT TEST, HANDHELD METER GFR Estimate 78 >60 10/28/2018 [facility] mL/min/{1. 2:09 AM CDT TEST, HANDHELD 73_m2} METER GFR Estimate If >90 >60 10/28/2018 [facility] Black mL/min/{1. 2:09 AM CDT TEST, HANDHELD 73_m2} METER Specimen Anatomical Collection Method Collection Time Receive d Time (Source) Location / / Volume Laterality 10/28/2018 2:04 AM 9 2:09 CDT AM CDT Elda Marrero DO LAB - BEAKER POCT Performing Organization Address City/State/ZIP Code Phon e Number FV POINT OF CARE TEST, HANDHELD METER POINT OF CARE TEST, HANDHELD METER (ABNORMAL) CK total (10/28/2018 2:00 AM CDT) athologist Signature CK Total 2,479 (HH) 30 - 225 10/28/2018 [facility] U/L 5:39 AM CDT [facility] Comment: Critical Value called to and read back b y APOLLO CARDONA (RIO) ON 10.28.18 AT 0531 B Y KV Specimen Anatomical Collection Method Collection Time Receive d Time (Source) Location / / Volume Laterality 10/28/2018 2:00 AM 9 2:09 CDT AM CDT Elda Marrero DO LAB - BLOOD ORDERABLES Performing Organization Address City/[facility]/ZIP Code Phon e Number M [facility] [address], [place] [address] [facility] [address] [place], [place] [address], [facility] [phone] Magnesium (10/28/2018 2:00 AM CDT) P athologist Signature Magnesium 1.9 1.6 - 2.3 10/28/2018 [facility] mg/dL 2:43 AM CDT HOSPITAL Specimen Anatomical Collection Method Collection Time Receive d Time (Source) Location / / Volume Laterality 10/28/2018 2:00 AM 9 2:09 CDT AM CDT Elda Marrero DO LAB - BLOOD ORDERABLES Performing Organization Address [facility]/ZIP [facility] Phon e Number M [facility] [address], [place] [address] [facility] [address] [place], [place] [address], [facility] [phone] Glucose by meter (10/28/2018 2:00 AM CDT) P athologist Signature Glucose 94 70 - 99 10/28/2018 [facility] mg/dL 2:12 AM CDT TEST, GLUCOSE Specimen Anatomical Collection Method Collection Time Receive d Time (Source) Location / / Volume Laterality 10/28/2018 2:00 AM 9 2:12 CDT AM CDT Elda Marrero DO LAB - BEAKER POCT Performing Organization Address City/[facility]/ZIP Code Phon e Number FV POINT OF CARE TEST, GLUCOSE POINT OF CARE TEST, GLUCOSE HCG QUALitative (blood) (10/28/2018 2:00 AM CDT) Patholo gist Method Time Signature HCG Qualitative Negative NEG^Negati 10/28/2018 [place] Serum ve 2:35 AM CDT [facility] Comment: This test is for screening purposes. ??R esults should be interpreted along with the clinical picture. ??Confirmation te sting is available if warranted by ordering [id number], HCG Quantitative Pregna ncy. Specimen Anatomical Collection Method Collection Time Receive d Time (Source) Location / / Volume Laterality Blood specimen 10/28/2018 2:00 AM 019 2:09 (specimen) CDT AM CDT Elda Marrero DO LAB - BLOOD ORDERABLES Performing Organization Address City/[facility]/ZIP Code Phon e Number M [facility] [address], [place] [address] [facility] [address] [place], [place] [address], [facility] [phone] INR (10/28/2018 2:00 AM CDT) athologist Signature INR 1.05 0.86 - 1.14 10/28/2018 [facility] 2:23 AM CDT HOSPITAL Specimen Anatomical Collection Method Collection Time Receive d Time (Source) Location / / Volume Laterality Blood specimen 10/28/2018 2:00 AM 019 2:09 (specimen) CDT AM CDT Elda Marrero DO LAB - BLOOD ORDERABLES Performing Organization Address [facility]/ZIP Code Phon e Number [facility] [address], [place] [address] [facility] [address] [place], [place] [address], [facility] [phone] Salicylate level (10/28/2018 2:00 AM CDT) athologist Signature Salicylate <2 mg/dL 10/28/2018 [facility] 2:39 AM T [facility] Comment: Therapeutic: ?<20 Anti inflammatory: ??15-30 Specimen Anatomical Collection Method Collection Time Receive d Time (Source) Location / / Volume Laterality Blood specimen 10/28/2018 2:00 AM 019 2:09 (specimen) CDT AM CDT Elda Marrero DO LAB - BLOOD ORDERABLES Performing Organization Address City/State/ZIP Code Phon e Number M [facility] [address], [place] [address] [facility] [address] [place], [place] [address], [facility] [phone] Troponin I (10/28/2018 2:00 AM CDT) P athologist Signature Troponin I ES 0.016 0.000 - 10/28/2018 [place] 0.045 ug/L 2:35 AM T [facility] Comment: The 99th percentile for upper reference range is 0.045 ug/L. ??Troponin values in the range of 0.045 - 0.120 ug/L may b e associated with risks of adverse clinical events. Specimen Anatomical Collection Method Collection Time Receive d Time (Source) Location / / Volume Laterality Blood specimen 10/28/2018 2:00 AM 019 2:09 (specimen) CDT AM CDT Elda Marrero DO LAB - BLOOD ORDERABLES Performing Organization Address City/[facility]/ZIP Code Phon e Number [facility] [address], [place] [address] [facility] [address] [place], [place] [address], [facility] [phone] Alcohol level blood (10/28/2018 2:00 AM CDT) P athologist Signature Ethanol g/dL <0.01 <0.01 g/dL 10/28/2018 [place] 2:32 AM [facility] Specimen Anatomical Collection Method Collection Time Receive d Time (Source) Location / / Volume Laterality Blood specimen 10/28/2018 2:00 AM 019 2:09 (specimen) CDT AM CDT Elda Marrero DO LAB - BLOOD ORDERABLES Performing Organization Address City/[facility] Phon e Number [facility] [address], [place] [address] [facility] [address] [place], [place] [address], [facility] [phone] Acetaminophen level (10/28/2018 2:00 AM CDT) Analysis Performed At Patho logist Time Signature Acetaminophen 5 mg/L 10/28/2018 [facility] Level 2:41 AM [facility] Comment: Therapeutic range: 10-20 mg/L Specimen Anatomical Collection Method Collection Time Receive d Time (Source) Location / / Volume Laterality Blood specimen 10/28/2018 2:00 AM 019 2:09 (specimen) CDT AM CDT Elda Marrero DO LAB - BLOOD ORDERABLES Performing Organization Address City/[facility] Phon e Jim [facility] [address], [place] [address] [facility] [address] [place] [address], [facility] [phone] Lipase (10/28/2018 2:00 AM CDT) athologist Signature Lipase 120 73 - 393 10/28/2018 [facility] U/L 2:32 AM T HOSPITAL Specimen Anatomical Collection Method Collection Time Receive d Time (Source) Location / / Volume Laterality Blood specimen 10/28/2018 2:00 AM 019 2:09 (specimen) CDT AM CDT Elda Marrero DO LAB - BLOOD ORDERABLES Performing Organization Address City/[facility] Phon e Jim [facility] [address], [place] [address] [facility] [address] [place] [address], [facility] [phone] (ABNORMAL) Comprehensive metabolic panel (10/28/2018 2:00 AM CDT) athologist Signature Sodium 138 133 - 144 10/28/2018 [place] mmol/L 2:24 AM [facility] Potassium 3.2 (L) 3.4 - 5.3 10/28/2018 [place] mmol/L 2:24 AM [facility] Chloride 108 94 - 109 10/28/2018 [place] mmol/L 2:24 AM [facility] Carbon Dioxide 24 20 - 32 10/28/2018 [place] mmol/L 2:31 AM [facility] Anion Gap 6 3 - 14 10/28/2018 [place] mmol/L 2:31 AM [facility] Glucose 96 70 - 99 10/28/2018 [place] mg/dL 2:31 AM [facility] Urea Nitrogen 9 7 - 30 10/28/2018 [place] mg/dL 2:31 AM [facility] Creatinine 0.86 0.52 - 10/28/2018 [facility] 1.04 mg/dL 2:31 AM [facility] GFR Estimate 81 >60 10/28/2018 [place] mL/min/{1. 2:31 AM [facility] 73_m2} HOSPITAL Comment: Non GFR Calc Starting 05/01/2018, serum creatinine ba sed estimated GFR (eGFR) will be calculated using the Chronic Kidney Dise [facility] Epidemiology Collaboration (CKD-EPI) equation. GFR Estimate If >90 >60 mL/min/{1.73_m2} 10/28/2018 2: 31 AM [facility] Comment: GFR Calc Starting 05/01/2018, serum creatinine ba sed estimated GFR (eGFR) will be calculated using the Chronic Kidney Dise [facility] Epidemiology Collaboration (CKD-EPI) equation. Calcium 7.9 (L) 8.5 - 10.1 10/28/2018 2:31 AM [facility] mg/dL [facility] Bilirubin Total 0.6 0.2 - 1.3 mg/dL 10/28/2018 2:32 AM [facility] Albumin 3.0 (L) 3.4 - 5.0 g/dL 10/28/2018 2:32 AM [facility] Protein Total 7.0 6.8 - 8.8 g/dL 10/28/2018 2:32 AM [facility] Alkaline Phosphatase 80 40 - 150 U/L 10/28/2018 2:32 AM [facility] ALT 29 0 - 50 U/L 10/28/2018 2:32 AM [facility] AST 111 (H) 0 - 45 U/L 10/28/2018 2:32 AM [facility] Specimen Anatomical Collection Method Collection Time Receive d Time (Source) Location / / Volume Laterality Blood specimen 10/28/2018 2:00 AM 019 2:09 (specimen) CDT AM CDT Elda Marrero DO LAB - BLOOD ORDERABLES Performing Organization Address City/State/ZIP Code Phon e Number M [facility] [address], [place] [address] [facility] [address] [place], [place] [address], [facility] [phone] (ABNORMAL) CBC with platelets differential (10/28/2018 2:00 AM CDT) [facility] Method Time Signature WBC 10.5 4.0 - 10/28/2018 [facility] 11.0 2:12 AM [facility] 10e9/L [facility] RBC Count 4.10 3.8 - 5.2 10/28/2018 [facility] 10e12/L 2:12 AM [facility] Hemoglobin 10.8 (L) 11.7 - 10/28/2018 [facility] 15.7 g/dL 2:12 AM [facility] Hematocrit 35.0 35.0 - 10/28/2018 [facility] 47.0 % 2:12 AM [facility] MCV 85 78 - 100 10/28/2018 [facility] fl 2:12 AM [facility] MCH 26.3 (L) 26.5 - 10/28/2018 [facility] 33.0 pg 2:12 AM [facility] MCHC 30.9 (L) 31.5 - 10/28/2018 [facility] 36.5 g/dL 2:12 AM [facility] RDW 16.8 (H) 10.0 - 10/28/2018 [facility] 15.0 % 2:12 AM [facility] Platelet Count 299 150 - 450 10/28/2018 [facility] 10e9/L 2:12 AM [facility] Diff Method Automated 10/28/2018 [facility] Method 2:12 AM [facility] % Neutrophils 67.4 % 10/28/2018 [facility] 2:12 AM [facility] % Lymphocytes 16.4 % 10/28/2018 [facility] 2:12 AM [facility] % Monocytes 12.8 % 10/28/2018 [facility] 2:12 AM [facility] % Eosinophils 2.7 % 10/28/2018 [facility] 2:12 AM [facility] % Basophils 0.4 % 10/28/2018 [place] 2:12 AM [facility] % Immature 0.3 % 10/28/2018 [place] Granulocytes 2:12 AM [facility] Nucleated RBCs 0 0 /100 10/28/2018 [place] 2:12 AM [facility] Absolute 7.1 1.6 - 8.3 10/28/2018 [place] Neutrophil 10e9/L 2:12 AM [facility] Absolute 1.7 0.8 - 5.3 10/28/2018 [place] Lymphocytes 10e9/L 2:12 AM [facility] Absolute 1.4 (H) 0.0 - 1.3 10/28/2018 [place] Monocytes 10e9/L 2:12 AM [facility] Absolute 0.3 0.0 - 0.7 10/28/2018 [place] Eosinophils 10e9/L 2:12 AM [facility] Absolute 0.0 0.0 - 0.2 10/28/2018 [place] Basophils 10e9/L 2:12 AM [facility] Abs Immature 0.0 0 - 0.4 10/28/2018 [place] Granulocytes 10e9/L 2:12 AM [facility] Absolute 0.0 10/28/2018 [place] Nucleated RBC 2:12 AM [facility] Specimen Anatomical Collection Method Collection Time Receive d Time (Source) Location / / Volume Laterality Blood specimen 10/28/2018 2:00 AM 019 2:09 (specimen) CDT AM CDT Elda Marrero DO LAB - BLOOD ORDERABLES Performing Organization Address City/State/ZIP Code Phon e Number M [facility] [address], [place] [address] [facility] [address] [phone] documented in this encounter Visit Diagnoses Diagnosis Bradycardia - Primary Other specified cardiac dysrhythmias Polypharmacy Issue of repeat prescriptions Altered mental status, unspecified alter ed mental status type Elevated CPK Other nonspecific abnormal serum enzyme levels Movement disorder 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 documented in this encounter Administered Medications Inactive Administered Medications - up to 3 most recent administrations Medication Order MAR Action Action Date Dose Rate Site 0.9% sodium chloride BOLUS New 10/28/2018 2:24 AM CDT 80 mLs Intravenous, 100 mL, ONCE, On Mon10/28/18 at 0202, For 1 dose 0.9% sodium chloride BOLUS 10/28/2018 3:15 AM CDT 1,000 mLs 1000 mL/hr Intravenous, 1,000 mL, ONCE, at 1,000 mL/hr, Administer over 1 Hours, On Mon10/28/18 at 0205, For 1 dose 0.9% sodium chloride BOLUS 10/28/2018 5:49 AM CDT 1,000 mLs 1000 mL/hr Intravenous, 1,000 mL, ONCE, at 1,000 mL/hr, Administer over 1 Hours, On Mon10/28/18 at 0541, For 1 dose acetaminophen (TYLENOL) Suppository 650 mg 650 mg, Rectal, EVERY 4 HOURS PRN, mild pain, Starting on Mon10/30/18 at 0216, Maximum acetaminophen dose from all sources = 75 mg/kg /day not to exceed 4 grams/day. acetaminophen (TYLENOL) tablet 650 mg Given 10/30/2018 6:26 AM CDT 650 mg 650 mg, Oral, EVERY 4 HOURS PRN, mild pain, Starting on Mon10/30/18 at 0216, Maximum acetaminophen dose from all sources = 75 mg/kg/day not to exceed 4 grams/day. dextrose 5% and 0.45% NaCl + KCl 20 10/29/2018 9:58 AM CDT 150 mL/hr mEq/L infusion at 150 mL/hr, Intravenous, CONTINUOUS, Starting on Mon10/28/18 at 0645, Until Mon10/29/18 at 1420 10/29/2018 3:35 AM CDT 150 mL/hr Rate/Dose Verify 10/29/2018 2:42 AM CDT 150 mL/hr diphenhydrAMINE (BENADRYL) injection 25 mg Given 10/28/2018 4:29 AM CDT 25 mg 25 mg, Intravenous, ONCE, On Mon10/28/18 at 0417, For 1 dose, For ordered IV doses 1-50 mg, give IV Push undiluted. Give each 25mg over a minimum of 1 minute. Extend in non-emergency eszopiclone (LUNESTA) tablet 3 mg Given 10/29/2018 8:57 PM CDT 3 mg 3 mg, Oral, AT BEDTIME PRN, sleep, Starting on Mon10/28/18 at 1207 Given 10/28/2018 9:32 PM CDT 3 mg ferrous sulfate (FEROSUL) tablet 325 mg Given 10/30/2018 9:48 AM CDT 325 mg 325 mg, Oral, DAILY WITH BREAKFAST, First dose on Mon10/29/18 at 0900, Absorbed best on an empty stomach. If stomach upset occurs, can take with meals. Given 10/29/2018 9:36 AM CDT 325 mg FLUoxetine (PROzac) capsule 40 mg Given 10/28/2018 12:53 PM CDT 40 mg 40 mg, Oral, DAILY, First dose on Mon10/28/18 at 1215 gadobutrol (GADAVIST) injection 7.5 mL Given 10/28/2018 2:50 PM CDT 6 mLs Left Arm 7.5 mL, Intravenous, ONCE, On Mon10/28/18 at 1445, For 1 dose iopamidol (ISOVUE-370) solution 500 mL Given 10/28/2018 2:09 AM CDT 120 mLs 500 mL, Intravenous, ONCE, On Mon10/28/18 at 0202, For 1 dose LORazepam (ATIVAN) injection 1 mg Given 10/28/2018 1:59 PM CDT 1 mg 1 mg, Intravenous, ONCE, On Mon10/28/18 at 1115, For 1 dose, This drug may cause significant respiratory depression. Monitor respiratory status and vital signs carefully for 1 hour after each dose. LORazepam (ATIVAN) tablet 0.5 mg Given 10/30/2018 2:15 AM CDT 0.5 mg 0.5 mg, Oral, EVERY 4 HOURS PRN, anxiety, muscle spasms, myoclonus, Starting on Mon10/28/18 at 1011 Given 10/29/2018 6:30 PM CDT 0.5 mg Given 10/29/2018 2:42 AM CDT 0.5 mg ondansetron (ZOFRAN) injection 4 mg Given 10/28/2018 3:16 AM CDT 4 mg 4 mg, Intravenous, ONCE, Administer over 2-5 Minutes, On Mon10/28/18 at 0252, For 1 dose, Irritant. For ordered IV doses 0.1-4 mg, give IV Push undiluted over 2-5 minutes. ondansetron (ZOFRAN) injection 4 mg Given 10/28/2018 8:58 AM CDT 4 mg 4 mg, Intravenous, EVERY 6 HOURS PRN, nausea, vomiting, Administer over 2-5 Minutes, Starting on 10/28/18 at 0631, This is Step 1 of nausea and vomiting management. If nausea not resolved in 15 minutes, go to Step 2 prochlorperazine (COMPAZINE). Irritant. For ordered IV doses 0.1-4 mg, give IV Push undiluted over 2-5 minutes. ondansetron (ZOFRAN-ODT) ODT tab 4 mg Given 10/29/2018 8:33 AM CDT 4 mg 4 mg, Oral, EVERY 6 HOURS PRN, nausea, vomiting, Starting on 10/28/18 at 0631, This is Step 1 of nausea and vomiting management. If nausea not resolved in 15 minutes, go to Step 2 prochlorperazine (COMPAZINE). Do not push through foil backing. Peel back foil and gently remove. Place on tongue immediately. Administration with liquid unnecessary With dry hands, peel back foil backing and gently remove tablet; do not push oral disintegrating tablet through foil backing; administer immediately on tongue and oral disintegrating tablet dissolves in seconds; then swallow with saliva; liquid not required. potassium chloride ER (K-DUR/KLOR-CON M) CR Given 10/28/2018 3:16 AM CDT 40 mEq tablet 40 mEq 40 mEq, Oral, ONCE, On 10/28/18 at 0303, For 1 dose, DO NOT CRUSH prochlorperazine (COMPAZINE) injection 1 0 mg Given 10/29/2018 12:02 PM CDT 10 mg 10 mg, Intravenous, EVERY 6 HOURS PRN, nausea, vomiting, Administer over 1-2 Minutes, Starting on 10/28/18 at 0631, This is Step 2 of nausea and vomiting management. Give if nausea not resolved 15 minutes after giving ondansetron (ZOFRAN). If nausea not resolved in 15 minutes, go to Step 3 metoclopramide (REGLAN), if ordered. For ordered IV doses 0.1-10 mg, give IV Push undiluted. Each 5mg over 1 minute. prochlorperazine (COMPAZINE) Suppository 25 mg 25 mg, Rectal, EVERY 12 HOURS PRN, nausea, vomiting, S tarting on 10/28/18 at 0631, This is Step 2 of nausea and vomit ing management. Give if nausea not resolved 15 minutes after giving ondansetron (ZOF RAN). If nausea not resolved in 15 minutes, go to Step 3 metoclopramide (REGLAN), if ordered. prochlorperazine (COMPAZINE) tablet 10 m g 10 mg, Oral, EVERY 6 HOURS PRN, vomiting , Starting on 10/28/18 at 0631, This is Step 2 of nausea and vomiting management . Give if nausea not resolved 15 minutes after giving ondansetron (ZOFRAN). If na usea not resolved in 15 minutes, go to Step 3 metoclopramide (REGLAN), if ordered. documented in this encounter Active and Recently Administered Medications Times are shown in CDT. Scheduled Medication Order 10/28/2018 10/29/2018 10/30/2018 0.9% sodium chloride BOLUS (COMPLETED) 0224 (New Bag - Provider: Azalea Olivera)0248 (Stopped - Provider: Wilma Benitez, ILIANA) Intravenous, 100 mL, ONCE, 10/28/18 at 0202, For 1 dose 0.9% sodium chloride BOLUS (COMPLETED) 0315 (New Bag - Provider: Wilma Benitez RN)0417 (Stopped - Provider: Syed Medellin, RN) Intravenous, 1,000 mL, ONCE, at 1,000 mL /hr, Administer over 1 Hours, 10/28/18 at 0205, For 1 dose 0.9% sodium chloride BOLUS (COMPLETED) 0549 (New Bag - Provider: Syed Medellin, RN)0615 (ED Infusing on Admission/transfer - Provider: Syed Medellin, RN) Intravenous, 1,000 mL, ONCE, at 1,000 mL /hr, Administer over 1 Hours, 10/28/18 at 0541, For 1 dose diphenhydrAMINE (BENADRYL) injection 25 mg (COMPLETED) 0429 (Given - Provider: Syed Medellin, RN) 25 mg, Intravenous, ONCE, 10/28/18 at 0417, For 1 dose, For ordered IV doses 1-50 mg, give IV Push undiluted. Give each 25mg over a minimum of 1 minute. Extend in non-emergency ferrous sulfate (FEROSUL) tablet 325 mg 0936 (Given - Provider: Kim Kirby, RN) 0948 (Given - Provider: Elizabeth flores, RN) 325 mg, Oral, DAILY WITH BREAKFAST, Firs t dose on 10/29/18 at 0900, Absorbed best on an empty stomach. If stomach upset occurs, can take with meals. FLUoxetine (PROzac) capsule 40 mg (CANCELED) 1253 (Giv en - Provider: Chayito Siddiqui, ILIANA) 40 mg, Oral, DAILY, First dose on 10/28/18 at 1215 gadobutrol (GADAVIST) injection 7.5 mL (COMPLETED) 145 0 (Given - Provider: Tico Benitez) 7.5 mL, Intravenous, ONCE, 10/28/18 at 1445, For 1 dose iopamidol (ISOVUE-370) solution 500 mL (COMPLETED) 020 9 (Given - Provider: Azalea Olivera) 500 mL, Intravenous, ONCE, 10/28/18 at 0202, For 1 dose LORazepam (ATIVAN) injection 1 mg (COMPLETED) 1242 (Ho ld - Provider: Chayito Siddiqui RN - Reason: Other - Comment: awaiting MRI)1359 (Given - Provider: Chayito Siddiqui RN) 1 mg, Intravenous, ONCE, [place] 10/28/18 at 1115, For 1 dose, This drug may cause significant respiratory depression. Monitor respiratory status and vital signs carefully for 1 hour after each dose. ondansetron (ZOFRAN) injection 4 mg (COMPLETED) 031 ( Given - Provider: Wilma Benitez RN) 4 mg, Intravenous, ONCE, Administer over 2-5 Minutes, 10/28/18 at 0252, For 1 dose, Irritant. For ordered IV doses 0.1-4 mg, give IV Push undiluted over 2-5 minutes. potassium chloride ER (K-DUR/KLOR-CON M) CR tablet 40 mEq (COMPLETED) 031 (Given - Provider: Wilma Benitez RN) 40 mEq, Oral, ONCE, [place] 10/28/18 at 0303, For 1 dose, DO NOT JENS H Continuous Medication Order 10/28/2018 10/29/2018 10/30/2018 dextrose 5% and 0.45% NaCl + KCl 20 mEq/L infusion (CA NCELED) 0656 (New Bag - Provider: Karson Olvera RN)0734 (Stopped - Provider: Chayito Siddiqui RN - Comment: IV pulled out)0748 (Restarted - Provider: Chayito Siddiqui RN)1200 (Rate/Dose Verify - Provider: Chayito Siddiqui RN) 0100 (Rate/Dose Verify - Provider: Elen Philip RN)0242 (Rate/Dose Verify - Provider: Tamara Henriquez LPN)0335 (New Bag - Provider: Deny Stone RN)0958 (New Bag - Provider: Kim Kirby, ILIANA) at 150 mL/hr, Intravenous, CONTINUOUS, S tarting 10/28/18 at 0645, Until 10/29/18 at 1420 1600 (Rate/Dose Verify - Provider: Chayito Siddiqui RN)1935 (Rate/Dose Verify - Provider: Chayito Siddiqui RN)2106 (New Bag - Provider: Chayito Siddiqui RN)2146 (Rate/Dose Verify - Provider: Chayito Siddiqui RN)2300 (Rate/Dose Verify - Provider: Rema Philip RN) 1422 (Stopped - Provider: Kim pitt RN) PRN Medication Order 10/28/2018 10/29/2018 10/30/2018 0.9% sodium chloride BOLUS Intravenous, 500 mL, ONCE PRN, other, IF hypotension or hemorrhage., Starting 10/28/18 at 0631, For 1 dose, Administer quickly to patient tolerance IF positioning and increased IV rate are ineffectiv e in patient with massive hemorrhage and hypotension. Discontinue upon discharge from ICU. acetaminophen (TYLENOL) Suppository 650 mg(Linked Group 1) 625 (See Alternative - Provider: Elda Varghese RN) 650 mg, Rectal, EVERY 4 HOURS PRN, mild pain, Starting Mon10/30/18 at 0216, Maximum acetaminophen dose from all sources = 75 mg/kg/day not to exceed 4 grams/day. acetaminophen (TYLENOL) tablet 650 mg(Linked Group 1) 625 (Given - Provider: Elda Varghese RN) 650 mg, Oral, EVERY 4 HOURS PRN, mild pa in, Starting 10/30/18 at 0216, Maximum acetaminophen dose from all sources = 75 mg/kg/day not to exceed 4 grams/day. eszopiclone (LUNESTA) tablet 3 mg 2131 (Given - Provider: Nighat Siddiqui RN) 2056 (Given - Provider: Perlita Rashid RN) 3 mg, Oral, AT BEDTIME PRN, sleep, Starting 10/28/18 at 1207 LORazepam (ATIVAN) tablet 0.5 mg 1032 (Given - Provider: Nimo Siddiqui RN) 0242 (Given - Provider: Tamara Henriquez LPN)1830 (Given - Provider: Perlita Rashid RN) 0215 (Given - Provider: Chary Trejo RN ) 0.5 mg, Oral, EVERY 4 HOURS PRN, anxiety , muscle spasms, myoclonus, Starting 10/28/18 at 1011 magnesium sulfate 4 g in 100 mL sterile water (premade) 4 g, Intravenous, Administer over 120 Mi nutes, EVERY 4 HOURS PRN, Starting 10/28/18 at 0631, magnesium supplementation, For serum Mg++ less than 1.6 mg/dL Give 4 g and recheck magnesium level 2 hours after dose, and next AM. naloxone (NARCAN) injection 0.1-0.4 mg 0.1-0.4 mg, Intravenous, EVERY 2 MIN PRN , opioid reversal, Starting 10/28/18 at 0631, For respiratory rate LESS than or EQUAL to 8. Partial reversal dose: 0.1 mg titrated q 2 minutes for Analgesia Si de Effects Monitoring Sedation Level of 3 (frequently drowsy, arousable, drifts to sleep during conversation).Full reversal dose: 0.4 mg bolus for Analgesia Side Effects Monitoring Sedation Level of 4 ( somnolent, minimal or no response to sti mulation). For ordered IV doses 0.1-2mg give IVP. Give each 0.4mg over 15 seconds in emergency situations. For non- emergent situations further dilute in 9mL of NS to facilitate titration of response. ondansetron (ZOFRAN) injection 4 mg(Linked Group 2) (Given - Provider: Yovana Jaramillo RN) 0833 (See Alternative - Provider: Ángel Kirby, ILIANA) 4 mg, Intravenous, EVERY 6 HOURS PRN, na usea, vomiting, Administer over 2-5 Minutes, Starting 10/28/18 at 0631, This is Step 1 of nausea and vomiting management. If nausea not resolved in 15 minutes, go to Step 2 prochlorperazine (COMPAZIN E). Irritant. For ordered IV doses 0.1-4 mg, give IV Push undiluted over 2-5 minutes. ondansetron (ZOFRAN-ODT) ODT tab 4 mg(Linked Group 2) 0858 (See Alternative - Provider: Yovana Jaramillo RN) 0833 (Given - Provider: Kim Kirby RN) 4 mg, Oral, EVERY 6 HOURS PRN, nausea, v omiting, Starting 10/28/18 at 0631, This is Step 1 of nausea and vomiting management. If nausea not resolved in 15 minutes, go to Step 2 prochlorperazine (COMP AZINE). Do not push through foil backing . Peel back foil and gently remove. Place on tongue immediately. Administration with liquid unnecessary With dry hands, peel back foil backing and gently remove t ablet; do not push oral disintegrating t ablet through foil backing; administer immediately on tongue and oral disintegrating tablet dissolves in seconds; then swallow with saliva; liquid not required. potassium chloride (KLOR-CON) Packet 20-40 mEq 20-40 mEq, Oral or Feeding Tube, EVERY 2 HOURS PRN, Starting 10/28/18 at 0631, potassium supplementation, Use if unable to tolerate tablets. If Serum K+ 3.0-3.3, dose = 60 mEq po total dose (40 mEq x 1 followed in 2 hours by 20 mEq x1). Rec heck K+ level 4 hours after dose and the next AM. If Serum K+ 2.5-2.9, dose = 80 mEq po total dose (40 mEq Q2H x2). Recheck K+ level 4 hours after dose and the ne xt AM. If Serum K+ less than 2.5, See IV order. Dissolve packet contents in 4-8 ounces of cold water or juice. potassium chloride 10 mEq in 100 mL intermittent infusion wi th 10 mg lidocaine 10 mEq, Intravenous, Administer over 1 H ours, EVERY 1 HOUR PRN, Starting 10/28/18 at 0631, potassium supplementation, Infuse via PERIPHERAL LINE. Use potassium with lidocaine for pain with peripheral administration. If Serum K+ 3.0-3.3, do se = 10 mEq/hr x4 doses (40 mEq IV total dose). Recheck K+ level 2 hours after dose and the next AM. If Serum K+ less than 3.0, dose = 10 mEq/hr x6 doses (60 mEq IV total dose). Recheck K+ level 2 hours after dose and the next AM. potassium chloride 10 mEq in 100 mL ster ile water intermittent infusion (premix) 10 mEq, Intravenous, Administer over 60 Minutes, EVERY 1 HOUR PRN, Starting 10/28/18 at 0631, potassium supplementation, Infuse via PERIPHERAL LINE or CENTRAL LINE. Use for central line replacement i f patient weight less than 65 kg, if pat ient is on TPN with high potassium content or if unit does not stock 20 mEq bags. If Serum K+ 3.0-3.3, dose = 10 mEq/hr x4 doses (40 mEq IV total dose). Recheck K + level 2 hours after dose and the next AM. If Serum K+ less than 3.0, dose = 10 mEq/hr x6 doses (60 mEq IV total dose). Recheck K+ level 2 hours after dose and the next AM. potassium chloride 20 mEq in 50 mL intermittent infusion 20 mEq, Intravenous, EVERY 1 HOUR PRN, S tarting [place] 10/28/18 at 0631, potassium supplementation, Infuse via CENTRAL LINE Only. May need EKG if less than 65 kg or on TPN - Max rate is 0.3 mEq/kg/hr for pa tients not on EKG monitoring. If Serum K + 3.0-3.3, dose = 20 mEq/hr x2 doses (40 mEq IV total dose). Recheck K+ level 2 hours after dose and the next AM. If Serum K+ less than 3.0, dose = 20 mEq/hr x3 d oses (60 mEq IV total dose). Recheck K+ level 2 hours after dose and the next AM. potassium chloride ER (K-DUR/KLOR-CON M) CR tablet 20-40 mEq 20-40 mEq, Oral, EVERY 2 HOURS PRN, Star ting 10/28/18 at 0631, potassium supplementation, Use if able to take PO. If Serum K+ 3.0-3.3, dose = 60 mEq po total dose (40 mEq x1 followed in 2 hours by 20 mEq x1). Recheck K+ level 4 hours after dose and the next AM. If Serum K+ 2.5- 2.9, dose = 80 mEq po total dose (40 mEq Q2H x2). Recheck K+ level 4 hours after dose and the next AM. If Serum K+ less than 2.5, See IV order. DO NOT CRUSH prochlorperazine (COMPAZINE) injection 10 mg(Linked Group 3) 1202 (Given - Provider: Kim Kirby RN) 10 mg, Intravenous, EVERY 6 HOURS PRN, n ausea, vomiting, Administer over 1-2 Minutes, Starting 10/28/18 at 0631, This is Step 2 of nausea and vomiting management. Give if nausea not resolved 15 minut es after giving ondansetron (ZOFRAN). If nausea not resolved in 15 minutes, go to Step 3 metoclopramide (REGLAN), if ordered. For ordered IV doses 0.1-10 mg, give IV Push undiluted. Each 5mg over 1 minute. prochlorperazine (COMPAZINE) Suppository 25 mg(Linked Group 3) 1202 (See Alternative - Provider: Kim Kirby RN) 25 mg, Rectal, EVERY 12 HOURS PRN, nause a, vomiting, Starting 10/28/18 at 0631, This is Step 2 of nausea and vomiting management. Give if nausea not resolved 15 minutes after giving ondansetron (ZOFR AN). If nausea not resolved in 15 minute s, go to Step 3 metoclopramide (REGLAN), if ordered. prochlorperazine (COMPAZINE) tablet 10 mg(Linked Group 3) 1202 (See Alternative - Provider: Kim Kirby RN) 10 mg, Oral, EVERY 6 HOURS PRN, vomiting , Starting 10/28/18 at 0631, This is Step 2 of nausea and vomiting management. Give if nausea not resolved 15 minutes after giving ondansetron (ZOFRAN). If giovanny sea not resolved in 15 minutes, go to St ep 3 metoclopramide (REGLAN), if ordered. Linked Groups Order Group 1: acetaminophen (TYLENOL) tablet 650 mgJump to med 650 mg, Oral, EVERY 4 HOURS PRN, mild pa in, Starting Mon10/30/18 at 0216
Maximum acetaminophen dose from all sources = 75 mg/kg/day not to exceed 4 grams/day.
Or acetaminophen (TYLENOL) Suppository 650 mgJump to med 650 mg, Rectal, EVERY 4 HOURS PRN, mild pain, Starting Tu10/30/18 at 0216
Maximum acetaminophen dose from all sources = 75 mg/kg/day not to exceed 4 grams/day.
Group 2: ondansetron (ZOFRAN-ODT) ODT tab 4 mgJump to med 4 mg, Oral, EVERY 6 HOURS PRN, nausea, v omiting, Starting 10/28/18 at 0631
This is Step 1 of nausea and vomiting management. If nausea not resolved in 15 minutes, go to St ep 2 prochlorperazine (COMPAZINE). Do no t push through foil backing. Peel back foil and gently remove. Place on tongue immediately. Administration with liquid unnecessary With dry hands, peel b ack foil backing and gently remove table t; do not push oral disintegrating tablet through foil backing; administer immediately on tongue and oral disintegrating tablet dissolves in seconds; then swallow with saliva; liquid not required.
Or ondansetron (ZOFRAN) injection 4 mgJump to med 4 mg, Intravenous, EVERY 6 HOURS PRN, na usea, vomiting, Administer over 2-5 Minutes, Starting 10/28/18 at 0631
This is Step 1 of nausea and vomiting management. If nausea not resolved in 15 minutes, go to Step 2 prochlorperazine (COMPAZINE). Irritant. For ordered IV doses 0.1-4 mg, give IV Push undiluted over 2-5 minutes.
Group 3: prochlorperazine (COMPAZINE) injection 10 mgJump to med 10 mg, Intravenous, EVERY 6 HOURS PRN, n ausea, vomiting, Administer over 1-2 Minutes, Starting 10/28/18 at 0631
This is Step 2 of nausea and vomiting management. Give if nausea not resolved 15 minutes after giving ondansetron (ZOF RAN). If nausea not resolved in 15 minutes, go to Step 3 metoclopramide (REGLAN), if ordered. For ordered IV doses 0.1-10 mg, give IV Push undiluted. Each 5mg over 1 minute.
Or prochlorperazine (COMPAZINE) tablet 10 mgJump to med 10 mg, Oral, EVERY 6 HOURS PRN, vomiting , Starting 10/28/18 at 0631
This is Step 2 of nausea and vomiting management. Give if nausea not resolved 15 minutes after giving ondansetron (ZOFRAN) . If nausea not resolved in 15 jacob anu, go to Step 3 metoclopramide (REGLAN), if ordered.
Or prochlorperazine (COMPAZINE) Suppository 25 mgJump to med 25 mg, Rectal, EVERY 12 HOURS PRN, nause a, vomiting, Starting 10/28/18 at 0631
This is Step 2 of nausea and vomiting management. Give if nausea not resolved 15 minutes after giving ondansetr on (ZOFRAN). If nausea not resolved in 15 minutes, go to Step 3 metoclopramide (REGLAN), if ordered.
documented in this encounter Care Teams Tool Salvage Worker Relationship Specialty Start Date End Date No Ref-Primary, Physician PCP - General 10/28/18 12/12/21 documented as of this encounter
--- OUTSIDE RECORDS SUMMARY | 2022-02-03 09:19 | XMS_ITS | Encounter Summary ---
:1975 Author Organization [place] Address [address] [facility] [address] Care Team Providers Name Role Phone No Ref-Primary, Physician Primary Care Provider [phone] Reason for Visit Reason Onset Date Comments Clinic Care Coordination - Post Hospital 11/01/2018 Post discharge phone call Encounter Details Date Type Department Care Team Description 11/01/2018 Telephone [facility] Kyleigh Romero C linic Care Coordination Clinic [place] RN - Post Hospital (Post [address] [facility] discharge phone call) [facility] [address] [place] [id number] Social History Tobacco Use Types Packs/Day Years [...] on file documented as of this encounter Miscellaneous Notes Telephone Encounter - Kyleigh Romero RN - 11/06/2018 1:11 PM CDT Third and final attempt at trying to contact pt, but again, no answer and no VM available. Will close this encounter. Rossana Romero RN. Telephone Encounter - Kyleigh Romero RN - 11/02/2018 4:22 PM CDT Second attempt at trying to reach pt, and again, no answer. VM left to return my phone call. Paper Machine Backtender's and scheduling phone numbers provided. Rossana Romero RN. Telephone Encounter - Kyleigh Romero RN - 11/01/2018 9:18 AM CDT Patient was evaluated by cardiology while inpatient for SOB and fatigue with junctional bradycardia rates 30-40's, in presence of polysubstance abuse. PMH: SSS, PAF, bradycardia. Longest pause this admission was 2.9 seconds, and hr in the 40's with improved symptoms prior to discharge. Attempted to call patient to discuss any post hospital d/c questions she may have, review medication changes, and confirm f/u appts, but no answer. VM left to return my phone call. RN will confirm with patient that she needs to schedule EP MD f/u OV, with 24 hr Holter monitor and exercise stress test prior, to monitor for chronotropic incompetence. Rossana Romero RN. documented in this encounter Plan of Treatment Not on filedocumented as of this encounter Visit Diagnoses Not on filedocumented in this encounter Care Teams Manager Sap Relationship Specialty Start Date End Date No Ref-Primary, Physician PCP - General 10/28/18 12/12/21 documented as of this encounter
--- OUTSIDE RECORDS SUMMARY | 2022-02-03 09:19 | XMS_ITS | Encounter Summary ---
:1975 Author Organization [place] Address [facility] [place] [address] Care Team Providers Name Role Phone No Ref-Primary, Physician Primary Care Provider [phone] No Ref-Primary, Physician Unavailable [phone] Encounter Details Date Type Department Care Team Description 12/13/2021 Travel Social History Tobacco Use Types Packs/Day Years Used Date Never Assessed Sex Assigned at Date Recorded Not on file COVID-19 Exposure Response Date Recorded In the last 10 days, have you been in contact with No / Unsu re 12/13/2021 6:53 AM CDT someone who was confirmed or suspected to have Coronavirus/COVID-19? documented as of this encounter Plan of Treatment Not on filedocumented as of this encounter Visit Diagnoses Not on filedocumented in this encounter Care Teams Railway Engineer Relationship Specialty Start Date End Date No Ref-Primary, Physician PCP - General 12/13/21 No Ref-Primary, Physician 12/13/21 documented as of this encounter
--- OUTSIDE RECORDS SUMMARY | 2022-02-03 09:19 | XMS_ITS | Encounter Summary ---
:1975 Author Organization [place] Address [facility] [facility] [place] [address] Care Team Providers Name Role Phone No Ref-Primary, Physician Primary Care Provider [phone] Encounter Details Date Type Department Care [...] Procedure Name Priority Date/Time Associated Comments Diagnosis US OB < 14 WEEKS Routine 04/29/2007 12:00 AM Resu lts for this EACH ADDITIONAL DIVER PUMPER procedure ar e in GESTATION the results section. US OB > 14 WEEKS Routine 04/29/2007 12:00 AM Resu lts for this DIVER PUMPER procedure are i n the results section. documented in this encounter Results US OB < 14 Weeks Each Additional Gestation (04/29/2007 12:00 AM DIVER PUMPER) Anatomical Region Laterality Modality Abdomen/Pelvis Other Specimen (Source) Anatomical Location Collection Method / Collectio n Time Received Time / Laterality Volume Narrative 04/29/2007 12:00 AM DIVER PUMPER See Historical Hospital Medical Record f or documentation Procedure Note Provider, Historical - 10/12/2020Formatt ing of this note might be different from the original. See Historical Hospital Medical Record f or documentation Historical Provider IMG US ORDERABLES US OB > 14 Weeks (04/29/2007 12:00 AM DIVER PUMPER) Anatomical Region Laterality Modality Abdomen/Pelvis Other Specimen (Source) Anatomical Location Collection Method / Collectio n Time Received Time / Laterality Volume Narrative 04/29/2007 12:00 AM DIVER PUMPER See Historical Hospital Medical Record f or documentation Procedure Note Provider, Historical - 10/12/2020Formatt ing of this note might be different from the original. See Historical [facility] Medical Record f or documentation Historical Provider IMG US ORDERABLES documented in this encounter Visit Diagnoses Not on filedocumented in this encounter Care Teams Batch Mixing Truck Driver Relationship Specialty Start Date End Date No Ref-Primary, Physician PCP - General 10/28/18 12/12/21 documented as of this encounter
--- OUTSIDE RECORDS SUMMARY | 2022-02-03 09:19 | XMS_ITS | Encounter Summary ---
:1975 Author Organization [place] Address [facility] [place] [address] Care Team Providers Name Role Phone No Ref-Primary, Physician Primary Care Provider Encounter Details Date Type [...] Procedure Name Priority Date/Time Associated Comments Diagnosis XR HYSTEROSALPINGOGRAM Routine 02/13/2008 12:00 R esults for this AM CDT procedure are i n the results section. documented in this encounter Results XR Hysterosalpingogram (02/13/2008 12:00 AM CDT) Anatomical Region Laterality Modality Abdomen/Pelvis Other Specimen (Source) Anatomical Location Collection Method / Collectio n Time Received Time / Laterality Volume Narrative 02/13/2008 12:00 AM CDT See Historical Hospital Medical Record f or documentation Procedure Note Provider, Historical - 10/12/2020Formatt ing of this note might be different from the original. See Historical Hospital Medical Record f or documentation Historical Provider IMG DIAGNOSTIC IMAGING ORDER GEOVANNA documented in this encounter Visit Diagnoses Not on filedocumented in this encounter Care Teams Thermometer Maker Relationship Specialty Start Date End Date No Ref-Primary, Physician PCP - General 10/28/18 12/12/21 documented as of this encounter
--- OUTSIDE RECORDS SUMMARY | 2022-02-03 09:19 | XMS_ITS | Clinical Summary ---
:1975 Author Organization [place] Address [facility] [place] [address] Care Team Providers Name Role Phone No Ref-Primary, Physician Primary Care Provider [phone] No Ref-Primary, Physician Unavailable [phone] Allergies Active Allergy Reactions Severity Noted Date Comments Nsaids 12/13/2021 RNY surgery Ketorolac Tromethamine 12/13/2021 IV Medications Medication Sig Dispensed Refills Start Date End Date Status naltrexone Take 50 mg by 0 Activ e (DEPADE/REVIA) 50 MG mouth daily tablet buPROPion Take 75 mg by 0 Active (WELLBUTRIN) 75 MG mouth 2 times tablet daily In addition to naltrexone as alternative to Contrave. ferrous sulfate Take 325 mg by 0 Active (FEROSUL) 325 (65 Fe) mouth daily (with MG tablet breakfast) cyanocobalamin Inject 1 mL into 0 Active (CYANOCOBALAMIN) 1000 the muscle every MCG/ML injection 28 days eszopiclone (LUNESTA) Take 3 mg by 0 08/07/2018 Active 3 MG tablet mouth nightly as needed FLUoxetine (PROZAC) Take 40 mg by 0 08/07/2018 Active 40 MG capsule mouth daily QUEtiapine (SEROQUEL) Take 100 mg by 0 Active 25 MG tablet mouth daily Apixaban Starter Pack Take 10 mg by 1 each 0 12/13/20212 (ELIQUIS DVT/PE mouth 2 times STARTER PACK) 5 MG daily for 7 days, TBPK THEN 5 mg 2 times daily for 23 days. Active Problems Problem Noted Date Movement disorder 10/28/2018 Encounters Date Type Specialty Care Team Description 02/03/2022 Emergency EMERGENCY MEDICINE 12/13/2021 Emergency EMERGENCY MEDICINE Mariano Magaña Should er injury, left, initial encounter; MD Marvin Work related in [employer]; History of pulm onary embolism 12/13/2021 Travel from Last 3 Months Social History Tobacco Use Types Packs/Day Years [...] Sign Reading Time Taken Comments Blood Pressure 167/98 12/13/2021 6:56 AM CDT Pulse 51 12/13/2021 8:00 AM CDT Temperature 36.2 ??C (97.2 ??F) 12/13/2021 6:56 AM CDT Respiratory Rate 20 12/13/2021 6:56 AM CDT Oxygen Saturation 100% 12/13/2021 8:15 AM CDT Inhaled Oxygen Concentration - - Weight 85.8 kg (189 lb 1.6 oz) 10/30/2018 4:44 AM CDT Height 157.5 cm (5' 2) 10/28/2018 6:43 AM CDT Body Mass Index 34.59 10/28/2018 6:43 AM CDT Plan of Treatment Health Maintenance Due Date Last Done Comments ADVANCE CARE PLANNING 1975 ANNUAL REVIEW OF HM ORDERS 1975 CT COLONOGRAPHY 1973 FIT-DNA (Cologuard) 1975 FIT 1975 FLEX SIG 1975 MAMMO SCREENING 1975 PREVENTIVE CARE VISIT 1973 COVID-19 Vaccine (#1) 01/29/1974 08/08/2020, 07/09/2020 COLONOSCOPY 07/30/1983 COLORECTAL CANCER SCREENING 07/30/1983 HIV SCREENING 1988 HEPATITIS C SCREENING 07/30/1991 PAP 1994 DTAP/TDAP/TD IMMUNIZATION 1998 12/19/2017, 06/04/2017 , (1 - Tdap) 05/15/2007 LIPID 2018 PHQ-2 (once per calendar 05/15/2021 year) INFLUENZA VACCINE (#1) 2022 06/22/2020, 03/28/2019, 04/14/2017, Additional history exists HEPATITIS B IMMUNIZATION Aged Out 10/03/2016, 04/26/2006, No longer eligible 05/05/2004 based on patient 's age to complete this topic IPV IMMUNIZATION Aged Out No longer eligi ble based on patient 's age to complete this topic MENINGITIS IMMUNIZATION Aged Out No longe r eligible based on patient 's age to complete this topic Pneumococcal Vaccine: Aged Out No longer eligible Pediatrics (0 to 5 Years) based on patient's age and At-Risk Patients (6 to to co mplete this topic 64 Years) Procedures Procedure Name Priority Date/Time Associated Diagnosis Comme nts XR SHOULDER LEFT STAT 12/13/2021 7:45 AM Resul ts for this G/E 3 VIEWS CDT procedure are i n the results section. XR CHEST 2 VIEWS STAT 12/13/2021 7:45 AM Resul ts for this CDT procedure are i n the results section. from Last 3 Months Results XR Shoulder Left G/E 3 Views (12/13/2021 7:45 AM CDT) Anatomical Region Laterality Modality Shoulder, Left Shoulder Left Digital Radiogra phy Specimen (Source) Anatomical Location Collection Method / Collectio n Time Received Time / Laterality Volume Impressions 12/13/2021 7:59 AM CDT IMPRESSION: ??Mild cystic resorptive changes are seen in the superolateral humeral head. Otherwise ne gative left shoulder x-rays. No evidence for fracture, malalignment, or AC joint injury. YULI DURAN MD Narrative 12/13/2021 7:59 AM CDT LEFT SHOULDER THREE OR MORE VIEWS ?? 12/13/2021 7:45 AM HISTORY: Left shoulder pain after fall. COMPARISON: Chest x-rays from same day. FINDINGS: ?? There is no fracture. ??The humeral head is well located within the glenoid fossa. ??Glenohumeral , acromioclavicular, and coracoclavicular spaces are well maintai alexis. ??Visualized portions of the adjacent lung are clear. Subtle cyst ic resorptive changes are seen in the superolateral humeral head. Procedure Note Yuli Duran MD - 12/13/2021Form atting of this note might be different from the original. LEFT SHOULDER THREE OR MORE VIEWS 12/14/19 7:45 AM HISTORY: Left shoulder pain after fall. COMPARISON: Chest x-rays from same day. FINDINGS: There is no fracture. The leno ral head is well located within the glenoid fossa. Glenohumeral, acromioclavicular, and coracoclavicular spaces are well maintai alexis. Visualized portions of the adjacent lung are clear. Subtle cyst ic resorptive changes are seen in the superolateral humeral head. IMPRESSION: Mild cystic resorptive manzanares es are seen in the superolateral humeral head. Otherwise ne gative left shoulder x-rays. No evidence for fracture, malalignment, or AC joint injury. YULI DURAN MD Mariano Magaña MD IMG DIAGNOSTIC IMAGING ORDER GEOVANNA XR Chest 2 Views (12/13/2021 7:45 AM CDT) Anatomical Region Laterality Modality Chest Digital Radiography Specimen (Source) Anatomical Location Collection Method / Collectio n Time Received Time / Laterality Volume Impressions 12/13/2021 7:57 AM CDT IMPRESSION: PA and lateral views of the chest were obtained. Cardiomediastinal silhouette is within n ormal limits. No suspicious focal pulmonary opacities. No significan t pleural effusion or pneumothorax. Multiple surgical clips in the left upper quadrant. MARIFER PAIZ MD Narrative 12/13/2021 7:57 AM CDT CHEST TWO VIEWS ??12/13/2021 7:45 AM HISTORY: Chest pain. COMPARISON: None available. Procedure Note Marifer Paiz MD - 12/13/2021Forma tting of this note might be different from the original. CHEST TWO VIEWS 12/13/2021 7:45 AM HISTORY: Chest pain. COMPARISON: None available. IMPRESSION: PA and lateral views of the chest were obtained. Cardiomediastinal silhouette is within n ormal limits. No suspicious focal pulmonary opacities. No significan t pleural effusion or pneumothorax. Multiple surgical clips in the left upper quadrant. MARIFER PAIZ MD Mariano Magaña MD IMG DIAGNOSTIC IMAGING ORDER GEOVANNA from Last 3 Months Insurance Payer Benefit Plan / Subscriber ID Effective Phone Address T ype Group Dates PREFERREDONE PREFERREDONE HMO [id number] 2021-Pres [phone] [place] [address] BC[place] OF [place] [id number] 2017-Pres [phone] [address] Indemnity [id number] [place] [address] [phone] (Home) [place] [address] [facility] 1975 [phone] (Home) [place] [address] Advance Directives For more information, please contact: [phone] Latest Code Status on File Code Status Date Activated Date Inactivated Comments Full Code 10/30/2018 11:03 AM 02/03/2022 6:47 AM Code status determined by: Discussion with patient/legal dec ision maker Full Code 10/28/2018 6:31 AM 10/30/2018 11:03 AM Code status determined by: Discussion with patient/legal dec ision maker Care Teams Outpatient Phlebotomist Relationship Specialty Start Date End Date No Ref-Primary, Physician PCP - General 12/13/21 No Ref-Primary, Physician 12/13/21
--- OUTSIDE RECORDS SUMMARY | 2022-02-03 09:19 | XMS_ITS | Encounter Summary ---
:1975 Author Organization [place] Address [facility] [place] [address] Care Team Providers Name Role Phone No Ref-Primary, Physician Primary Care Provider [phone] No Ref-Primary, Physician Unavailable [phone] Reason for Referral Consultation (Routine: Next available opening) - Pending Review Specialty Diagnoses / Procedures Referred By Contact Refer red To Contact Diagnoses Shoulder injury, left, initial encounter History of pulmonary embolism Mariano Magaña MD [facility] [address] [place] [address] [address] [place] [address] Phone: Fax: Referral ID Status Reason Start Date Expiration Date Visits V isits Requested Authorized [id number] Pending 12/13/2021 12/13/2022 1 1 Review Reason for Visit Reason Comments Shoulder Pain Encounter Details Date Type Department Care Team Description 12/13/[address] [facility] Mariano Magaña [place] injury, left, initial encounter; [facility] Emergency Dep t Work related injury; [address] [facility] [place] [address] [address] [phone] [address]ANG [phone] (Wo rk) Social History Tobacco Use Types Packs/Day Years Used Date Never Assessed Sex Assigned at Date Recorded Not on file COVID-19 Exposure Response Date Recorded In the last 10 days, have you been in contact with No / Unsu re 12/13/2021 6:53 AM CDT someone who was confirmed or suspected to have Coronavirus/COVID-19? documented as of this encounter Last Filed [...] Index - - documented in this encounter Discharge Instructions Discharge InstructionsMariano Magaña MD - 12/13/2021 8:16 AM CDT Discharge Instructions Extremity Injury You were seen today for an injury to an extremity (arm, hand, leg, or foot). You may have a bruise, strain, or fracture (broken bone). Generally, every Emergency Department visit should have a follow-up clinic visit with either a primary or a specialty clinic/provider. Please follow-up as instructed by your emergency provider today. Return to the Emergency Department right away if: Your pain seems to change or get worse or there is pain in a new area that wasn???t evaluated today. Your extremity becomes pale, cool, blue, or numb or tingling past the injury. You have more drainage, redness or pain in the area of the cut or abrasion. You have pain that you cannot control with the medicine recommended or prescribed here, or you have pain that seems too much for your injury. Your child (who is injured) will not stop crying or is much more fussy than normal. You have new symptoms or anything that worries you. What to Expect: Your swelling and pain may be worse the day after your injury, but should not be severe and should start getting better after that. You should not have new symptoms and your pain should not get worse. You may start to get a bruise over the injured area or below the injured area (bruising can follow gravity). Your movement and strength should get better with time. Some injuries may not show up until after you have left the Emergency Department so it is important to follow-up as directed. Your injury may prevent you from working. Follow-up with your regular provider to get a work releasenote. Pain medications or your injury may make it unsafe to drive or operate machinery. Home Care: RICE: Rest, Ice, Compression, Elevation Rest: Rest your injured area for at least 1-2 days. After that you may start using your extremity again as long as there is not too much pain. Ice: Apply ice your injured area for 15 minutes at a time, at least 3 times a day. Use a cloth between the ice bag and your skin to prevent frostbite. Do not sleep with an ice pack or heating pad on, since this can cause saladna or skin injury. Compression: You may use an elastic bandage (Sundeep?? Wrap) if it makes you more comfortable. Wrap it just tight enough to provide light compression, like a new pair of socks feels. Loosen the bandage if you have swelling past the bandage. Elevation: Raise the injured area above the level of your heart as much as possible in the first 1-2days. Use Tylenol?? (acetaminophen), Motrin (ibuprofen), or Advil?? (ibuprofen) for your pain unless you have an allergy or are told not to use these medications by your provider. Take the medications as instructed on the package. Tylenol?? (acetaminophen) is in many prescription medicines and non-prescription medicines--check all of your medicines to be sure you aren???t taking more than 3000 mg per day. Please follow any other instructions that were discussed with you by your provider. Stretching/Exercises: You may have been provided with instructions for stretching or exercises. If your injury was to your arm or shoulder and your provider put you in a sling or an immobilizer, it is important that you take off your immobilizer within 3 days and stretch/move your shoulder, unless your provider specifically tells you to not move your shoulder. This is to prevent further injury such as a ???frozen shoulder?? . If you were given a prescription for medicine here today, be sure to read all of the information (including the package insert) that comes with your prescription. This will include important information about the medicine, its side effects, and any warnings that you need to know about. The pharmacist who fills the prescription can provide more information and answer questions you may have about the medicine. If you have questions or concerns that the pharmacist cannot address, please call or return to the Emergency Department. Remember that you can always come back to the Emergency Department if you are not able to see your regular provider in the amount of time listed above, if you get any new symptoms, or if there is anything that worries you. documented in this encounter Medications at Time of Discharge Medication Sig Dispensed Refills Start Date End Date buPROPion (WELLBUTRIN) Take 75 mg by mouth 2 0 75 MG tablet times daily In addition to naltrexone as alternative to Contrave. cyanocobalamin Inject 1 mL into the 0 (CYANOCOBALAMIN) 1000 muscle every 28 days MCG/ML injection eszopiclone (LUNESTA) 3 Take 3 mg by mouth 0 07/14 MG tablet nightly as needed ferrous sulfate Take 325 mg by mouth 0 (FEROSUL) 325 (65 Fe) MG daily (with tablet breakfast) FLUoxetine (PROZAC) 40 Take 40 mg by mouth 0 07/14 MG capsule daily naltrexone Take 50 mg by mouth 0 (DEPADE/REVIA) 50 MG daily tablet QUEtiapine (SEROQUEL) 25 Take 100 mg by mouth 0 MG tablet daily Apixaban Starter Pack Take 10 mg by mouth 2 1 each 0 05/202101/12/2022 (ELIQUIS DVT/PE STARTER times daily for 7 PACK) 5 MG TBPK days, THEN 5 mg 2 times daily for 23 days. documented as of this encounter ED Notes Bharti Nelson RN - 12/13/2021 8:16 AM CDT Pt reports that she will get a ride home from someone due to pain medications given in the ED Deysi Segura RN - 12/13/2021 6:58 AM CDT Pt arrives to ED with bilateral shoulder pain, L>R. Pt states she caught someone at work and has been having pain since. Incidents happened around 1500. Tylenol last night, none this morning. Per pt, she also needs a CXR because her provider told her to get checked out d/t hx PEs and PNA 8 weeks ago. Mariano Magaña MD - 12/13/2021 6:53 AM CDT History Chief Complaint: Shoulder Pain The history is provided by the patient. Pallavi Lazaro is a 46 year old female with history of pulmonary embolism, paroxysmal atrialfibrillation, and bowel perforation who presents with bilateral shoulder pain after getting injured at work. 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 She did not fallduring this event. Since the incident occurred she took Tylenol yesterday and applied Lidocaine patches this morning before arrival, with no resolution.The patient states that the left shoulder is at a10/10 on a pain scale with other pain to her left-sided chest and scapula. She reports a full rangeof motion of her left arm and describes her right shoulder as less painful. She has experienced similar pain when she experienced a bowel perforation, and is experiencing constant pain since the incident occurred which has prompted the patients concern and their presentation to the ED today. Notably,the patient reports having a recent history of pneumonia approximately 9 weeks ago at which point a chest x-ray was obtained and she was advised to follow up in 7-8 weeks with completion of her antibiotics. She has persistent productive cough but has denied any recent fever or associated symptoms. Shehas other history of pulmonary embolism last year at which point she was placed on Eliquis, however she is currently not anti-coagulated. Review of Systems Constitutional: Negative for fever. Respiratory: Positive for cough. Cardiovascular: Positive for chest pain (left-sided radiating from chest). Musculoskeletal: Positive for myalgias (bilateral shoulders, L>R). Neurological: Negative for syncope. All other systems reviewed and are negative. Allergies: NSAIDS Toradol [Ketorolac Tromethamine] Medications: Prozac Lunesta Seroquel Wellbutrin Ferosul Cyanocobalamin Naltrexone Past Medical History: Paroxysmal atrial fibrillation Acute gastric ulcer with perforation Alcohol abuse Anxiety Myoclonic jerks, troxidone Sinus bradycardia, SSS MDD ADHD Elevated CK Hypokalemia Hypernatremia Chronic anemia Pulmonary embolism Past Surgical History: EEG Social History: The patient presents to the ED alone Occupation: works in [employer] Physical Exam Patient Vitals for the past 24 hrs: BP Temp Temp src Pulse Resp SpO2 12/13/21 0815 -- -- -- -- -- 100 % 12/13/21 0800 -- -- -- 51 -- 99 % 12/13/21 0656 (!) 167/98 97.2 ??F (36.2 ??C) Temporal (!) 40 20 100 % Physical Exam Constitutional: Alert, attentive, GCS 15 HENT: Nose: Nose normal. Mouth/Throat: Oropharynx is clear, mucous membranes are moist Eyes: EOM are normal. CV: regular rate and rhythm; no murmurs, rubs or gallups. 2+ radial and ulnar pulses to the bilateral upper extremities Chest: Effort normal and breath sounds normal. GI: There is no tenderness. No distension. Normal bowel sounds Neurological: 5/5 strength to the radian, ulnar and median motor distributions; sensation intact to light touch to the radian, ulnar and median distributions MSK: Normal inspection to the left shoulder, normal ROM; vague anterior shoulder tenderness; no erythema, warmth, or deformity Skin: Skin is warm and dry. Emergency Department Course Imaging: XR Shoulder Left G/E 3 Views Final Result IMPRESSION: Mild cystic resorptive changes are seen in the superolateral humeral head. Otherwise negative left shoulder x-rays. No evidence for fracture, malalignment, or AC joint injury. YULI DURAN MD XR Chest 2 Views Final Result IMPRESSION: PA and lateral views of the chest were obtained. Cardiomediastinal silhouette is within normal limits. No suspicious focal pulmonary opacities. No significant pleural effusion or pneumothorax. Multiple surgical clips in the left upper quadrant. MARIFER PAIZ MD Report per radiology Emergency Department Course: Reviewed: I reviewed nursing notes, vitals and past medical history. Assessments: 705 I obtained history and examined the patient as noted above. 07 I rechecked the patient and explained findings. 0811 I rechecked the patient and explained findings. 0817 I rechecked the patient and explained findings. I believe that the patient is safe for discharge at this time. Interventions: 0758 Roxicodone 5 mg PO Disposition: The patient was discharged to home. Impression & Plan Medical Decision Making: This is a pleasant 46-year-old female who presents for evaluation of work- related injury manifestingas left shoulder left anterior chest wall pain after the above described event. Suspect rotator cuffstrain versus other musculoskeletal injury. Fortunately, x-rays of the left shoulder and chest are unremarkable. Of note, no residual findings are present on chest x-ray after recent pneumonia. Symptoms are not consistent with PE or ACS. Regarding PE, the patient does have a history of VTE and should be on Eliquis, so I have prescribed this for her. Emphasized Tylenol, ice, rest and orthopedic follow-up if shoulder symptoms or not improving (she is allergic to NSAIDs). Return precautions for worse pain, weakness, or any other concerns. Diagnosis: ICD-10-CM 1. Shoulder injury, left, initial encounter S49.92XA Primary Care Referral 2. Work related injury Y99.0 3. History of pulmonary embolism Z86.711 Primary Care Referral Discharge Medications: Discharge Medication List as of 12/13/2021 8:22 AM START taking these medications Details Apixaban Starter Pack (ELIQUIS DVT/PE STARTER PACK) 5 MG TBPK Take 10 mg by mouth 2 times daily for 7 days, THEN 5 mg 2 times daily for 23 days., Disp-1 each, R-0, E-Prescribe Scribe Disclosure: Kristine Martinez, am serving as a scribe at 7:01 AM on 12/13/2021 to document services personally performed by Mariano Magaña MD based on my observations and the provider's statements to me. Scribe Disclosure: I, Shilpi Alexismukesh, am serving as a scribe at 7:01 AM on 12/13/2021 to document services personally performed by Mariano Magaña MD based on my observations and the provider's statements to me. Mariano Magaña MD 12/13/21 0858 documented in this encounter Plan of Treatment Scheduled Referrals Name Type Priority Associated Diagnoses Order S [facility] Primary Care Referral Routine: Next Shoulder injury, Expected: Referral available opening left, initial encounter (Approximate), History of pulmonary Expires : embolism 12/13/2022 documented as of this encounter Procedures Procedure Name Priority Date/Time Associated Diagnosis Comme nts XR SHOULDER LEFT STAT 12/13/2021 7:45 AM Resul ts for this G/E 3 VIEWS CDT procedure are i n the results section. XR CHEST 2 VIEWS STAT 12/13/2021 7:45 AM Resul ts for this CDT procedure are i n the results section. documented in this encounter Results XR Shoulder Left G/E 3 Views [...] Magaña MD IMG DIAGNOSTIC IMAGING ORDER GEOVANNA documented in this encounter Visit Diagnoses Diagnosis Shoulder injury, left, initial encounter Work related injury Injury, other and unspecified, unspecifi ed site History of pulmonary embolism Personal history of pulmonary embolism documented in this encounter Administered Medications Inactive Administered Medications - up to 3 most recent administrations Medication Order MAR Action Action Date Dose Rate Site oxyCODONE (ROXICODONE) tablet 5 mg Given 12/13/2021 7:58 AM CDT 5 mg 5 mg, Oral, ONCE, On Mon12/13/21 at 0755, For 1 dose documented in this encounter Active and Recently Administered Medications Times are shown in CDT. Scheduled Medication Order 12/11/2021 12/12/2021 12/13/2021 oxyCODONE (ROXICODONE) tablet 5 mg (COMPLETED) 0758 (Given - Provider: Bharti Nelson RN) 5 mg, Oral, ONCE, On Mon12/13/21 at 0755, For 1 dose documented in this encounter Care Teams Life Guard Relationship Specialty Start Date End Date No Ref-Primary, Physician PCP - General 12/13/21 No Ref-Primary, Physician 12/13/21 documented as of this encounter
[2022-02-03 09:27] LABS: Chloride* 104 mmol/L (96-114); Sodium* 139 mmol/L (135-149)
[2022-02-03 09:28] LABS: Potassium* 4.1 mmol/L (3.6-5.1)
[2022-02-03 09:30] VITALS: BP 149/88; PULSE 51; O2SAT 98
[2022-02-03 09:30] LABS: Carbon Dioxide* 28 mmol/L (20-32); Creatinine* 0.7 mg/dL (0.5-1.5); Est. Creatinine Clearance* 95.58; Estimated Glomerular Filt Rate 107 ml/min
[2022-02-03 09:31] LABS: Blood Urea Nitrogen* 8 mg/dL (5-24); Calcium* 8.6 mg/dL (8.4-10.6); Creatine Kinase* 77 U/L (41-117); Glucose* 102 mg/dL (60-115)
[2022-02-03 09:49] LABS: Troponin I* < 0.01 ng/mL (0.01-0.04)
[2022-02-03 10:00] VITALS: BP 149/89; PULSE 50; RESP 18; O2SAT 97
== END 2022-02-03 10:10 | disposition home or self-care (01) ==
PROVIDERS: Emergency Provider Student in an Organized Health Care Education/Training Program
DX: M25.512 Pain in left shoulder (principal); M25.511 Pain in right shoulder
CPT/HCPCS: 36415; 71046; 80048; 82550; 84484; 85025; 93005; 96372; 99283; J1885; J3360